=== PATIENT | male | born 1970 | race Caucasian/White ===

== ENCOUNTER 2017-01-08 11:53 | Emergency (ER) | payer MEDICARE, OTHER ==
[2017-01-08] MEDS ORDERED: SODIUM CHLORIDE 0.9% 1,000 ML IV STA (12:30)
[2017-01-08] MEDS ORDERED: cloNIDine HCL 0.2 MG TAB PO STA (12:31)
--- NOTE | 2017-01-08 12:40 | ED ---
Recheck HPI - General Chief Complaint: Recheck/Abnormal Lab/Rx Stated Complaint: HYPERTENSION Time Seen by Provider: 01/08/17 12:09 Source: patient, RN notes reviewed, old records reviewed Mode of arrival: wheelchair Limitations: no limitations - History of Present Illness Initial Comments: 46-year-old male presents emergency Department chief complaint of hypertensive episode today while at his orthopedic doctor's office. Patient reports swelling to his blood pressure was 156/124. Patient reports that he is relatively healthy and never has had a history of high blood pressure. He reports that he was being seen for his left for a follow-up appointment. Patient reports he does have a mild headache. Denies any recent fever or chills. Denies any chest pain or shortness of breath or peripheral paresthesias. He reports that his vision has been normal. Patient denies any recent fever, chills, shortness of breath, chest pain, back pain, abdominal pain , nausea vomiting, numbness or tingling, dysuria or hematuria, constipation or diarrhea, headaches or visual changes, or any other current symptoms - Related Data Home Medications Medication Instructions Recorded Confirmed Omeprazole [PriLOSEC] 40 mg PO AC-BRKFST 11/16/14 01/08/17 Previous Rx's Medication Instructions Recorded amLODIPine [Norvasc] 5 mg PO DAILY #14 tab 01/08/17 Allergies Allergy/AdvReac Type Severity Reaction Status Date / Time ciprofloxacin [From Cipro] Allergy Rash/Hives Verified 01/08/17 12:35 ciprofloxacin HCl Allergy Rash/Hives Verified 01/08/17 12:35 [From Cipro] coconut Allergy Unknown Verified 01/08/17 12:35 ibuprofen [From Motrin] Allergy Itching Verified 01/08/17 12:35 kiwi Allergy Unknown Verified 01/08/17 12:35 Review of Systems ROS Statement: Those systems with pertinent positive or pertinent negative responses have been documented in the HPI. ROS Other: All systems not noted in ROS Statement are negative. Past Medical History Additional Past Medical History / Comment(s): back pain History of Any Multi-Drug Resistant Organisms: None Reported Additional Past Surgical History / Comment(s): back surg, knee surgery Past Psychological History: No Psychological Hx Reported Smoking Status: Former smoker Past Alcohol Use History: Occasional Past Drug Use History: None Reported General Exam - General Exam Comments Initial Comments: 46-year-old male. Patient is pleasant. No acute distress. Limitations: no limitations General appearance: alert, in no apparent distress Head exam: Present: atraumatic, normocephalic, normal inspection Eye exam: Present: normal appearance, PERRL, EOMI. Absent: scleral icterus, conjunctival injection, periorbital swelling ENT exam: Present: normal exam, normal oropharynx, mucous membranes moist Neck exam: Present: normal inspection. Absent: tenderness, meningismus, lymphadenopathy Respiratory exam: Present: normal lung sounds bilaterally. Absent: respiratory distress, wheezes, rales, rhonchi, stridor Cardiovascular Exam: Present: regular rate, normal rhythm, normal heart sounds. Absent: systolic murmur, diastolic murmur, rubs, gallop, clicks GI/Abdominal exam: Present: soft, normal bowel sounds. Absent: distended, tenderness, guarding, rebound, rigid Extremities exam: Present: normal inspection, full ROM, normal capillary refill. Absent: tenderness, pedal edema, joint swelling, calf tenderness Back exam: Present: normal inspection Neurological exam: Present: alert, oriented X3, CN II-XII intact Psychiatric exam: Present: normal affect, normal mood Skin exam: Present: warm, dry, intact, normal color. Absent: rash Course Vital Signs 01/08/17 01/08/17 01/08/17 12:00 13:37 14:31 Temperature 98.6 F Pulse Rate 89 102 H Respiratory 17 20 Rate Blood Pressure 163/110 140/86 131/83 O2 Sat by Pulse 99 99 Oximetry Medical Decision Making - Medical Decision Making 46-year-old male presents emergency Department chief complaint of hypertensive episode today while at his orthopedic doctor's office. Patient reports swelling to his blood pressure was 156/124. Patient reports that he is relatively healthy and never has had a history of high blood pressure. He reports that he was being seen for his left for a follow-up appointment. Patient reports he does have a mild headache. Denies any recent fever or chills. Denies any chest pain or shortness of breath or peripheral paresthesias. No meningismus or neck pain. He reports that his vision has been normal. Patient's lab work was reviewed and negative for any acute process. Chest x-ray shows mild right-sided atelectasis or infiltrate and to correlate clinically. He has no cough or fever. Patient CT brain was also reviewed and negative. Patient does report still mild headache remaining a 5 out of 10. Patient will be given Toradol and Benadryl for the migraine. Patient reports that he has had toradol before and has had no problem with this , including hives. Patient understands treatment plan will comply. Discussed with the patient on low dose of Norvasc for blood pressure and to follow-up with his primary care provider. Patient patient history plan will comply. Return parameters were discussed. - Lab Data Result diagrams: 01/08/17 13:26 01/08/17 13:26 Lab Results 01/08/17 01/08/17 01/08/17 Range/Units 13:26 13:26 13:26 WBC 5.8 (3.8-10.6) k/uL RBC 5.42 (4.30-5.90) m/uL Hgb 17.0 (13.0-17.5) gm/dL Hct 47.9 (39.0-53.0) % MCV 88.4 (80.0-100.0) fL MCH 31.4 (25.0-35.0) pg MCHC 35.5 (31.0-37.0) g/dL RDW 13.3 (11.5-15.5) % Plt Count 148 L (150-450) k/uL Neutrophils % 58 % Lymphocytes % 29 % Monocytes % 8 % Eosinophils % 2 % Basophils % 1 % Neutrophils # 3.4 (1.3-7.7) k/uL Lymphocytes # 1.7 (1.0-4.8) k/uL Monocytes # 0.4 (0-1.0) k/uL Eosinophils # 0.1 (0-0.7) k/uL Basophils # 0.1 (0-0.2) k/uL PT (9.0-12.0) sec INR (<1.1) APTT (22.0-30.0) sec Sodium 140 (137-145) mmol/L Potassium 4.2 (3.5-5.1) mmol/L Chloride 106 (98-107) mmol/L Carbon Dioxide 23 (22-30) mmol/L Anion Gap 11 mmol/L BUN 12 (9-20) mg/dL Creatinine 0.92 (0.66-1.25) mg/dL Est GFR (MDRD) Af Amer >60 (>60 ml/min/1.73 sqM) Est GFR (MDRD) Non-Af >60 (>60 ml/min/1.73 sqM) Glucose 101 H (74-99) mg/dL Calcium 9.8 (8.4-10.2) mg/dL Magnesium 1.6 (1.6-2.3) mg/dL Total Bilirubin 0.9 (0.2-1.3) mg/dL AST 68 H (17-59) U/L ALT 93 H (21-72) U/L Alkaline Phosphatase 74 (38-126) U/L Total Creatine Kinase 106 (55-170) U/L CK-MB (CK-2) 0.9 (0.0-2.4) ng/mL CK-MB (CK-2) Rel Index 0.8 Troponin I <0.012 (0.000-0.034) ng/mL Total Protein 7.3 (6.3-8.2) g/dL Albumin 4.2 (3.5-5.0) g/dL 01/08/17 Range/Units 13:26 WBC (3.8-10.6) k/uL RBC (4.30-5.90) m/uL Hgb (13.0-17.5) gm/dL Hct (39.0-53.0) % MCV (80.0-100.0) fL MCH (25.0-35.0) pg MCHC (31.0-37.0) g/dL RDW (11.5-15.5) % Plt Count (150-450) k/uL Neutrophils % % Lymphocytes % % Monocytes % % Eosinophils % % Basophils % % Neutrophils # (1.3-7.7) k/uL Lymphocytes # (1.0-4.8) k/uL Monocytes # (0-1.0) k/uL Eosinophils # (0-0.7) k/uL Basophils # (0-0.2) k/uL PT 12.1 H (9.0-12.0) sec INR 1.2 (<1.1) APTT 24.1 (22.0-30.0) sec Sodium (137-145) mmol/L Potassium (3.5-5.1) mmol/L Chloride (98-107) mmol/L Carbon Dioxide (22-30) mmol/L Anion Gap mmol/L BUN (9-20) mg/dL Creatinine (0.66-1.25) mg/dL Est GFR (MDRD) Af Amer (>60 ml/min/1.73 sqM) Est GFR (MDRD) Non-Af (>60 ml/min/1.73 sqM) Glucose (74-99) mg/dL Calcium (8.4-10.2) mg/dL Magnesium (1.6-2.3) mg/dL Total Bilirubin (0.2-1.3) mg/dL AST (17-59) U/L ALT (21-72) U/L Alkaline Phosphatase (38-126) U/L Total Creatine Kinase (55-170) U/L CK-MB (CK-2) (0.0-2.4) ng/mL CK-MB (CK-2) Rel Index Troponin I (0.000-0.034) ng/mL Total Protein (6.3-8.2) g/dL Albumin (3.5-5.0) g/dL 01/08/17 12:40 EKG shows normal sinus rhythm. Incomplete right bundle brody block. Injury of 78 bpm. NV interval 134 ms. QRS duration 106 ms. QT QTC 370/4:[address] elevation or T-wave inversion. No evidence of atrial or ventricular arrhythmias. - Radiology Data Radiology results: report reviewed CT brain is negative for any acute process. Chest x-ray was reviewed and shows mild atelectasis. Disposition Clinical Impression: Hypertension, Headache Disposition: HOME SELF-CARE Condition: Good Instructions: Hypertension (ED) Additional Instructions: Patient is to follow-up with primary care provider. Patient can take Tylenol for further headaches. Patient advised to take the hypertensive medication and return to the emergency department if there is any alarming signs or symptoms occur. Prescriptions: amLODIPine [Norvasc] 5 mg PO DAILY #14 tab Referrals: None,Stated [Primary Care Provider] - 1-2 days Mayte John MD [STAFF PHYSICIAN] - 1-2 days Scott Marcial MD [STAFF PHYSICIAN] - 1-2 days Time of Disposition: 14:51
[2017-01-08 13:47] LABS: Basophils # (A) 0.1 k/uL (0-0.2); Basophils % (A) 1 %; CH 31.7; Eosinophils # (A) 0.1 k/uL (0-0.7); Eosinophils % (A) 2 %; HCT 47.9 % (39.0-53.0); HDW 2.66; Luc # (Auto) 0.14; Luc % (Auto) 2; Lymphocytes # (A) 1.7 k/uL (1.0-4.8); Lymphocytes % (A) 29 %; MCH 31.4 pg (25.0-35.0); MCHC 35.5 g/dL (31.0-37.0); MCV 88.4 fL (80.0-100.0); Mean Platelet Volume 7.5; Monocytes # (A) 0.4 k/uL (0-1.0); Monocytes % (A) 8 %; Neutrophils # (A) 3.4 k/uL (1.3-7.7); Neutrophils % (A) 58 %; RBC 5.42 m/uL (4.30-5.90); RDW 13.3 % (11.5-15.5); WBC 5.8 k/uL (3.8-10.6); WBC (Perox) 5.88
[2017-01-08 13:57] LABS: Partial Thromboplastin Time 24.1 sec (22.0-30.0)
[2017-01-08 13:59] LABS: INR 1.2 (<1.1); Prothrombin Time 12.1 sec (9.0-12.0)
--- NOTE | 2017-01-08 14:01 | XR ---
EXAMINATION TYPE: XR chest 2V DATE OF EXAM: 01/08/2017 COMPARISON: 08/24/2009 TECHNIQUE: PA and lateral views submitted. HISTORY: Chest pain FINDINGS: There are subsegmental right perihilar consolidation. No pleural effusion or pneumothorax. Left lung clear. Heart size is normal. IMPRESSION: 1. Right perihilar area of atelectasis or infiltrate correlate clinically.
[2017-01-08 14:07] LABS: ALT 93 U/L (21-72); AST 68 U/L (17-59); Alkaline Phosphatase 74 U/L (38-126); Anion Gap 11 mmol/L; Blood Urea Nitrogen 12 mg/dL (9-20); Calcium 9.8 mg/dL (8.4-10.2); Carbon Dioxide 23 mmol/L (22-30); Chloride 106 mmol/L (98-107); Glucose 101 mg/dL (74-99); Magnesium 1.6 mg/dL (1.6-2.3); Non-African American GFR(MDRD) >60 (>60 ml/min/1.73 sqM); Potassium 4.2 mmol/L (3.5-5.1); Sodium 140 mmol/L (137-145); Total Bilirubin 0.9 mg/dL (0.2-1.3); Total Protein 7.3 g/dL (6.3-8.2)
[2017-01-08 14:24] LABS: Creatine Kinase 106 U/L (55-170)
--- NOTE | 2017-01-08 14:31 | CT ---
EXAMINATION TYPE: CT brain wo con DATE OF EXAM: 01/08/2017 COMPARISON: Prior CT brain 06/15/2012 HISTORY: JIMENEZ and HTN CT DLP: 1017.9 mGycm. Automated Exposure Control for Dose Reduction was Utilized. TECHNIQUE: CT scan of the head is performed without contrast. FINDINGS: There is no acute intracranial hemorrhage, mass effect, or midline shift identified. The ventricles and sulci are within normal limits in size. The globes are intact and the visualized sin uses are clear. IMPRESSION: No acute intracranial hemorrhage, mass effect, or midline shift is seen.
[2017-01-08 14:37] LABS: Creatine Kinase MB 0.9 ng/mL (0.0-2.4); Troponin I <0.012 ng/mL (0.000-0.034)
[2017-01-08] MEDS ORDERED: diphenhydrAMINE 50 MG/ML 1 ML VIAL IVP STA (14:44)
[2017-01-08] MEDS ORDERED: KETOROLAC 30 MG/ML 1 ML VIAL IVP STA (14:44)
[2017-01-08 15:00] VITALS: BP 119/81; PULSE 67; RESP 18; TEMP 97.7
== END 2017-01-08 15:15 | disposition home or self-care (01) ==
LOC: EC 11:53
DX: I10 Essential (primary) hypertension (principal); R51 Headache; I45.10 Unspecified right bundle-branch block; Z87.891 Personal history of nicotine dependence; Z79.899 Other long term (current) drug therapy; Z88.1 Allergy status to other antibiotic agents; Z88.6 Allergy status to analgesic agent; Z91.018 Allergy to other foods
CPT/HCPCS: 36415; 93005; 80053; 82550; 82553; 83735; 84484; 85025; 85610; 85730; 71020; 70450; 99284; 96374; 96375; 96361; J1200; J1885

== ENCOUNTER 2017-01-09 11:07 | Emergency (ER) | payer MEDICARE, OTHER ==
[2017-01-09] MEDS ORDERED: ACETAMINOPHEN TAB 500 MG TAB PO STA (11:42)
[2017-01-09 12:38] VITALS: RESP 18
--- NOTE | 2017-01-09 13:01 | ED ---
General Adult HPI - General Chief complaint: Recheck/Abnormal Lab/Rx Stated complaint: blood pressure-revisit Time Seen by Provider: 01/09/17 11:31 Source: patient, RN notes reviewed, old records reviewed Mode of arrival: wheelchair Limitations: no limitations - History of Present Illness Initial comments: This is a 46 year old male for a revisit for HTN. He reports he took the prescribed norvasc today but noticed that his blood pressure was elevated to 180 /100 when getting up to let the dog out.Patient reports that he took it prior to then and it was normal 120/85. Patient states that when he stood up he got a headache and felt strange and took his blood pressure. Patient denies any other symptoms at this time besides a mild headache, 5/10. Patient received full work up yesterday including CT brain, blood work and EKG which were all negative. - Related Data Home Medications Medication Instructions Recorded Confirmed Omeprazole [PriLOSEC] 40 mg PO AC-BRKFST 11/16/14 01/09/17 Previous Rx's Medication Instructions Recorded amLODIPine [Norvasc] 5 mg PO DAILY #14 tab 01/08/17 Allergies Allergy/AdvReac Type Severity Reaction Status Date / Time ciprofloxacin [From Cipro] Allergy Rash/Hives Verified 01/09/17 11:26 ciprofloxacin HCl Allergy Rash/Hives Verified 01/09/17 11:26 [From Cipro] coconut Allergy Unknown Verified 01/09/17 11:26 ibuprofen [From Motrin] Allergy Itching Verified 01/09/17 11:26 kiwi Allergy Unknown Verified 01/09/17 11:26 Review of Systems ROS Statement: Those systems with pertinent positive or pertinent negative responses have been documented in the HPI. ROS Other: All systems not noted in ROS Statement are negative. Past Medical History Past Medical History: Hypertension Additional Past Medical History / Comment(s): back pain History of Any Multi-Drug Resistant Organisms: None Reported Additional Past Surgical History / Comment(s): back surg, knee surgery Past Psychological History: No Psychological Hx Reported Smoking Status: Former smoker Past Alcohol Use History: Daily Past Drug Use History: None Reported General Exam - General Exam Comments Initial Comments: 46 year old male, no distress. Limitations: no limitations General appearance: alert, in no apparent distress Head exam: Present: atraumatic, normocephalic, normal inspection Eye exam: Present: normal appearance, PERRL, EOMI. Absent: scleral icterus, conjunctival injection, periorbital swelling ENT exam: Present: normal exam, mucous membranes moist Neck exam: Present: normal inspection. Absent: tenderness, meningismus, lymphadenopathy Respiratory exam: Present: normal lung sounds bilaterally. Absent: respiratory distress, wheezes, rales, rhonchi, stridor Cardiovascular Exam: Present: regular rate, normal rhythm, normal heart sounds. Absent: systolic murmur, diastolic murmur, rubs, gallop, clicks GI/Abdominal exam: Present: soft, normal bowel sounds. Absent: distended, tenderness, guarding, rebound, rigid Extremities exam: Present: normal inspection, full ROM, normal capillary refill. Absent: tenderness, pedal edema, joint swelling, calf tenderness Back exam: Present: normal inspection Neurological exam: Present: alert, oriented X3, CN II-XII intact Psychiatric exam: Present: normal affect, normal mood Course Vital Signs 01/09/17 01/09/17 01/09/17 11:09 12:00 12:37 Temperature 98.0 F 98.4 F Pulse Rate 103 H 70 Pulse Rate [ 84 Sitting] Pulse Rate [ 87 Standing] Pulse Rate [ 72 Supine] Respiratory 20 18 Rate Blood Pressure 167/106 133/82 Blood Pressure 143/71 [Sitting] Blood Pressure 150/100 [Standing] Blood Pressure 130/91 [Supine] O2 Sat by Pulse 99 97 Oximetry 01/09/17 15:21 Temperature 98 F Pulse Rate 86 Pulse Rate [ Sitting] Pulse Rate [ Standing] Pulse Rate [ Supine] Respiratory 18 Rate Blood Pressure 143/94 Blood Pressure [Sitting] Blood Pressure [Standing] Blood Pressure [Supine] O2 Sat by Pulse 98 Oximetry Medical Decision Making - Medical Decision Making This is a 46 year old male for a revisit for HTN. He reports he took the prescribed norvasc today but noticed that his blood pressure was elevated to 180 /100 when getting up to let the dog out.Patient reports that he took it prior to then and it was normal 120/85. Patient states that when he stood up he got a headache and felt strange and took his blood pressure. Patient denies any other symptoms at this time besides a mild headache, 5/10. Patient received full work up yesterday including CT brain, blood work and EKG which were all negative. Patient orthostatic pressures were positive and increasing when standing up, whereas usually it would be opposite than usual vagal changes. Patient case discussed with Dr. Hansen, and he dischssed repeating lab work. Patient labs were negative. Discussed with Dr. Marin and he and I educated patient on following up with PCP for regards to BP management and to not stress over one BP measurement. Patient agrees to continue norvac and follow up with PCP. Return parameters discussed. - Lab Data Result diagrams: 01/09/17 13:21 01/09/17 13:21 Lab Results 01/09/17 01/09/17 01/09/17 Range/Units 13:21 13:21 13:21 WBC 7.2 (3.8-10.6) k/uL RBC 5.32 (4.30-5.90) m/uL Hgb 16.7 (13.0-17.5) gm/dL Hct 47.1 (39.0-53.0) % MCV 88.6 (80.0-100.0) fL MCH 31.5 (25.0-35.0) pg MCHC 35.5 (31.0-37.0) g/dL RDW 13.0 (11.5-15.5) % Plt Count 144 L (150-450) k/uL Neutrophils % 63 % Lymphocytes % 27 % Monocytes % 6 % Eosinophils % 2 % Basophils % 1 % Neutrophils # 4.6 (1.3-7.7) k/uL Lymphocytes # 1.9 (1.0-4.8) k/uL Monocytes # 0.4 (0-1.0) k/uL Eosinophils # 0.1 (0-0.7) k/uL Basophils # 0.0 (0-0.2) k/uL PT (9.0-12.0) sec INR (<1.1) APTT (22.0-30.0) sec D-Dimer (<0.60) mg/L FEU Sodium 139 (137-145) mmol/L Potassium 4.3 (3.5-5.1) mmol/L Chloride 105 (98-107) mmol/L Carbon Dioxide 24 (22-30) mmol/L Anion Gap 10 mmol/L BUN 14 (9-20) mg/dL Creatinine 1.00 (0.66-1.25) mg/dL Est GFR (MDRD) Af Amer >60 (>60 ml/min/1.73 sqM) Est GFR (MDRD) Non-Af >60 (>60 ml/min/1.73 sqM) Glucose 103 H (74-99) mg/dL Calcium 9.5 (8.4-10.2) mg/dL Magnesium 1.6 (1.6-2.3) mg/dL Total Bilirubin 0.9 (0.2-1.3) mg/dL AST 77 H (17-59) U/L ALT 100 H (21-72) U/L Alkaline Phosphatase 66 (38-126) U/L Total Creatine Kinase 75 (55-170) U/L CK-MB (CK-2) 0.7 (0.0-2.4) ng/mL CK-MB (CK-2) Rel Index 0.9 Troponin I <0.012 (0.000-0.034) ng/mL Total Protein 6.6 (6.3-8.2) g/dL Albumin 3.9 (3.5-5.0) g/dL 01/09/17 Range/Units 13:21 WBC (3.8-10.6) k/uL RBC (4.30-5.90) m/uL Hgb (13.0-17.5) gm/dL Hct (39.0-53.0) % MCV (80.0-100.0) fL MCH (25.0-35.0) pg MCHC (31.0-37.0) g/dL RDW (11.5-15.5) % Plt Count (150-450) k/uL Neutrophils % % Lymphocytes % % Monocytes % % Eosinophils % % Basophils % % Neutrophils # (1.3-7.7) k/uL Lymphocytes # (1.0-4.8) k/uL Monocytes # (0-1.0) k/uL Eosinophils # (0-0.7) k/uL Basophils # (0-0.2) k/uL PT 11.2 (9.0-12.0) sec INR 1.1 (<1.1) APTT 23.3 (22.0-30.0) sec D-Dimer 0.37 (<0.60) mg/L FEU Sodium (137-145) mmol/L Potassium (3.5-5.1) mmol/L Chloride (98-107) mmol/L Carbon Dioxide (22-30) mmol/L Anion Gap mmol/L BUN (9-20) mg/dL Creatinine (0.66-1.25) mg/dL Est GFR (MDRD) Af Amer (>60 ml/min/1.73 sqM) Est GFR (MDRD) Non-Af (>60 ml/min/1.73 sqM) Glucose (74-99) mg/dL Calcium (8.4-10.2) mg/dL Magnesium (1.6-2.3) mg/dL Total Bilirubin (0.2-1.3) mg/dL AST (17-59) U/L ALT (21-72) U/L Alkaline Phosphatase (38-126) U/L Total Creatine Kinase (55-170) U/L CK-MB (CK-2) (0.0-2.4) ng/mL CK-MB (CK-2) Rel Index Troponin I (0.000-0.034) ng/mL Total Protein (6.3-8.2) g/dL Albumin (3.5-5.0) g/dL 01/09/17 20:33 EKG shows normal sinus rhythm. Possible left atrial enlargement. Injury of 68 beats were minute. [place] interval 134 ms. QRS duration 104 ms. QT QTc is 400/ 425 ms. No evidence of ST elevation or T-wave inversion. No ventricular arrhythmias. Disposition Clinical Impression: Hypertension Disposition: HOME SELF-CARE Condition: Good Instructions: Hypertension (ED) Additional Instructions: Patient advised to take Tylenol and to rest whenever you're having a headache. Denies following up with a primary care provider or phlebotomy technologist if still concern. Continue to taking Norvasc. Return to the emergency department if any alarming signs or symptoms occur. Referrals: Mayte John MD [STAFF PHYSICIAN] - 1-2 days Time of Disposition: 13:00
[2017-01-09] MEDS ORDERED: SODIUM CHLORIDE 0.9% 1,000 ML IV STA (13:03)
[2017-01-09 13:39] LABS: Basophils % (A) 1 %; CH 31.7; CHCM 35.9; Eosinophils # (A) 0.1 k/uL (0-0.7); Eosinophils % (A) 2 %; HCT 47.1 % (39.0-53.0); HDW 2.66; HGB 16.7 gm/dL (13.0-17.5); Luc # (Auto) 0.14; Luc % (Auto) 2; Lymphocytes # (A) 1.9 k/uL (1.0-4.8); Lymphocytes % (A) 27 %; MCH 31.5 pg (25.0-35.0); MCHC 35.5 g/dL (31.0-37.0); MCV 88.6 fL (80.0-100.0); Mean Platelet Volume 7.8; Monocytes # (A) 0.4 k/uL (0-1.0); Monocytes % (A) 6 %; Neutrophils # (A) 4.6 k/uL (1.3-7.7); Neutrophils % (A) 63 %; RBC 5.32 m/uL (4.30-5.90); WBC 7.2 k/uL (3.8-10.6); WBC (Perox) 7.16
[2017-01-09 13:54] LABS: ALT 100 U/L (21-72); AST 77 U/L (17-59); Alkaline Phosphatase 66 U/L (38-126); Anion Gap 10 mmol/L; Blood Urea Nitrogen 14 mg/dL (9-20); Calcium 9.5 mg/dL (8.4-10.2); Carbon Dioxide 24 mmol/L (22-30); Chloride 105 mmol/L (98-107); Glucose 103 mg/dL (74-99); Magnesium 1.6 mg/dL (1.6-2.3); Non-African American GFR(MDRD) >60 (>60 ml/min/1.73 sqM); Potassium 4.3 mmol/L (3.5-5.1); Sodium 139 mmol/L (137-145); Total Bilirubin 0.9 mg/dL (0.2-1.3); Total Protein 6.6 g/dL (6.3-8.2)
[2017-01-09 13:58] LABS: INR 1.1 (<1.1); Partial Thromboplastin Time 23.3 sec (22.0-30.0); Prothrombin Time 11.2 sec (9.0-12.0)
[2017-01-09 14:09] LABS: Creatine Kinase 75 U/L (55-170)
[2017-01-09 14:21] LABS: Creatine Kinase MB 0.7 ng/mL (0.0-2.4); Troponin I <0.012 ng/mL (0.000-0.034)
[2017-01-09 15:22] VITALS: BP 143/94; PULSE 86; TEMP 98
== END 2017-01-09 15:21 | disposition home or self-care (01) ==
LOC: EC 11:07
DX: I10 Essential (primary) hypertension (principal); Z87.891 Personal history of nicotine dependence; Z88.1 Allergy status to other antibiotic agents; Z88.6 Allergy status to analgesic agent; Z91.018 Allergy to other foods; Z79.899 Other long term (current) drug therapy
CPT/HCPCS: 36415; 80053; 82550; 82553; 83735; 84484; 85025; 85379; 85610; 85730; 96360; 99284

== ENCOUNTER 2017-08-24 22:47 | Inpatient (IN) | payer MEDICARE, OTHER ==
[2017-08-24] MEDS ORDERED: ACETAMINOPHEN TAB 500 MG TAB PO STA (23:03)
[2017-08-24] MEDS ORDERED: VANCOMYCIN IV PER PHARMACY 1 EACH MISC MISCELLANE PRN (23:08)
[2017-08-24] MEDS ORDERED: SODIUM CHLORIDE 0.9% 1,000 ML IV STA (23:08)
[2017-08-24] MEDS ORDERED: KETOROLAC 30 MG/ML 1 ML VIAL IVP STA (23:11)
--- NOTE | 2017-08-24 23:14 | ED ---
General Adult HPI <Ar Marin - Last Filed: 08/25/17 01:04> - General Source: patient, RN notes reviewed Mode of arrival: ambulatory Limitations: no limitations <Melissa Johnson - Last Filed: 08/25/17 01:26> - General Chief complaint: Extremity Injury, Upper Stated complaint: Hand Swelling/Pin Time Seen by Provider: 08/24/17 22:54 - History of Present Illness Initial comments: This is a 47-year-old male who presents to the emergency department with chief complaint of left hand swelling and pain. Patient states that he was seen by Dr. Rob Howe on August 08 for a trigger release surgery of his left thumb. Patient states that 3 days later he was still in a lot of pain and he noticed redness of his entire hand. He presented to Dr. Howe's office and was prescribed a Medrol Dosepak and Bactrim. He was also given cortisone injections into the hand. Patient states that he had improvement in his symptoms and that approximately 6 days ago his hand was no longer painful or warm. He states that yesterday he had full function of his left hand. Patient states that he woke up this morning at approximately 5 AM and had excruciating pain in his left hand. He states that he is unable to flex or extend his fingers due to the pain. Patient also reports feeling chills. Denies shortness of breath or chest pain, abdominal pain, nausea or vomiting. (Melissa Johnson) - Related Data Home Medications Medication Instructions Recorded Confirmed Omeprazole [PriLOSEC] 40 mg PO DAILY 11/16/14 08/24/17 Allergies Allergy/AdvReac Type Severity Reaction Status Date / Time ciprofloxacin [From Cipro] Allergy Rash/Hives Verified 08/24/17 23:09 ciprofloxacin HCl Allergy Rash/Hives Verified 08/24/17 23:09 [From Cipro] coconut Allergy Unknown Verified 08/24/17 23:09 ibuprofen [From Motrin] Allergy Itching Verified 08/24/17 23:09 kiwi Allergy Unknown Verified 08/24/17 23:09 Review of Systems ROS Other: All systems not noted in ROS Statement are negative. <Ar Marin - Last Filed: 08/25/17 01:04> ROS Other: All systems not noted in ROS Statement are negative. <Melissa Johnson - Last Filed: 08/25/17 01:26> ROS Statement: Those systems with pertinent positive or pertinent negative responses have been documented in the HPI. Past Medical History Past Medical History: Hypertension Additional Past Medical History / Comment(s): back pain History of Any Multi-Drug Resistant Organisms: None Reported Additional Past Surgical History / Comment(s): back surg, knee surgery,trigger relase surger 08/08/17 Past Psychological History: No Psychological Hx Reported Smoking Status: Former smoker Past Alcohol Use History: Daily Past Drug Use History: None Reported <Melissa Johnson - Last Filed: 08/25/17 01:26> General Exam <Ar Marin - Last Filed: 08/25/17 01:04> Limitations: no limitations <Melissa Johnson - Last Filed: 08/25/17 01:26> - General Exam Comments Initial Comments: General: Awake and alert, well-developed; in no apparent distress. is at bedside. HEENT: Head atraumatic, normocephalic. Pupils are equal, round and reactive to light. Extraocular movements intact. Oropharynx moist without erythema or exudate. Neck: Supple. Normal ROM. Cardiovascular: Regular rate and rhythm. No murmurs, rubs or gallops. Chest symmetrical. Respiratory: Lungs clear to auscultation bilaterally. No wheezes, rales or rhonchi. Normal respiratory effort with no use of accessory muscles. Musculoskeletal: Limited active range of motion of all digits on the left hand due to pain. Digits 1 and 5 are warm, erythematous and swollen. Digits 2-4 are normal in appearance. There is tenderness on palpation of the entire left hand and wrist. Sensation is intact. Radial pulses are 2+ equal and palpable bilaterally. Incision site from previous trigger release surgery at base of left thumb does appear well-healed. Skin: [place], warm and dry. Neurological: Alert and oriented x3. CN II-XII grossly intact. Speech is fluent and answers are appropriate. No focal neuro deficits. Psychiatric: Normal mood and affect. No overt signs of depression or anxiety noted. (Melissa Johnson) Vital Signs 08/24/17 08/24/17 08/25/17 22:49 23:51 01:13 Temperature 100.1 F H 99.9 F H Pulse Rate 99 96 54 L Respiratory 18 18 18 Rate Blood Pressure 145/98 158/94 135/90 O2 Sat by Pulse 100 97 100 Oximetry Medical Decision Making - Lab Data Result diagrams: 08/24/17 23:32 08/24/17 23:32 <TaniaAr Micky - Last Filed: 08/25/17 01:04> - Lab Data Result diagrams: 08/24/17 23:32 08/24/17 23:32 - Radiology Data Radiology results: report reviewed <Melissa Johnson - Last Filed: 08/25/17 01:26> - Medical Decision Making Case discussed with Dr. Marino, patient will be admitted for IV antibiotics and orthopedic evaluation. There is concern for deep space infection in the hand with limited range of motion of all 5 digits, soft tissue swelling, and erythema. Patient does have elevated white blood cell count and elevated CRP. He will be continued on ceftriaxone and vancomycin. Blood cultures are pending. (Ar Marin) This is a 47-year-old male who presents to the emergency department for evaluation of left hand pain and swelling. Patient underwent a trigger release surgery of his left thumb on August 08. Since that time he has been struggling with pain, redness, swelling and decreased range of motion of his left hand. Patient was febrile on presentation to the emergency department. His left hand is markedly swollen, erythematous and tender. Patient is unable to fully extend or flex the digits on his left hand due to the pain. X-ray of the left hand revealed no evidence of gas or other acute abnormalities. Patient does have a white blood cell count of 13.3 with a left shift at 10.0. CRP is 24.1. Patient was started on broad-spectrum antibiotics, Rocephin and vancomycin.patient will be admitted to Dr. Rob Howe with diagnosis of left hand tenosynovitis. Rocephin and vancomycin will be continued. Patient is to apply warm compresses. Findings and plan were discussed with patient. He is in agreement and voices understanding. All questions answered. Blood cultures are pending. (Melissa Johnson) - Lab Data Lab Results 08/24/17 08/24/17 08/24/17 Range/Units 23:32 23:32 23:32 WBC 13.3 H (3.8-10.6) k/uL RBC 5.79 (4.30-5.90) m/uL Hgb 18.4 H (13.0-17.5) gm/dL Hct 53.6 H (39.0-53.0) % MCV 92.7 (80.0-100.0) fL MCH 31.8 (25.0-35.0) pg MCHC 34.3 (31.0-37.0) g/dL RDW 11.8 (11.5-15.5) % Plt Count 196 (150-450) k/uL Neutrophils % 75 % Lymphocytes % 16 % Monocytes % 6 % Eosinophils % 1 % Basophils % 1 % Neutrophils # 10.0 H (1.3-7.7) k/uL Lymphocytes # 2.2 (1.0-4.8) k/uL Monocytes # 0.8 (0-1.0) k/uL Eosinophils # 0.1 (0-0.7) k/uL Basophils # 0.1 (0-0.2) k/uL Sodium 137 (137-145) mmol/L Potassium 4.4 (3.5-5.1) mmol/L Chloride 98 (98-107) mmol/L Carbon Dioxide 24 (22-30) mmol/L Anion Gap 15 mmol/L BUN 15 (9-20) mg/dL Creatinine 1.00 (0.66-1.25) mg/dL Est GFR (MDRD) Af Amer >60 (>60 ml/min/1.73 sqM) Est GFR (MDRD) Non-Af >60 (>60 ml/min/1.73 sqM) Glucose 105 H (74-99) mg/dL Plasma Lactic Acid Rafi 1.9 (0.7-2.0) mmol/L Calcium 10.2 (8.4-10.2) mg/dL Total Bilirubin 0.7 (0.2-1.3) mg/dL AST 46 (17-59) U/L ALT 62 (21-72) U/L Alkaline Phosphatase 81 (38-126) U/L C-Reactive Protein 24.1 H (<10.0) mg/L Total Protein 8.3 H (6.3-8.2) g/dL Albumin 4.6 (3.5-5.0) g/dL - Radiology Data X-ray left hand findings: I see no fracture nor dislocation. Joint spaces are fairly normal. There are no erosions. Impression: Negative left hand exam. ( Melissa Johnson) Disposition <Ar Marin - Last Filed: 08/25/17 01:04> Time of Disposition: 01:26 <Melissa Johnson - Last Filed: 08/25/17 01:26> Clinical Impression: Tenosynovitis of left hand Disposition: ADMITTED IP TO THIS HOSP Condition: Stable Referrals: Gerardo Erwin MD [Primary Care Provider] - 1-2 days
[2017-08-24] MEDS ORDERED: cefTRIAXone IN SWFI 1,000 MG/10 ML SYRINGE IVP ONE (23:15)
[2017-08-24] MEDS ORDERED: VANCOMYCIN 1,500 MG in SODIUM CHLORIDE 0.9% 250 ML IVPB STA (23:26)
[2017-08-24] MEDS ORDERED: MORPHINE SULFATE 4 MG/ML SYRINGE IVP STA (23:41)
[2017-08-24 23:53] LABS: Basophils # (A) 0.1 k/uL (0-0.2); Basophils % (A) 1 %; Eosinophils # (A) 0.1 k/uL (0-0.7); Eosinophils % (A) 1 %; HCT 53.6 % (39.0-53.0); HGB 18.4 gm/dL (13.0-17.5); Lymphocytes # (A) 2.2 k/uL (1.0-4.8); Lymphocytes % (A) 16 %; MCH 31.8 pg (25.0-35.0); MCHC 34.3 g/dL (31.0-37.0); MCV 92.7 fL (80.0-100.0); Mean Platelet Volume 7.2; Monocytes # (A) 0.8 k/uL (0-1.0); Monocytes % (A) 6 %; Neutrophils % (A) 75 %; Platelet Count 196 k/uL (150-450); RBC 5.79 m/uL (4.30-5.90); RDW 11.8 % (11.5-15.5); WBC 13.3 k/uL (3.8-10.6)
[2017-08-25 00:07] LABS: ALT 62 U/L (21-72); AST 46 U/L (17-59); Albumin 4.6 g/dL (3.5-5.0); Alkaline Phosphatase 81 U/L (38-126); Anion Gap 15 mmol/L; Blood Urea Nitrogen 15 mg/dL (9-20); C Reactive Protein 24.1 mg/L (<10.0); Calcium 10.2 mg/dL (8.4-10.2); Carbon Dioxide 24 mmol/L (22-30); Chloride 98 mmol/L (98-107); Glucose 105 mg/dL (74-99); Potassium 4.4 mmol/L (3.5-5.1); Sodium 137 mmol/L (137-145); Total Bilirubin 0.7 mg/dL (0.2-1.3); Total Protein 8.3 g/dL (6.3-8.2)
--- NOTE | 2017-08-25 00:22 | XR ---
EXAMINATION TYPE: XR hand complete LT DATE OF EXAM: 08/24/2017 COMPARISON: NONE HISTORY: Left hand pain TECHNIQUE: 3 views FINDINGS: I see no fracture nor dislocation. Joint spaces are fairly normal. There are no erosions. IMPRESSION: Negative left hand exam.
[2017-08-25] MEDS ORDERED: ONDANSETRON 4 MG/2 ML VIAL IVP PRN (01:19)
[2017-08-25] MEDS ORDERED: ACETAMINOPHEN TAB 325 MG TAB PO PRN (01:19)
[2017-08-25] MEDS ORDERED: NALOXONE 0.4 MG/ML 1 ML VIAL IV PRN (01:19)
[2017-08-25] MEDS ORDERED: KETOROLAC 30 MG/ML 1 ML VIAL IVP PRN (01:19)
[2017-08-25] MEDS: SODIUM CHLORIDE 0.9% 1,000 ML IV SCH ×3 (01:52→21:24)
[2017-08-25] MEDS: MORPHINE SULFATE 4 MG/ML SYRINGE IV PRN ×4 (02:46→21:18)
[2017-08-25] MEDS: VANCOMYCIN 1,500 MG in SODIUM CHLORIDE 0.9% 250 ML IVPB SCH ×2 (08:18→20:41)
[2017-08-25] MEDS ORDERED: HYDROcodone/APAP 7.5-325MG 1 EACH TAB PO PRN (08:55)
--- NOTE | 2017-08-25 09:18 | P.HPOR ---
History of Present Illness H&P Date: 08/25/17 Chief Complaint: Left hand swelling and pain The patient is a 47-year-old male who is well-known to our office. He originally underwent a left trigger thumb release on 08/08/2017. The patient did well after surgery until he was seen on 08/14/2017 for increasing swelling to his left thumb and hand. There was a concern for compartment syndrome and he was sent for an MRA. The MRA was negative for vessel occlusion. He was prescribed Bactrim and Medrol at that time. He was also given a carpal tunnel injection. He was seen the next day on 08/15/2017 and he seemed to be improving at that time. Ar was then seen last week for increased swelling to his left little finger. He was given another cortisone injection. He seemed to be improving again until this past Friday. The patient noticed increased swelling and difficulty moving his fingers. He also had chills at home on Friday. He had to wait till his came home from work and he presented to the emergency department for further evaluation. He was found to have a low-grade fever at that time. He also had elevated white count and CRP. The patient was started on IV antibiotic therapy and admitted for further evaluation by orthopedic hand surgery. This morning, he states his hand has not improved since starting antibiotics. The patient's fingers are now swollen with limited range of motion. He denies fever, chills, rigors, shortness breath, chest pain, and abdominal pain this morning. He states that he is having numbness in the hand especially when he is lying down. Review of Systems Constitutional: Reports chills, Denies fever Cardiovascular: Denies chest pain, Denies shortness of breath Respiratory: Denies cough Gastrointestinal: Denies diarrhea, Denies nausea, Denies vomiting Musculoskeletal: left: hand pain, hand stiffness, hand swelling Past Medical History Past Medical History: Hypertension Additional Past Medical History / Comment(s): back pain History of Any Multi-Drug Resistant Organisms: None Reported Additional Past Surgical History / Comment(s): back surg, knee surgery,trigger relase surger 08/08/17 Past Anesthesia/Blood Transfusion Reactions: No Reported Reaction Past Psychological History: No Psychological Hx Reported Smoking Status: Former smoker Past Alcohol Use History: Daily Past Drug Use History: None Reported Medications and Allergies Home Medications Medication Instructions Recorded Confirmed Type Omeprazole [PriLOSEC] 40 mg PO DAILY 11/16/14 08/24/17 History Allergies Allergy/AdvReac Type Severity Reaction Status Date / Time ciprofloxacin [From Cipro] Allergy Rash/Hives Verified 08/24/17 23:09 ciprofloxacin HCl Allergy Rash/Hives Verified 08/24/17 23:09 [From Cipro] coconut Allergy Unknown Verified 08/24/17 23:09 ibuprofen [From Motrin] Allergy Itching Verified 08/24/17 23:09 kiwi Allergy Unknown Verified 08/24/17 23:09 Physical Examination The patient is a 47-year-old male who is in no acute distress. He is alert and oriented 3. Exam of the left hand reveals swelling and mild erythema to the palmar aspect of the hand. No open wounds are present. He has limited range of motion to all of his fingers and thumb. There is pain to palpation to the thenar muscle compartment and the left little finger. There is swelling to the volar wrist as well. No fluctuance or abscess present. There is no proximal red streaking present. Numbness and tingling is present to all fingers. Circulatory status is intact. Results - Labs Labs: Abnormal Lab Results - Last 24 Hours (Table) 08/24/17 08/24/17 Range/Units 23:32 23:32 WBC 13.3 H (3.8-10.6) k/uL Hgb 18.4 H (13.0-17.5) gm/dL Hct 53.6 H (39.0-53.0) % Neutrophils # 10.0 H (1.3-7.7) k/uL Glucose 105 H (74-99) mg/dL C-Reactive Protein 24.1 H (<10.0) mg/L Total Protein 8.3 H (6.3-8.2) g/dL H & H 08/24/17 Range/Units 23:32 Hgb 18.4 H (13.0-17.5) gm/dL Hct 53.6 H (39.0-53.0) % Result Diagrams: 08/24/17 23:32 08/24/17 23:32 - Diagnostic results Wrist/Hand x-ray: image reviewed (No acute fractures, deformities, or arthritic changes present.) Assessment and Plan (1) Tenosynovitis of left hand Current Visit: Yes Status: Acute Code(s): M65.9 - SYNOVITIS AND TENOSYNOVITIS, UNSPECIFIED SNOMED Code(s): 8131737513034461 (2) Swelling of left hand Current Visit: Yes Status: Acute Code(s): M79.89 - OTHER SPECIFIED SOFT TISSUE DISORDERS SNOMED Code(s): 163686983 Plan: The clinical findings were discussed with the patient. The case was also discussed with Dr. Rob Howe. Continue IV antibiotics. We will add IV Solu-Medrol. Consult infectious disease, Dr. Fontenot for further evaluation. We will obtain a left hand MRI to rule out fluid collection or abscess in the deep compartments of the hand. An I&D may be needed if he does not improve in the next 24 hours and pending MRI results. He may eat today. Continue pain control. Elevate left hand above heart. We will continue to follow patient closely and make further recommendations as needed.
[2017-08-25] MEDS: PANTOPRAZOLE 40 MG TABLET PO SCH (09:40)
[2017-08-25] MEDS: methylPREDNISolone SOD SUCCI 125 MG/2 ML VIAL IV SCH ×3 (09:40→18:24)
[2017-08-25] MEDS: HYDROcodone/APAP 7.5-325MG 1 EACH TAB PO PRN ×2 (14:18→20:00)
--- NOTE | 2017-08-25 18:59 | MR ---
EXAMINATION TYPE: MR hand LT wo/w con DATE OF EXAM: 08/25/2017 COMPARISON: NONE HISTORY: Lt thumb swelling, limited movement, possible infection; S/P surgery for trigger finger 2 we eks ago CONTRAST: Standard multiplanar, multisequence MRI departmental protocol utilizing 10 mL intravenous Gadavist ga dolinium contrast. FINDINGS: There is abnormal fluid surrounding the flexor tendons of the wrist at the level of the dis israel radius and also at the proximal metacarpals. There is some apparent mild enhancement around the f lexor tendon of the thumb. There is also less enhancement around the other flexor tendons of the fing ers. I see no focal bone destruction. There is a mild wrist joint effusion. The carpal bones are inta ct. There is no evidence of a fracture. Intercarpal joint spaces are fairly normal. Metacarpals have normal signal pattern without evidence of edema. The extensor tendons of the wrist appear intact. I d o not see a tendon tear. There is no retraction. IMPRESSION: There is moderate fluid around the flexor tendons of the hand and wrist consistent with significant t enosynovitis. There is also enhancement around the tendons and more around the flexor tendon of the t humb that raises the possibility of infection. No evidence of osteomyelitis. Mild wrist joint effusion with fluid seen around the scaphoid bone. This is consistent with nonspecif ic synovitis.
[2017-08-25] MEDS: cefTRIAXone IN SWFI 1,000 MG/10 ML SYRINGE IVP SCH (23:16)
--- NOTE | 2017-08-26 00:03 | P.CONS ---
History of Present Illness - Reason for Consult Consult date: 08/25/17 - Chief Complaint Pain of left hand - History of Present Illness Very pleasant 47-year-old male presents to Hospital because of increasing pain and swelling and tenderness and decreased use of his left hand. The patient relates that he had developed some significant discomfort in the left hand as well as a trigger finger to his thumb. He underwent injection therapy did not improve. Because "he underwent a surgical repair of the trigger finger. Post operatively he developed some swelling and did receive some local therapy that included some cortisone injections in some oral antibiotic therapy. Despite multiple injections he now presents with significant pain and swelling erythema and disuse of his hand due to the significant pain and swelling. He constantly was admitted and infectious diseases consultation was requested. At the time of call a consult vancomycin therapy was added to his Rocephin given that he had had prior medical intervention. At this time the patient weight is feeling slightly better. He has received an intravenous dose of Solu-Medrol which is allowed some reduction in the amount of discomfort to the hand. Oral pain medication has also been very helpful. He feels like he's had a fever but no earl chills or rigors of occurred. He's never had difficulty like this in the past. He denies any specific trauma before the onset of the trigger finger. 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 Review of Systems HEENT:Denies headache or acute visual change. Denies sinus or mouth discomforts. Denies neck stiffness or pain. Denies significant oral cavity pain. Denies difficulty on swallowing. Lungs: Denies significant shortness of breath, cough, sputum production, or hemoptysis. Cardiovascular: Denies significant shortness of breath, chest pain, chest wall pain, orthopnea, dyspnea on exertion, syncope Gastrointestinal:Denies nausea, vomiting, diarrhea, constipation, hematemesis, melena, hematochezia. No no significant change of bowel habit noticed. Musculoskeletal: As per the HPI Skin: Denies new rash or lesions. No new ulcers or wounds are related.. Neuro: Denies headache or visual change. Denies any new onset weakness or difficulty with ambulation. Denies falls or seizures. Psychiatric:Denies anxiety or depression. Endocrine: Denies significant fatigue, denies significant weight loss or weight gain. Past Medical History Past Medical History: Hypertension Additional Past Medical History / Comment(s): back pain. Patient relates that from his work and his prior sports he has developed significant difficulties with his knees. The left knee required reconstruction type surgeries he did develop a compartment syndrome to the left calf that required incision and drainage. The right knee was injured with a circular saw the required extensive surgical repair years ago. History of Any Multi-Drug Resistant Organisms: None Reported Additional Past Surgical History / Comment(s): back surg, knee surgery,trigger relase surger 08/08/17 Past Anesthesia/Blood Transfusion Reactions: No Reported Reaction Past Psychological History: No Psychological Hx Reported Additional Psychological History / Comment(s): and lives in the family home with his and 2 adult children, 3rd adult child occasionally lives with him still. No animals in the home. 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 No experience. No international travel. No tobacco smoker for more than 10 years. Does do some weight lifting but does not inject testosterone. Smoking Status: Former smoker Past Alcohol Use History: Daily Past Drug Use History: None Reported Medications and Allergies Home Medications and Allergies Comment(s): Current Medications Acetaminophen (Tylenol Tab) 650 mg PO Q6HR PRN PRN Reason: Mild Pain or Fever > 100.5 Hydrocodone Bitart/Acetaminophen ([place] 7.5-325) 1 each PO Q4H PRN PRN Reason: Pain Scale 1 to 5 Hydrocodone Bitart/Acetaminophen ([place] 7.5-325) 2 each PO Q6H PRN PRN Reason: Pain Scale 6 to 10 Last Admin: 08/25/17 20:00 Dose: 2 each Ceftriaxone Sodium (Rocephin) 1,000 mg IVP HS [facility] Last Admin: 08/25/17 23:16 Dose: 1,000 mg Sodium Chloride (Saline 0.9%) 1,000 mls @ 100 mls/hr IV .Q10H [facility] Last Admin: 08/25/17 21:24 Dose: 100 mls/hr Vancomycin HCl 1,500 mg/ (Sodium Chloride) 250 mls @ 125 mls/hr IVPB Q12H [facility] Last Admin: 08/25/17 20:41 Dose: 125 mls/hr Ketorolac Tromethamine (Toradol) 30 mg IVP Q6HR [facility] Stop: 08/29/17 19:38 Methylprednisolone Sodium Succinate (Solu-Medrol) 60 mg IV Q6HR [facility] Last Admin: 08/25/17 18:24 Dose: 60 mg Miscellaneous Information (Vancomycin Trough Due) 0 each MISCELLANE DIRECTED ONE Stop: 08/26/17 07:01 Morphine Sulfate (Morphine Sulfate (Inj)) 4 mg IV Q4HR PRN PRN Reason: Severe Pain Last Admin: 08/25/17 21:18 Dose: 4 mg Naloxone HCl (Narcan) 0.2 mg IV Q2M PRN PRN Reason: Opioid Reversal Ondansetron HCl (Zofran) 4 mg IVP Q8HR PRN PRN Reason: Nausea And Vomiting Pantoprazole Sodium (Protonix) 40 mg PO -BRKFST [facility] Last Admin: 08/25/17 09:40 Dose: 40 mg Home Medications Medication Instructions Recorded Confirmed Type Omeprazole [PriLOSEC] 40 mg PO DAILY 11/16/14 08/24/17 History Allergies Allergy/AdvReac Type Severity Reaction Status Date / Time ciprofloxacin [From Cipro] Allergy Rash/Hives Verified 08/24/17 23:09 ciprofloxacin HCl Allergy Rash/Hives Verified 08/24/17 23:09 [From Cipro] coconut Allergy Unknown Verified 08/24/17 23:09 ibuprofen [From Motrin] Allergy Itching Verified 08/24/17 23:09 kiwi Allergy Unknown Verified 08/24/17 23:09 Physical Exam Vitals: Vital Signs Temp Pulse Pulse Resp BP BP Pulse Ox 08/25/17 19:56 98 F 97 20 124/85 97 08/25/17 14:56 98.4 F 79 16 117/71 96 08/25/17 07:00 97.8 F 87 16 127/79 95 08/25/17 02:10 98.7 F 83 17 132/85 98 08/25/17 01:58 98.9 F 80 18 128/77 100 08/25/17 01:13 99.9 F H 54 L 18 135/90 100 08/24/17 23:51 96 18 158/94 97 Intake and Output 08/25/17 08/25/17 08/26/17 14:59 22:59 06:59 Intake Total 1280 Balance 1280 Intake: Intake, IV Titration 800 Amount Sodium Chloride 0.9% 1, 800 000 ml @ 100 mls/hr IV . Q10H [facility] Rx#:[id number] Oral 480 Other: # Voids 1 3 Pleasant 47-year-old male of a muscular build HEENT: Anicteric conjunctiva are pink and moist nasal mucosa grossly intact without significant lesions, there is no thrush. Neck: The neck is supple without significant lymphadenopathy or thyromegaly. Lungs: Good bilateral air entry without significant crackles or wheezing. There is no significant bronchial sounds. There is no egophony or dullness. Heart: Regular rate and rhythm with an audible S1-S2, no S3 no S4. There is no significant murmur click or rub, PMI was nondisplaced. Abdomen: Positive bowel sounds soft and nontender without palpable masses or organomegaly. There was no guarding or rebound. Extremities: Right upper extremity without abnormalities. Left upper extremities evidence of the significant swelling erythema and tenderness to the left thumb and thenar eminence. There is significant decreased range of motion of the hand and tenderness to the wrist area. There is no significant epitrochlear or axillary lymphadenopathy. No other enlarged lymph nodes are seen. The lower extremities are without significant edema in the prior surgical interventions are well-healed in the bilateral lower extremities. Bilateral lower extremity cellulitis disease bilateral venous stasis ulcerations status post stroke fever leukocytosis history C. diff colitis psoriatic arthritis fracture right tibia pressure ulcers right leg that layer exposed leukocytosis cellulitis right leg Gurdeep synovitis left in cellulitis left hand pain left hand leukocytosis Neuro: Awake alert oriented to person place and time. There are no acute new gross focal sensory motor deficits. Results CBC & Chem 7: 08/24/17 23:32 08/24/17 23:32 Labs: Abnormal Lab Results - Last 24 Hours (Table) 08/24/17 08/24/17 Range/Units 23:32 23:32 WBC 13.3 H (3.8-10.6) k/uL Hgb 18.4 H (13.0-17.5) gm/dL Hct 53.6 H (39.0-53.0) % Neutrophils # 10.0 H (1.3-7.7) k/uL Glucose 105 H (74-99) mg/dL C-Reactive Protein 24.1 H (<10.0) mg/L Total Protein 8.3 H (6.3-8.2) g/dL Laboratory Results WBC 13.3 k/uL (3.8-10.6) H 08/24/17 23: RBC 5.79 m/uL (4.30-5.90) 08/24/17: Hgb 18.4 gm/dL (13.0-17.5) H 08/24/17: Hct 53.6 % (39.0-53.0) H 08/24/17: MCV 92.7 fL (80.0-100.0) 08/24/17: MCH 31.8 pg (25.0-35.0) 08/24/17: MCHC 34.3 g/dL (31.0-37.0) 08/24/17: RDW 11.8 % (11.5-15.5) 08/24/17: Plt Count 196 k/uL (150-450) 08/24/17: Neutrophils % 75 % 08/24/17: Lymphocytes % 16 % 08/24/17 23: Monocytes % 6 % 08/24/17: Eosinophils % 1 % 08/24/17: Basophils % 1 % 08/24/17: Neutrophils # 10.0 k/uL (1.3-7.7) H 08/24/17: Lymphocytes # 2.2 k/uL (1.0-4.8) 08/24/17: Monocytes # 0.8 k/uL (0-1.0) 08/24/17: Eosinophils # 0.1 k/uL (0-0.7) 08/24/17: Basophils # 0.1 k/uL (0-0.2) 08/24/17 23:32 Sodium 137 mmol/L (137-145) 08/24/17 23: Potassium 4.4 mmol/L (3.5-5.1) 08/24/17 23: Chloride 98 mmol/L (98-107) 08/24/17: Carbon Dioxide 24 mmol/L (22-30) 08/24/17: Anion Gap 15 mmol/L 08/24/17 23:32 BUN 15 mg/dL (9-20) 08/24/17 23:32 Creatinine 1.00 mg/dL (0.66-1.25) 08/24/17 23:32 Est GFR (MDRD) Af Amer >60 (>60 ml/min/1.73 sqM) 08/24/17 23:32 Est GFR (MDRD) Non-Af >60 (>60 ml/min/1.73 sqM) 08/24/17 23:32 Glucose 105 mg/dL (74-99) H 08/24/17 23:32 Plasma Lactic Acid Rfai 1.9 mmol/L (0.7-2.0) 08/24/17: Calcium 10.2 mg/dL (8.4-10.2) 08/24/17: Total Bilirubin 0.7 mg/dL (0.2-1.3) 08/24/17 23:32 AST 46 U/L (17-59) 08/24/17: ALT 62 U/L (21-72) 08/24/17: Alkaline Phosphatase 81 U/L (38-126) 08/24/17:32 C-Reactive Protein 24.1 mg/L (<10.0) H 08/24/17: Total Protein 8.3 g/dL (6.3-8.2) H 08/24/17: Albumin 4.6 g/dL (3.5-5.0) 08/24/17 23:32 Assessment and Plan (1) Tenosynovitis of left hand Narrative/Plan: 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 Trigger finger was found and underwent intervention. After surgery he had developed: Erythema and tenderness to the hand. Underwent further intervention and steroid injections. Despite this the hands continue to swell and at the day of admission was having severe discomfort erythema warmth fever and difficulty with closing the hand. Because of these difficulties and was admitted. Infectious disease consultation requested regarding the antibiotic therapy for the significant infection and what appears to be tenosynovitis. MRI is been requested and patient likely will require surgical drainage of the tendon sheath infections. Antibiotic therapy enhance of vancomycin in addition to the Rocephin while cultures are pending. Toradol was added for some further pain control. Elevation and icing may be helpful. Will monitor throughout his stay and helped develop outpatient intravenous antibiotic therapy at his discharge. Current Visit: Yes Status: Acute Code(s): M65.9 - SYNOVITIS AND TENOSYNOVITIS, UNSPECIFIED SNOMED Code(s): 7620421954881341 (2) Swelling of left hand Current Visit: Yes Status: Acute Code(s): M79.89 - OTHER SPECIFIED SOFT TISSUE DISORDERS SNOMED Code(s): 633587252 (3) Cellulitis of left hand Current Visit: Yes Status: Acute Code(s): L03.114 - CELLULITIS OF LEFT UPPER LIMB SNOMED Code(s): 23482676 (4) Leukocytosis Current Visit: Yes Status: Acute Code(s): D72.829 - ELEVATED WHITE BLOOD CELL COUNT, UNSPECIFIED SNOMED Code(s): 509256313
[2017-08-26] MEDS: methylPREDNISolone SOD SUCCI 125 MG/2 ML VIAL IV SCH ×5 (00:22→23:40)
[2017-08-26] MEDS: KETOROLAC 30 MG/ML 1 ML VIAL IVP SCH ×5 (00:22→23:38)
[2017-08-26] MEDS: MORPHINE SULFATE 4 MG/ML SYRINGE IV PRN ×5 (02:12→23:39)
[2017-08-26] MEDS ORDERED: VANCOMYCIN TROUGH DUE 1 EACH MISC MISCELLANE ONE (07:00)
[2017-08-26] MEDS: PANTOPRAZOLE 40 MG TABLET PO SCH ×2 (07:17→10:50)
[2017-08-26 07:29] LABS: Basophils % (A) 0 %; Eosinophils % (A) 0 %; HCT 45.3 % (39.0-53.0); Lymphocytes # (A) 0.7 k/uL (1.0-4.8); Lymphocytes % (A) 4 %; MCH 31.6 pg (25.0-35.0); MCV 92.9 fL (80.0-100.0); Mean Platelet Volume 7.5; Monocytes # (A) 0.3 k/uL (0-1.0); Monocytes % (A) 2 %; Neutrophils % (A) 94 %; Platelet Count 153 k/uL (150-450); RBC 4.88 m/uL (4.30-5.90); RDW 11.8 % (11.5-15.5)
[2017-08-26 07:44] LABS: HGB 15.4 gm/dL (13.0-17.5)
[2017-08-26] MEDS: VANCOMYCIN 1,500 MG in SODIUM CHLORIDE 0.9% 250 ML IVPB SCH (08:40)
[2017-08-26 08:43] LABS: Anion Gap 12 mmol/L; Blood Urea Nitrogen 16 mg/dL (9-20); Calcium 9.1 mg/dL (8.4-10.2); Carbon Dioxide 22 mmol/L (22-30); Chloride 106 mmol/L (98-107); Glucose 148 mg/dL (74-99); Potassium 4.1 mmol/L (3.5-5.1); Sodium 140 mmol/L (137-145)
[2017-08-26 09:01] LABS: C Reactive Protein 148.5 mg/L (<10.0)
[2017-08-26 09:48] LABS: Erythrocyte Sedimentation Rate 18 mm/hr (0-15)
[2017-08-26] MEDS: SODIUM CHLORIDE 0.9% 1,000 ML IV SCH ×2 (12:30→20:13)
[2017-08-26] MEDS ORDERED: IV FLUID CONTINUATION 1,000 ML IV ONE (12:43)
[2017-08-26] MEDS: fentaNYL (PF) 50 MCG/ML 2 ML AMP IVP ONE ×2 (13:05→13:29)
[2017-08-26] MEDS ORDERED: PROPOFOL 10 MG/ML 20 ML VIAL IV ONE (13:40)
[2017-08-26] MEDS ORDERED: fentaNYL (PF) 50 MCG/ML 2 ML AMP ONE (13:40)
[2017-08-26] MEDS ORDERED: MIDAZOLAM 2 MG/2 ML VIAL ONE (13:40)
[2017-08-26] MEDS ORDERED: BUPIVACAINE (PF) 0.5% 30 ML VIAL SQ ONE (13:49)
[2017-08-26] MEDS ORDERED: LIDOCAINE 2% INJ 20 MG/ML SQ ONE (13:49)
[2017-08-26] MEDS ORDERED: LACTATED RINGERS 1,000 ML IV ONE (13:55)
[2017-08-26] MEDS ORDERED: ceFAZolin 1,000 MG in SODIUM CHLORIDE 0.9% 1,000 ML IRRIGATION ONE (14:00)
[2017-08-26] MEDS: VANCOMYCIN 1,750 MG in SODIUM CHLORIDE 0.9% 250 ML IVPB SCH (19:08)
[2017-08-26] MEDS: HYDROcodone/APAP 7.5-325MG 1 EACH TAB PO PRN (19:28)
[2017-08-26] MEDS: cefTRIAXone IN SWFI 1,000 MG/10 ML SYRINGE IVP SCH (20:15)
--- NOTE | 2017-08-26 23:14 | OP ---
OPERATIVE REPORT DATE OF SERVICE: 08/26/2017. PREOPERATIVE DIAGNOSIS: Possible infected left hand. FINAL DIAGNOSES: 1. Flexor tendon sheath infection, left little finger. 2. 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 3. Chronic synovitis with possible infection, distal volar wrist. 4. Status post trigger thumb release, left hand, with possible tendon sheath infection. PROCEDURE: 1. Incision and drainage base of the left little finger with culture, irrigation, and packing. 2. Trigger finger release, left little finger. 3. Mid palm incision and drainage with exploration, irrigation, culture and packing. 4. Incision and drainage of distal volar wrist with exploration, deep culture, pulse lavage and packing. 5. Incision and drainage, exploration, culture, irrigation and packing, base of the left thumb. INDICATIONS: Approximately 3 weeks ago, this 47-year-old man had a routine left trigger thumb release. For 6 days postop, he states he was excellent. He had very little discomfort, full range of motion, no triggering, no symptoms of swelling, pain, or infection. Subsequently, he developed a significant inflammatory response overnight. His examination the following day demonstrated some redness and warmth, but no focal abscess formation and I actually had a concern for compartment syndrome or an acute lack of circulation. An urgent MRA was performed, which demonstrated good circulation to his hand. He was placed on antibiotics and oral steroids and quickly recovered and was nearly asymptomatic. Subsequent to this, he again had a relapse and was admitted yesterday with recurrent pain, swelling, redness and warmth. Examination today demonstrated tenderness in 4 areas of his palm and wrist. The incision site from the trigger thumb was mildly tender with no significant redness or fluctuance. His thumb motion was restricted secondary to discomfort. There were no signs of compartment syndrome here or any place else in his hands. The next area was tenderness in the mid palm. The next area was to the distal volar wrist proximal to the carpal tunnel. Probably the most tender spot today was the base of the little finger. The little finger motion was restricted secondary to pain and guarding. None of these areas had drainage, significant fluctuance, and only mild redness and warmth. However, because of the extent of his problems, I elected to explore all 4 areas. GROSS PATHOLOGY: Intraoperatively there was pus in the flexor tendon sheath at the base of the little finger. It was a [id number] amount. It appeared to wash out cleanly. The tendon was intact. The other 3 wounds demonstrated minimal visible signs of any pus or infection. However, they were all treated as if there were infections. All 4 wounds were cultured separately, thoroughly irrigated, packed and left open. PROCEDURE: This 47-year-old man was taken operative suite given IV sedation. I then anesthetized the line of all 4 incisions with a combination of Xylocaine and Marcaine, both without epinephrine. His hand was then prepped and draped in usual manner. It was elevated, exsanguinated, and cuff was inflated to 250 mmHg. I elected to use a tourniquet because each of these areas had significant nerve and vessel locations and visualization was important to protect these structures. Separate instruments and separate cultures were used for each of the 4 areas, to prevent cross contamination. The first incision was at the base of the little finger. Standard transverse incision was used and, upon entering the flexor tendon sheath, pus was encountered. An A1 jorge l release was performed and the wound was thoroughly irrigated with both a large bulb syringe and a pulse lavage. Culture was taken prior to irrigation. At the completion of the irrigation, it appeared to be clear. The longitudinal incision 3 cm in length was made in the mid palm at the distal aspect of the carpal tunnel. Dissection was taken down adjacent to the branches of the median nerve and the sheath containing the flexor tendons was entered at the distal carpal tunnel area and no significant pus was encountered. However, this was cultured, lavaged and treated the same as the little finger. A longitudinal incision was made in the distal volar wrist, just ulnar to the midline to avoid the median nerve. Dissection was taken through the subcutaneous tissue. Care was taken to gently retract the median nerve out of harm's way. The volar fascia was entered and this area was explored with the above findings. Again an independent culture and irrigation process was undertaken. Finally, the original trigger thumb incision at the base of the thumb was opened and extended proximally to explore the area. No significant pus was encounter. Again culture lavage and packing was performed. At the completion the procedure, the tourniquet was released. Hemostasis was satisfactory. His hand was cleansed. Soft bulky dressing was applied with a soft cast composed of ABD dressings. Patient was then taken to recovery room in satisfactory condition. I contacted Dr. Juancarlos Fontenot, infectious disease specialist, and stated this should essentially be treated as a flexor tendon sheath infection in regard to antibiotics. Further wound care will be given pending development of case. Anticipate dressing change tomorrow with packing removal. MMODL / IJN: [id number] /
--- NOTE | 2017-08-26 23:28 | P.PN ---
Subjective Progress Note Date: 08/26/17 Principal diagnosis: Pain left hand Very pleasant 47-year-old male presents to Hospital because of increasing pain and swelling and tenderness and decreased use of his left hand. The patient relates that he had developed some significant discomfort in the left hand as well as a trigger finger to his thumb. He underwent injection therapy did not improve. Because "he underwent a surgical repair of the trigger finger. Post operatively he developed some swelling and did receive some local therapy that included some cortisone injections in some oral antibiotic therapy. Despite multiple injections he now presents with significant pain and swelling erythema and disuse of his hand due to the significant pain and swelling. He constantly was admitted and infectious diseases consultation was requested. At the time of call a consult vancomycin therapy was added to his Rocephin given that he had had prior medical intervention. At this time the patient weight is feeling slightly better. He has received an intravenous dose of Solu-Medrol which is allowed some reduction in the amount of discomfort to the hand. Oral pain medication has also been very helpful. He feels like he's had a fever but no earl chills or rigors of occurred. He's never had difficulty like this in the past. He denies any specific trauma before the onset of the trigger finger. 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 08/26/2017 reveals this pleasant gentleman has had his surgical incision and drainage of his tenosynovitis of the left hand. He is still having good control of the pain status post surgery for nerve block. He is denying fevers chills or rigors or sweats. He does understand that he has an extensive infection and will require ongoing antibiotic therapy. He is without further fevers or chills. Tolerating diet without difficulties. No diarrhea mild constipation Objective - Vital Signs Vital signs: Vital Signs Temp 98.1 F 08/26/17 19:23 Pulse 78 08/26/17 19:23 Resp 18 08/26/17 19:23 BP 139/75 08/26/17 19:23 Pulse Ox 98 08/26/17 19:23 Intake & Output 08/26/17 08/26/17 08/27/17 06:59 18:59 06:59 Intake Total 2113 551 1480 Output Total 20 Balance 2113 531 1480 Intake: IV 551 600 Invasive Line 2 600 Intake, IV Titration 1633 Amount Sodium Chloride 0.9% 1, 1633 000 ml @ 100 mls/hr IV . Q10H [facility] Rx#:[id number] Oral 480 880 Output: Estimated Blood Loss 20 Other: # Voids 2 3 - Exam Pleasant 47-year-old male of a muscular build HEENT: Anicteric conjunctiva are pink and moist nasal mucosa grossly intact without significant lesions, there is no thrush. Neck: The neck is supple without significant lymphadenopathy or thyromegaly. Lungs: Good bilateral air entry without significant crackles or wheezing. There is no significant bronchial sounds. There is no egophony or dullness. Heart: Regular rate and rhythm with an audible S1-S2, no S3 no S4. There is no significant murmur click or rub, PMI was nondisplaced. Abdomen: Positive bowel sounds soft and nontender without palpable masses or organomegaly. There was no guarding or rebound. Extremities: Right upper extremity without abnormalities. Left upper extremities evidence of the bulky surgical dressing in place from the surgical incision and drainage today. There is no significant epitrochlear or axillary lymphadenopathy. No other enlarged lymph nodes are seen. The lower extremities are without significant edema in the prior surgical interventions are well-healed in the bilateral lower extremities. Neuro: Awake alert oriented to person place and time. There are no acute new gross focal sensory motor deficits. - Labs CBC & Chem 7: 08/26/17 06:30 08/26/17 06:30 Labs: Abnormal Lab Results - Last 24 Hours (Table) 08/26/17 08/26/17 Range/Units 06:30 06:30 WBC 17.0 H (3.8-10.6) k/uL Neutrophils # 16.0 H (1.3-7.7) k/uL Lymphocytes # 0.7 L (1.0-4.8) k/uL ESR 18 H (0-15) mm/hr Glucose 148 H (74-99) mg/dL C-Reactive Protein 148.5 H (<10.0) mg/L Microbiology - Last 24 Hours (Table) 08/26/17 13:05 Anaerobic Culture - Preliminary Hand - Left 08/26/17 13:05 Anaerobic Culture - Preliminary Finger - Left Fifth 08/26/17 13:05 Wound Culture - Preliminary Hand - Left 08/26/17 13:05 Anaerobic Culture - Preliminary Finger - Left First 08/26/17 13:05 Anaerobic Culture - Preliminary Wrist - Left 08/26/17 13:05 Wound Culture - Preliminary Finger - Left First 08/26/17 13:05 Wound Culture - Preliminary Finger - Left Fifth 08/26/17 13:05 Wound Culture - Preliminary Wrist - Left 08/24/17 23:32 Blood Culture - Preliminary Blood No Growth after 24 hours Laboratory Results WBC 17.0 k/uL (3.8-10.6) H 08/26/17 06:30 RBC 4.88 m/uL (4.30-5.90) 08/26/17 06:30 Hgb 15.4 gm/dL (13.0-17.5) D 08/26/17 06:30 Hct 45.3 % (39.0-53.0) 08/26/17 06:30 MCV 92.9 fL (80.0-100.0) 08/26/17 06:30 MCH 31.6 pg (25.0-35.0) 08/26/17 06:30 MCHC 34.0 g/dL (31.0-37.0) 08/26/17 06:30 RDW 11.8 % (11.5-15.5) 08/26/17 06:30 Plt Count 153 k/uL (150-450) 08/26/17 06:30 Neutrophils % 94 % 08/26/17 06:30 Lymphocytes % 4 % 08/26/17 06:30 Monocytes % 2 % 08/26/17 06:30 Eosinophils % 0 % 08/26/17 06:30 Basophils % 0 % 08/26/17 06:30 Neutrophils # 16.0 k/uL (1.3-7.7) H 08/26/17 06:30 Lymphocytes # 0.7 k/uL (1.0-4.8) L 08/26/17 06:30 Monocytes # 0.3 k/uL (0-1.0) 08/26/17 06:30 Eosinophils # 0.0 k/uL (0-0.7) 08/26/17 06:30 Basophils # 0.0 k/uL (0-0.2) 08/26/17 06:30 ESR 18 mm/hr (0-15) H 08/26/17 06:30 Sodium 140 mmol/L (137-145) 08/26/17 06:30 Potassium 4.1 mmol/L (3.5-5.1) 08/26/17 06:30 Chloride 106 mmol/L (98-107) 08/26/17 06:30 Carbon Dioxide 22 mmol/L (22-30) 08/26/17 06:30 Anion Gap 12 mmol/L 08/26/17 06:30 BUN 16 mg/dL (9-20) 08/26/17 06:30 Creatinine 0.80 mg/dL (0.66-1.25) 08/26/17 06:30 Est GFR (MDRD) Af Amer >60 (>60 ml/min/1.73 sqM) 08/26/17 06:30 Est GFR (MDRD) Non-Af >60 (>60 ml/min/1.73 sqM) 08/26/17 06:30 Glucose 148 mg/dL (74-99) H 08/26/17 06:30 Plasma Lactic Acid Rafi 1.9 mmol/L (0.7-2.0) 08/24/17 23:32 Calcium 9.1 mg/dL (8.4-10.2) 08/26/17 06:30 Total Bilirubin 0.7 mg/dL (0.2-1.3) 08/24/17 23:32 AST 46 U/L (17-59) 08/24/17 23:32 ALT 62 U/L (21-72) 08/24/17 23:32 Alkaline Phosphatase 81 U/L (38-126) 08/24/17 23:32 C-Reactive Protein 148.5 mg/L (<10.0) H 08/26/17 06:30 Total Protein 8.3 g/dL (6.3-8.2) H 08/24/17 23:32 Albumin 4.6 g/dL (3.5-5.0) 08/24/17 23:32 Vancomycin Trough 8.0 ug/mL 08/26/17 06:30 Microbiology 08/26/17 13:05 Hand - Left Anaerobic Culture - Preliminary 08/26/17 13:05 Finger - Left Fifth Anaerobic Culture - Preliminary 08/26/17 13:05 Hand - Left Wound Culture - Preliminary 08/26/17 13:05 Finger - Left First Anaerobic Culture - Preliminary 08/26/17 13:05 Wrist - Left Anaerobic Culture - Preliminary 08/26/17 13:05 Finger - Left First Wound Culture - Preliminary 08/26/17 13:05 Finger - Left Fifth Wound Culture - Preliminary 08/26/17 13:05 Wrist - Left Wound Culture - Preliminary 08/24/17 23:32 Blood Blood Culture - Preliminary No Growth after 24 hours Assessment and Plan (1) Tenosynovitis of left hand Narrative/Plan: 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 Trigger finger was found and underwent intervention. After surgery he had developed: Erythema and tenderness to the hand. Underwent further intervention and steroid injections. Despite this the hands continue to swell and at the day of admission was having severe discomfort erythema warmth fever and difficulty with closing the hand. Because of these difficulties and was admitted. Infectious disease consultation requested regarding the antibiotic therapy for the significant infection and what appears to be tenosynovitis. MRI is been requested and patient likely will require surgical drainage of the tendon sheath infections. Antibiotic therapy enhance of vancomycin in addition to the Rocephin while cultures are pending. Toradol was added for some further pain control. Elevation and icing may be helpful. Will monitor throughout his stay and helped develop outpatient intravenous antibiotic therapy at his discharge. 08/26/2017 reveals a patient postoperative from his surgical incision and drainage of the infection to the left hand and wrist area. Pain control is excellent postoperatively likely due to the nerve blocks at surgery. Having no fevers or chills. We discussed the overall course of therapy which will include outpatient intravenous antibiotic therapy. PICC line will be placed. Elevation of the limb will be helpful for the healing process. He does have leukocytosis directly related to his current significant infectious process. Patient lives quite far away and will likely need to do outpatient intravenous have brachytherapy in his home. Current Visit: Yes Status: Acute Code(s): M65.9 - SYNOVITIS AND TENOSYNOVITIS, UNSPECIFIED SNOMED Code(s): 1446874442909194 (2) Swelling of left hand Current Visit: Yes Status: Acute Code(s): M79.89 - OTHER SPECIFIED SOFT TISSUE DISORDERS SNOMED Code(s): 274015347 (3) Cellulitis of left hand Current Visit: Yes Status: Acute Code(s): L03.114 - CELLULITIS OF LEFT UPPER LIMB SNOMED Code(s): 45009235 (4) Leukocytosis Current Visit: Yes Status: Acute Code(s): D72.829 - ELEVATED WHITE BLOOD CELL COUNT, UNSPECIFIED SNOMED Code(s): 403890229
[2017-08-27] MEDS: SODIUM CHLORIDE 0.9% 1,000 ML IV SCH ×3 (02:12→23:40)
[2017-08-27] MEDS: MORPHINE SULFATE 4 MG/ML SYRINGE IV PRN ×4 (03:55→23:34)
[2017-08-27] MEDS: VANCOMYCIN 1,750 MG in SODIUM CHLORIDE 0.9% 250 ML IVPB SCH ×2 (05:45→19:20)
[2017-08-27] MEDS: HYDROcodone/APAP 7.5-325MG 1 EACH TAB PO PRN ×3 (05:45→22:01)
[2017-08-27] MEDS: KETOROLAC 30 MG/ML 1 ML VIAL IVP SCH ×3 (05:45→19:20)
[2017-08-27] MEDS: methylPREDNISolone SOD SUCCI 125 MG/2 ML VIAL IV SCH ×4 (05:46→23:34)
[2017-08-27 07:17] LABS: Anion Gap 10 mmol/L; Blood Urea Nitrogen 18 mg/dL (9-20); Calcium 8.2 mg/dL (8.4-10.2); Carbon Dioxide 19 mmol/L (22-30); Chloride 108 mmol/L (98-107); Glucose 218 mg/dL (74-99); Potassium 4.1 mmol/L (3.5-5.1); Sodium 137 mmol/L (137-145)
[2017-08-27] MEDS: PANTOPRAZOLE 40 MG TABLET PO SCH (08:20)
--- NOTE | 2017-08-27 08:56 | P.PN ---
Subjective Progress Note Date: 08/27/17 Principal diagnosis: Flexor tendon sheath infection left hand This is a 47 year-old male post left hand I&D. This is post-op day 1. The patient was evaluated at the bedside today. The patient denies nausea, vomiting , abdominal pain, shortness of breath, and chest pain this morning. He states his pain is controlled at this time. He is scheduled for a PICC line today. Objective - Vital Signs Vital signs: Vital Signs Temp 97.8 F 08/27/17 00:26 Pulse 66 08/27/17 00:26 Resp 16 08/27/17 00:26 BP 106/64 08/27/17 00:26 Pulse Ox 94 L 08/27/17 00:26 Intake & Output 08/26/17 08/27/17 08/27/17 18:59 06:59 18:59 Intake Total 551 2515 480 Output Total 20 Balance 531 2515 480 Intake: IV 551 600 Invasive Line 2 600 Intake, IV Titration 555 Amount Sodium Chloride 0.9% 1, 555 000 ml @ 100 mls/hr IV . Q10H [facility] Rx#:[id number] Oral 1360 480 Output: Estimated Blood Loss 20 Other: # Voids 2 - Exam The patient does not appear in acute distress. Alert and orientated x3. Dressing is clean dry and intact. Incisions appears fine with no erythema. Packing was removed. Incisions were actively bleeding. No obvious purulent drainage. New dressing applied. Good finger motion without difficulty. Sensation and circulatory status is intact. - Labs CBC & Chem 7: 08/26/17 06:30 08/27/17 06:35 Labs: Abnormal Lab Results - Last 24 Hours (Table) 08/26/17 08/26/17 08/27/17 Range/Units 06:30 06:30 06:35 ESR 18 H (0-15) mm/hr Chloride 108 H (98-107) mmol/L Carbon Dioxide 19 L (22-30) mmol/L Glucose 148 H 218 H (74-99) mg/dL Calcium 8.2 L (8.4-10.2) mg/dL C-Reactive Protein 148.5 H (<10.0) mg/L Microbiology - Last 24 Hours (Table) 08/26/17 13:05 Gram Stain - Preliminary Wrist - Left Wound Culture - Preliminary 08/26/17 13:05 Gram Stain - Preliminary Finger - Left Fifth Wound Culture - Preliminary 08/24/17 23:32 Blood Culture - Preliminary Blood No Growth after 48 hours 08/26/17 13:05 Gram Stain - Preliminary Hand - Left Wound Culture - Preliminary 08/26/17 13:05 Gram Stain - Preliminary Finger - Left First Wound Culture - Preliminary 08/26/17 13:05 Anaerobic Culture - Preliminary Hand - Left 08/26/17 13:05 Anaerobic Culture - Preliminary Finger - Left Fifth 08/26/17 13:05 Anaerobic Culture - Preliminary Finger - Left First 08/26/17 13:05 Anaerobic Culture - Preliminary Wrist - Left Assessment and Plan (1) Swelling of left hand Current Visit: Yes Status: Acute Code(s): M79.89 - OTHER SPECIFIED SOFT TISSUE DISORDERS SNOMED Code(s): 816562161 (2) Infection of flexor tendon sheath Current Visit: Yes Status: Acute Code(s): M65.10 - OTHER INFECTIVE (TENO) SYNOVITIS, UNSPECIFIED SITE SNOMED Code(s): 170233908 Plan: The clinical and operative findings were discussed with the patient. The case was also discussed with Dr. Rob Howe. Continue IV antibiotics and Solu- medrol. We are awaiting final cultures. The patient will get a PICC line today. Case management to arrange IV antibiotic therapy. Daily dressing changes to the left hand. We will continue to follow the patient closely.
[2017-08-27] MEDS ORDERED: ALPRAZolam 0.25 MG TAB PO PRN (12:16)
[2017-08-27] MEDS: MAGNESIUM HYDROXIDE 2,400 MG/10 ML CUP PO PRN (12:21)
[2017-08-27] MEDS: SENNOSIDES-DOCUSATE SODIUM 1 EACH TAB PO SCH (20:03)
[2017-08-27] MEDS: cefTRIAXone IN SWFI 1,000 MG/10 ML SYRINGE IVP SCH (22:01)
[2017-08-28] MEDS: KETOROLAC 30 MG/ML 1 ML VIAL IVP SCH ×5 (00:09→23:38)
[2017-08-28] MEDS ORDERED: VANCOMYCIN TROUGH DUE 1 EACH MISC MISCELLANE ONE (05:00)
[2017-08-28] MEDS: VANCOMYCIN 1,750 MG in SODIUM CHLORIDE 0.9% 250 ML IVPB SCH (05:27)
[2017-08-28] MEDS: methylPREDNISolone SOD SUCCI 125 MG/2 ML VIAL IV SCH ×4 (05:28→23:39)
[2017-08-28] MEDS: MORPHINE SULFATE 4 MG/ML SYRINGE IV PRN ×2 (05:29→10:55)
[2017-08-28 05:32] LABS: Anion Gap 6 mmol/L; Blood Urea Nitrogen 19 mg/dL (9-20); Calcium 8.3 mg/dL (8.4-10.2); Carbon Dioxide 24 mmol/L (22-30); Chloride 107 mmol/L (98-107); Glucose 174 mg/dL (74-99); Potassium 4.3 mmol/L (3.5-5.1); Sodium 137 mmol/L (137-145)
[2017-08-28] MEDS: HYDROcodone/APAP 7.5-325MG 1 EACH TAB PO PRN ×3 (07:15→20:51)
[2017-08-28] MEDS: MAGNESIUM HYDROXIDE 2,400 MG/10 ML CUP PO PRN (07:21)
[2017-08-28] MEDS: PANTOPRAZOLE 40 MG TABLET PO SCH (07:21)
--- NOTE | 2017-08-28 09:04 | P.PN ---
Subjective Progress Note Date: 08/28/17 Principal diagnosis: Flexor tendon sheath infection left hand This is a 47 year-old male post left hand I&D. This is post-op day 2. The patient was evaluated at the bedside today. The patient denies nausea, vomiting , abdominal pain, shortness of breath, and chest pain this morning. He states his pain is controlled at this time. He is scheduled for a PICC line today. Objective - Vital Signs Vital signs: Vital Signs Temp 97.8 F 08/28/17 07:00 Pulse 57 L 08/28/17 07:00 Resp 16 08/28/17 07:00 BP 133/84 08/28/17 07:00 Pulse Ox 95 08/28/17 07:00 Intake & Output 08/27/17 08/28/17 08/28/17 18:59 06:59 18:59 Intake Total 1280 1600 Balance 1280 1600 Intake: Intake, IV Titration 800 1600 Amount Sodium Chloride 0.9% 1, 800 1600 000 ml @ 100 mls/hr IV . Q10H [facility] Rx#:[id number] Oral 480 Other: # Voids 3 - Exam The patient does not appear in acute distress. Alert and orientated x3. Dressing is clean dry and intact. Incisions appears fine with no erythema. Packing was removed. Incisions were actively bleeding. No obvious purulent drainage. New dressing applied. Good finger motion without difficulty. There is numbness to his left ring finger and left thumb, likely due to bruising of the nerve. Otherwise, sensation and circulatory status is intact. - Labs CBC & Chem 7: 08/26/17 06:30 08/28/17 05:11 Labs: Abnormal Lab Results - Last 24 Hours (Table) 08/28/17 Range/Units 05:11 Glucose 174 H (74-99) mg/dL Calcium 8.3 L (8.4-10.2) mg/dL Microbiology - Last 24 Hours (Table) 08/24/17 23:32 Blood Culture - Preliminary Blood No Growth after 72 hours 08/26/17 13:05 Gram Stain - Preliminary Hand - Left Wound Culture - Preliminary 08/26/17 13:05 Gram Stain - Preliminary Wrist - Left Wound Culture - Preliminary Assessment and Plan (1) Swelling of left hand Current Visit: Yes Status: Acute Code(s): M79.89 - OTHER SPECIFIED SOFT TISSUE DISORDERS SNOMED Code(s): 170482077 (2) Infection of flexor tendon sheath Current Visit: Yes Status: Acute Code(s): M65.10 - OTHER INFECTIVE (TENO) SYNOVITIS, UNSPECIFIED SITE SNOMED Code(s): 238374778 Plan: The clinical and operative findings were discussed with the patient. The case was also discussed with Dr. Rob Howe. Continue IV antibiotics and Solu- medrol. We are awaiting final cultures. The patient will get a PICC line today. Case management to arrange IV antibiotic therapy. Daily dressing changes to the left hand. He may shower today. We will continue to follow the patient closely.
[2017-08-28] MEDS: SODIUM CHLORIDE 0.9% 1,000 ML IV SCH ×2 (10:55→20:42)
[2017-08-28] MEDS ORDERED: MORPHINE ORAL SOLN 10 MG/5 ML CUP PO PRN (13:45)
--- NOTE | 2017-08-28 15:25 | IR ---
EXAMINATION TYPE: IR cvc insert >=5 years DATE OF EXAM: 08/28/2017 COMPARISON: NONE CLINICAL HISTORY: Infection Needs long-term intravenous access for antibiotics. PROCEDURE: After informed consent, the skin overlying the left basilic vein was localized with ultrasound and no jose to be compressible and patent. An ultrasound image was obtained and submitted on the patient's c braga. The overlying skin was prepped and draped and Lidocaine was used for local anesthesia. A skin john was made with a scalpel. Access was gained to the vein under ultrasound guidance with a 21 gau ge needle and a 0.018 inch wire was advanced. Access site was dilated with Peel-Away sheath and cath eter tailored to the appropriate length and advanced such that the distal tip is at the cavoatrial ju nction. Spot image was obtained verifying placement. Catheter was fixed to the skin and a sterile d ressing was placed following hemostasis. Catheter was aspirated and flushed with saline. Patient wa s discharged in stable condition without complication.Maximal barrier technique is utilized. Ultraso und image is documented on the chart. Ultrasound used with sterile technique. Fluoro time and fluoroscopic images submitted to document procedure: 88 intraoperative images, 0.3 mi nutes fluoroscopy time IMPRESSION: STATUS POST ULTRASOUND AND FLUOROSCOPIC GUIDED PICC LINE PLACEMENT, READY FOR USE. THIS PROCEDURE WAS PERFORMED BY THE UNDERSIGNED.
[2017-08-28] MEDS: SENNOSIDES-DOCUSATE SODIUM 1 EACH TAB PO SCH (20:50)
[2017-08-28] MEDS ORDERED: cefTRIAXone IN SWFI 2,000 MG/20 ML SYRINGE IVP SCH (21:00)
--- NOTE | 2017-08-29 | P.PN ---
Subjective Progress Note Date: 08/28/17 Principal diagnosis: Pain left hand Very pleasant 47-year-old male presents to Hospital because of increasing pain and swelling and tenderness and decreased use of his left hand. The patient relates that he had developed some significant discomfort in the left hand as well as a trigger finger to his thumb. He underwent injection therapy did not improve. Because "he underwent a surgical repair of the trigger finger. Post operatively he developed some swelling and did receive some local therapy that included some cortisone injections in some oral antibiotic therapy. Despite multiple injections he now presents with significant pain and swelling erythema and disuse of his hand due to the significant pain and swelling. He constantly was admitted and infectious diseases consultation was requested. At the time of call a consult vancomycin therapy was added to his Rocephin given that he had had prior medical intervention. At this time the patient weight is feeling slightly better. He has received an intravenous dose of Solu-Medrol which is allowed some reduction in the amount of discomfort to the hand. Oral pain medication has also been very helpful. He feels like he's had a fever but no earl chills or rigors of occurred. He's never had difficulty like this in the past. He denies any specific trauma before the onset of the trigger finger. 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 08/26/2017 reveals this pleasant gentleman has had his surgical incision and drainage of his tenosynovitis of the left hand. He is still having good control of the pain status post surgery for nerve block. He is denying fevers chills or rigors or sweats. He does understand that he has an extensive infection and will require ongoing antibiotic therapy. He is without further fevers or chills. Tolerating diet without difficulties. No diarrhea mild constipation 08/28/2017 reveals the patient to have further improvement. The access to be placed. Dressing to be removed today for further evaluation. He controls improving. We'll have to work for the outpatient intravenous antibiotic therapy. He prefers to do it at home given his distance from hospital. Objective - Vital Signs Vital signs: Vital Signs Temp 98.2 F 08/28/17 23:00 Pulse 58 L 08/28/17 23:00 Resp 18 08/28/17 23:00 BP 154/89 03/01/18 23:00 Pulse Ox 95 08/28/17 23:00 Intake & Output 08/28/17 08/28/17 08/29/17 06:59 18:59 06:59 Intake Total 1600 240 400 Balance 1600 240 400 Intake: Intake, IV Titration 1600 400 Amount Sodium Chloride 0.9% 1, 1600 400 000 ml @ 100 mls/hr IV . Q10H [facility] Rx#:[id number] Oral 240 Other: Voiding Method Toilet # Voids 3 2 - Exam Pleasant 47-year-old male of a muscular build HEENT: Anicteric conjunctiva are pink and moist nasal mucosa grossly intact without significant lesions, there is no thrush. Neck: The neck is supple without significant lymphadenopathy or thyromegaly. Lungs: Good bilateral air entry without significant crackles or wheezing. There is no significant bronchial sounds. There is no egophony or dullness. Heart: Regular rate and rhythm with an audible S1-S2, no S3 no S4. There is no significant murmur click or rub, PMI was nondisplaced. Abdomen: Positive bowel sounds soft and nontender without palpable masses or organomegaly. There was no guarding or rebound. Extremities: Right upper extremity without abnormalities. Left upper extremities evidence of the bulky surgical dressing in place which is removed. 4 incisions are noted. There is still quite tender. Her some expressible serous material. No earl purulence. Has some increased range of motion but still significant tenderness upon motion of the thumb or fifth finger. The surrounding swelling erythema is improving. There is no significant epitrochlear or axillary lymphadenopathy. No other enlarged lymph nodes are seen. The lower extremities are without significant edema in the prior surgical interventions are well-healed in the bilateral lower extremities. Neuro: Awake alert oriented to person place and time. There are no acute new gross focal sensory motor deficits. - Labs CBC & Chem 7: 08/26/17 06:30 08/28/17 05:11 Labs: Abnormal Lab Results - Last 24 Hours (Table) 08/28/17 Range/Units 05:11 Glucose 174 H (74-99) mg/dL Calcium 8.3 L (8.4-10.2) mg/dL Microbiology - Last 24 Hours (Table) 08/26/17 13:05 Gram Stain - Final Hand - Left Wound Culture - Final 08/26/17 13:05 Gram Stain - Final Wrist - Left Wound Culture - Final 08/24/17 23:32 Blood Culture - Preliminary Blood No Growth after 72 hours Laboratory Results WBC 17.0 k/uL (3.8-10.6) H 08/26/17 06:30 RBC 4.88 m/uL (4.30-5.90) 08/26/17 06:30 Hgb 15.4 gm/dL (13.0-17.5) D 08/26/17 06:30 Hct 45.3 % (39.0-53.0) 08/26/17 06:30 MCV 92.9 fL (80.0-100.0) 08/26/17 06:30 MCH 31.6 pg (25.0-35.0) 08/26/17 06:30 MCHC 34.0 g/dL (31.0-37.0) 08/26/17 06:30 RDW 11.8 % (11.5-15.5) 08/26/17 06:30 Plt Count 153 k/uL (150-450) 08/26/17 06:30 Neutrophils % 94 % 08/26/17 06:30 Lymphocytes % 4 % 08/26/17 06:30 Monocytes % 2 % 08/26/17 06:30 Eosinophils % 0 % 08/26/17 06:30 Basophils % 0 % 08/26/17 06:30 Neutrophils # 16.0 k/uL (1.3-7.7) H 08/26/17 06:30 Lymphocytes # 0.7 k/uL (1.0-4.8) L 08/26/17 06:30 Monocytes # 0.3 k/uL (0-1.0) 08/26/17 06:30 Eosinophils # 0.0 k/uL (0-0.7) 08/26/17 06:30 Basophils # 0.0 k/uL (0-0.2) 08/26/17 06:30 ESR 18 mm/hr (0-15) H 08/26/17 06:30 Sodium 137 mmol/L (137-145) 08/28/17 05:11 Potassium 4.3 mmol/L (3.5-5.1) 08/28/17 05:11 Chloride 107 mmol/L (98-107) 08/28/17 05:11 Carbon Dioxide 24 mmol/L (22-30) 08/28/17 05:11 Anion Gap 6 mmol/L 08/28/17 05:11 BUN 19 mg/dL (9-20) 08/28/17 05:11 Creatinine 0.90 mg/dL (0.66-1.25) 08/28/17 05:11 Est GFR (MDRD) Af Amer >60 (>60 ml/min/1.73 sqM) 08/28/17 05:11 Est GFR (MDRD) Non-Af >60 (>60 ml/min/1.73 sqM) 08/28/17 05:11 Glucose 174 mg/dL (74-99) H 08/28/17 05:11 Plasma Lactic Acid Rafi 1.9 mmol/L (0.7-2.0) 08/24/17 23:32 Calcium 8.3 mg/dL (8.4-10.2) L 08/28/17 05:11 Total Bilirubin 0.7 mg/dL (0.2-1.3) 08/24/17 23:32 AST 46 U/L (17-59) 08/24/17 23:32 ALT 62 U/L (21-72) 08/24/17 23:32 Alkaline Phosphatase 81 U/L (38-126) 08/24/17 23:32 C-Reactive Protein 148.5 mg/L (<10.0) H 08/26/17 06:30 Total Protein 8.3 g/dL (6.3-8.2) H 08/24/17 23:32 Albumin 4.6 g/dL (3.5-5.0) 08/24/17 23:32 Vancomycin Trough 11.6 ug/mL 08/28/17 05:11 Microbiology 08/26/17 13:05 Hand - Left Gram Stain - Final 08/26/17 13:05 Hand - Left Wound Culture - Final 08/26/17 13:05 Wrist - Left Gram Stain - Final 08/26/17 13:05 Wrist - Left Wound Culture - Final 08/24/17 23:32 Blood Blood Culture - Preliminary No Growth after 72 hours 08/26/17 13:05 Finger - Left Fifth Gram Stain - Preliminary 08/26/17 13:05 Finger - Left Fifth Wound Culture - Preliminary 08/26/17 13:05 Finger - Left First Gram Stain - Preliminary 08/26/17 13:05 Finger - Left First Wound Culture - Preliminary 08/26/17 13:05 Hand - Left Anaerobic Culture - Preliminary 08/26/17 13:05 Finger - Left Fifth Anaerobic Culture - Preliminary 08/26/17 13:05 Finger - Left First Anaerobic Culture - Preliminary 08/26/17 13:05 Wrist - Left Anaerobic Culture - Preliminary Assessment and Plan (1) Tenosynovitis of left hand Narrative/Plan: 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 Trigger finger was found and underwent intervention. After surgery he had developed: Erythema and tenderness to the hand. Underwent further intervention and steroid injections. Despite this the hands continue to swell and at the day of admission was having severe discomfort erythema warmth fever and difficulty with closing the hand. Because of these difficulties and was admitted. Infectious disease consultation requested regarding the antibiotic therapy for the significant infection and what appears to be tenosynovitis. MRI is been requested and patient likely will require surgical drainage of the tendon sheath infections. Antibiotic therapy enhance of vancomycin in addition to the Rocephin while cultures are pending. Toradol was added for some further pain control. Elevation and icing may be helpful. Will monitor throughout his stay and helped develop outpatient intravenous antibiotic therapy at his discharge. 08/26/2017 reveals a patient postoperative from his surgical incision and drainage of the infection to the left hand and wrist area. Pain control is excellent postoperatively likely due to the nerve blocks at surgery. Having no fevers or chills. We discussed the overall course of therapy which will include outpatient intravenous antibiotic therapy. PICC line will be placed. Elevation of the limb will be helpful for the healing process. He does have leukocytosis directly related to his current significant infectious process. Patient lives quite far away and will likely need to do outpatient intravenous antibiotic therapy in his home. 08/28/2017 patient is showing further improvement. Pain is improving. Arrangements were made for his outpatient intravenous antibiotic therapy at home. With current cultures would likely utilize Rocephin as sole therapy to complete the next 21 days of therapy. Home care will be helpful for packing of the wounds and his IV therapy at home. Pain control seems to be adequate. Continue to elevate. The following office after discharge. Current Visit: Yes Status: Acute Code(s): M65.9 - SYNOVITIS AND TENOSYNOVITIS, UNSPECIFIED SNOMED Code(s): 3326914461422035 (2) Swelling of left hand Current Visit: Yes Status: Acute Code(s): M79.89 - OTHER SPECIFIED SOFT TISSUE DISORDERS SNOMED Code(s): 413164203 (3) Cellulitis of left hand Current Visit: Yes Status: Acute Code(s): L03.114 - CELLULITIS OF LEFT UPPER LIMB SNOMED Code(s): 19856386 (4) Leukocytosis Current Visit: Yes Status: Acute Code(s): D72.829 - ELEVATED WHITE BLOOD CELL COUNT, UNSPECIFIED SNOMED Code(s): 089047043
[2017-08-29] MEDS: SODIUM CHLORIDE 0.9% 1,000 ML IV SCH (05:20)
[2017-08-29] MEDS: KETOROLAC 30 MG/ML 1 ML VIAL IVP SCH ×3 (05:21→13:34)
[2017-08-29] MEDS: methylPREDNISolone SOD SUCCI 125 MG/2 ML VIAL IV SCH ×2 (05:21→13:35)
[2017-08-29] MEDS: PANTOPRAZOLE 40 MG TABLET PO SCH (07:33)
[2017-08-29 07:35] LABS: Anion Gap 7 mmol/L; Blood Urea Nitrogen 22 mg/dL (9-20); Calcium 7.9 mg/dL (8.4-10.2); Carbon Dioxide 26 mmol/L (22-30); Chloride 107 mmol/L (98-107); Glucose 116 mg/dL (74-99); Potassium 4.2 mmol/L (3.5-5.1); Sodium 140 mmol/L (137-145)
[2017-08-29 07:36] VITALS: BP 158/90; PULSE 54; RESP 16; TEMP 99
--- NOTE | 2017-08-29 09:01 | P.DS ---
Providers Date of admission: 08/25/17 01:06 Expected date of discharge: 08/29/17 Attending physician: Herman Howe Consults: 08/25/17 08:49 Consult Physician Routine Consulting Provider: Juancarlos Fontenot Consult Reason/Comments: possible infected flexor tenosynovitis Do you want consulting provider notified?: Yes Primary care physician: Gerardo Erwin - Discharge Diagnosis(es) (1) Swelling of left hand Current Visit: Yes Status: Acute (2) Infection of flexor tendon sheath Current Visit: Yes Status: Acute Hospital Course: The patient is a 47 year-old male who underwent a left trigger thumb release on 08/08/[address] Herman Howe. He did well after surgery until 08/14/2017 and he was seen in our office for increased swelling to his left thumb and hand. He was started on Bactrim and a Medrol Dosepak. He improved for a few days and then presented back to the office for increased hand swelling. He was given a cortisone injection at that time. He seemed to be improving again until this past Friday when he noticed increased swelling and difficulty moving his fingers. He also had a low-grade fever and chills at home. He presented to the emergency department for further evaluation. His admitted for IV antibiotics and further evaluation by orthopedic hand surgery. An MRI of the left hand revealed fluid collection around the flexor tendons of the left thumb and little finger. It was decided at that time that he would undergo a incision and drainage of his left hand which occurred on 08/26/2017. He has been seen by Dr. Fontenot for IV antibiotic therapy. A PICC line placed yesterday. He'll be discharged home today on IV Rocephin and daily dressing changes. Today, the patient is alert and oriented 3. He is in no acute distress. Vital signs are stable upon discharge. Exam of the left hand reveals 4 incisions that are healing. No erythema is present. Minimal swelling. No obvious purulent drainage present. New dressing applied. He has good finger motion without much difficulty. There is numbness to his left ring finger and left thumb, likely due to bruising of the nerve. Otherwise sensation and circulatory status is intact. Patient is orthopedically discharged home today. Pertinent Studies: Laboratory Tests 08/26/17 08/26/17 08/29/17 06:30 06:30 06:29 WBC 17.0 H RBC 4.88 Hgb 15.4 D BUN 22 H Glucose 116 H C-Reactive Protein 148.5 H Patient Condition at Discharge: Stable Plan - Discharge Summary Discharge Rx Participant: Yes New Discharge Prescriptions: New cefTRIAXone [Rocephin] 2,000 mg IVPB DAILY #30 vial HYDROcodone/APAP 7.5-325MG [[place] 7.5-325] 1 - 2 tab PO Q4-6H PRN #60 tab PRN Reason: Pain No Action Omeprazole [PriLOSEC] 40 mg PO DAILY Discharge Medication List Omeprazole [PriLOSEC] 40 mg PO DAILY 11/16/14 [History] cefTRIAXone [Rocephin] 2,000 mg IVPB DAILY #30 vial 08/28/17 [Rx] HYDROcodone/APAP 7.5-325MG [[place] 7.5-325] 1 - 2 tab PO Q4-6H PRN #60 tab [Rx] Follow up Appointment(s)/Referral(s): [facility], [NON-STAFF] - Gerardo Erwin MD [Primary Care Provider] - 1-2 days [facility], [REFERRING] - Herman Howe DO [Doctor of Osteopathic Medicine] - 1 Week Ambulatory/Diagnostic Orders: Basic Metabolic Panel [LAB.AMB] Location: Determined By Patient Complete Blood Count w/diff [LAB.AMB] Location: Determined By Patient Miscellaneous Lab Order [LAB.AMB] Location: Determined By Patient Activity/Diet/Wound Care/Special Instructions: Daily dressing changes with Adaptic/or other non-stick, 4x4s, Kerlix, and joselito wrap. Cleanse wounds daily. May shower over wounds when able to tolerate Encourage finger motion May take over the counter medications for constipation (Colace, Milk of Magnesia , or Miralax) Follow up with Dr. Rob Howe in 1 week Call [facility] with any questions or concerns, .
[2017-08-29] MEDS ORDERED: cefTRIAXone IN SWFI 2,000 MG/20 ML SYRINGE IVP SCH (14:00)
== END 2017-08-29 15:00 | disposition home health service (06) | DRG 501 ==
LOC: EC 22:47 → 3SUR 08-25 01:06
PROVIDERS: ADMIT Orthopaedic Surgery Hand Surgery; ATTEND Orthopaedic Surgery Hand Surgery
PROC: 0J9K0ZZ Drainage of Left Hand Subcutaneous Tissue and Fascia, Open Approach (ICD-10-PCS; 2017-08-26)
PROC: 0LN80ZZ Release Left Hand Tendon, Open Approach (ICD-10-PCS; 2017-08-26)
PROC: 0J9H0ZZ Drainage of Left Lower Arm Subcutaneous Tissue and Fascia, Open Approach (ICD-10-PCS; principal; 2017-08-26 13:30)
PROC: 02HV33Z Insertion of Infusion Device into Superior Vena Cava, Percutaneous Approach (ICD-10-PCS; 2017-08-28)
DX: M65.9 Synovitis and tenosynovitis, unspecified (principal); L03.114 Cellulitis of left upper limb; D72.829 Elevated white blood cell count, unspecified; M65.352 Trigger finger, left little finger; I10 Essential (primary) hypertension; R79.82 Elevated C-reactive protein (CRP); K21.9 Gastro-esophageal reflux disease without esophagitis; Z87.891 Personal history of nicotine dependence; Z79.899 Other long term (current) drug therapy; Z88.6 Allergy status to analgesic agent; Z88.1 Allergy status to other antibiotic agents; Z91.018 Allergy to other foods
CPT/HCPCS: 36415; 36569; 76937; 77001; 80048; 80053; 80202; 83605; 85025; 85652; 86140; 87040; 87070; 87075; 87077; 87186; 87205; 96365; 96366; 96375; 99284

== ENCOUNTER 2017-08-31 10:27 | Inpatient (IN) | payer MEDICARE, OTHER ==
[2017-08-31] MEDS ORDERED: RX INFO: IV CONTRAST WAS GIVEN 1 EACH MISC MISCELLANE PRN (10:53)
[2017-08-31] MEDS ORDERED: MORPHINE SULFATE 4 MG/ML SYRINGE IV STA (10:53)
[2017-08-31] MEDS ORDERED: ONDANSETRON 4 MG/2 ML VIAL IVP STA (10:53)
[2017-08-31] MEDS ORDERED: SODIUM CHLORIDE 0.9% 1,000 ML IV STA (10:53)
--- NOTE | 2017-08-31 11:00 | ED ---
General Adult HPI - General Chief complaint: Abdominal Pain Stated complaint: POST OP PAIN, SWEATING, FREQUENT URINATION Time Seen by Provider: 08/31/17 10:47 Source: patient, RN notes reviewed, old records reviewed Mode of arrival: ambulatory Limitations: no limitations - History of Present Illness Initial comments: 47 -year-old male presenting with bilateral lower abdominal pain. Patient had recent hospital admission for infected left hand. He is currently on IV antibiotics through a left upper extremity PICC. He is on Rocephin according to the patient. He has had subjective fever and chills over the past 2 days. He's had a significant amount of loose stools. No vomiting, he has had nausea throughout the last 2 days. Patient denies any chest pain shortness of breath. Denies cough. Denies sore throat or URI symptoms. Patient's left hand is improving. No worsening pain. - Related Data Home Medications Medication Instructions Recorded Confirmed Omeprazole [PriLOSEC] 40 mg PO DAILY 11/16/14 08/31/17 Previous Rx's Medication Instructions Recorded cefTRIAXone [Rocephin] 2,000 mg IVPB DAILY #30 vial 08/28/17 Allergies Allergy/AdvReac Type Severity Reaction Status Date / Time ciprofloxacin [From Cipro] Allergy Rash/Hives Verified 08/31/17 11:19 ciprofloxacin HCl Allergy Rash/Hives Verified 08/31/17 11:19 [From Cipro] coconut Allergy Unknown Verified 08/31/17 11:19 ibuprofen [From Motrin] Allergy Itching Verified 08/31/17 11:19 kiwi Allergy Unknown Verified 08/31/17 11:19 Review of Systems ROS Statement: Those systems with pertinent positive or pertinent negative responses have been documented in the HPI. ROS Other: All systems not noted in ROS Statement are negative. Past Medical History Past Medical History: Hypertension Additional Past Medical History / Comment(s): back pain. Patient relates that from his work and his prior sports he has developed significant difficulties with his knees. The left knee required reconstruction type surgeries he did develop a compartment syndrome to the left calf that required incision and drainage. The right knee was injured with a circular saw the required extensive surgical repair years ago. History of Any Multi-Drug Resistant Organisms: MRSA Date of last positivie culture/infection: 08/26/17 MDRO Source:: FINGER Additional Past Surgical History / Comment(s): back surg, knee surgery Past Anesthesia/Blood Transfusion Reactions: No Reported Reaction Past Psychological History: No Psychological Hx Reported Smoking Status: Former smoker Past Alcohol Use History: Daily Past Drug Use History: None Reported General Exam Limitations: no limitations General appearance: alert, in no apparent distress Head exam: Present: atraumatic, normocephalic Eye exam: Present: normal appearance, PERRL, EOMI ENT exam: Present: mucous membranes dry Neck exam: Present: normal inspection. Absent: tenderness, meningismus Respiratory exam: Present: normal lung sounds bilaterally. Absent: respiratory distress, wheezes Cardiovascular Exam: Present: normal rhythm, tachycardia GI/Abdominal exam: Present: soft, tenderness (Bilateral lower abdominal tenderness). Absent: distended Extremities exam: Present: normal inspection, normal capillary refill. Absent: pedal edema Back exam: Absent: CVA tenderness (R), CVA tenderness (L) Neurological exam: Present: alert, oriented X3, CN II-XII intact. Absent: motor sensory deficit Psychiatric exam: Present: normal affect, normal mood Skin exam: Present: warm, dry, intact. Absent: cyanosis, diaphoretic Course Vital Signs 08/31/17 10:42 Temperature 97.8 F Pulse Rate 107 H Respiratory 18 Rate Blood Pressure 135/90 O2 Sat by Pulse 97 Oximetry Medical Decision Making - Medical Decision Making 47 yo male presenting with diarrhea, and abdominal pain. Patient is currently on IV antibiotics for infected left hand. Patient does have significant lower abdominal tenderness to palpation on examination. He is tachycardic with stable blood pressure on initial evaluation. Does appear dehydrated. Laboratory studies are obtained, white blood cell count 10.8, hemoglobin stable 16.5. Creatinine elevated at 1.39 consistent with dehydration. Patient receives IV hydration emergency department. On reevaluation he has persistent abdominal pain. CT is obtained negative for any acute intra-abdominal process. Patient's wound cultures were reviewed, he was positive for methicillin- resistant staph aureus. He will be started on vancomycin, infectious disease will be placed on consult. C. difficile toxin pending - Lab Data Result diagrams: 08/31/17 11:05 08/31/17 11:05 Lab Results 08/31/17 08/31/17 08/31/17 Range/Units 11:05 11:05 11:05 WBC 10.8 H (3.8-10.6) k/uL RBC 5.29 (4.30-5.90) m/uL Hgb 16.5 (13.0-17.5) gm/dL Hct 47.8 (39.0-53.0) % MCV 90.4 (80.0-100.0) fL MCH 31.2 (25.0-35.0) pg MCHC 34.5 (31.0-37.0) g/dL RDW 12.1 (11.5-15.5) % Plt Count 131 L (150-450) k/uL Neutrophils % 72 % Lymphocytes % 18 % Monocytes % 7 % Eosinophils % 2 % Basophils % 0 % Neutrophils # 7.8 H (1.3-7.7) k/uL Lymphocytes # 1.9 (1.0-4.8) k/uL Monocytes # 0.7 (0-1.0) k/uL Eosinophils # 0.2 (0-0.7) k/uL Basophils # 0.0 (0-0.2) k/uL Sodium 142 (137-145) mmol/L Potassium 3.6 (3.5-5.1) mmol/L Chloride 100 (98-107) mmol/L Carbon Dioxide 32 H (22-30) mmol/L Anion Gap 10 mmol/L BUN 22 H (9-20) mg/dL Creatinine 1.39 H (0.66-1.25) mg/dL Est GFR (MDRD) Af Amer >60 (>60 ml/min/1.73 sqM) Est GFR (MDRD) Non-Af 55 (>60 ml/min/1.73 sqM) Glucose 100 H (74-99) mg/dL Plasma Lactic Acid Rafi 1.3 (0.7-2.0) mmol/L Calcium 8.8 (8.4-10.2) mg/dL Total Bilirubin 1.1 (0.2-1.3) mg/dL AST 37 (17-59) U/L ALT 100 H (21-72) U/L Alkaline Phosphatase 59 (38-126) U/L Total Protein 5.8 L (6.3-8.2) g/dL Albumin 3.2 L (3.5-5.0) g/dL Amylase 34 (30-110) U/L Lipase 212 (23-300) U/L Urine Color Urine Appearance (Clear) Urine pH (5.0-8.0) Ur Specific [place] (1.001-1.035) Urine Protein (Negative) Urine Glucose (UA) (Negative) Urine Ketones (Negative) Urine Blood (Negative) Urine Nitrite (Negative) Urine Bilirubin (Negative) Urine Urobilinogen (<2.0) mg/dL Ur Leukocyte Esterase (Negative) Urine RBC (0-5) /hpf Urine WBC (0-5) /hpf Urine Mucus (None) /hpf 08/31/17 Range/Units 11:10 WBC (3.8-10.6) k/uL RBC (4.30-5.90) m/uL Hgb (13.0-17.5) gm/dL Hct (39.0-53.0) % MCV (80.0-100.0) fL MCH (25.0-35.0) pg MCHC (31.0-37.0) g/dL RDW (11.5-15.5) % Plt Count (150-450) k/uL Neutrophils % % Lymphocytes % % Monocytes % % Eosinophils % % Basophils % % Neutrophils # (1.3-7.7) k/uL Lymphocytes # (1.0-4.8) k/uL Monocytes # (0-1.0) k/uL Eosinophils # (0-0.7) k/uL Basophils # (0-0.2) k/uL Sodium (137-145) mmol/L Potassium (3.5-5.1) mmol/L Chloride (98-107) mmol/L Carbon Dioxide (22-30) mmol/L Anion Gap mmol/L BUN (9-20) mg/dL Creatinine (0.66-1.25) mg/dL Est GFR (MDRD) Af Amer (>60 ml/min/1.73 sqM) Est GFR (MDRD) Non-Af (>60 ml/min/1.73 sqM) Glucose (74-99) mg/dL Plasma Lactic Acid Rafi (0.7-2.0) mmol/L Calcium (8.4-10.2) mg/dL Total Bilirubin (0.2-1.3) mg/dL AST (17-59) U/L ALT (21-72) U/L Alkaline Phosphatase (38-126) U/L Total Protein (6.3-8.2) g/dL Albumin (3.5-5.0) g/dL Amylase (30-110) U/L Lipase (23-300) U/L Urine Color Light Yellow Urine Appearance Clear (Clear) Urine pH 6.5 (5.0-8.0) Ur Specific [place] 1.005 (1.001-1.035) Urine Protein Trace H (Negative) Urine Glucose (UA) Negative (Negative) Urine Ketones Negative (Negative) Urine Blood Trace H (Negative) Urine Nitrite Negative (Negative) Urine Bilirubin Negative (Negative) Urine Urobilinogen <2.0 (<2.0) mg/dL Ur Leukocyte Esterase Negative (Negative) Urine RBC 1 (0-5) /hpf Urine WBC 1 (0-5) /hpf Urine Mucus Rare H (None) /hpf Disposition Clinical Impression: Dehydration, Diarrhea Disposition: ADMITTED IP TO THIS [facility] Condition: Stable Referrals: Gerardo Erwin MD [Primary Care Provider] - 1-2 days Decision to Admit Reason: Admit from EC Decision Date: 08/31/17 Decision Time: 12:54
[2017-08-31 11:20] LABS: Basophils % (A) 0 %; Eosinophils # (A) 0.2 k/uL (0-0.7); Eosinophils % (A) 2 %; HCT 47.8 % (39.0-53.0); HGB 16.5 gm/dL (13.0-17.5); Lymphocytes # (A) 1.9 k/uL (1.0-4.8); Lymphocytes % (A) 18 %; MCH 31.2 pg (25.0-35.0); MCHC 34.5 g/dL (31.0-37.0); MCV 90.4 fL (80.0-100.0); Mean Platelet Volume 7.4; Monocytes # (A) 0.7 k/uL (0-1.0); Monocytes % (A) 7 %; Neutrophils # (A) 7.8 k/uL (1.3-7.7); Neutrophils % (A) 72 %; Platelet Count 131 k/uL (150-450); RBC 5.29 m/uL (4.30-5.90); RDW 12.1 % (11.5-15.5); WBC 10.8 k/uL (3.8-10.6)
[2017-08-31 11:30] LABS: ALT 100 U/L (21-72); AST 37 U/L (17-59); Albumin 3.2 g/dL (3.5-5.0); Alkaline Phosphatase 59 U/L (38-126); Amylase 34 U/L (30-110); Anion Gap 10 mmol/L; Blood Urea Nitrogen 22 mg/dL (9-20); Calcium 8.8 mg/dL (8.4-10.2); Carbon Dioxide 32 mmol/L (22-30); Chloride 100 mmol/L (98-107); Glucose 100 mg/dL (74-99); Lipase 212 U/L (23-300); Potassium 3.6 mmol/L (3.5-5.1); Sodium 142 mmol/L (137-145); Total Bilirubin 1.1 mg/dL (0.2-1.3); Total Protein 5.8 g/dL (6.3-8.2)
[2017-08-31 11:31] LABS: Appearance,Urine Clear (Clear); Bilirubin,Urine Negative (Negative); Blood,Urine Trace (Negative); Color,Urine Light Yellow; Glucose,Urine (UA) Negative (Negative); Ketones,Urine Negative (Negative); Leukocyte Esterase,Urine Negative (Negative); Mucus,Urine Rare /hpf; PH, Urine 6.5 (5.0-8.0); Protein,Urine Trace (Negative); RBC,Urine 1 /hpf (0-5); Specific Gravity,Urine 1.005 (1.001-1.035); Urobilinogen,Urine <2.0 mg/dL (<2.0); WBC,Urine 1 /hpf (0-5)
[2017-08-31] MEDS ORDERED: SODIUM CHLORIDE 0.9% 500 ML IV ONE (11:41)
[2017-08-31] MEDS: SODIUM CHLORIDE 0.9% 1,000 ML IV SCH (11:57)
--- NOTE | 2017-08-31 12:10 | CT ---
EXAMINATION TYPE: CT abdomen pelvis wo con DATE OF EXAM: 08/31/2017 COMPARISON: NONE INDICATION: Pain lower abdomen DLP: 673.6 mGycm, Automated exposure control for dose reduction was used. CONTRAST: 0 mL of Omnipaque 350. Study performed without Oral Contrast TECHNIQUE: Axial images were obtained from above the diaphragm to the pubic rami in the axial plane a t 5 mm thick sections. Reconstructed images are reviewed on the computer in the coronal plane. FINDINGS: Limited CT sections are obtained the lung bases. The lung bases are clear. CT ABDOMEN: Liver: Normal Spleen: Normal Pancreas: Normal Adrenal glands: The adrenal glands are normal. Gallbladder: Normal Kidneys: No masses are evident. No hydronephrosis is present. No cysts are present. No renal stone s are identified. Aorta: Normal Inferior vena cava: Normal. CT PELVIS: Loops of bowel within the abdomen and pelvis are normal. Studies without oral contrast limiting b owel evaluation. Appendix: Normal as visualized. Hyperdensity is within the sacrum adjacent to the appendix orifice. Urinary bladder: Normal. Genitourinary structures: Prostate contains calcification. Osseous structures: No suspicious lytic or sclerotic lesions. Postsurgical changes are within the lum bar spine. IMPRESSIONS: 1. No suspicious acute changes.
[2017-08-31] MEDS ORDERED: MORPHINE SULFATE 4 MG/ML SYRINGE IVP STA (12:36)
[2017-08-31] MEDS ORDERED: ONDANSETRON 4 MG/2 ML VIAL IVP PRN (12:47)
[2017-08-31] MEDS ORDERED: NALOXONE 0.4 MG/ML 1 ML VIAL IV PRN (12:47)
[2017-08-31] MEDS ORDERED: VANCOMYCIN IV PER PHARMACY 1 EACH MISC MISCELLANE PRN (12:52)
[2017-08-31] MEDS ORDERED: VANCOMYCIN 1,500 MG in SODIUM CHLORIDE 0.9% 250 ML IVPB STA (12:59)
[2017-08-31] MEDS: MORPHINE SULFATE 4 MG/ML SYRINGE IV PRN ×3 (13:49→22:14)
[2017-08-31 15:14] VITALS: BMI 29.4
[2017-08-31] MEDS: metroNIDAZOLE-NS PMX 500 MG in SALINE 1 100ML.BAG IVPB SCH ×2 (16:08→23:47)
[2017-08-31] MEDS: CHOLESTYRAMINE (WITH SUGAR) 4 GM PACKET PO SCH (16:13)
[2017-08-31] MEDS: DICYCLOMINE 10 MG CAP PO PRN (16:15)
[2017-08-31] MEDS ORDERED: cefTRIAXone IN SWFI 2,000 MG/20 ML SYRINGE IVP SCH (18:00)
[2017-08-31] MEDS: VANCOMYCIN 1,500 MG in SODIUM CHLORIDE 0.9% 250 ML IVPB SCH (20:01)
--- NOTE | 2017-08-31 22:49 | P.HPIM ---
History of Present Illness H&P Date: 08/31/17 Chief Complaint: Abdominal pain Patient is a 47-year-old male with a known history of hypertension and recent left hand trigger finger surgery followed by cellulitis/abscess of the hand and was sent on IV antibiotics in the form of Rocephin came to ER with complaints of lower abdominal pain. Patient is on IV antibiotics for the past 1 week. Patient has been having cramping lower abdominal pain along with subjective fever and chills for the past 2 days. Patient also been having diarrhea with foul smelling. Patient does have nausea and some vomiting. Otherwise denied any chest pain or shortness of breath. Denied any recent illnesses or sick contacts at home. Otherwise CT abdomen showed no acute process. C. diff toxin was ordered. Patient does have history of MRSA No leukocytosis Review of Systems Constitutional: Patient denies any fever or chills . No generalized weakness or weight loss. Abdomen: Patient does have lower abdominal pain along with nausea. No vomiting and patient does have diarrhea Cardiovascular: Patient denies any chest pain or short of breath no palpitations. Respiratory: patient denied any cough is from production. No shortness of breath Neurologic: Patient denied any numbness or tingling headache. Musculoskeletal: Patient denies any complaints of joint swelling or deformity. Skin: Negative Psychiatric: Negative Endocrine: No heat or cold intolerance. No recent weight gain. Genitourinary: No dysuria or hematuria. All other 14 point ROS negative except the above Past Medical History Past Medical History: Hypertension Additional Past Medical History / Comment(s): back pain. Patient relates that from his work and his prior sports he has developed significant difficulties with his knees. The left knee required reconstruction type surgeries he did develop a compartment syndrome to the left calf that required incision and drainage. The right knee was injured with a circular saw the required extensive surgical repair years ago. History of Any Multi-Drug Resistant Organisms: MRSA Date of last positivie culture/infection: 08/26/17 MDRO Source:: FINGER Additional Past Surgical History / Comment(s): back surg, knee surgery Past Anesthesia/Blood Transfusion Reactions: No Reported Reaction Past Psychological History: No Psychological Hx Reported Additional Psychological History / Comment(s): and lives in the family home with his and 2 adult children, 3rd adult child occasionally lives with him still. No animals in the home. 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 No experience. No international travel. No tobacco smoker for more than 10 years. Does do some weight lifting but does not inject testosterone. Smoking Status: Former smoker Past Alcohol Use History: Daily Past Drug Use History: None Reported - Past Family History Father Family Medical History: No Reported History Mother Family Medical History: No Reported History Medications and Allergies Home Medications Medication Instructions Recorded Confirmed Type Omeprazole [PriLOSEC] 40 mg PO DAILY 11/16/14 08/31/17 History cefTRIAXone [Rocephin] 2,000 mg IVPB DAILY #30 vial 08/28/17 08/31/17 Rx Allergies Allergy/AdvReac Type Severity Reaction Status Date / Time ciprofloxacin [From Cipro] Allergy Rash/Hives Verified 08/31/17 11:19 ciprofloxacin HCl Allergy Rash/Hives Verified 08/31/17 11:19 [From Cipro] coconut Allergy Unknown Verified 08/31/17 11:19 ibuprofen [From Motrin] Allergy Itching Verified 08/31/17 11:19 kiwi Allergy Unknown Verified 08/31/17 11:19 Physical Exam Vitals: Vital Signs Temp Pulse Pulse Resp BP BP Pulse Ox 08/31/17 16:00 79 18 08/31/17 15:00 98.1 F 79 18 142/75 95 08/31/17 14:30 98 F 84 20 136/78 98 08/31/17 13:56 97.4 F L 79 18 133/75 96 08/31/17 10:42 97.8 F 107 H 18 135/90 97 Intake and Output 08/31/17 08/31/17 08/31/17 06:59 14:59 22:59 Other: Weight 92.986 kg Patient Weight 09/01/17 06:59 Weight 92.986 kg PHYSICAL EXAMINATION: Patient is lying in the bed comfortably, mild distress due to pain, awake alert and oriented.. HEENT: Normocephalic. Neck is supple. Pupils reactive. Nostrils clear. Oral cavity is moist. Ears reveal no drainage. Neck reveals no JVD, carotid bruits, or thyromegaly. CHEST EXAMINATION: Trachea is central. Symmetrical expansion. Lung fowler clear to auscultation and percussion. CARDIAC: Normal S1, S2 with no gallops. No murmurs ABDOMEN: Soft. Bowel sounds normal. Lower abdominal tenderness. No guarding no rigidity .No organomegaly. No abdominal bruits. Extremities: reveal no edema. No clubbing or cyanosis Neurologically awake, alert, oriented x3 with well-coordinated movements. No focal deficits noted Skin: No rash or skin lesions. Psychiatric: Ta1atixoxdh. Nonsuicidal Musculoskeletal: No joint swelling or deformity. Normal range of motion. Results CBC & Chem 7: 08/31/17 11:05 08/31/17 11:05 Labs: Abnormal Lab Results - Last 24 Hours (Table) 08/31/17 08/31/17 08/31/17 Range/Units 11:05 11:05 11:10 WBC 10.8 H (3.8-10.6) k/uL Plt Count 131 L (150-450) k/uL Neutrophils # 7.8 H (1.3-7.7) k/uL Carbon Dioxide 32 H (22-30) mmol/L BUN 22 H (9-20) mg/dL Creatinine 1.39 H (0.66-1.25) mg/dL Glucose 100 H (74-99) mg/dL ALT 100 H (21-72) U/L Total Protein 5.8 L (6.3-8.2) g/dL Albumin 3.2 L (3.5-5.0) g/dL Urine Protein Trace H (Negative) Urine Blood Trace H (Negative) Urine Mucus Rare H (None) /hpf Microbiology - Last 24 Hours (Table) 08/31/17 11:10 Urine Culture - Preliminary Urine,Voided Thrombosis Risk Factor Assmnt - DVT/VTE Prophylaxis DVT/VTE Prophylaxis: Pharmacologic Prophylaxis ordered - Choose All That Apply Each Factor Represents 1 point: Age 41-60 years Thrombosis Risk Factor Assessment Total Risk Factor Score: 1 Thrombosis Risk Factor Assessment Level: Low Risk Assessment and Plan Assessment: Acute lower abdominal pain along with diarrhea. Strongly suspected C. diff infection. Currently on IV antibiotics at home.. Recent left hand trigger finger surgery and infection. Currently on IV antibiotics at home by a PICC line. Wound culture showed MRSA Acute kidney injury most likely prerenal Hypertension DVT prophylaxis Plan: Patient be continued on IV vancomycin and was started on metronidazole 500 mg 3 times a day for possible C. diff infection. Continue with IV hydration. We'll follow up C. diff toxin report. Pain management with morphine and bentyl. Continue the current management and further recommendations based on the clinical course. ID was consulted. Time with Patient: Greater than 30
--- NOTE | 2017-08-31 23:25 | CONS ---
CONSULTATION DATE OF SERVICE: 08/31/2017. REASON FOR CONSULTATION: 1. Abdominal pain and diarrhea. 2. Left hand infection. HISTORY OF PRESENT ILLNESS: The patient is a 47-year-old male who recently did have a left trigger thumb release done on 08/08/2017. Post surgery, the patient is still having some swelling and redness of the left hand area for which the patient has been treated with antibiotics and steroids, did have initial improvement but did have significant recurrence subsequently for which the patient did have an MRI that was suggestive of tenosynovitis, but no osteomyelitis. The patient subsequently was admitted to the hospital and was taken to the OR on the where the patient did have an incision and drainage of the base of the left little finger with culture irrigation, mid palm incision, drainage of the pulse, incision and drainage of distal wall with aspiration and deep cultures. Those cultures were done on to and the patient was treated with IV Rocephin and vancomycin and subsequently discharged home on the August with Rocephin 2 g daily to treat for his infection. The patient is now coming back to the ER at [facility] this morning with chief complaints of significant crampy abdominal pain that started last night. Prior to that he did have episodes of diarrhea with no bloody mucus and he has felt nauseated but no vomiting. However, subsequently did have significant pain. Pain described to be colicky, that comes and goes and also almost 7 to 8 out of 10, and no radiation has associated nausea with diarrhea as mention above, with about 4 episodes of loose stools last night with no blood or mucus in it. With worsening symptoms, he did come into the ER at [facility]. The patient did have a CT abdomen and pelvis that was done without contrast which was reported to be negative. The patient was admitted to the hospital and was continued on the Rocephin and vancomycin. Infectious Disease was consulted for further recommendations regarding his left hand tenosynovitis as well as acute diarrhea and abdominal pain. REVIEW OF SYSTEMS: Constitutional: Positive for weakness and chills. Eyes: No complaint. ENT no complaint. Respiratory: No complaint. Cardiovascular no complaint. Genitourinary no complaint. GASTROINTESTINAL: As per HPI. MUSCULOSKELETAL: As per HPI. Integumentary as per HPI. PSYCHOLOGICAL: No complaint. Endocrine no complaint. Neurologic no complaint. PAST MEDICAL HISTORY: Hypertension, chronic back pain, and recent admission to the hospital with left hand trigger finger release, tenosynovitis with MRSA. PAST SURGICAL HISTORY: Back surgery. He did have a knee surgery and finger release left hand and subsequent I and D of the abscess. SOCIAL HISTORY: Remote history of smoking, socially drinks. No drug use. FAMILY HISTORY: No pertinent findings noticed. ALLERGIES: CIPROFLOXACIN AND IBUPROFEN. MEDICATIONS: The patient is currently on 1 morphine sulfate, Narcan, Zofran and Rocephin. EXAMINATION: Blood pressure is 142/75 with a pulse of 79, temperature 98.1. He is 95% on room air. General description is a middle-aged male lying in bed in no distress. No tachypnea or accessory muscles of respiration use. HEENT: Shows no pallor or scleral icterus. Oral mucosa membranes are dry. No significant erythremia or thrush. Neck trachea central. No thyromegaly. Lungs unlabored breathing. Clear to auscultation anteriorly. No wheeze or crackles. Heart S1, S2. Regular rate and rhythm. ABDOMEN: Soft. Mild tenderness in the lower quadrant area. No guarding or rigidity. No organomegaly. Extremities: No edema of feet. Examination of the left hand: The wounds looks clean with no purulence. No surrounding redness or any foul smelling drainage. Neurological: Patient is awake, alert, oriented x3. Mood and affect normal. LABS: Hemoglobin 16.5, white count 10.8. BUN of 22, creatinine 1.39. Electrolytes have been normal. Urine is negative. CT abdominal pelvis done without oral contrast. No acute findings. DIAGNOSTIC IMPRESSION AND PLAN: 1. Patient with left hand tenosynovitis, status post trigger finger release. Culture showing Methicillin-resistant Staphylococcus aureus likely pathogen. The patient has been on outpatient IV Rocephin. Currently the wound looks clean with no definite cellulitis or any purulent drainage. 2. Patient admitted to the hospital with significant abdominal pain and diarrhea in a patient who has been exposed to the hospital and antibiotics with concern likely for a C difficile colitis to be on top of the list. PLAN: 1. We will check a stool for C diff. 2. Empirically add Bentyl for symptomatic colicky abdominal pain, Questran for symptomatic relief for diarrhea and Flagyl while waiting for the cultures to finalize. 3. Vancomycin pharmacy to dose target of 15 to cover for the left hand tenosynovitis. 4. Aggressive IV fluid. 5. We will need to watch his kidney function closely while the patient is on vancomycin. 6. As the patient is known to Dr. Fontenot, he will be signed out to him tomorrow. 7. Will continue to follow up. He did have multiple questions regarding his infection, those were answered. MMARAMISL / KORYN: [id number] /
[2017-09-01] MEDS: DICYCLOMINE 10 MG CAP PO PRN ×3 (02:31→15:41)
[2017-09-01] MEDS: MORPHINE SULFATE 4 MG/ML SYRINGE IV PRN ×5 (03:28→21:40)
[2017-09-01] MEDS: SODIUM CHLORIDE 0.9% 1,000 ML IV SCH ×3 (03:31→17:57)
[2017-09-01] MEDS: metroNIDAZOLE-NS PMX 500 MG in SALINE 1 100ML.BAG IVPB SCH ×3 (07:26→23:52)
[2017-09-01] MEDS: HEPARIN SODIUM,PORCINE 5,000 UNIT/ML 1 ML VIAL SQ SCH ×2 (07:26→20:31)
[2017-09-01 07:38] LABS: Basophils % (A) 0 %; Eosinophils # (A) 0.3 k/uL (0-0.7); Eosinophils % (A) 4 %; HGB 14.7 gm/dL (13.0-17.5); Lymphocytes # (A) 1.9 k/uL (1.0-4.8); Lymphocytes % (A) 22 %; MCH 31.1 pg (25.0-35.0); MCHC 32.7 g/dL (31.0-37.0); Monocytes # (A) 0.7 k/uL (0-1.0); Monocytes % (A) 8 %; Neutrophils # (A) 5.6 k/uL (1.3-7.7); Neutrophils % (A) 64 %; Platelet Count 109 k/uL (150-450); RBC 4.73 m/uL (4.30-5.90); RDW 11.9 % (11.5-15.5); WBC 8.7 k/uL (3.8-10.6)
[2017-09-01 07:55] LABS: Albumin 2.6 g/dL (3.5-5.0); Calcium 7.9 mg/dL (8.4-10.2); Potassium 3.5 mmol/L (3.5-5.1); Total Bilirubin 0.7 mg/dL (0.2-1.3)
[2017-09-01] MEDS: VANCOMYCIN 1,500 MG in SODIUM CHLORIDE 0.9% 250 ML IVPB SCH (08:43)
[2017-09-01] MEDS ORDERED: NON-FORMULARY DRUG (Ceftriaxone 2,000 MG) IVPB SCH (09:00)
[2017-09-01] MEDS: CHOLESTYRAMINE (WITH SUGAR) 4 GM PACKET PO SCH ×2 (10:53→17:59)
[2017-09-01] MEDS ORDERED: MORPHINE ORAL SOLN 10 MG/5 ML CUP PO PRN (14:23)
--- NOTE | 2017-09-01 16:51 | XR ---
Abdomen HISTORY: Abdomen pain Frontal view of the abdomen submitted on [address] abdomen pelvis dated 08/31/2017. Lung bases are clear. There is no evident bowel obstruction or pneumoperitoneum. Vascular calcificati ons are noted within the pelvis. Postop change noted at the lumbosacral junction. Oval density in the right lower quadrant may reflect medication. IMPRESSION: Nonobstructive bowel gas pattern. Additional findings above, medication thought to persis t in the right lower quadrant.
[2017-09-01] MEDS ORDERED: LORazepam 2 MG/ML INJ IV PRN (17:19)
[2017-09-01] MEDS: DAPTOmycin 500 MG in SODIUM CHLORIDE 0.9% 50 ML IV SCH (20:31)
--- NOTE | 2017-09-01 20:41 | P.PN ---
Subjective Progress Note Date: 09/01/17 Principal diagnosis: Abdominal pain Very pleasant 47-year-old male presents to Hospital because of increasing pain and swelling and tenderness and decreased use of his left hand. The patient relates that he had developed some significant discomfort in the left hand as well as a trigger finger to his thumb. He underwent injection therapy did not improve. Because "he underwent a surgical repair of the trigger finger. Post operatively he developed some swelling and did receive some local therapy that included some cortisone injections in some oral antibiotic therapy. Despite multiple injections he now presents with significant pain and swelling erythema and disuse of his hand due to the significant pain and swelling. He constantly was admitted and infectious diseases consultation was requested. The patient was found evidence of infection to the hand and he was taken to the operating room and incision and drainage of the tenosynovitis occurred. At the time of discharge patient was showing marked improvement. Laboratory related to staphylococcal infection and was discharged on ceftriaxone. The patient however developed significant abdominal pain severe enough that he presented to the emergency center. Upon arrival there was evidence of his significant distress and he was admitted for further evaluation of his severe abdominal pain. He was having significant amount of diarrhea at home that actually resolved upon the time of his presentation to the hospital. He'll continue to have severe abdominal pain that is being relieved with intravenous morphine only at this time. He also had a fever at home that has improved also. Before she relates that his hand is feeling somewhat better. His diarrhea was loose and nonbloody, he continues to have tenesmus and urinary urgency at this time. Objective - Vital Signs Vital signs: Vital Signs Temp 98.0 F 09/01/17 15:00 Pulse 71 09/01/17 15:00 Resp 16 09/01/17 15:00 BP 126/80 09/01/17 15:00 Pulse Ox 95 09/01/17 15:00 Intake & Output 09/01/17 09/01/17 09/02/17 06:59 18:59 06:59 Intake Total 1430 Balance 1430 Weight 92.986 kg Intake: Intake, IV Titration 950 Amount Sodium Chloride 0.9% 1, 600 000 ml @ 100 mls/hr IV . Q10H TRISTON Rx#:[id number] Vancomycin 1,500 mg In 250 Sodium Chloride 0.9% 250 ml @ 125 mls/hr IVPB ONCE STA Rx#:[id number] metroNIDAZOLE-NS PMX 500 100 mg In Saline 1 100ml.bag @ 100 mls/hr IVPB Q8HR TRISTON Rx#:[id number] Oral 480 Other: Voiding Method Toilet # Voids 1 4 # Bowel Movements 0 - Exam Pleasant 47-year-old male of a muscular build who is in obvious discomfort complaining of his abdominal pain. HEENT: Anicteric conjunctiva are pink and moist nasal mucosa grossly intact without significant lesions, there is no thrush. Neck: The neck is supple without significant lymphadenopathy or thyromegaly. Lungs: Good bilateral air entry without significant crackles or wheezing. There is no significant bronchial sounds. There is no egophony or dullness. Heart: Regular rate and rhythm with an audible S1-S2, no S3 no S4. There is no significant murmur click or rub, PMI was nondisplaced. Abdomen: Positive bowel sounds soft but distended but not severely so., His distinct tenderness especially in the left lower quadrant less so on the right lower quadrant, no flank tenderness. No organomegaly. No guarding or rebound. Extremities: Right upper extremity without abnormalities. Left upper extremity reveals the recent surgical intervention with some improvement to the surgical incisions and that there is some granulation and very little drainage at this time. Surrounding erythema is improved. Range of motion of the hand is improved. Greatest area of tenderness is still at the wrist and on the thenar eminence. Please see the nursing photography for the measurements in locations There is no significant epitrochlear or axillary lymphadenopathy. No other enlarged lymph nodes are seen. The lower extremities are without significant edema in the prior surgical interventions are well-healed in the bilateral lower extremities. Neuro: Awake alert oriented to person place and time. There are no acute new gross focal sensory motor deficits. - Labs CBC & Chem 7: 09/01/17 07:05 09/01/17 07:05 Labs: Abnormal Lab Results - Last 24 Hours (Table) 09/01/17 09/01/17 Range/Units 07:05 07:05 Plt Count 109 L (150-450) k/uL BUN 22 H (9-20) mg/dL Creatinine 1.61 H (0.66-1.25) mg/dL Glucose 125 H (74-99) mg/dL Calcium 7.9 L (8.4-10.2) mg/dL ALT 73 H (21-72) U/L Total Protein 5.0 L (6.3-8.2) g/dL Albumin 2.6 L (3.5-5.0) g/dL Microbiology - Last 24 Hours (Table) 08/31/17 11:05 Blood Culture - Preliminary Blood No Growth after 24 hours 08/31/17 11:10 Urine Culture - Final Urine,Voided Laboratory Results WBC 8.7 k/uL (3.8-10.6) 09/01/17 07:05 RBC 4.73 m/uL (4.30-5.90) 09/01/17 07:05 Hgb 14.7 gm/dL (13.0-17.5) 09/01/17 07:05 Hct 45.0 % (39.0-53.0) 09/01/17 07:05 MCV 95.0 fL (80.0-100.0) 09/01/17 07:05 MCH 31.1 pg (25.0-35.0) 09/01/17 07:05 MCHC 32.7 g/dL (31.0-37.0) 09/01/17 07:05 RDW 11.9 % (11.5-15.5) 09/01/17 07:05 Plt Count 109 k/uL (150-450) L 09/01/17 07:05 Neutrophils % 64 % 09/01/17 07:05 Lymphocytes % 22 % 09/01/17 07:05 Monocytes % 8 % 09/01/17 07:05 Eosinophils % 4 % 09/01/17 07:05 Basophils % 0 % 09/01/17 07:05 Neutrophils # 5.6 k/uL (1.3-7.7) 09/01/17 07:05 Lymphocytes # 1.9 k/uL (1.0-4.8) 09/01/17 07:05 Monocytes # 0.7 k/uL (0-1.0) 09/01/17 07:05 Eosinophils # 0.3 k/uL (0-0.7) 09/01/17 07:05 Basophils # 0.0 k/uL (0-0.2) 09/01/17 07:05 Sodium 141 mmol/L (137-145) 09/01/17 07:05 Potassium 3.5 mmol/L (3.5-5.1) 09/01/17 07:05 Chloride 102 mmol/L (98-107) 09/01/17 07:05 Carbon Dioxide 30 mmol/L (22-30) 09/01/17 07:05 Anion Gap 9 mmol/L 09/01/17 07:05 BUN 22 mg/dL (9-20) H 09/01/17 07:05 Creatinine 1.61 mg/dL (0.66-1.25) H 09/01/17 07:05 Est GFR (MDRD) Af Amer 56 (>60 ml/min/1.73 sqM) 09/01/17 07:05 Est GFR (MDRD) Non-Af 46 (>60 ml/min/1.73 sqM) 09/01/17 07:05 Glucose 125 mg/dL (74-99) H 09/01/17 07:05 Plasma Lactic Acid Rafi 1.3 mmol/L (0.7-2.0) 08/31/17 11:05 Calcium 7.9 mg/dL (8.4-10.2) L 09/01/17 07:05 Total Bilirubin 0.7 mg/dL (0.2-1.3) 09/01/17 07:05 AST 26 U/L (17-59) 09/01/17 07:05 ALT 73 U/L (21-72) H 09/01/17 07:05 Alkaline Phosphatase 46 U/L (38-126) 09/01/17 07:05 Total Protein 5.0 g/dL (6.3-8.2) L 09/01/17 07:05 Albumin 2.6 g/dL (3.5-5.0) L 09/01/17 07:05 Amylase 34 U/L (30-110) 08/31/17 11:05 Lipase 212 U/L (23-300) 08/31/17 11:05 Urine Color Light Yellow 08/31/17 11:10 Urine Appearance Clear (Clear) 08/31/17 11:10 Urine pH 6.5 (5.0-8.0) 08/31/17 11:10 Ur Specific [place] 1.005 (1.001-1.035) 08/31/17 11:10 Urine Protein Trace (Negative) H 08/31/17 11:10 Urine Glucose (UA) Negative (Negative) 08/31/17 11:10 Urine Ketones Negative (Negative) 08/31/17 11:10 Urine Blood Trace (Negative) H 08/31/17 11:10 Urine Nitrite Negative (Negative) 08/31/17 11:10 Urine Bilirubin Negative (Negative) 08/31/17 11:10 Urine Urobilinogen <2.0 mg/dL (<2.0) 08/31/17 11:10 Ur Leukocyte Esterase Negative (Negative) 08/31/17 11:10 Urine RBC 1 /hpf (0-5) 08/31/17 11:10 Urine WBC 1 /hpf (0-5) 08/31/17 11:10 Urine Mucus Rare /hpf (None) H 08/31/17 11:10 Microbiology 08/31/17 11:05 Blood Blood Culture - Preliminary No Growth after 24 hours 08/31/17 11:10 Urine,Voided Urine Culture - Final Assessment and Plan (1) Abdominal pain in male Narrative/Plan: Pleasant 47-year-old male presents to the emergency center onset of severe abdominal pain. Is noted been recently hospitalized briefly at the significant infection to his left hand and required a surgical incision and drainage of the tenosynovitis. He was responding well to therapeutic intervention until the onset of the severe abdominal pain. He was having severe bouts of diarrhea but not a lot of nausea or emesis. At presentation his diarrhea has stopped but his abdominal pain continues. Computed tomography scan was performed without evidence of acute obstruction, or free air or hydronephrosis. No oral contrast was performed. The patient this time is still quite miserable and have requested intravenous morphine for his pain control. This partially does allow him to have some relief. Some anxiolytic will also be given. Surgical consult is in process. Repeat abdominal x-ray without evidence of free air. Concern this point in time would be to a colitis from his antibiotic therapy for the treatment of a significant hand infection. Antibiotic has been adjusted to daptomycin given the culture with MRSA with a vancomycin KRISTINA of 2. Patient was also placed on intravenous metronidazole with concerns to a colitis. We do await stool evaluation to determine the possibility of C. diff colitis. Computed tomography scan did not reveal evidence of thickened bowel loops. We will monitor his course and at the time of discharge will be on different outpatient intravenous antibiotic therapy given the cultures that were finalized after his discharge. As noted laboratory was relating to staph aureus as a presumptive diagnosis but not of MRSA, which was an finalized 5 days into the culture. Current Visit: Yes Status: Acute Code(s): R10.9 - UNSPECIFIED ABDOMINAL PAIN SNOMED Code(s): 15364118 (2) Infection of flexor tendon sheath Current Visit: No Status: Acute Code(s): M65.10 - OTHER INFECTIVE (TENO) SYNOVITIS, UNSPECIFIED SITE SNOMED Code(s): 075796683 (3) MRSA (methicillin resistant Staphylococcus aureus) infection Current Visit: Yes Status: Acute Code(s): A49.02 - METHICILLIN RESIS STAPH INFECTION, UNSP SITE SNOMED Code(s): 442198110
[2017-09-02] MEDS: LORazepam 1 MG TAB PO PRN ×2 (00:21→21:59)
[2017-09-02] MEDS: MORPHINE SULFATE 4 MG/ML SYRINGE IV PRN (06:48)
[2017-09-02] MEDS: SODIUM CHLORIDE 0.9% 1,000 ML IV SCH ×3 (06:50→23:43)
[2017-09-02] MEDS ORDERED: VANCOMYCIN TROUGH DUE 1 EACH MISC MISCELLANE ONE (08:00)
[2017-09-02] MEDS: metroNIDAZOLE-NS PMX 500 MG in SALINE 1 100ML.BAG IVPB SCH ×2 (09:01→16:29)
[2017-09-02] MEDS: CHOLESTYRAMINE (WITH SUGAR) 4 GM PACKET PO SCH ×2 (09:01→16:29)
[2017-09-02] MEDS: HEPARIN SODIUM,PORCINE 5,000 UNIT/ML 1 ML VIAL SQ SCH ×2 (09:01→20:21)
--- NOTE | 2017-09-02 12:44 | P.GSCN ---
History of Present Illness Consult date: 09/02/17 Reason for Consult: Abdominal pain History of present illness: 47-year-old male who underwent left hand surgery on 08/08. Unfortunately developed a postoperative infection requiring reoperation with incision and drainage on 08/19. He was discharged later last week on home IV antibiotics with a PICC line. Starting on Friday the patient began experiencing mid abdominal burning/cramping pain. This was associated with loose stools as well. Decreased appetite. Some nausea but no vomiting. No fevers. Came to the ER on Friday morning because of the ongoing and persistent pain. CAT scan abdomen and pelvis appears normal. Once he was started on morphine his diarrhea resolved however the pain was persisting yesterday. Pain today is absent. Stool is not been obtained for culture or C. diff. After switching his antibiotics the patient believes he feels better. Appetite seems to be improving today. Review of Systems The patient denies any acute changes in vision or hearing, no dysphagia or odynophagia, no chest pain or shortness of breath, no dysuria or hematuria, no headache, no runny nose, no rectal bleeding or melena, no unexplained weight loss Past Medical History Past Medical History: Hypertension Additional Past Medical History / Comment(s): back pain. Patient relates that from his work and his prior sports he has developed significant difficulties with his knees. The left knee required reconstruction type surgeries he did develop a compartment syndrome to the left calf that required incision and drainage. The right knee was injured with a circular saw the required extensive surgical repair years ago. History of Any Multi-Drug Resistant Organisms: MRSA Year Discovered:: 08/26/17 MDRO Source:: FINGER Additional Past Surgical History / Comment(s): back surg, knee surgery Past Anesthesia/Blood Transfusion Reactions: No Reported Reaction Past Psychological History: No Psychological Hx Reported Additional Psychological History / Comment(s): and lives in the family home with his and 2 adult children, 3rd adult child occasionally lives with him still. No animals in the home. 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 No experience. No international travel. No tobacco smoker for more than 10 years. Does do some weight lifting but does not inject testosterone. Smoking Status: Former smoker Past Alcohol Use History: Daily Past Drug Use History: None Reported - Past Family History Father Family Medical History: No Reported History Mother Family Medical History: No Reported History Medications and Allergies Home Medications Medication Instructions Recorded Confirmed Type Omeprazole [PriLOSEC] 40 mg PO DAILY 11/16/14 08/31/17 History cefTRIAXone [Rocephin] 2,000 mg IVPB DAILY #30 vial 08/28/17 08/31/17 Rx Allergies Allergy/AdvReac Type Severity Reaction Status Date / Time ciprofloxacin [From Cipro] Allergy Rash/Hives Verified 08/31/17 11:19 ciprofloxacin HCl Allergy Rash/Hives Verified 08/31/17 11:19 [From Cipro] coconut Allergy Unknown Verified 08/31/17 11:19 ibuprofen [From Motrin] Allergy Itching Verified 08/31/17 11:19 kiwi Allergy Unknown Verified 08/31/17 11:19 Surgical - Exam Vital Signs Temp Pulse Resp BP Pulse Ox 97.8 F 107 H 18 135/90 97 08/31/17 10:42 08/31/17 10:42 08/31/17 10:42 08/31/17 10:42 08/31/17 10:42 Physical exam: General: Well-developed, well-nourished HEENT: Normocephalic, sclerae nonicteric Abdomen: Nontender, nondistended Extremities: No edema Neuro: Alert and oriented Results - Labs 09/01/17 07:05 09/01/17 07:05 Microbiology - Last 24 Hours (Table) 08/31/17 11:05 Blood Culture - Preliminary Blood No Growth after 24 hours 08/31/17 11:10 Urine Culture - Final Urine,Voided Assessment and Plan (1) Abdominal pain in male Narrative/Plan: Patient doing better at this time. Abdominal pain likely secondary to recent antibiotic use and possible antibiotic induced colitis. Continue regular diet for now. We'll follow with you. Current Visit: Yes Status: Acute Code(s): R10.9 - UNSPECIFIED ABDOMINAL PAIN SNOMED Code(s): 35011393
[2017-09-02] MEDS: DAPTOmycin 500 MG in SODIUM CHLORIDE 0.9% 50 ML IV SCH (20:20)
[2017-09-02] MEDS: LACTATED RINGERS 500 ML IV SCH ×2 (21:50→23:31)
[2017-09-02] MEDS: metroNIDAZOLE 500 MG TAB PO SCH (21:50)
--- NOTE | 2017-09-02 23:16 | P.PN ---
Subjective Progress Note Date: 09/01/17 Principal diagnosis: Abdominal pain Patient is a 47-year-old male with a known history of hypertension and recent left hand trigger finger surgery followed by cellulitis/abscess of the hand and was sent on IV antibiotics in the form of Rocephin came to ER with complaints of lower abdominal pain. Patient is on IV antibiotics for the past 1 week. Patient has been having cramping lower abdominal pain along with subjective fever and chills for the past 2 days. Patient also been having diarrhea with foul smelling. Patient does have nausea and some vomiting. Otherwise denied any chest pain or shortness of breath. Denied any recent illnesses or sick contacts at home. Otherwise CT abdomen showed no acute process. C. diff toxin was ordered. Patient does have history of MRSA No leukocytosis 09/01/2017 Patient is still having lower abdominal pain crampy in nature. Patient did not have any bowel movement after hospital admission. Abdominal x-ray showed normal bowel gas pattern. No obstruction noted. Otherwise patient is being continued on vancomycin for left hand tenosynovitis. ID is following. No chest pain no shortness of breath no fever no chills. Patient does have nausea and some vomiting. All other review of systems negative except the above Current medications reviewed Objective - Vital Signs Vital signs: Vital Signs Temp 98.3 F 09/01/17 20:52 Pulse 87 09/01/17 20:52 Resp 16 09/01/17 20:52 BP 126/75 09/01/17 20:52 Pulse Ox 96 09/01/17 20:52 Intake & Output 09/01/17 09/01/17 09/02/17 06:59 18:59 06:59 Intake Total 1430 Balance 1430 Weight 92.986 kg Intake: Intake, IV Titration 950 Amount Sodium Chloride 0.9% 1, 600 000 ml @ 100 mls/hr IV . Q10H [facility] Rx#:[id number] Vancomycin 1,500 mg In 250 Sodium Chloride 0.9% 250 ml @ 125 mls/hr IVPB ONCE STA Rx#:[id number] metroNIDAZOLE-NS PMX 500 100 mg In Saline 1 100ml.bag @ 100 mls/hr IVPB Q8HR [facility] Rx#:[id number] Oral 480 Other: Voiding Method Toilet # Voids 1 4 1 # Bowel Movements 0 - Exam PHYSICAL EXAMINATION: Patient is lying in the bed comfortably, mild distress, awake alert and oriented.. HEENT: Normocephalic. Neck is supple. Pupils reactive. Nostrils clear. Oral cavity is moist. Ears reveal no drainage. Neck reveals no JVD, carotid bruits, or thyromegaly. CHEST EXAMINATION: Trachea is central. Symmetrical expansion. Lung fowler clear to auscultation and percussion. CARDIAC: Normal S1, S2 with no gallops. No murmurs ABDOMEN: Soft. Lower abdominal tenderness mild to moderate. Bowel sounds normal. No organomegaly. No abdominal bruits. Extremities: reveal no edema. No clubbing or cyanosis Neurologically awake, alert, oriented x3 with well-coordinated movements. No focal deficits noted Skin: No rash or skin lesions. Psychiatric: Coperative. Nonsuicidal Musculoskeletal: No joint swelling or deformity. Normal range of motion. - Labs CBC & Chem 7: 09/01/17 07:05 09/01/17 07:05 Labs: Abnormal Lab Results - Last 24 Hours (Table) 09/01/17 09/01/17 Range/Units 07:05 07:05 Plt Count 109 L (150-450) k/uL BUN 22 H (9-20) mg/dL Creatinine 1.61 H (0.66-1.25) mg/dL Glucose 125 H (74-99) mg/dL Calcium 7.9 L (8.4-10.2) mg/dL ALT 73 H (21-72) U/L Total Protein 5.0 L (6.3-8.2) g/dL Albumin 2.6 L (3.5-5.0) g/dL Microbiology - Last 24 Hours (Table) 08/31/17 11:05 Blood Culture - Preliminary Blood No Growth after 24 hours 08/31/17 11:10 Urine Culture - Final Urine,Voided Assessment and Plan Assessment: Acute lower abdominal pain along with diarrhea. Strongly suspected C. diff infection. Could be associated with antibiotics use. Currently on IV antibiotics at home.. Recent left hand trigger finger surgery and tenosynovitis. Currently on IV antibiotics at home by a PICC line. Wound culture showed MRSA Acute kidney injury most likely prerenal Hypertension DVT prophylaxis Plan: Patient be continued on IV vancomycin and was started on metronidazole 500 mg 3 times a day for possible C. diff infection. Continue with IV hydration. We'll follow up C. diff toxin report. Pain management with morphine and bentyl. Continue the current management and further recommendations based on the clinical course. ID is following..
--- NOTE | 2017-09-02 23:19 | P.PN ---
Subjective Progress Note Date: 09/02/17 Principal diagnosis: Abdominal pain Patient is a 47-year-old male with a known history of hypertension and recent left hand trigger finger surgery followed by cellulitis/abscess of the hand and was sent on IV antibiotics in the form of Rocephin came to ER with complaints of lower abdominal pain. Patient is on IV antibiotics for the past 1 week. Patient has been having cramping lower abdominal pain along with subjective fever and chills for the past 2 days. Patient also been having diarrhea with foul smelling. Patient does have nausea and some vomiting. Otherwise denied any chest pain or shortness of breath. Denied any recent illnesses or sick contacts at home. Otherwise CT abdomen showed no acute process. C. diff toxin was ordered. Patient does have history of MRSA No leukocytosis 09/01/2017 Patient is still having lower abdominal pain crampy in nature. Patient did not have any bowel movement after hospital admission. Abdominal x-ray showed normal bowel gas pattern. No obstruction noted. Otherwise patient is being continued on vancomycin for left hand tenosynovitis. ID is following. 09/02/2017 Patient did have improved pain today. Antibiotics have been changed to daptomycin from vancomycin IV. Patient is being continued on metronidazole. This did not have any bowel movement yet. Otherwise patient denied any acute overnight issues. Final antibody recommendations to cover MRSA as per ID recommendations. General surgery has seen the patient. No chest pain no shortness of breath no fever no chills. Patient does have nausea and some vomiting. All other review of systems negative except the above Current medications reviewed Objective - Vital Signs Vital signs: Vital Signs Temp 97.9 F 09/02/17 22:18 Pulse 65 09/02/17 22:18 Resp 16 09/02/17 22:18 BP 128/84 09/02/17 22:18 Pulse Ox 96 09/02/17 22:18 Intake & Output 09/02/17 09/02/17 09/03/17 06:59 18:59 06:59 Intake Total 1000 Balance 1000 Intake: Intake, IV Titration 1000 Amount Sodium Chloride 0.9% 1, 900 000 ml @ 100 mls/hr IV . Q10H [facility] Rx#:[id number] metroNIDAZOLE-NS PMX 500 100 mg In Saline 1 100ml.bag @ 100 mls/hr IVPB Q8HR [facility] Rx#:[id number] Other: Voiding Method Toilet Toilet # Voids 2 2 - Exam PHYSICAL EXAMINATION: Patient is lying in the bed comfortably, mild distress, awake alert and oriented.. HEENT: Normocephalic. Neck is supple. Pupils reactive. Nostrils clear. Oral cavity is moist. Ears reveal no drainage. Neck reveals no JVD, carotid bruits, or thyromegaly. CHEST EXAMINATION: Trachea is central. Symmetrical expansion. Lung fowler clear to auscultation and percussion. CARDIAC: Normal S1, S2 with no gallops. No murmurs ABDOMEN: Soft. Nontender. Bowel sounds normal. No organomegaly. No abdominal bruits. Extremities: reveal no edema. No clubbing or cyanosis Neurologically awake, alert, oriented x3 with well-coordinated movements. No focal deficits noted Skin: No rash or skin lesions. Psychiatric: Coperative. Nonsuicidal Musculoskeletal: No joint swelling or deformity. Normal range of motion. - Labs CBC & Chem 7: 09/01/17 07:05 09/01/17 07:05 Labs: Microbiology - Last 24 Hours (Table) 08/31/17 11:05 Blood Culture - Preliminary Blood No Growth after 48 hours Assessment and Plan Assessment: Acute lower abdominal pain along with diarrhea. Strongly suspected C. diff infection. But stool sample could not be obtained. Diarrhea resolved. Could be associated with antibiotics use. Currently on IV antibiotics at home in the form of Rocephin.. Recent left hand trigger finger surgery and tenosynovitis. Currently on IV antibiotics at home by a PICC line. Wound culture showed MRSA Acute kidney injury most likely prerenal Hypertension DVT prophylaxis Plan: Patient be continued on IV vancomycin , changed to daptomycin and was started on metronidazole 500 mg 3 times a day for possible C. diff infection. Continue with IV hydration. Pain management with morphine and bentyl. Continue the current management and further recommendations based on the clinical course. Patient was seen by ID and general surgery.
--- NOTE | 2017-09-02 23:22 | P.PN ---
Subjective Progress Note Date: 09/02/17 Principal diagnosis: Abdominal pain Very pleasant 47-year-old male presents to Hospital because of increasing pain and swelling and tenderness and decreased use of his left hand. The patient relates that he had developed some significant discomfort in the left hand as well as a trigger finger to his thumb. He underwent injection therapy did not improve. Because "he underwent a surgical repair of the trigger finger. Post operatively he developed some swelling and did receive some local therapy that included some cortisone injections in some oral antibiotic therapy. Despite multiple injections he now presents with significant pain and swelling erythema and disuse of his hand due to the significant pain and swelling. He constantly was admitted and infectious diseases consultation was requested. The patient was found evidence of infection to the hand and he was taken to the operating room and incision and drainage of the tenosynovitis occurred. At the time of discharge patient was showing marked improvement. Laboratory related to staphylococcal infection and was discharged on ceftriaxone. The patient however developed significant abdominal pain severe enough that he presented to the emergency center. Upon arrival there was evidence of his significant distress and he was admitted for further evaluation of his severe abdominal pain. He was having significant amount of diarrhea at home that actually resolved upon the time of his presentation to the hospital. He'll continue to have severe abdominal pain that is being relieved with intravenous morphine only at this time. He also had a fever at home that has improved also. Before he relates that his hand is feeling somewhat better. His diarrhea was loose and nonbloody, he continues to have tenesmus and urinary urgency at this time. 09/02/2017 reveals the patient is considerably improved. He has not had pain medication throughout the entire day. He has only brief bouts of abdominal cramp, very short-lived and not requiring any specific interventions. He is not having any diarrhea. He's had no nausea or emesis. He is able to eat some nutrition today but has a poor appetite. Other than feeling a bit worn out from feeling so poorly yesterday he is improved. With that his hand is further improved. He is having improved range of motion is still some minimal numbness of the fingers from the surgery. He is denying other interim troubles today. He is pleased with his improvement. Objective - Vital Signs Vital signs: Vital Signs Temp 97.9 F 09/02/17 22:18 Pulse 65 09/02/17 22:18 Resp 16 09/02/17 22:18 BP 128/84 09/02/17 22:18 Pulse Ox 96 09/02/17 22:18 Intake & Output 09/02/17 09/02/17 09/03/17 06:59 18:59 06:59 Intake Total 1000 Balance 1000 Intake: Intake, IV Titration 1000 Amount Sodium Chloride 0.9% 1, 900 000 ml @ 100 mls/hr IV . Q10H [facility] Rx#:[id number] metroNIDAZOLE-NS PMX 500 100 mg In Saline 1 100ml.bag @ 100 mls/hr IVPB Q8HR [facility] Rx#:[id number] Other: Voiding Method Toilet Toilet # Voids 2 2 - Exam Pleasant 47-year-old male of a muscular build who is in obvious discomfort complaining of his abdominal pain. HEENT: Anicteric conjunctiva are pink and moist nasal mucosa grossly intact without significant lesions, there is no thrush. Neck: The neck is supple without significant lymphadenopathy or thyromegaly. Lungs: Good bilateral air entry without significant crackles or wheezing. There is no significant bronchial sounds. There is no egophony or dullness. Heart: Regular rate and rhythm with an audible S1-S2, no S3 no S4. There is no significant murmur click or rub, PMI was nondisplaced. Abdomen: Positive bowel sounds soft and nondistended today, still has some minimal tenderness deep to the left and right pelvis, no flank tenderness. No organomegaly. No guarding or rebound. Extremities: Right upper extremity without abnormalities. Left upper extremity reveals the recent surgical intervention with some improvement to the surgical incisions and that there is some granulation and very little drainage at this time. Surrounding erythema is improved. Range of motion of the hand is improved. Greatest area of tenderness is still at the wrist and on the thenar eminence. Please see the nursing photography for the measurements in locations There is no significant epitrochlear or axillary lymphadenopathy. No other enlarged lymph nodes are seen. The lower extremities are without significant edema in the prior surgical interventions are well-healed in the bilateral lower extremities. Neuro: Awake alert oriented to person place and time. There are no acute new gross focal sensory motor deficits. Does have complaints of some minimal numbness left hand and the fingers from the surgical intervention - Labs CBC & Chem 7: 09/01/17 07:05 09/01/17 07:05 Labs: Microbiology - Last 24 Hours (Table) 08/31/17 11:05 Blood Culture - Preliminary Blood No Growth after 48 hours Laboratory Results WBC 8.7 k/uL (3.8-10.6) 09/01/17 07:05 RBC 4.73 m/uL (4.30-5.90) 09/01/17 07:05 Hgb 14.7 gm/dL (13.0-17.5) 09/01/17 07:05 Hct 45.0 % (39.0-53.0) 09/01/17 07:05 MCV 95.0 fL (80.0-100.0) 09/01/17 07:05 MCH 31.1 pg (25.0-35.0) 09/01/17 07:05 MCHC 32.7 g/dL (31.0-37.0) 09/01/17 07:05 RDW 11.9 % (11.5-15.5) 09/01/17 07:05 Plt Count 109 k/uL (150-450) L 09/01/17 07:05 Neutrophils % 64 % 09/01/17 07:05 Lymphocytes % 22 % 09/01/17 07:05 Monocytes % 8 % 09/01/17 07:05 Eosinophils % 4 % 09/01/17 07:05 Basophils % 0 % 09/01/17 07:05 Neutrophils # 5.6 k/uL (1.3-7.7) 09/01/17 07:05 Lymphocytes # 1.9 k/uL (1.0-4.8) 09/01/17 07:05 Monocytes # 0.7 k/uL (0-1.0) 09/01/17 07:05 Eosinophils # 0.3 k/uL (0-0.7) 09/01/17 07:05 Basophils # 0.0 k/uL (0-0.2) 09/01/17 07:05 Sodium 141 mmol/L (137-145) 09/01/17 07:05 Potassium 3.5 mmol/L (3.5-5.1) 09/01/17 07:05 Chloride 102 mmol/L (98-107) 09/01/17 07:05 Carbon Dioxide 30 mmol/L (22-30) 09/01/17 07:05 Anion Gap 9 mmol/L 09/01/17 07:05 BUN 22 mg/dL (9-20) H 09/01/17 07:05 Creatinine 1.61 mg/dL (0.66-1.25) H 09/01/17 07:05 Est GFR (MDRD) Af Amer 56 (>60 ml/min/1.73 sqM) 09/01/17 07:05 Est GFR (MDRD) Non-Af 46 (>60 ml/min/1.73 sqM) 09/01/17 07:05 Glucose 125 mg/dL (74-99) H 09/01/17 07:05 Plasma Lactic Acid Rafi 1.3 mmol/L (0.7-2.0) 08/31/17 11:05 Calcium 7.9 mg/dL (8.4-10.2) L 09/01/17 07:05 Total Bilirubin 0.7 mg/dL (0.2-1.3) 09/01/17 07:05 AST 26 U/L (17-59) 09/01/17 07:05 ALT 73 U/L (21-72) H 09/01/17 07:05 Alkaline Phosphatase 46 U/L (38-126) 09/01/17 07:05 Total Protein 5.0 g/dL (6.3-8.2) L 09/01/17 07:05 Albumin 2.6 g/dL (3.5-5.0) L 09/01/17 07:05 Amylase 34 U/L (30-110) 08/31/17 11:05 Lipase 212 U/L (23-300) 08/31/17 11:05 Urine Color Light Yellow 08/31/17 11:10 Urine Appearance Clear (Clear) 08/31/17 11:10 Urine pH 6.5 (5.0-8.0) 08/31/17 11:10 Ur Specific [place] 1.005 (1.001-1.035) 08/31/17 11:10 Urine Protein Trace (Negative) H 08/31/17 11:10 Urine Glucose (UA) Negative (Negative) 08/31/17 11:10 Urine Ketones Negative (Negative) 08/31/17 11:10 Urine Blood Trace (Negative) H 08/31/17 11:10 Urine Nitrite Negative (Negative) 08/31/17 11:10 Urine Bilirubin Negative (Negative) 08/31/17 11:10 Urine Urobilinogen <2.0 mg/dL (<2.0) 08/31/17 11:10 Ur Leukocyte Esterase Negative (Negative) 08/31/17 11:10 Urine RBC 1 /hpf (0-5) 08/31/17 11:10 Urine WBC 1 /hpf (0-5) 08/31/17 11:10 Urine Mucus Rare /hpf (None) H 08/31/17 11:10 Assessment and Plan (1) Abdominal pain in male Narrative/Plan: Pleasant 47-year-old male presents to the emergency center onset of severe abdominal pain. Is noted been recently hospitalized briefly at the significant infection to his left hand and required a surgical incision and drainage of the tenosynovitis. He was responding well to therapeutic intervention until the onset of the severe abdominal pain. He was having severe bouts of diarrhea but not a lot of nausea or emesis. At presentation his diarrhea has stopped but his abdominal pain continues. Computed tomography scan was performed without evidence of acute obstruction, or free air or hydronephrosis. No oral contrast was performed. The patient this time is still quite miserable and have requested intravenous morphine for his pain control. This partially does allow him to have some relief. Some anxiolytic will also be given. Surgical consult is in process. Repeat abdominal x-ray without evidence of free air. Concern this point in time would be to a colitis from his antibiotic therapy for the treatment of a significant hand infection. Antibiotic has been adjusted to daptomycin given the culture with MRSA with a vancomycin KRISTINA of 2. Patient was also placed on intravenous metronidazole with concerns to a colitis. We do await stool evaluation to determine the possibility of C. diff colitis. Computed tomography scan did not reveal evidence of thickened bowel loops. We will monitor his course and at the time of discharge will be on different outpatient intravenous antibiotic therapy given the cultures that were finalized after his discharge. As noted laboratory was relating to staph aureus as a presumptive diagnosis but not of MRSA, which was an finalized 5 days into the culture. 09/02/2017 patient now has marked improvement. His abdominal pain is almost completely resolved except for occasional short-lived abdominal cramp. He's having no diarrhea. Appetite is improving. No nausea or emesis today. Appetite was poor. No fevers or chills. No other new acute symptoms today. Fortunately he has markedly improved. He well on the current antibiotic therapy of daptomycin and metronidazole. Plan will be for him to complete his course of daptomycin at home. We will transition metronidazole to oral when he is ready for discharge to home. He has had an elevated creatinine we'll give him a fluid bolus tonight. Recheck the creatinine the morning, appears would be from dehydration. Protein supplements requested. Current Visit: Yes Status: Acute Code(s): R10.9 - UNSPECIFIED ABDOMINAL PAIN SNOMED Code(s): 99184309 (2) Infection of flexor tendon sheath Current Visit: No Status: Acute Code(s): M65.10 - OTHER INFECTIVE ([place]) SYNOVITIS, UNSPECIFIED SITE SNOMED Code(s): 355744616 (3) MRSA (methicillin resistant Staphylococcus aureus) infection Current Visit: Yes Status: Acute Code(s): A49.02 - METHICILLIN RESIS STAPH INFECTION, UNSP SITE SNOMED Code(s): 832975881
[2017-09-03] MEDS: SODIUM CHLORIDE 0.9% 1,000 ML IV SCH ×2 (08:52→22:02)
[2017-09-03] MEDS: metroNIDAZOLE 500 MG TAB PO SCH ×3 (09:11→21:56)
[2017-09-03] MEDS: HEPARIN SODIUM,PORCINE 5,000 UNIT/ML 1 ML VIAL SQ SCH ×2 (09:11→21:57)
[2017-09-03] MEDS: CHOLESTYRAMINE (WITH SUGAR) 4 GM PACKET PO SCH ×2 (09:11→18:39)
[2017-09-03] MEDS: PANTOPRAZOLE 40 MG TABLET PO SCH (09:18)
[2017-09-03 09:23] LABS: Calcium 8.4 mg/dL (8.4-10.2); Potassium 3.7 mmol/L (3.5-5.1)
--- NOTE | 2017-09-03 12:07 | P.PN ---
Subjective Progress Note Date: 09/03/17 Principal diagnosis: abdominal pain patient doing well today. Denies pain. Tolerated diet for breakfast. No nausea or vomiting. No further diarrhea. Objective - Vital Signs Vital signs: Vital Signs Temp 97.0 F L 09/03/17 07:00 Pulse 67 09/03/17 07:00 Resp 16 09/03/17 07:00 BP 150/102 09/03/17 07:00 Pulse Ox 97 09/03/17 07:00 Intake & Output 09/02/17 09/03/17 09/03/17 18:59 06:59 18:59 Intake Total 1000 Balance 1000 Intake: Intake, IV Titration 1000 Amount Sodium Chloride 0.9% 1, 900 000 ml @ 100 mls/hr IV . Q10H [facility] Rx#:[id number] metroNIDAZOLE-NS PMX 500 100 mg In Saline 1 100ml.bag @ 100 mls/hr IVPB Q8HR [facility] Rx#:[id number] Other: Voiding Method Toilet Toilet # Voids 1 - Exam Abdomen: Soft, nontender, nondistended - Labs CBC & Chem 7: 09/01/17 07:05 09/03/17 08:36 Labs: Abnormal Lab Results - Last 24 Hours (Table) 09/03/17 Range/Units 08:36 BUN 21 H (9-20) mg/dL Creatinine 1.86 H (0.66-1.25) mg/dL Glucose 178 H (74-99) mg/dL Microbiology - Last 24 Hours (Table) 08/31/17 11:05 Blood Culture - Preliminary Blood No Growth after 48 hours Assessment and Plan (1) Abdominal pain in male Narrative/Plan: continue regular diet. Antibiotics for left hand infection. We'll sign off. Please call if needed. Current Visit: Yes Status: Acute Code(s): R10.9 - UNSPECIFIED ABDOMINAL PAIN SNOMED Code(s): 86854171
[2017-09-03] MEDS ORDERED: POLYETHYLENE GLYCOL 3350 17 GM POWD.PACK PO STA (12:37)
[2017-09-03] MEDS: DAPTOmycin 500 MG in SODIUM CHLORIDE 0.9% 50 ML IV SCH (21:57)
[2017-09-03] MEDS: LORazepam 1 MG TAB PO PRN (21:57)
[2017-09-03 22:13] VITALS: RESP 18
--- NOTE | 2017-09-03 23:34 | P.PN ---
Subjective Progress Note Date: 09/03/17 Principal diagnosis: Abdominal pain Very pleasant 47-year-old male presents to Hospital because of increasing pain and swelling and tenderness and decreased use of his left hand. The patient relates that he had developed some significant discomfort in the left hand as well as a trigger finger to his thumb. He underwent injection therapy did not improve. Because "he underwent a surgical repair of the trigger finger. Post operatively he developed some swelling and did receive some local therapy that included some cortisone injections in some oral antibiotic therapy. Despite multiple injections he now presents with significant pain and swelling erythema and disuse of his hand due to the significant pain and swelling. He constantly was admitted and infectious diseases consultation was requested. The patient was found evidence of infection to the hand and he was taken to the operating room and incision and drainage of the tenosynovitis occurred. At the time of discharge patient was showing marked improvement. Laboratory related to staphylococcal infection and was discharged on ceftriaxone. The patient however developed significant abdominal pain severe enough that he presented to the emergency center. Upon arrival there was evidence of his significant distress and he was admitted for further evaluation of his severe abdominal pain. He was having significant amount of diarrhea at home that actually resolved upon the time of his presentation to the hospital. He'll continue to have severe abdominal pain that is being relieved with intravenous morphine only at this time. He also had a fever at home that has improved also. Before he relates that his hand is feeling somewhat better. His diarrhea was loose and nonbloody, he continues to have tenesmus and urinary urgency at this time. 09/02/2017 reveals the patient is considerably improved. He has not had pain medication throughout the entire day. He has only brief bouts of abdominal cramp, very short-lived and not requiring any specific interventions. He is not having any diarrhea. He's had no nausea or emesis. He is able to eat some nutrition today but has a poor appetite. Other than feeling a bit worn out from feeling so poorly yesterday he is improved. With that his hand is further improved. He is having improved range of motion is still some minimal numbness of the fingers from the surgery. He is denying other interim troubles today. He is pleased with his improvement. 09/03/2017 the patient is now even further improved. His been able to eat solids throughout the day. He is only having rare bouts of brief abdominal discomforts. He has had a bowel movement of the solid stool this evening. No more diarrhea has occurred. In general he is feeling considerably better. He is able to eat and drink without any difficulties. He's having no fevers or chills. The pain to the left hand is much improved is having good range of motion at this time. Objective - Vital Signs Vital signs: Vital Signs Temp 98.3 F 09/03/17 22:12 Pulse 65 09/03/17 22:12 Resp 18 09/03/17 22:12 BP 142/87 09/03/17 22:12 Pulse Ox 97 09/03/17 22:12 Intake & Output 09/03/17 09/03/17 09/04/17 06:59 18:59 06:59 Intake Total 1200 Balance 1200 Weight 92.986 kg Intake: Oral 1200 Other: Voiding Method Toilet # Voids 1 3 - Exam Pleasant 47-year-old male of a muscular build who is in obvious discomfort complaining of his abdominal pain. HEENT: Anicteric conjunctiva are pink and moist nasal mucosa grossly intact without significant lesions, there is no thrush. Neck: The neck is supple without significant lymphadenopathy or thyromegaly. Lungs: Good bilateral air entry without significant crackles or wheezing. There is no significant bronchial sounds. There is no egophony or dullness. Heart: Regular rate and rhythm with an audible S1-S2, no S3 no S4. There is no significant murmur click or rub, PMI was nondisplaced. Abdomen: Positive bowel sounds soft and nondistended today, still has some minimal tenderness deep to the left and right pelvis, no flank tenderness. No organomegaly. No guarding or rebound. Extremities: Right upper extremity without abnormalities. Left upper extremity reveals the recent surgical intervention with some improvement to the surgical incisions and that there is some granulation and very little drainage at this time. Surrounding erythema is improved. Range of motion of the hand is improved. Greatest area of tenderness is still at the wrist and on the thenar eminence. Please see the nursing photography for the measurements in locations There is no significant epitrochlear or axillary lymphadenopathy. No other enlarged lymph nodes are seen. The lower extremities are without significant edema in the prior surgical interventions are well-healed in the bilateral lower extremities. Neuro: Awake alert oriented to person place and time. There are no acute new gross focal sensory motor deficits. Does have complaints of some minimal numbness left hand and the fingers from the surgical intervention - Labs CBC & Chem 7: 09/01/17 07:05 09/03/17 08:36 Labs: Abnormal Lab Results - Last 24 Hours (Table) 09/03/17 Range/Units 08:36 BUN 21 H (9-20) mg/dL Creatinine 1.86 H (0.66-1.25) mg/dL Glucose 178 H (74-99) mg/dL Microbiology - Last 24 Hours (Table) 08/31/17 11:05 Blood Culture - Preliminary Blood No Growth after 72 hours Laboratory Results WBC 8.7 k/uL (3.8-10.6) 09/01/17 07:05 RBC 4.73 m/uL (4.30-5.90) 09/01/17 07:05 Hgb 14.7 gm/dL (13.0-17.5) 09/01/17 07:05 Hct 45.0 % (39.0-53.0) 09/01/17 07:05 MCV 95.0 fL (80.0-100.0) 09/01/17 07:05 MCH 31.1 pg (25.0-35.0) 09/01/17 07:05 MCHC 32.7 g/dL (31.0-37.0) 09/01/17 07:05 RDW 11.9 % (11.5-15.5) 09/01/17 07:05 Plt Count 109 k/uL (150-450) L 09/01/17 07:05 Neutrophils % 64 % 09/01/17 07:05 Lymphocytes % 22 % 09/01/17 07:05 Monocytes % 8 % 09/01/17 07:05 Eosinophils % 4 % 09/01/17 07:05 Basophils % 0 % 09/01/17 07:05 Neutrophils # 5.6 k/uL (1.3-7.7) 09/01/17 07:05 Lymphocytes # 1.9 k/uL (1.0-4.8) 09/01/17 07:05 Monocytes # 0.7 k/uL (0-1.0) 09/01/17 07:05 Eosinophils # 0.3 k/uL (0-0.7) 03/05/18 07:05 Basophils # 0.0 k/uL (0-0.2) 09/01/17 07:05 Sodium 141 mmol/L (137-145) 09/03/17 08:36 Potassium 3.7 mmol/L (3.5-5.1) 09/03/17 08:36 Chloride 104 mmol/L (98-107) 09/03/17 08:36 Carbon Dioxide 27 mmol/L (22-30) 09/03/17 08:36 Anion Gap 10 mmol/L 09/03/17 08:36 BUN 21 mg/dL (9-20) H 09/03/17 08:36 Creatinine 1.86 mg/dL (0.66-1.25) H 09/03/17 08:36 Est GFR (MDRD) Af Amer 56 (>60 ml/min/1.73 sqM) 09/01/17 07:05 Est GFR (MDRD) Non-Af 46 (>60 ml/min/1.73 sqM) 09/01/17 07:05 Est GFR (CKD-EPI)AfAm 49 (>60 ml/min/1.73 sqM) 09/03/17 08:36 Est GFR (CKD-EPI)NonAf 43 (>60 ml/min/1.73 sqM) 09/03/17 08:36 Glucose 178 mg/dL (74-99) H 09/03/17 08:36 Plasma Lactic Acid Rafi 1.3 mmol/L (0.7-2.0) 08/31/17 11:05 Calcium 8.4 mg/dL (8.4-10.2) 09/03/17 08:36 Total Bilirubin 0.7 mg/dL (0.2-1.3) 09/01/17 07:05 AST 26 U/L (17-59) 09/01/17 07:05 ALT 73 U/L (21-72) H 09/01/17 07:05 Alkaline Phosphatase 46 U/L (38-126) 09/01/17 07:05 Total Protein 5.0 g/dL (6.3-8.2) L 09/01/17 07:05 Albumin 2.6 g/dL (3.5-5.0) L 09/01/17 07:05 Amylase 34 U/L (30-110) 08/31/17 11:05 Lipase 212 U/L (23-300) 08/31/17 11:05 Urine Color Light Yellow 08/31/17 11:10 Urine Appearance Clear (Clear) 08/31/17 11:10 Urine pH 6.5 (5.0-8.0) 08/31/17 11:10 Ur Specific Ewing 1.005 (1.001-1.035) 08/31/17 11:10 Urine Protein Trace (Negative) H 08/31/17 11:10 Urine Glucose (UA) Negative (Negative) 08/31/17 11:10 Urine Ketones Negative (Negative) 08/31/17 11:10 Urine Blood Trace (Negative) H 08/31/17 11:10 Urine Nitrite Negative (Negative) 08/31/17 11:10 Urine Bilirubin Negative (Negative) 08/31/17 11:10 Urine Urobilinogen <2.0 mg/dL (<2.0) 08/31/17 11:10 Ur Leukocyte Esterase Negative (Negative) 08/31/17 11:10 Urine RBC 1 /hpf (0-5) 08/31/17 11:10 Urine WBC 1 /hpf (0-5) 08/31/17 11:10 Urine Mucus Rare /hpf (None) H 08/31/17 11:10 Microbiology 08/31/17 11:05 Blood Blood Culture - Preliminary No Growth after 72 hours 08/31/17 11:10 Urine,Voided Urine Culture - Final Assessment and Plan (1) Abdominal pain in male Narrative/Plan: Pleasant 47-year-old male presents to the emergency center onset of severe abdominal pain. Is noted been recently hospitalized briefly at the significant infection to his left hand and required a surgical incision and drainage of the tenosynovitis. He was responding well to therapeutic intervention until the onset of the severe abdominal pain. He was having severe bouts of diarrhea but not a lot of nausea or emesis. At presentation his diarrhea has stopped but his abdominal pain continues. Computed tomography scan was performed without evidence of acute obstruction, or free air or hydronephrosis. No oral contrast was performed. The patient this time is still quite miserable and have requested intravenous morphine for his pain control. This partially does allow him to have some relief. Some anxiolytic will also be given. Surgical consult is in process. Repeat abdominal x-ray without evidence of free air. Concern this point in time would be to a colitis from his antibiotic therapy for the treatment of a significant hand infection. Antibiotic has been adjusted to daptomycin given the culture with MRSA with a vancomycin KRISTINA of 2. Patient was also placed on intravenous metronidazole with concerns to a colitis. We do await stool evaluation to determine the possibility of C. diff colitis. Computed tomography scan did not reveal evidence of thickened bowel loops. We will monitor his course and at the time of discharge will be on different outpatient intravenous antibiotic therapy given the cultures that were finalized after his discharge. As noted laboratory was relating to staph aureus as a presumptive diagnosis but not of MRSA, which was an finalized 5 days into the culture. 09/02/2017 patient now has marked improvement. His abdominal pain is almost completely resolved except for occasional short-lived abdominal cramp. He's having no diarrhea. Appetite is improving. No nausea or emesis today. Appetite was poor. No fevers or chills. No other new acute symptoms today. Fortunately he has markedly improved. He well on the current antibiotic therapy of daptomycin and metronidazole. Plan will be for him to complete his course of daptomycin at home. We will transition metronidazole to oral when he is ready for discharge to home. He has had an elevated creatinine we'll give him a fluid bolus tonight. Recheck the creatinine the morning, appears would be from dehydration. Protein supplements requested. 09/03/2017 patient now has further improvement. His abdominal pain is generally resolved. His appetite returned. And he has had a solid bowel movement without diarrhea or crampy abdominal pain. No evidence of any melena or hematochezia either. Patient's colitis is improving and appears to have been directly related to the antibiotic therapy without evidence of true C. diff colitis. The patient's hand is improving. MRSA was isolated and he is having treated with daptomycin and will have approximately 2 weeks of antibiotic therapy at the time of his discharge for the completion of the treatment of the MRSA tenosynovitis. The patient did develop evidence of an acute renal failure and his creatinine didn't decrease. He was given fluid bolus overnight he has evidence of excellent urine output. We'll expect his creatinine to be improved in the morning now that his dehydration is resolved, he is no longer on vancomycin therapy only received 1 dose. Insurance company has been contacted and his daptomycin has been approved and will be continued in the outpatient setting. Current Visit: Yes Status: Acute Code(s): R10.9 - UNSPECIFIED ABDOMINAL PAIN SNOMED Code(s): 99910214 (2) Infection of flexor tendon sheath Current Visit: No Status: Acute Code(s): M65.10 - OTHER INFECTIVE (TENO) SYNOVITIS, UNSPECIFIED SITE SNOMED Code(s): 836280171 (3) MRSA (methicillin resistant Staphylococcus aureus) infection Current Visit: Yes Status: Acute Code(s): A49.02 - METHICILLIN RESIS STAPH INFECTION, UNSP SITE SNOMED Code(s): 425001027
[2017-09-04 08:12] LABS: Basophils % (A) 0 %; Eosinophils # (A) 0.3 k/uL (0-0.7); Eosinophils % (A) 3 %; HCT 42.8 % (39.0-53.0); HGB 14.3 gm/dL (13.0-17.5); Lymphocytes # (A) 2.2 k/uL (1.0-4.8); Lymphocytes % (A) 25 %; MCH 30.5 pg (25.0-35.0); MCHC 33.4 g/dL (31.0-37.0); MCV 91.4 fL (80.0-100.0); Mean Platelet Volume 7.7; Monocytes # (A) 0.5 k/uL (0-1.0); Monocytes % (A) 6 %; Neutrophils # (A) 5.5 k/uL (1.3-7.7); Neutrophils % (A) 64 %; Platelet Count 120 k/uL (150-450); RBC 4.68 m/uL (4.30-5.90); RDW 12.1 % (11.5-15.5); WBC 8.7 k/uL (3.8-10.6)
[2017-09-04 08:23] LABS: Calcium 8.5 mg/dL (8.4-10.2); Potassium 3.7 mmol/L (3.5-5.1)
[2017-09-04] MEDS: PANTOPRAZOLE 40 MG TABLET PO SCH (09:04)
[2017-09-04] MEDS: HEPARIN SODIUM,PORCINE 5,000 UNIT/ML 1 ML VIAL SQ SCH (09:04)
[2017-09-04] MEDS: CHOLESTYRAMINE (WITH SUGAR) 4 GM PACKET PO SCH (09:04)
[2017-09-04] MEDS: metroNIDAZOLE 500 MG TAB PO SCH ×2 (09:45→15:17)
[2017-09-04 14:53] VITALS: BP 129/78; PULSE 68; TEMP 97.3
[2017-09-04] MEDS: DAPTOmycin 500 MG in SODIUM CHLORIDE 0.9% 50 ML IV SCH (15:17)
== END 2017-09-04 16:05 | disposition home health service (06) | DRG 372 ==
LOC: EC 10:27 → 5MS5E 12:49 → OBSVTOIN 09-02 10:39
PROVIDERS: ADMIT Hospitalist; ATTEND Hospitalist
DX: A04.72 Enterocolitis due to Clostridium difficile, not specified as recurrent (principal); N17.9 Acute kidney failure, unspecified; E86.0 Dehydration; I10 Essential (primary) hypertension; G89.29 Other chronic pain; M54.9 Dorsalgia, unspecified; R39.15 Urgency of urination; Z87.891 Personal history of nicotine dependence; Z86.14 Personal history of Methicillin resistant Staphylococcus aureus infection; Z79.899 Other long term (current) drug therapy; Z88.6 Allergy status to analgesic agent; Z88.1 Allergy status to other antibiotic agents; Z91.018 Allergy to other foods
CPT/HCPCS: 36415; 74019; 74176; 80048; 80053; 81001; 82150; 83605; 83690; 85025; 87040; 87086; 96361; 96365; 96375; 96376; 99285

== ENCOUNTER 2017-09-05 11:13 | Inpatient (IN) | payer MEDICARE, OTHER ==
[2017-09-05] MEDS ORDERED: SODIUM CHLORIDE 0.9% 2,000 ML IV ONE (13:03)
[2017-09-05] MEDS ORDERED: ONDANSETRON 4 MG/2 ML VIAL IVP STA (13:27)
[2017-09-05 13:52] LABS: Basophils % (A) 0 %; Eosinophils # (A) 0.2 k/uL (0-0.7); Eosinophils % (A) 1 %; HCT 49.4 % (39.0-53.0); HGB 16.9 gm/dL (13.0-17.5); Lymphocytes # (A) 0.5 k/uL (1.0-4.8); Lymphocytes % (A) 4 %; MCHC 34.1 g/dL (31.0-37.0); MCV 90.9 fL (80.0-100.0); Mean Platelet Volume 7.6; Monocytes # (A) 0.6 k/uL (0-1.0); Monocytes % (A) 4 %; Neutrophils # (A) 11.4 k/uL (1.3-7.7); Neutrophils % (A) 90 %; Platelet Count 115 k/uL (150-450); RBC 5.44 m/uL (4.30-5.90); RDW 12.2 % (11.5-15.5); WBC 12.7 k/uL (3.8-10.6)
[2017-09-05 14:03] LABS: C Reactive Protein 26.2 mg/L (<10.0); Calcium 9.4 mg/dL (8.4-10.2); Potassium 3.9 mmol/L (3.5-5.1); Total Bilirubin 0.7 mg/dL (0.2-1.3); Total Protein 7.1 g/dL (6.3-8.2)
--- NOTE | 2017-09-05 14:35 | XR ---
Left hand HISTORY: Pain, infection 3 views of the left and correlated to prior exam 08/24/2017 There is improvement in the swelling. No periostitis to suggest osteomyelitis. Bone mineralization, j oint spaces and alignment are stable. IMPRESSION: Interval improvement in soft tissue swelling.
[2017-09-05] MEDS ORDERED: SODIUM CHLORIDE 0.9% 1,000 ML IV ONE (16:50)
[2017-09-05] MEDS ORDERED: METOCLOPRAMIDE 5 MG/ML 2 ML VIAL IVP STA (16:59)
[2017-09-05] MEDS ORDERED: DEXAMETHASONE SOD PHOSPHATE 10 MG/ML 1 ML VIAL IV STA (16:59)
[2017-09-05] MEDS ORDERED: diphenhydrAMINE 50 MG/ML 1 ML VIAL IVP STA (16:59)
[2017-09-05] MEDS ORDERED: KETOROLAC 30 MG/ML 1 ML VIAL IVP STA (16:59)
[2017-09-05] MEDS ORDERED: NALOXONE 0.4 MG/ML 1 ML VIAL IV PRN ×2 (17:00→18:54)
[2017-09-05] MEDS ORDERED: ONDANSETRON 4 MG/2 ML VIAL IVP PRN (17:00)
[2017-09-05] MEDS ORDERED: MORPHINE SULFATE 4 MG/ML SYRINGE IV PRN (17:00)
--- NOTE | 2017-09-05 17:08 | ED ---
General Adult HPI - General Chief complaint: Nausea/Vomiting/Diarrhea Stated complaint: Mrsa hand infection Time Seen by Provider: 09/05/17 12:28 Source: patient Mode of arrival: ambulatory Limitations: no limitations - History of Present Illness Initial comments: Patient is a 47-year-old male with a history of ulcer myelitis of the hand, currently being treated with daptomycin via PICC line who presents with a chief complaint of nausea and vomiting and diarrhea. The patient states is going on for about a week. Patient states that he cannot identify any inciting incidences, he denies any sick contacts. There are no aggravating or alleviating factors. The patient states that for the last week intrauterine living he has either diarrhea or vomits. Patient was seen by Dr. Fontenot, infectious disease, last time he was admitted to the hospital. - Related Data Home Medications Medication Instructions Recorded Confirmed Omeprazole [PriLOSEC] 40 mg PO DAILY 11/16/14 09/05/17 Previous Rx's Medication Instructions Recorded DAPTOmycin [Cubicin] 500 mg IVPB DAILY #14 vial 09/04/17 Allergies Allergy/AdvReac Type Severity Reaction Status Date / Time ciprofloxacin [From Cipro] Allergy Rash/Hives Verified 09/05/17 14:05 ciprofloxacin HCl Allergy Rash/Hives Verified 09/05/17 14:05 [From Cipro] coconut Allergy Unknown Verified 09/05/17 14:05 ibuprofen [From Motrin] Allergy Itching Verified 09/05/17 14:05 kiwi Allergy Unknown Verified 09/05/17 14:05 Review of Systems ROS Statement: Those systems with pertinent positive or pertinent negative responses have been documented in the HPI. ROS Other: All systems not noted in ROS Statement are negative. Constitutional: Reports: chills. Denies: fever Gastrointestinal: Reports: nausea, vomiting, diarrhea Past Medical History Past Medical History: Hypertension Additional Past Medical History / Comment(s): back pain. Patient relates that from his work and his prior sports he has developed significant difficulties with his knees. The left knee required reconstruction type surgeries he did develop a compartment syndrome to the left calf that required incision and drainage. The right knee was injured with a circular saw the required extensive surgical repair years ago. History of Any Multi-Drug Resistant Organisms: MRSA Date of last positivie culture/infection: 08/26/17 MDRO Source:: FINGER Additional Past Surgical History / Comment(s): back surg, knee surgery Past Anesthesia/Blood Transfusion Reactions: No Reported Reaction Past Psychological History: No Psychological Hx Reported Smoking Status: Former smoker Past Alcohol Use History: Daily Past Drug Use History: None Reported - Past Family History Father Family Medical History: No Reported History Mother Family Medical History: No Reported History General Exam Limitations: no limitations General appearance: alert, in no apparent distress Head exam: Present: atraumatic, normocephalic Eye exam: Present: normal appearance ENT exam: Present: normal exam Neck exam: Present: normal inspection Respiratory exam: Present: normal lung sounds bilaterally. Absent: respiratory distress, wheezes Cardiovascular Exam: Present: normal rhythm, tachycardia GI/Abdominal exam: Present: soft, tenderness. Absent: distended Rectal exam: Present: deferred Neurological exam: Present: alert, oriented X3 Psychiatric exam: Present: normal affect, normal mood Skin exam: Present: warm, dry, intact Course Vital Signs 09/05/17 11:44 Temperature 97.8 F Pulse Rate 120 H Respiratory 20 Rate Blood Pressure 141/83 O2 Sat by Pulse 99 Oximetry Medical Decision Making - Medical Decision Making Patient presents with a chief complaint of nausea, vomiting, diarrhea. On initial evaluation, patient is tachycardic, otherwise vital signs are stable. Patient is in no acute distress however he appears uncomfortable. He'll be evaluated with basic abdominal labs, stool C. diff toxin was sent. Patient was given 2 L of fluid initially along with Zofran. Final 5 PM Lab evaluation of this patient shows evidence of dehydration. Creatinine today is 1.5, which is improved from previous value. Patient states that he felt better initially after his dose of Zofran. Vital signs are improved with 2 L of fluid. I discussed this case with Dr. Fontenot who was concerned that the patient has some kind of colitis. Dr. Fontenot would like to have the patient evaluated by Dr. Rutherford again. On reevaluation, the patient states his nausea is returned. At this time, he also complains of a headache. Patient will be given a headache cocktail which will allow for some dramatic treatment of nausea and headache. I discussed admission for observation and hydration with the patient, he is agreeable. This case was discussed with Dr. Donovan who works as admission with consult to Dr. Rutherford. - Lab Data Result diagrams: 09/05/17 13:35 09/05/17 13:35 Lab Results 09/05/17 09/05/17 09/05/17 Range/Units 13:35 13:35 13:35 WBC 12.7 H (3.8-10.6) k/uL RBC 5.44 (4.30-5.90) m/uL Hgb 16.9 (13.0-17.5) gm/dL Hct 49.4 (39.0-53.0) % MCV 90.9 (80.0-100.0) fL MCH 31.0 (25.0-35.0) pg MCHC 34.1 (31.0-37.0) g/dL RDW 12.2 (11.5-15.5) % Plt Count 115 L (150-450) k/uL Neutrophils % 90 % Lymphocytes % 4 % Monocytes % 4 % Eosinophils % 1 % Basophils % 0 % Neutrophils # 11.4 H (1.3-7.7) k/uL Lymphocytes # 0.5 L (1.0-4.8) k/uL Monocytes # 0.6 (0-1.0) k/uL Eosinophils # 0.2 (0-0.7) k/uL Basophils # 0.0 (0-0.2) k/uL Sodium 142 (137-145) mmol/L Potassium 3.9 (3.5-5.1) mmol/L Chloride 109 H (98-107) mmol/L Carbon Dioxide 19 L (22-30) mmol/L Anion Gap 14 mmol/L BUN 24 H (9-20) mg/dL Creatinine 1.50 H (0.66-1.25) mg/dL Est GFR (CKD-EPI)AfAm 64 (>60 ml/min/1.73 sqM) Est GFR (CKD-EPI)NonAf 55 (>60 ml/min/1.73 sqM) Glucose 144 H (74-99) mg/dL Plasma Lactic Acid Rafi 1.9 (0.7-2.0) mmol/L Calcium 9.4 (8.4-10.2) mg/dL Total Bilirubin 0.7 (0.2-1.3) mg/dL AST 53 (17-59) U/L ALT 75 H (21-72) U/L Alkaline Phosphatase 67 (38-126) U/L C-Reactive Protein 26.2 H (<10.0) mg/L Total Protein 7.1 (6.3-8.2) g/dL Albumin 4.0 (3.5-5.0) g/dL C. difficile (EIA) Intrp (Negative) 09/05/17 Range/Units 13:50 WBC (3.8-10.6) k/uL RBC (4.30-5.90) m/uL Hgb (13.0-17.5) gm/dL Hct (39.0-53.0) % MCV (80.0-100.0) fL MCH (25.0-35.0) pg MCHC (31.0-37.0) g/dL RDW (11.5-15.5) % Plt Count (150-450) k/uL Neutrophils % % Lymphocytes % % Monocytes % % Eosinophils % % Basophils % % Neutrophils # (1.3-7.7) k/uL Lymphocytes # (1.0-4.8) k/uL Monocytes # (0-1.0) k/uL Eosinophils # (0-0.7) k/uL Basophils # (0-0.2) k/uL Sodium (137-145) mmol/L Potassium (3.5-5.1) mmol/L Chloride (98-107) mmol/L Carbon Dioxide (22-30) mmol/L Anion Gap mmol/L BUN (9-20) mg/dL Creatinine (0.66-1.25) mg/dL Est GFR (CKD-EPI)AfAm (>60 ml/min/1.73 sqM) Est GFR (CKD-EPI)NonAf (>60 ml/min/1.73 sqM) Glucose (74-99) mg/dL Plasma Lactic Acid Rafi (0.7-2.0) mmol/L Calcium (8.4-10.2) mg/dL Total Bilirubin (0.2-1.3) mg/dL AST (17-59) U/L ALT (21-72) U/L Alkaline Phosphatase (38-126) U/L C-Reactive Protein (<10.0) mg/L Total Protein (6.3-8.2) g/dL Albumin (3.5-5.0) g/dL C. difficile (EIA) Intrp Negative (Negative) Disposition Clinical Impression: Nausea and vomiting, Diarrhea, Dehydration, Food poisoning Disposition: ADMITTED IP TO THIS [facility] Condition: Fair Referrals: Gerardo Erwin MD [Primary Care Provider] - 1-2 days Decision to Admit Reason: Admit from [facility] - Out of Hospital Transfer - Req. Specs Out of Hospital Transfer - Requested Specifics: Other Non-Acute
[2017-09-05] MEDS ORDERED: CALCIUM CARBONATE 500 MG CHEWABLE PO PRN (18:54)
[2017-09-05] MEDS ORDERED: MELATONIN 3 MG TABLET PO PRN (18:54)
[2017-09-05] MEDS ORDERED: LACTULOSE 20 GM/30 ML CUP PO PRN (18:54)
[2017-09-05] MEDS ORDERED: MAGNESIUM HYDROXIDE 2,400 MG/10 ML CUP PO PRN (18:54)
[2017-09-05] MEDS ORDERED: Acetaminophen-Codeine 300-30mg TAB PO PRN (18:54)
[2017-09-05] MEDS ORDERED: ACETAMINOPHEN TAB 325 MG TAB PO PRN (18:54)
[2017-09-05 19:30] VITALS: BMI 29.4
[2017-09-05 23:10] LABS: Appearance,Urine Clear (Clear); Bilirubin,Urine Negative (Negative); Blood,Urine Small (Negative); Color,Urine Yellow; Glucose,Urine (UA) Negative (Negative); Hyaline Casts,Urine 3 /lpf (0-2); Ketones,Urine Negative (Negative); Leukocyte Esterase,Urine Negative (Negative); Mucus,Urine Rare /hpf; Nitrite,Urine Negative (Negative); Protein,Urine Negative (Negative); RBC,Urine 1 /hpf (0-5); Specific Gravity,Urine 1.011 (1.001-1.035); Squamous Epithelial Cell,Urine <1 /hpf (0-4); Urobilinogen,Urine <2.0 mg/dL (<2.0); WBC,Urine 2 /hpf (0-5)
--- NOTE | 2017-09-05 23:33 | HP ---
HISTORY AND PHYSICAL DATE OF ADMISSION: 09/05/2017 PRESENTING COMPLAINT: Nausea, vomiting, diarrhea. HISTORY OF PRESENTING COMPLAINT: This is a very pleasant 47-year-old patient who follows with Dr. Erwin, did have a trigger finger repair that subsequently became abscessed and did have an and I&D following that. This was back on August 26. Subsequently patient has been on IV daptomycin and patient went home. Late in the evening, patient started having nausea followed by then vomiting and diarrhea, multiple stools. There was no blood. Some abdominal cramping was present. No fever. Unable to keep anything down; hence, he is readmitted to the ER. The patient is still getting his daptomycin. Nobody else in the family is sick otherwise. REVIEW OF SYSTEMS: CONSTITUTIONAL: Weak and tired. HEENT: None. RESPIRATORY: None. CARDIOVASCULAR: None. GASTROINTESTINAL: As above. GENITOURINARY: None. MUSCULOSKELETAL: Left hand finger in a dressing. PSYCHIATRY: None. NEUROLOGICAL: None. PAST MEDICAL HISTORY: Recent colitis, left hand trigger finger followed by surgical repair and infection of the same, chronic back pain. He has had surgery on the left knee and also compartment syndrome to the left calf. Right knee injured with a circular saw with surgical repair. Additional surgical history is back surgery and knee surgery. SOCIAL HISTORY: , children at home. 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 No smoking for over 10 years. The patient drinks about 2 shots of bourbon a night. FAMILY HISTORY: Reviewed, noncontributory to presentation. HOME MEDICATIONS: 1. Prilosec 40 mg a day. 2. Cubicin 5 mg IV piggyback daily. ALLERGY: To CIPRO, COCONUT, IBUPROFEN, KIWI. EXAMINATION: Temperature 97.8, pulse 120, respirations 20, blood pressure 140/83, pulse ox 99% on room air. GENERAL APPEARANCE: Lying in bed, tired-appearing. EYES: Pupils equal. Conjunctivae normal. HEENT: External nose and ears normal. Oral cavity: Dry mucous membranes. NECK: JVD not raised. Mass not palpable. RESPIRATORY: Effort normal. LUNGS: Fair air entry. CARDIOVASCULAR: First and second sounds normal. No edema. ABDOMEN: Soft, nontender. Liver, spleen not palpable. LYMPHATIC: No lymph node palpable in neck or axillae. PSYCHIATRY: Alert and oriented x3. Mood and affect normal. NEUROLOGICAL: Pupils equal. Cranial nerves grossly intact. Power and sensation grossly intact. ASSESSMENT: 1. Acute severe antibiotic-associated with diarrhea. The patient's Clostridium difficile has come back negative and the patient recently had colitis. 2. Left hand trigger finger surgical repair followed by infection for which patient is on IV daptomycin. 3. Acute renal failure, probably prerenal, could be a component from recent infection. The patient's creatinine is normal at on August 29,being 0.96. Now it is up to 1.5. 4. Metabolic acidosis. PLAN: Patient will be aggressively hydrated. Keep a close eye on patient's electrolytes. Will also add some sodium bicarb, as patient has metabolic acidosis. Patient's IV antibiotics will be continued. Also send a stool for ova and parasites. Care was discussed with the patient. MIKE / JACK: [id number] /
[2017-09-06] MEDS: LACTATED RINGERS 1,000 ML IV SCH ×4 (00:53→17:27)
[2017-09-06] MEDS: DAPTOmycin 500 MG in SODIUM CHLORIDE 0.9% 50 ML IVPB SCH (07:50)
[2017-09-06] MEDS: ENOXAPARIN 40 MG/0.4 ML SYRINGE SQ SCH (07:50)
[2017-09-06] MEDS: PANTOPRAZOLE 40 MG TABLET PO SCH (07:50)
[2017-09-06 07:51] LABS: Calcium 8.1 mg/dL (8.4-10.2)
[2017-09-06 07:59] LABS: Basophils % (A) 0 %; Eosinophils % (A) 0 %; HCT 44.9 % (39.0-53.0); HGB 15.7 gm/dL (13.0-17.5); Lymphocytes # (A) 0.8 k/uL (1.0-4.8); Lymphocytes % (A) 9 %; MCH 31.6 pg (25.0-35.0); MCHC 34.8 g/dL (31.0-37.0); MCV 90.7 fL (80.0-100.0); Mean Platelet Volume 7.7; Monocytes # (A) 0.3 k/uL (0-1.0); Monocytes % (A) 3 %; Neutrophils # (A) 7.5 k/uL (1.3-7.7); Neutrophils % (A) 86 %; Platelet Count 129 k/uL (150-450); RBC 4.95 m/uL (4.30-5.90); RDW 11.8 % (11.5-15.5); WBC 8.7 k/uL (3.8-10.6)
[2017-09-06] MEDS ORDERED: DAPTOmycin 500 MG VIAL IVPB SCH (09:00)
--- NOTE | 2017-09-06 12:02 | P.GSCN ---
History of Present Illness Consult date: 09/06/17 Reason for Consult: An abdominal pain/diarrhea/nausea vomiting History of present illness: Patient is a 47-year-old white male who was admitted through the emergency room with a history of diarrhea, nausea and vomiting. The patient's history is significant for the fact that in August 18 underwent surgery for a trigger finger on his left thumb. Postprocedure he developed swelling of his hand was subsequently admitted to the hospital for I&D of the hand was performed. At that time he was treated with antibiotics was noted to be MRSA positive. He subsequently was discharged home developed diarrhea and return to the hospital for approximately a week's stay for treatment of the diarrhea. He was subsequently discharged home again and was readmitted on September 04 again with a complaint of diarrhea, vomiting and abdominal pain. The patient states today that his crampy abdominal discomfort has improved and he is tolerating clear liquids. The patient was diagnosed with colitis and has been followed by Dr. Fontenot. He is presently on daptomycin. Past surgical history: 1. Surgery for trigger finger 2. Knee surgery 3. Lumbar surgery Past medical history: 1. Reflux Review of systems: HEENT: Wears glasses to read Lungs: Negative Heart: History of hypertension GI: As noted : Negative Social history: Smoking negative Alcohol 2 liquors every other day Marijuana negative Review of Systems - Constitutional Reports as per HPI - Cardiovascular Reports as per HPI, Reports high blood pressure - Respiratory Reports as per HPI - Gastrointestinal Reports as per HPI - Genitourinary Reports as per HPI - Musculoskeletal Reports as per HPI - Integumentary Integumentary Comment(s): No prior history of MRSA - Psychiatric Psychiatric Comment(s): No history of anxiety or depression - Endocrine Endocrine Comment(s): No history of diabetes or thyroid disease Past Medical History Past Medical History: Hypertension Additional Past Medical History / Comment(s): back pain. Patient relates that from his work and his prior sports he has developed significant difficulties with his knees. The left knee required reconstruction type surgeries he did develop a compartment syndrome to the left calf that required incision and drainage. The right knee was injured with a circular saw the required extensive surgical repair years ago. History of Any Multi-Drug Resistant Organisms: MRSA Year Discovered:: 08/26/17 MDRO Source:: FINGER Additional Past Surgical History / Comment(s): back surg, knee surgery Past Anesthesia/Blood Transfusion Reactions: No Reported Reaction Past Psychological History: No Psychological Hx Reported Additional Psychological History / Comment(s): and lives in the family home with his and 2 adult children, 3rd adult child occasionally lives with him still. No animals in the home. 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 No experience. No international travel. No tobacco smoker for more than 10 years. Does do some weight lifting but does not inject testosterone. Smoking Status: Former smoker Past Alcohol Use History: Daily Past Drug Use History: None Reported - Past Family History Father Family Medical History: No Reported History Mother Family Medical History: No Reported History Medications and Allergies Home Medications Medication Instructions Recorded Confirmed Type Omeprazole [PriLOSEC] 40 mg PO DAILY 11/16/14 09/05/17 History DAPTOmycin [Cubicin] 500 mg IVPB DAILY #14 vial 09/04/17 09/05/17 Rx Allergies Allergy/AdvReac Type Severity Reaction Status Date / Time ciprofloxacin [From Cipro] Allergy Rash/Hives Verified 09/05/17 14:05 ciprofloxacin HCl Allergy Rash/Hives Verified 09/05/17 14:05 [From Cipro] coconut Allergy Unknown Verified 09/05/17 14:05 ibuprofen [From Motrin] Allergy Itching Verified 09/05/17 14:05 kiwi Allergy Unknown Verified 09/05/17 14:05 Surgical - Exam Patient is not tachycardic at this time his last reported heart rate is 69. Vital Signs Temp Pulse Resp BP Pulse Ox 97.8 F 120 H 20 141/83 99 09/05/17 11:44 09/05/17 11:44 09/05/17 11:44 09/05/17 11:44 09/05/17 11:44 - Eyes normal ocular movement - ENT normal pinna, normal nares, no hearing loss - Neck no masses, trachea midline, no lymphadectomy, no venous distension - Respiratory normal expansion, normal respiratory effort, clear to auscultation - Cardiovascular Rhythm: regular Heart Sounds: normal: S1, S2 - Abdomen Minimal tenderness mid suprapubic area Abdomen: soft, bowel sounds - Neurologic normal coordination - Psychiatric oriented to time, oriented to person, oriented to place, speech is normal, memory intact Results - Labs 09/06/17 07:04 09/06/17 07:04 Abnormal Lab Results - Last 24 Hours (Table) 09/05/17 09/05/17 09/05/17 Range/Units 13:35 13:35 22:09 WBC 12.7 H (3.8-10.6) k/uL Plt Count 115 L (150-450) k/uL Neutrophils # 11.4 H (1.3-7.7) k/uL Lymphocytes # 0.5 L (1.0-4.8) k/uL Chloride 109 H (98-107) mmol/L Carbon Dioxide 19 L (22-30) mmol/L BUN 24 H (9-20) mg/dL Creatinine 1.50 H (0.66-1.25) mg/dL Glucose 144 H (74-99) mg/dL Calcium (8.4-10.2) mg/dL ALT 75 H (21-72) U/L C-Reactive Protein 26.2 H (<10.0) mg/L Urine Blood Small H (Negative) Hyaline Casts 3 H (0-2) /lpf Urine Mucus Rare H (None) /hpf 09/06/17 09/06/17 Range/Units 07:04 07:04 WBC (3.8-10.6) k/uL Plt Count 129 L (150-450) k/uL Neutrophils # (1.3-7.7) k/uL Lymphocytes # 0.8 L (1.0-4.8) k/uL Chloride 110 H (98-107) mmol/L Carbon Dioxide 21 L (22-30) mmol/L BUN 24 H (9-20) mg/dL Creatinine 1.37 H (0.66-1.25) mg/dL Glucose 124 H (74-99) mg/dL Calcium 8.1 L (8.4-10.2) mg/dL ALT (21-72) U/L C-Reactive Protein (<10.0) mg/L Urine Blood (Negative) Hyaline Casts (0-2) /lpf Urine Mucus (None) /hpf Microbiology - Last 24 Hours (Table) 09/05/17 13:50 Stool Culture - Preliminary Stool Diabetes panel 09/05/17 09/06/17 Range/Units 13:35 07:04 Sodium 142 143 (137-145) mmol/L Potassium 3.9 4.0 (3.5-5.1) mmol/L Chloride 109 H 110 H (98-107) mmol/L Carbon Dioxide 19 L 21 L (22-30) mmol/L BUN 24 H 24 H (9-20) mg/dL Creatinine 1.50 H 1.37 H (0.66-1.25) mg/dL Glucose 144 H 124 H (74-99) mg/dL Calcium 9.4 8.1 L (8.4-10.2) mg/dL AST 53 (17-59) U/L ALT 75 H (21-72) U/L Alkaline Phosphatase 67 (38-126) U/L Total Protein 7.1 (6.3-8.2) g/dL Albumin 4.0 (3.5-5.0) g/dL Calcium panel 09/05/17 09/06/17 Range/Units 13:35 07:04 Calcium 9.4 8.1 L (8.4-10.2) mg/dL Albumin 4.0 (3.5-5.0) g/dL Pituitary panel 09/05/17 09/06/17 Range/Units 13:35 07:04 Sodium 142 143 (137-145) mmol/L Potassium 3.9 4.0 (3.5-5.1) mmol/L Chloride 109 H 110 H (98-107) mmol/L Carbon Dioxide 19 L 21 L (22-30) mmol/L BUN 24 H 24 H (9-20) mg/dL Creatinine 1.50 H 1.37 H (0.66-1.25) mg/dL Glucose 144 H 124 H (74-99) mg/dL Calcium 9.4 8.1 L (8.4-10.2) mg/dL Adrenal panel 09/05/17 09/06/17 Range/Units 13:35 07:04 Sodium 142 143 (137-145) mmol/L Potassium 3.9 4.0 (3.5-5.1) mmol/L Chloride 109 H 110 H (98-107) mmol/L Carbon Dioxide 19 L 21 L (22-30) mmol/L BUN 24 H 24 H (9-20) mg/dL Creatinine 1.50 H 1.37 H (0.66-1.25) mg/dL Glucose 144 H 124 H (74-99) mg/dL Calcium 9.4 8.1 L (8.4-10.2) mg/dL Total Bilirubin 0.7 (0.2-1.3) mg/dL AST 53 (17-59) U/L ALT 75 H (21-72) U/L Alkaline Phosphatase 67 (38-126) U/L Total Protein 7.1 (6.3-8.2) g/dL Albumin 4.0 (3.5-5.0) g/dL Assessment and Plan Assessment: Impression/plan: 1. 47-year-old white male status post trigger finger repair after which he developed an infection in an antibiotic associated colitis 2. Admission with abdominal pain and diarrhea vomiting 3. Dehydration Plan: 1. At this time patient does not have an acute surgical abdomen 2. Antibiotics as per infectious disease 3. Conservative management of nausea and vomiting with rehydration
[2017-09-06] MEDS: DIPHENOX-ATROP 2.5-0.025 MG 1 EACH TAB PO SCH ×2 (15:42→22:47)
--- NOTE | 2017-09-06 15:49 | PN ---
PROGRESS NOTE DATE OF SERVICE: 09/06/2017 PRESENTING COMPLAINT: Nausea, vomiting, diarrhea. INTERVAL HISTORY: This patient who is on antibiotics for hand infection, cellulitis, abscess presented with acute severe nausea, vomiting, diarrhea. C difficile was negative. Still having quite a bit of diarrhea, some abdominal discomfort; weak and tired. REVIEW OF SYSTEMS: Done for constitutional, cardiovascular, GI, pulmonary; relevant findings as above. CURRENT MEDICATIONS: Reviewed. They include IV daptomycin. PHYSICAL EXAMINATION: Temperature 97, pulse 69, respiration 18, blood pressure 127/77, pulse ox 98% on room air. GENERAL APPEARANCE: Lying in bed, tired-appearing. EYES: Pupils equal. Conjunctivae normal. HEENT: External appearance of nose and ears normal. Oral cavity normal. NECK: JVD not raised. Mass not palpable. RESPIRATORY: Effort normal. Lungs are clear. CARDIOVASCULAR: First and second sounds normal. No edema. ABDOMEN: Soft, nontender. Liver and spleen not palpable. PSYCHIATRY: Alert and oriented x3. Mood and affect normal. EXTREMITIES: Left hand in a dressing. INVESTIGATIONS: White count 8.7, BUN 24, creatinine 1.37. ASSESSMENT: 1. Acute severe antibiotic-associated diarrhea. C difficile remains negative. Patient is slow to respond; still having significant amount of diarrhea. 2. Left hand trigger finger surgical repair followed by infection, for which patient is on IV daptomycin. 3. Acute renal failure, likely prerenal. Baseline creatinine was 0.96. 4. Metabolic acidosis. PLAN: Continue with the current dose of IV fluids, antibiotics. Care was discussed with the patient. Lomotil is being added. Will follow. MMODL / IJN: [id number] /
[2017-09-06] MEDS: SODIUM BICARBONATE TAB 650 MG TAB PO SCH ×2 (17:25→22:47)
[2017-09-06] MEDS: LORazepam 0.5 MG TAB PO PRN (22:47)
--- NOTE | 2017-09-06 23:40 | P.CONS ---
History of Present Illness - Reason for Consult Consult date: 09/06/17 - Chief Complaint Nausea and emesis - History of Present Illness Very pleasant 47-year-old male presents to Hospital with significant onset of nausea and emesis and some diarrhea. The patient has a very extensive recent past medical history he otherwise has been a very healthy man. He had increasing pain to his left hand and was found evidence of a trigger finger. He underwent intervention eventually some surgical intervention. However then developed a MRSA infection to his hand and required surgical incision and drainage of the tenosynovitis. He was discharged home on antibiotic therapy with ceftriaxone however was then found evidence of MRSA in his antibiotic therapy was transitioned to vancomycin for a dose. It was during this hospital stay that he had become extremely ill with colitis. He had severe diarrhea and some nausea. Geraldo bike therapy was altered from vancomycin to daptomycin because of an increased creatinine. After a few days he again had a major improvement of his status his nausea and emesis resolved. No further diarrhea and his acute renal failure was improving and was discharged home. Roughly within a short period of time he had recurrence of nausea and emesis and severe amounts of diarrhea center back to the emergency center. Now with some hydration his creatinine is improving and he is noticing that his severe nausea and emesis it improved his diarrhea is improved. Stool samples have been tested and are now negative for C. diff. This afternoon the patient is starting to feel better after taking excessive amount of hydration but still is leery of food intake. Review of Systems HEENT:Denies headache or acute visual change. Denies sinus or mouth discomforts. Denies neck stiffness or pain. Denies significant oral cavity pain. Denies difficulty on swallowing. Lungs: Denies significant shortness of breath, cough, sputum production, or hemoptysis. Cardiovascular: Denies significant shortness of breath, chest pain, chest wall pain, orthopnea, dyspnea on exertion, syncope Gastrointestinal: As per the HPI Musculoskeletal: As per the HPI Skin: Denies new rash or lesions. No new ulcers or wounds are related.. Neuro: Denies headache or visual change. Denies any new onset weakness or difficulty with ambulation. Denies falls or seizures. Psychiatric:Denies anxiety or depression. Endocrine: Denies significant fatigue, relates since he has been ill he has lost weight has not been able to work out and is losing some of his muscle mass. Past Medical History Past Medical History: Hypertension Additional Past Medical History / Comment(s): back pain. Patient relates that from his work and his prior sports he has developed significant difficulties with his knees. The left knee required reconstruction type surgeries he did develop a compartment syndrome to the left calf that required incision and drainage. The right knee was injured with a circular saw the required extensive surgical repair years ago. History of Any Multi-Drug Resistant Organisms: MRSA Year Discovered:: 08/26/17 MDRO Source:: FINGER Additional Past Surgical History / Comment(s): back surg, knee surgery Past Anesthesia/Blood Transfusion Reactions: No Reported Reaction Past Psychological History: No Psychological Hx Reported Additional Psychological History / Comment(s): and lives in the family home with his and 2 adult children, 3rd adult child occasionally lives with him still. No animals in the home. 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 No experience. No international travel. No tobacco smoker for more than 10 years. Does do some weight lifting but does not inject testosterone. Smoking Status: Former smoker Past Alcohol Use History: Daily Past Drug Use History: None Reported - Past Family History Father Family Medical History: No Reported History Mother Family Medical History: No Reported History Medications and Allergies Home Medications and Allergies Comment(s): Current Medications Acetaminophen (Tylenol Tab) 650 mg PO Q6HR PRN PRN Reason: Mild Pain or Fever > 100.5 Acetaminophen/Codeine Phosphate (Tylenol #3) 1 each PO Q4HR PRN PRN Reason: Moderate Pain Calcium Carbonate/Glycine (Tums) 1,000 mg PO Q4HR PRN PRN Reason: Dyspepsia Diphenoxylate HCl/Atropine (Lomotil) 1 each PO TID [facility] Last Admin: 09/06/17 22:47 Dose: 1 each Enoxaparin Sodium (Lovenox) 40 mg SQ DAILY [facility] Last Admin: 09/06/17 07:50 Dose: 40 mg Lactated Ringer's (Lactated Ringers) 1,000 mls @ 150 mls/hr IV .Q6H40M [facility] Last Admin: 09/06/17 17:27 Dose: 150 mls/hr Daptomycin 500 mg/ Sodium (Chloride) 50 mls @ 100 mls/hr IVPB DAILY [facility] Last Admin: 09/06/17 07:50 Dose: 100 mls/hr Lactulose (Cephulac) 20 gm PO DAILY PRN PRN Reason: Constipation Lorazepam (Ativan) 0.5 mg PO Q6HR PRN PRN Reason: Anxiety Last Admin: 09/06/17 22:47 Dose: 0.5 mg Magnesium Hydroxide (Milk Of Magnesia) 2,400 mg PO DAILY PRN PRN Reason: Constipation Melatonin (Melatonin) 3 mg PO HS PRN PRN Reason: Insomnia Morphine Sulfate (Morphine Sulfate (Inj)) 4 mg IV Q4HR PRN PRN Reason: Severe Pain Naloxone HCl (Narcan) 0.2 mg IV Q2M PRN PRN Reason: Opioid Reversal Ondansetron HCl (Zofran) 4 mg IVP Q8HR PRN PRN Reason: Nausea And Vomiting Pantoprazole Sodium (Protonix) 40 mg PO AC-BRKFST [facility] Last Admin: 09/06/17 07:50 Dose: 40 mg Sodium Bicarbonate (Sodium Bicarbonate Tab) 650 mg PO BID [facility] Last Admin: 09/06/17 22:47 Dose: 650 mg Home Medications Medication Instructions Recorded Confirmed Type Omeprazole [PriLOSEC] 40 mg PO DAILY 11/16/14 09/05/17 History DAPTOmycin [Cubicin] 500 mg IVPB DAILY #14 vial 09/04/17 09/05/17 Rx Allergies Allergy/AdvReac Type Severity Reaction Status Date / Time ciprofloxacin [From Cipro] Allergy Rash/Hives Verified 09/05/17 14:05 ciprofloxacin HCl Allergy Rash/Hives Verified 09/05/17 14:05 [From Cipro] coconut Allergy Unknown Verified 09/05/17 14:05 ibuprofen [From Motrin] Allergy Itching Verified 09/05/17 14:05 kiwi Allergy Unknown Verified 09/05/17 14:05 Physical Exam Vitals: Vital Signs Temp Pulse Resp BP Pulse Ox 09/06/17 15:00 97.0 F L 69 18 127/77 98 09/06/17 07:00 96.8 F L 69 16 124/79 94 L Intake and Output 09/06/17 09/06/17 09/07/17 14:59 22:59 07:59 Intake Total 1850 Output Total 300 Balance 1850 -300 Intake: IV 1200 Lactated Ringers 1,000 ml 1200 @ 150 mls/hr IV .Q6H40M [facility] Rx#:[id number] Intake, IV Titration 50 Amount DAPTOmycin 500 mg In 50 Sodium Chloride 0.9% 50 ml @ 100 mls/hr IVPB DAILY [facility] Rx#:[id number] Oral 600 Output: Urine 300 Other: # Voids 2 1 # Bowel Movements 3 Pleasant 47-year-old male of a muscular build who relates feeling better than earlier, his severe nausea and emesis and diarrhea have improved and his abdominal pain is also improved HEENT: Anicteric conjunctiva are pink and moist nasal mucosa grossly intact without significant lesions, there is no thrush. Neck: The neck is supple without significant lymphadenopathy or thyromegaly. Lungs: Good bilateral air entry without significant crackles or wheezing. There is no significant bronchial sounds. There is no egophony or dullness. Heart: Regular rate and rhythm with an audible S1-S2, no S3 no S4. There is no significant murmur click or rub, PMI was nondisplaced. Abdomen: Positive bowel sounds soft but distended but not severely so., His distinct tenderness especially in the left lower quadrant less so on the right lower quadrant, no flank tenderness. No organomegaly. No guarding or rebound. Extremities: Right upper extremity without abnormalities. Left upper extremity reveals the recent surgical intervention now with evidence of further healing of the surgical incisions no drainage is being seen, no significant redness range of motion is now considerably improved for the measurements in locations There is no significant epitrochlear or axillary lymphadenopathy. No other enlarged lymph nodes are seen. The lower extremities are without significant edema in the prior surgical interventions are well-healed in the bilateral lower extremities. Neuro: Awake alert oriented to person place and time. There are no acute new gross focal sensory motor deficits. Results CBC & Chem 7: 09/06/17 07:04 09/06/17 07:04 Labs: Abnormal Lab Results - Last 24 Hours (Table) 09/06/17 09/06/17 Range/Units 07:04 07:04 Plt Count 129 L (150-450) k/uL Lymphocytes # 0.8 L (1.0-4.8) k/uL Chloride 110 H (98-107) mmol/L Carbon Dioxide 21 L (22-30) mmol/L BUN 24 H (9-20) mg/dL Creatinine 1.37 H (0.66-1.25) mg/dL Glucose 124 H (74-99) mg/dL Calcium 8.1 L (8.4-10.2) mg/dL Microbiology - Last 24 Hours (Table) 09/05/17 13:35 Blood Culture - Preliminary Blood No Growth after 24 hours 09/05/17 13:50 Stool Culture - Preliminary Stool Laboratory Results WBC 8.7 k/uL (3.8-10.6) 09/06/17 07:04 RBC 4.95 m/uL (4.30-5.90) 09/06/17 07:04 Hgb 15.7 gm/dL (13.0-17.5) 09/06/17 07:04 Hct 44.9 % (39.0-53.0) 09/06/17 07:04 MCV 90.7 fL (80.0-100.0) 09/06/17 07:04 MCH 31.6 pg (25.0-35.0) 09/06/17 07:04 MCHC 34.8 g/dL (31.0-37.0) 09/06/17 07:04 RDW 11.8 % (11.5-15.5) 09/06/17 07:04 Plt Count 129 k/uL (150-450) L 09/06/17 07:04 Neutrophils % 86 % 09/06/17 07:04 Lymphocytes % 9 % 09/06/17 07:04 Monocytes % 3 % 09/06/17 07:04 Eosinophils % 0 % 09/06/17 07:04 Basophils % 0 % 09/06/17 07:04 Neutrophils # 7.5 k/uL (1.3-7.7) 09/06/17 07:04 Lymphocytes # 0.8 k/uL (1.0-4.8) L 09/06/17 07:04 Monocytes # 0.3 k/uL (0-1.0) 09/06/17 07:04 Eosinophils # 0.0 k/uL (0-0.7) 09/06/17 07:04 Basophils # 0.0 k/uL (0-0.2) 09/06/17 07:04 Sodium 143 mmol/L (137-145) 09/06/17 07:04 Potassium 4.0 mmol/L (3.5-5.1) 09/06/17 07:04 Chloride 110 mmol/L (98-107) H 09/06/17 07:04 Carbon Dioxide 21 mmol/L (22-30) L 09/06/17 07:04 Anion Gap 12 mmol/L 09/06/17 07:04 BUN 24 mg/dL (9-20) H 09/06/17 07:04 Creatinine 1.37 mg/dL (0.66-1.25) H 09/06/17 07:04 Est GFR (CKD-EPI)AfAm 71 (>60 ml/min/1.73 sqM) 09/06/17 07:04 Est GFR (CKD-EPI)NonAf 62 (>60 ml/min/1.73 sqM) 09/06/17 07:04 Glucose 124 mg/dL (74-99) H 09/06/17 07:04 Plasma Lactic Acid Rafi 1.9 mmol/L (0.7-2.0) 09/05/17 13:35 Calcium 8.1 mg/dL (8.4-10.2) L 09/06/17 07:04 Total Bilirubin 0.7 mg/dL (0.2-1.3) 09/05/17 13:35 AST 53 U/L (17-59) 09/05/17 13:35 ALT 75 U/L (21-72) H 09/05/17 13:35 Alkaline Phosphatase 67 U/L (38-126) 09/05/17 13:35 C-Reactive Protein 26.2 mg/L (<10.0) H 09/05/17 13:35 Total Protein 7.1 g/dL (6.3-8.2) 09/05/17 13:35 Albumin 4.0 g/dL (3.5-5.0) 09/05/17 13:35 Urine Color Yellow 09/05/17 22:09 Urine Appearance Clear (Clear) 09/05/17 22:09 Urine pH 5.0 (5.0-8.0) 09/05/17 22:09 Ur Specific Farrell 1.011 (1.001-1.035) 09/05/17 22:09 Urine Protein Negative (Negative) 09/05/17 22:09 Urine Glucose (UA) Negative (Negative) 09/05/17 22:09 Urine Ketones Negative (Negative) 09/05/17 22:09 Urine Blood Small (Negative) H 09/05/17 22:09 Urine Nitrite Negative (Negative) 09/05/17 22:09 Urine Bilirubin Negative (Negative) 09/05/17 22:09 Urine Urobilinogen <2.0 mg/dL (<2.0) 09/05/17 22:09 Ur Leukocyte Esterase Negative (Negative) 09/05/17 22:09 Urine RBC 1 /hpf (0-5) 09/05/17 22:09 Urine WBC 2 /hpf (0-5) 09/05/17 22:09 Ur Squamous Epith Cells <1 /hpf (0-4) 09/05/17 22:09 Hyaline Casts 3 /lpf (0-2) H 09/05/17 22:09 Urine Mucus Rare /hpf (None) H 09/05/17 22:09 C. difficile (EIA) Intrp Negative (Negative) 09/05/17 13:50 Microbiology 09/05/17 13:35 Blood Blood Culture - Preliminary No Growth after 24 hours 09/05/17 13:50 Stool Stool Culture - Preliminary Assessment and Plan (1) Infection of flexor tendon sheath Current Visit: No Status: Acute Code(s): M65.10 - OTHER INFECTIVE (TENO) SYNOVITIS, UNSPECIFIED SITE SNOMED Code(s): 179626313 (2) Nausea and vomiting Narrative/Plan: Pleasant 47-year-old male presents to hospital with a sudden onset of severe nausea emesis and recurrence of diarrhea. Only low-grade temperature occurred. However felt very poorly and felt hot and sweaty. Because of his continuous nausea and emesis he was directed to hospital for admission and rehydration. Fortunately his C. diff is negative. He is feeling slightly better today. His acute renal failure is improving and his creatinine is down to 1.37 with hydration. His abdominal pain is improving. Still has some waves of nausea and is only taking clear liquids and at this time. Has been seen by surgery with no plans for surgical intervention. It appears that his significant colitis that he suffered from the antibiotic therapy is starting to improve. And hopefully as his hydration status continues to improve he will be able to be discharged home to complete his course of antibiotic therapy of daptomycin for the tenosynovitis of his left hand. We'll limit the antibiotic therapy is much as possible given his significant difficulties with antibiotic therapy. Fortunately he does not have C. diff colitis. In no other secondary infections are being noted at this point in time. At this presentation he did have some leukocytosis which is improving. It is noted he is considerably more comfortable. Current Visit: Yes Status: Acute Code(s): R11.2 - NAUSEA WITH VOMITING, UNSPECIFIED SNOMED Code(s): 41605437 (3) Abdominal pain in male Current Visit: No Status: Acute Code(s): R10.9 - UNSPECIFIED ABDOMINAL PAIN SNOMED Code(s): 26493159 (4) Diarrhea Current Visit: Yes Status: Acute Code(s): R19.7 - DIARRHEA, UNSPECIFIED SNOMED Code(s): 79077852
[2017-09-07] MEDS: LACTATED RINGERS 1,000 ML IV SCH ×4 (07:34→23:40)
[2017-09-07] MEDS: PANTOPRAZOLE 40 MG TABLET PO SCH (07:36)
[2017-09-07] MEDS: ENOXAPARIN 40 MG/0.4 ML SYRINGE SQ SCH (07:37)
[2017-09-07] MEDS: DAPTOmycin 500 MG in SODIUM CHLORIDE 0.9% 50 ML IVPB SCH (07:37)
[2017-09-07] MEDS: SODIUM BICARBONATE TAB 650 MG TAB PO SCH ×2 (07:37→20:12)
[2017-09-07] MEDS: DIPHENOX-ATROP 2.5-0.025 MG 1 EACH TAB PO SCH ×2 (07:38→15:08)
[2017-09-07 08:45] LABS: Calcium 8.3 mg/dL (8.4-10.2); Potassium 3.8 mmol/L (3.5-5.1)
--- NOTE | 2017-09-07 12:06 | P.PN ---
Subjective Progress Note Date: 09/07/17 Patient is a 47-year-old gentleman who was admitted through the emergency room with history of diarrhea and nausea and vomiting. His history is significant for the fact that he had subsequently undergone surgery for trigger finger on his left thumb, postprocedure he developed swelling and was subsequently admitted with a diagnosis of an infection for which she underwent debridement and was noted to be MRSA positive. He has been treated with antibiotics and developed an antibiotic induced colitis. The patient today is feeling better he has no nausea and has not vomited further. His diarrhea has decreased. On initial admission his BUN was 24 and creatinine 1.5 and with rehydration's BUN is now 17 and creatinine 1.31. Objective - Vital Signs Vital signs: Vital Signs Temp 97.3 F L 09/07/17 07:00 Pulse 59 L 09/07/17 07:00 Resp 16 09/07/17 07:00 BP 121/84 09/07/17 07:00 Pulse Ox 98 09/07/17 07:00 Intake & Output 09/06/17 09/07/17 09/07/17 17:59 06:59 18:59 Intake Total Output Total Balance Weight Intake: IV Lactated Ringers 1,000 ml @ 150 mls/hr IV .Q6H40M [facility] Rx#:[id number] Intake, IV Titration Amount DAPTOmycin 500 mg In Sodium Chloride 0.9% 50 ml @ 100 mls/hr IVPB DAILY [facility] Rx#:[id number] Oral Output: Urine Other: Voiding Method Toilet # Voids # Bowel Movements - Constitutional General appearance: Present: average body habitus - Respiratory Respiratory: bilateral: CTA - Cardiovascular Rhythm: regular Heart sounds: normal: S1, S2 - Gastrointestinal General gastrointestinal: Present: normal bowel sounds, soft - Psychiatric Psychiatric: Present: A&O x's 3, appropriate affect, intact judgment & insight - Labs CBC & Chem 7: 09/06/17 07:04 09/07/17 08:10 Labs: Abnormal Lab Results - Last 24 Hours (Table) 09/07/17 Range/Units 08:10 Chloride 110 H (98-107) mmol/L Creatinine 1.31 H (0.66-1.25) mg/dL Glucose 105 H (74-99) mg/dL Calcium 8.3 L (8.4-10.2) mg/dL Microbiology - Last 24 Hours (Table) 09/05/17 13:35 Blood Culture - Preliminary Blood No Growth after 24 hours Assessment and Plan Assessment: Impression/plan: 1. 47-year-old white male status post trigger finger repair after which he developed an infection and an antibiotic associated colitis 2. Admission with abdominal pain and diarrhea vomiting, which has largely resolved 3. Dehydration Plan: 1. At this time patient does not have an acute surgical abdomen 2. Antibiotics as per infectious disease 3. Conservative management of nausea and vomiting with rehydration 4. Advance diet as tolerated
--- NOTE | 2017-09-07 13:52 | P.PN ---
Subjective Progress Note Date: 09/07/17 Principal diagnosis: abdominal pain N/V Very pleasant 47-year-old male presents to Hospital with significant onset of nausea and emesis and some diarrhea. The patient has a very extensive recent past medical history he otherwise has been a very healthy man. He had increasing pain to his left hand and was found evidence of a trigger finger. He underwent intervention eventually some surgical intervention. However then developed a MRSA infection to his hand and required surgical incision and drainage of the tenosynovitis. He was discharged home on antibiotic therapy with ceftriaxone however was then found evidence of MRSA in his antibiotic therapy was transitioned to vancomycin for a dose. It was during this hospital stay that he had become extremely ill with colitis. He had severe diarrhea and some nausea. Geraldo bike therapy was altered from vancomycin to daptomycin because of an increased creatinine. After a few days he again had a major improvement of his status his nausea and emesis resolved. No further diarrhea and his acute renal failure was improving and was discharged home. Roughly within a short period of time he had recurrence of nausea and emesis and severe amounts of diarrhea center back to the emergency center. Now with some hydration his creatinine is improving and he is noticing that his severe nausea and emesis it improved his diarrhea is improved. Stool samples have been tested and are now negative for C. diff. This afternoon the patient is starting to feel better after taking excessive amount of hydration but still is leery of food intake. On 09/07/2017 the patient is considerably improved. He is looking forward to having some solid food this afternoon. He is otherwise feeling quite weak but the numbness is showing improvement. His appetite is improving. This is nauseous improved. He's had some loose stools. He is denying difficulties with further fever or chill. AND his hand shows ongoing improvement. Objective - Vital Signs Vital signs: Vital Signs Temp 97.3 F L 09/07/17 07:00 Pulse 59 L 09/07/17 07:00 Resp 16 09/07/17 07:00 BP 121/84 09/07/17 07:00 Pulse Ox 98 09/07/17 07:00 Intake & Output 09/06/17 09/07/17 09/07/17 17:59 06:59 18:59 Intake Total Output Total Balance Weight Intake: IV Lactated Ringers 1,000 ml @ 150 mls/hr IV .Q6H40M [facility] Rx#:[id number] Intake, IV Titration Amount DAPTOmycin 500 mg In Sodium Chloride 0.9% 50 ml @ 100 mls/hr IVPB DAILY [facility] Rx#:[id number] Oral Output: Urine Other: Voiding Method Toilet # Voids # Bowel Movements - Exam Pleasant 47-year-old male of a muscular build who relates feeling better than earlier, his severe nausea and emesis and diarrhea have improved and his abdominal pain is also improved HEENT: Anicteric conjunctiva are pink and moist nasal mucosa grossly intact without significant lesions, there is no thrush. Neck: The neck is supple without significant lymphadenopathy or thyromegaly. Lungs: Good bilateral air entry without significant crackles or wheezing. There is no significant bronchial sounds. There is no egophony or dullness. Heart: Regular rate and rhythm with an audible S1-S2, no S3 no S4. There is no significant murmur click or rub, PMI was nondisplaced. Abdomen: Positive bowel sounds soft but distended but not severely so., His distinct tenderness especially in the left lower quadrant less so on the right lower quadrant, no flank tenderness. No organomegaly. No guarding or rebound. Extremities: Right upper extremity without abnormalities. Left upper extremity reveals the recent surgical intervention now with evidence of further healing of the surgical incisions no drainage is being seen, no significant redness range of motion is now considerably improved for the measurements in locations There is no significant epitrochlear or axillary lymphadenopathy. No other enlarged lymph nodes are seen. The lower extremities are without significant edema in the prior surgical interventions are well-healed in the bilateral lower extremities. Neuro: Awake alert oriented to person place and time. There are no acute new gross focal sensory motor deficits. - Labs CBC & Chem 7: 09/06/17 07:04 09/07/17 08:10 Labs: Abnormal Lab Results - Last 24 Hours (Table) 09/07/17 Range/Units 08:10 Chloride 110 H (98-107) mmol/L Creatinine 1.31 H (0.66-1.25) mg/dL Glucose 105 H (74-99) mg/dL Calcium 8.3 L (8.4-10.2) mg/dL Microbiology - Last 24 Hours (Table) 09/05/17 13:35 Blood Culture - Preliminary Blood No Growth after 24 hours Laboratory Results WBC 8.7 k/uL (3.8-10.6) 09/06/17 07:04 RBC 4.95 m/uL (4.30-5.90) 09/06/17 07:04 Hgb 15.7 gm/dL (13.0-17.5) 09/06/17 07:04 Hct 44.9 % (39.0-53.0) 09/06/17 07:04 MCV 90.7 fL (80.0-100.0) 09/06/17 07:04 MCH 31.6 pg (25.0-35.0) 09/06/17 07:04 MCHC 34.8 g/dL (31.0-37.0) 09/06/17 07:04 RDW 11.8 % (11.5-15.5) 09/06/17 07:04 Plt Count 129 k/uL (150-450) L 09/06/17 07:04 Neutrophils % 86 % 09/06/17 07:04 Lymphocytes % 9 % 09/06/17 07:04 Monocytes % 3 % 09/06/17 07:04 Eosinophils % 0 % 09/06/17 07:04 Basophils % 0 % 09/06/17 07:04 Neutrophils # 7.5 k/uL (1.3-7.7) 09/06/17 07:04 Lymphocytes # 0.8 k/uL (1.0-4.8) L 09/06/17 07:04 Monocytes # 0.3 k/uL (0-1.0) 09/06/17 07:04 Eosinophils # 0.0 k/uL (0-0.7) 09/06/17 07:04 Basophils # 0.0 k/uL (0-0.2) 09/06/17 07:04 Sodium 144 mmol/L (137-145) 09/07/17 08:10 Potassium 3.8 mmol/L (3.5-5.1) 09/07/17 08:10 Chloride 110 mmol/L (98-107) H 09/07/17 08:10 Carbon Dioxide 23 mmol/L (22-30) 09/07/17 08:10 Anion Gap 11 mmol/L 09/07/17 08:10 BUN 17 mg/dL (9-20) 09/07/17 08:10 Creatinine 1.31 mg/dL (0.66-1.25) H 09/07/17 08:10 Est GFR (CKD-EPI)AfAm 75 (>60 ml/min/1.73 sqM) 09/07/17 08:10 Est GFR (CKD-EPI)NonAf 65 (>60 ml/min/1.73 sqM) 09/07/17 08:10 Glucose 105 mg/dL (74-99) H 09/07/17 08:10 Plasma Lactic Acid Rafi 1.9 mmol/L (0.7-2.0) 09/05/17 13:35 Calcium 8.3 mg/dL (8.4-10.2) L 09/07/17 08:10 Total Bilirubin 0.7 mg/dL (0.2-1.3) 09/05/17 13:35 AST 53 U/L (17-59) 09/05/17 13:35 ALT 75 U/L (21-72) H 09/05/17 13:35 Alkaline Phosphatase 67 U/L (38-126) 09/05/17 13:35 C-Reactive Protein 26.2 mg/L (<10.0) H 09/05/17 13:35 Total Protein 7.1 g/dL (6.3-8.2) 09/05/17 13:35 Albumin 4.0 g/dL (3.5-5.0) 09/05/17 13:35 Urine Color Yellow 09/05/17 22:09 Urine Appearance Clear (Clear) 09/05/17 22:09 Urine pH 5.0 (5.0-8.0) 09/05/17 22:09 Ur Specific [facility] 1.011 (1.001-1.035) 09/05/17 22:09 Urine Protein Negative (Negative) 09/05/17 22:09 Urine Glucose (UA) Negative (Negative) 09/05/17 22:09 Urine Ketones Negative (Negative) 09/05/17 22:09 Urine Blood Small (Negative) H 09/05/17 22:09 Urine Nitrite Negative (Negative) 09/05/17 22:09 Urine Bilirubin Negative (Negative) 09/05/17 22:09 Urine Urobilinogen <2.0 mg/dL (<2.0) 09/05/17 22:09 Ur Leukocyte Esterase Negative (Negative) 09/05/17 22:09 Urine RBC 1 /hpf (0-5) 09/05/17 22:09 Urine WBC 2 /hpf (0-5) 09/05/17 22:09 Ur Squamous Epith Cells <1 /hpf (0-4) 09/05/17 22:09 Hyaline Casts 3 /lpf (0-2) H 09/05/17 22:09 Urine Mucus Rare /hpf (None) H 09/05/17 22:09 C. difficile (EIA) Intrp Negative (Negative) 09/05/17 13:50 Microbiology 09/05/17 13:35 Blood Blood Culture - Preliminary No Growth after 24 hours 09/05/17 13:50 Stool Stool Culture - Preliminary Assessment and Plan (1) Infection of flexor tendon sheath Current Visit: No Status: Acute Code(s): M65.10 - OTHER INFECTIVE (TENO) SYNOVITIS, UNSPECIFIED SITE SNOMED Code(s): 074634589 (2) Nausea and vomiting Narrative/Plan: Pleasant 47-year-old male presents to hospital with a sudden onset of severe nausea emesis and recurrence of diarrhea. Only low-grade temperature occurred. However felt very poorly and felt hot and sweaty. Because of his continuous nausea and emesis he was directed to hospital for admission and rehydration. Fortunately his C. diff is negative. He is feeling slightly better today. His acute renal failure is improving and his creatinine is down to 1.37 with hydration. His abdominal pain is improving. Still has some waves of nausea and is only taking clear liquids and at this time. Has been seen by surgery with no plans for surgical intervention. It appears that his significant colitis that he suffered from the antibiotic therapy is starting to improve. And hopefully as his hydration status continues to improve he will be able to be discharged home to complete his course of antibiotic therapy of daptomycin for the tenosynovitis of his left hand. We'll limit the antibiotic therapy is much as possible given his significant difficulties with antibiotic therapy. Fortunately he does not have C. diff colitis. In no other secondary infections are being noted at this point in time. At this presentation he did have some leukocytosis which is improving. It is noted he is considerably more comfortable. 09/07/2017 reveals the patient to be considerably improved. Nausea and emesis have resolved. Has had the stool yesterday but no significant loose stool today and hasn't improvement to the significant discomfort to his left lower quadrant. He is having no further fever or chills. As noted his creatinine is down to 1.31. He looks for to eating. Hopefully over the next day will have further improvement soon be discharged home to complete his course of antibiotic therapy. If this time with his marked improvement in many difficulties will be limiting the total course of antibiotics for his hand to 14 days given his marked clinical improvement. Current Visit: Yes Status: Acute Code(s): R11.2 - NAUSEA WITH VOMITING, UNSPECIFIED SNOMED Code(s): 53137713 (3) Abdominal pain in male Current Visit: No Status: Acute Code(s): R10.9 - UNSPECIFIED ABDOMINAL PAIN SNOMED Code(s): 33699404 (4) Diarrhea Current Visit: Yes Status: Acute Code(s): R19.7 - DIARRHEA, UNSPECIFIED SNOMED Code(s): 75391922
[2017-09-07] MEDS ORDERED: DIPHENOX-ATROP 2.5-0.025 MG 1 EACH TAB PO PRN (17:42)
--- NOTE | 2017-09-07 18:50 | PN ---
PROGRESS NOTE DATE OF SERVICE: 09/07/2017. PRESENT COMPLAINT: Diarrhea. INTERVAL HISTORY: Patient presented with antibiotic-associated diarrhea, now improved with Lomotil. The patient did take Lomotil this morning. The patient also getting daptomycin for trigger finger infection. The patient did tolerate a little bit of diet this morning when I saw the patient. REVIEW OF SYSTEMS: Done for constitutional, cardiovascular, GI, pulmonary; relevant findings as above. CURRENT MEDICATIONS: Include IV daptomycin. PHYSICAL EXAMINATION: Afebrile, pulse 59, respiration 16, blood pressure 120/84, pulse ox 98% on room air. GENERAL APPEARANCE: Comfortable. EYES: Pupil equal. Conjunctivae normal. HEENT: External appearance of nose and ears normal. Oral cavity normal. NECK: JVD not raised. Mass not palpable. Respiratory effort. LUNGS: Clear. CARDIOVASCULAR: 1st and 2nd heart sounds normal. No edema. ABDOMEN: Soft. Liver and spleen not palpable. The left hand in a dressing. INVESTIGATIONS: Potassium 3.8, BUN 17, creatinine 1.31. ASSESSMENT: 1. Acute severe antibiotic-associated diarrhea, C-diff negative, with clinical improvement. 2. Acute renal failure, likely prerenal, improving slowly. 3. Left hand trigger finger with flexor tendon abscess from MRSA, currently on IV daptomycin. 4. Metabolic acidosis, improving. PLAN: Will change patient's Lomotil to p.r.n. Will keep the patient on IV fluids, try to normalize his renal function. Care was discussed with the patient. MMODL / IJN: [id number] /
[2017-09-07] MEDS: LORazepam 0.5 MG TAB PO PRN (23:25)
[2017-09-08] MEDS: LACTATED RINGERS 1,000 ML IV SCH (05:43)
[2017-09-08 08:27] VITALS: RESP 18; TEMP 98.1
[2017-09-08 08:51] LABS: Calcium 8.2 mg/dL (8.4-10.2); Potassium 3.3 mmol/L (3.5-5.1)
[2017-09-08] MEDS: DAPTOmycin 500 MG in SODIUM CHLORIDE 0.9% 50 ML IVPB SCH (09:13)
[2017-09-08] MEDS: PANTOPRAZOLE 40 MG TABLET PO SCH (09:15)
[2017-09-08] MEDS: ENOXAPARIN 40 MG/0.4 ML SYRINGE SQ SCH (09:19)
[2017-09-08] MEDS: SODIUM BICARBONATE TAB 650 MG TAB PO SCH (09:19)
[2017-09-08] MEDS ORDERED: ALTEPLASE 2 MG VIAL (CATHFLO) IV STA (14:04)
[2017-09-08 16:13] VITALS: BP 132/86; PULSE 69
--- NOTE | 2017-09-08 23:38 | P.PN ---
Subjective Progress Note Date: 09/08/17 Principal diagnosis: abdominal pain N/V Very pleasant 47-year-old male presents to Hospital with significant onset of nausea and emesis and some diarrhea. The patient has a very extensive recent past medical history he otherwise has been a very healthy man. He had increasing pain to his left hand and was found evidence of a trigger finger. He underwent intervention eventually some surgical intervention. However then developed a MRSA infection to his hand and required surgical incision and drainage of the tenosynovitis. He was discharged home on antibiotic therapy with ceftriaxone however was then found evidence of MRSA in his antibiotic therapy was transitioned to vancomycin for a dose. It was during this hospital stay that he had become extremely ill with colitis. He had severe diarrhea and some nausea. Geraldo bike therapy was altered from vancomycin to daptomycin because of an increased creatinine. After a few days he again had a major improvement of his status his nausea and emesis resolved. No further diarrhea and his acute renal failure was improving and was discharged home. Roughly within a short period of time he had recurrence of nausea and emesis and severe amounts of diarrhea center back to the emergency center. Now with some hydration his creatinine is improving and he is noticing that his severe nausea and emesis it improved his diarrhea is improved. Stool samples have been tested and are now negative for C. diff. This afternoon the patient is starting to feel better after taking excessive amount of hydration but still is leery of food intake. On 09/07/2017 the patient is considerably improved. He is looking forward to having some solid food this afternoon. He is otherwise feeling quite weak but the numbness is showing improvement. His appetite is improving. This is nauseous improved. He's had some loose stools. He is denying difficulties with further fever or chill. AND his hand shows ongoing improvement. 09/08/2017 the patient is improved. Tolerating solid foods. One loose stool only with much improved abdominal pain no nausea or emesis. No fevers or chills Objective - Vital Signs Vital signs: Vital Signs Temp 98.1 F 09/08/17 16:13 Pulse 69 09/08/17 16:13 Resp 18 09/08/17 16:13 BP 132/86 09/08/17 16:13 Pulse Ox 98 09/08/17 16:13 Intake & Output 09/08/17 09/08/17 09/09/17 06:59 18:59 06:59 Intake Total 2400 1100 Balance 2400 1100 Intake: IV 1200 Lactated Ringers 1,000 ml 1200 @ 150 mls/hr IV .Q6H40M [facility] Rx#:[id number] Intake, IV Titration 1100 Amount DAPTOmycin 500 mg In 50 Sodium Chloride 0.9% 50 ml @ 100 mls/hr IVPB DAILY [facility] Rx#:[id number] Lactated Ringers 1,000 ml 1050 @ 150 mls/hr IV .Q6H40M [facility] Rx#:[id number] Oral 1200 Other: Voiding Method Toilet Toilet # Voids 3 - Exam Pleasant 47-year-old male of a muscular build who relates feeling better than earlier, his severe nausea and emesis and diarrhea have improved and his abdominal pain is also improved HEENT: Anicteric conjunctiva are pink and moist nasal mucosa grossly intact without significant lesions, there is no thrush. Neck: The neck is supple without significant lymphadenopathy or thyromegaly. Lungs: Good bilateral air entry without significant crackles or wheezing. There is no significant bronchial sounds. There is no egophony or dullness. Heart: Regular rate and rhythm with an audible S1-S2, no S3 no S4. There is no significant murmur click or rub, PMI was nondisplaced. Abdomen: Positive bowel sounds soft but distended but not severely so., His distinct tenderness especially in the left lower quadrant less so on the right lower quadrant, no flank tenderness. No organomegaly. No guarding or rebound. Extremities: Right upper extremity without abnormalities. Left upper extremity reveals the recent surgical intervention now with evidence of further healing of the surgical incisions no drainage is being seen, no significant redness range of motion is now considerably improved for the measurements in locations There is no significant epitrochlear or axillary lymphadenopathy. No other enlarged lymph nodes are seen. The lower extremities are without significant edema in the prior surgical interventions are well-healed in the bilateral lower extremities. Neuro: Awake alert oriented to person place and time. There are no acute new gross focal sensory motor deficits. - Labs CBC & Chem 7: 09/06/17 07:04 09/08/17 07:53 Labs: Abnormal Lab Results - Last 24 Hours (Table) 09/08/17 Range/Units 07:53 Potassium 3.3 L (3.5-5.1) mmol/L Calcium 8.2 L (8.4-10.2) mg/dL Microbiology - Last 24 Hours (Table) 09/05/17 13:50 Stool Culture - Final Stool 09/05/17 13:35 Blood Culture - Preliminary Blood No Growth after 72 hours Laboratory Results WBC 8.7 k/uL (3.8-10.6) 09/06/17 07:04 RBC 4.95 m/uL (4.30-5.90) 09/06/17 07:04 Hgb 15.7 gm/dL (13.0-17.5) 09/06/17 07:04 Hct 44.9 % (39.0-53.0) 09/06/17 07:04 MCV 90.7 fL (80.0-100.0) 09/06/17 07:04 MCH 31.6 pg (25.0-35.0) 09/06/17 07:04 MCHC 34.8 g/dL (31.0-37.0) 09/06/17 07:04 RDW 11.8 % (11.5-15.5) 09/06/17 07:04 Plt Count 129 k/uL (150-450) L 09/06/17 07:04 Neutrophils % 86 % 09/06/17 07:04 Lymphocytes % 9 % 09/06/17 07:04 Monocytes % 3 % 09/06/17 07:04 Eosinophils % 0 % 09/06/17 07:04 Basophils % 0 % 09/06/17 07:04 Neutrophils # 7.5 k/uL (1.3-7.7) 09/06/17 07:04 Lymphocytes # 0.8 k/uL (1.0-4.8) L 09/06/17 07:04 Monocytes # 0.3 k/uL (0-1.0) 09/06/17 07:04 Eosinophils # 0.0 k/uL (0-0.7) 09/06/17 07:04 Basophils # 0.0 k/uL (0-0.2) 09/06/17 07:04 Sodium 143 mmol/L (137-145) 09/08/17 07:53 Potassium 3.3 mmol/L (3.5-5.1) L 09/08/17 07:53 Chloride 107 mmol/L (98-107) 09/08/17 07:53 Carbon Dioxide 25 mmol/L (22-30) 09/08/17 07:53 Anion Gap 11 mmol/L 09/08/17 07:53 BUN 15 mg/dL (9-20) 09/08/17 07:53 Creatinine 1.23 mg/dL (0.66-1.25) 09/08/17 07:53 Est GFR (CKD-EPI)AfAm 81 (>60 ml/min/1.73 sqM) 09/08/17 07:53 Est GFR (CKD-EPI)NonAf 70 (>60 ml/min/1.73 sqM) 09/08/17 07:53 Glucose 82 mg/dL (74-99) 09/08/17 07:53 Plasma Lactic Acid Rafi 1.9 mmol/L (0.7-2.0) 09/05/17 13:35 Calcium 8.2 mg/dL (8.4-10.2) L 09/08/17 07:53 Total Bilirubin 0.7 mg/dL (0.2-1.3) 09/05/17 13:35 AST 53 U/L (17-59) 09/05/17 13:35 ALT 75 U/L (21-72) H 09/05/17 13:35 Alkaline Phosphatase 67 U/L (38-126) 09/05/17 13:35 C-Reactive Protein 26.2 mg/L (<10.0) H 09/05/17 13:35 Total Protein 7.1 g/dL (6.3-8.2) 09/05/17 13:35 Albumin 4.0 g/dL (3.5-5.0) 09/05/17 13:35 Urine Color Yellow 09/05/17 22:09 Urine Appearance Clear (Clear) 09/05/17 22:09 Urine pH 5.0 (5.0-8.0) 09/05/17 22:09 Ur Specific [place] 1.011 (1.001-1.035) 09/05/17 22:09 Urine Protein Negative (Negative) 09/05/17 22:09 Urine Glucose (UA) Negative (Negative) 09/05/17 22:09 Urine Ketones Negative (Negative) 09/05/17 22:09 Urine Blood Small (Negative) H 09/05/17 22:09 Urine Nitrite Negative (Negative) 09/05/17 22:09 Urine Bilirubin Negative (Negative) 09/05/17 22:09 Urine Urobilinogen <2.0 mg/dL (<2.0) 09/05/17 22:09 Ur Leukocyte Esterase Negative (Negative) 09/05/17 22:09 Urine RBC 1 /hpf (0-5) 09/05/17 22:09 Urine WBC 2 /hpf (0-5) 09/05/17 22:09 Ur Squamous Epith Cells <1 /hpf (0-4) 09/05/17 22:09 Hyaline Casts 3 /lpf (0-2) H 09/05/17 22:09 Urine Mucus Rare /hpf (None) H 09/05/17 22:09 C. difficile (EIA) Intrp Negative (Negative) 09/05/17 13:50 Microbiology 09/05/17 13:50 Stool Stool Culture - Final 09/05/17 13:35 Blood Blood Culture - Preliminary No Growth after 72 hours Assessment and Plan (1) Infection of flexor tendon sheath Status: Acute Code(s): M65.10 - OTHER INFECTIVE (TENO)SYNOVITIS, UNSPECIFIED SITE SNOMED Code(s): 409077846 (2) Nausea and vomiting Narrative/Plan: Pleasant 47-year-old male presents to hospital with a sudden onset of severe nausea emesis and recurrence of diarrhea. Only low-grade temperature occurred. However felt very poorly and felt hot and sweaty. Because of his continuous nausea and emesis he was directed to hospital for admission and rehydration. Fortunately his C. diff is negative. He is feeling slightly better today. His acute renal failure is improving and his creatinine is down to 1.37 with hydration. His abdominal pain is improving. Still has some waves of nausea and is only taking clear liquids and at this time. Has been seen by surgery with no plans for surgical intervention. It appears that his significant colitis that he suffered from the antibiotic therapy is starting to improve. And hopefully as his hydration status continues to improve he will be able to be discharged home to complete his course of antibiotic therapy of daptomycin for the tenosynovitis of his left hand. We'll limit the antibiotic therapy is much as possible given his significant difficulties with antibiotic therapy. Fortunately he does not have C. diff colitis. In no other secondary infections are being noted at this point in time. At this presentation he did have some leukocytosis which is improving. It is noted he is considerably more comfortable. 09/07/2017 reveals the patient to be considerably improved. Nausea and emesis have resolved. Has had the stool yesterday but no significant loose stool today and hasn't improvement to the significant discomfort to his left lower quadrant. He is having no further fever or chills. As noted his creatinine is down to 1.31. He looks for to eating. Hopefully over the next day will have further improvement soon be discharged home to complete his course of antibiotic therapy. If this time with his marked improvement in many difficulties will be limiting the total course of antibiotics for his hand to 14 days given his marked clinical improvement. 09/08/2017 patient is no further improved. He is eating and drinking well. Only one loose stools occurred. Creatinine is normalized. He is ready for discharge to home. He will only have a total of 14 days of antibiotic therapy which I believe will complete in 3 days. Home today in follow-up in the office. Status: Acute Code(s): R11.2 - NAUSEA WITH VOMITING, UNSPECIFIED SNOMED Code (s): 37619532 (3) Abdominal pain in male Status: Acute Code(s): R10.9 - UNSPECIFIED ABDOMINAL PAIN SNOMED Code(s): 28583453 (4) Diarrhea Status: Acute Code(s): R19.7 - DIARRHEA, UNSPECIFIED SNOMED Code(s): 73268720
--- NOTE | 2017-09-09 01:00 | DS ---
DISCHARGE SUMMARY FINAL DIAGNOSES: 1. Acute severe antibiotic-associated diarrhea. Clostridium difficile was ruled out. 2. Acute renal failure, likely prerenal, present on admission. 3. Left hand trigger finger with flexor tendon sheath abscess from MRSA, status post incision and drainage on previous admission, on a course of IV daptomycin. 4. Metabolic acidosis. HOSPITAL COURSE: This is a patient, very pleasant, had a trigger finger surgery done that became infected and an I and D had to be carried out. Has been on IV daptomycin. Presented with nausea, vomiting, multiple stools, slight abdominal cramping. C. diff came back negative. The patient responded well to Lomotil. Doing much better by the time of discharge. The patient also had acute renal failure. Creatinine started to come down nicely. down from 1.5 down to 1.2. The patient was further hydrated today. Symptoms are doing much better. On exam, abdomen soft, nontender. CONSULTATION: Dr. María Elena Liu from General Surgery, Dr. Fontenot from Infectious Disease. DISCHARGE MEDICATIONS: 1. Prilosec 40 mg p.o. daily. 2. Daptomycin 5 mg IV piggyback to complete course as per Dr. Fontenot. 3. Lomotil 1 tab q.6h p.r.n. for diarrhea. 4. Compazine 5 mg q.8h p.r.n. for nausea. Diet soft, bland. BMP and CBC in 3 days. Follow up with Dr. Fontenot in [address] Erwin in 3 days. plan on home infusion. MMODL / IJN: [id number] /
== END 2017-09-08 17:15 | disposition home or self-care (01) | DRG 394 ==
LOC: EC 11:13 → 5MS5E 17:58 → OBSVTOIN 09-06 12:29
PROVIDERS: ADMIT Hospitalist; ATTEND Hospitalist
DX: K52.1 Toxic gastroenteritis and colitis (principal); E87.2 Acidosis; N17.9 Acute kidney failure, unspecified; E86.0 Dehydration; T36.8X5A Adverse effect of other systemic antibiotics, initial encounter; M65.142 Other infective (teno)synovitis, left hand; B95.62 Methicillin resistant Staphylococcus aureus infection as the cause of diseases classified elsewhere; K21.9 Gastro-esophageal reflux disease without esophagitis; G89.29 Other chronic pain; M54.9 Dorsalgia, unspecified; I10 Essential (primary) hypertension; Z79.2 Long term (current) use of antibiotics; Z79.899 Other long term (current) drug therapy; Z87.891 Personal history of nicotine dependence; Z88.1 Allergy status to other antibiotic agents; Z88.8 Allergy status to other drugs, medicaments and biological substances; Z91.018 Allergy to other foods; Y92.002 Bathroom of unspecified non-institutional (private) residence as the place of occurrence of the external cause
CPT/HCPCS: 36415; 80048; 80053; 81001; 83605; 85025; 86140; 87040; 87045; 87046; 87177; 87207; 87209; 87324; 96361; 96374; 96375; 99285

== ENCOUNTER 2017-10-06 19:48 | Inpatient (IN) | payer MEDICARE, OTHER ==
[2017-10-06] MEDS ORDERED: LORazepam 2 MG/ML INJ IV STA (20:54)
--- NOTE | 2017-10-06 20:59 | ED ---
General Adult HPI - General Chief complaint: Recheck/Abnormal Lab/Rx Stated complaint: hyptertension Time Seen by Provider: 10/06/17 20:46 Source: patient Mode of arrival: ambulatory Limitations: no limitations - History of Present Illness Initial comments: This 47-year-old white male presents with a complaint of some tingling in his hands, arms, and face. He states that the symptoms started over the past several hours. He states that his blood pressure also was elevated at 200/100. He felt very lightheaded and presyncopal at times. He denies any chest pain or shortness of breath. He does have a history of anxiety with anxiety reactions but states that this feels somewhat different. He denies any leg pain or swelling. He denies any previous cardiac history. He has never had a stress test or heart catheterization in the past. - Related Data Home Medications Medication Instructions Recorded Confirmed Omeprazole [PriLOSEC] 40 mg PO DAILY 11/16/14 10/06/17 Multivitamins, Thera [Multivitamin 1 tab PO DAILY 10/06/17 10/06/17 (formulary)] Allergies Allergy/AdvReac Type Severity Reaction Status Date / Time ciprofloxacin [From Cipro] Allergy Rash/Hives Verified 10/06/17 20:02 ciprofloxacin HCl Allergy Rash/Hives Verified 10/06/17 20:02 [From Cipro] coconut Allergy Unknown Verified 10/06/17 20:02 ibuprofen [From Motrin] Allergy Itching Verified 10/06/17 20:02 kiwi Allergy Unknown Verified 10/06/17 20:02 Review of Systems ROS Statement: Those systems with pertinent positive or pertinent negative responses have been documented in the HPI. ROS Other: All systems not noted in ROS Statement are negative. Past Medical History Past Medical History: Hypertension Additional Past Medical History / Comment(s): back pain. Patient relates that from his work and his prior sports he has developed significant difficulties with his knees. The left knee required reconstruction type surgeries he did develop a compartment syndrome to the left calf that required incision and drainage. The right knee was injured with a circular saw the required extensive surgical repair years ago. History of Any Multi-Drug Resistant Organisms: MRSA Date of last positivie culture/infection: 08/26/17 MDRO Source:: FINGER Additional Past Surgical History / Comment(s): back surg, knee surgery Past Anesthesia/Blood Transfusion Reactions: No Reported Reaction Past Psychological History: No Psychological Hx Reported Smoking Status: Former smoker Past Alcohol Use History: Daily Past Drug Use History: None Reported - Past Family History Father Family Medical History: No Reported History Mother Family Medical History: No Reported History General Exam - General Exam Comments Initial Comments: GENERAL: The patient is well nourished and well hydrated. VITAL SIGNS: Heart rate, blood pressure, respiratory rate reviewed as recorded in nurse's notes. EYES: Pupils are round and reactive. Extraocular movements are intact. No conjunctival / lid redness or swelling. ENT: No external evidence of injury, swelling, or ecchymosis. Airway is patent. Throat is clear. NECK: Nontender. No swelling or evidence of injury. No subcutaneous emphysema. Trachea is midline. No thyroid mass. HEART: Regular rate and rhythm. Good peripheral pulses. LUNGS/CHEST: Breath sounds clear and equal bilaterally. No rales, rhonchi, or wheezes. No ecchymosis, subcutaneous emphysema, or tenderness. ABDOMEN: Abdomen soft without tenderness. No palpable masses or organomegaly. No peritoneal signs. No abdominal wall swelling or ecchymosis. EXTREMITIES: No extremity tenderness. Normal muscle tone and function. No thoracolumbar tenderness. NEUROLOGIC: Sensation is grossly intact. Cranial nerve exam reveals face is symmetrical, tongue is midline, speech is clear. SKIN: No abrasions or ecchymosis is noted. No induration or masses noted. PSYCHIATRIC: Alert and oriented. Appropriate behavior and judgment. Limitations: no limitations Course Vital Signs 10/06/17 10/06/17 10/06/17 19:52 20:27 21:28 Pulse Rate 77 80 64 Respiratory 20 16 16 Rate Blood Pressure 156/96 138/94 138/91 O2 Sat by Pulse 97 97 Oximetry 10/06/17 10/06/17 10/07/17 22:13 23:26 00:06 Pulse Rate 65 75 70 Respiratory 16 18 16 Rate Blood Pressure 155/100 145/92 131/84 O2 Sat by Pulse 97 97 Oximetry Medical Decision Making - Medical Decision Making The patient was seen and examined. All diagnostics were reviewed. The EKG shows a normal sinus rhythm at a rate of 73. There is no acute ST-T wave changes identified. The MA interval is 120, QRS duration is 104, and the QTc interval is 456. There is no ST elevation identified. The patient complains of a headache and receives some Ofirmev. He also receives some Ativan for possible anxiety reaction. His laboratory came back showing a significant hypomagnesemia. He also has a slight hypokalemia. The magnesium and potassium are replaced. He had a chest x-ray which did not show any acute processes. His cardiac enzymes were normal. He is feeling minimally improved on recheck but is still having some facial numbness symptoms. He does state that he will sometimes have pain that goes across his upper back. Overall, the possibility of this being related to acute coronary syndrome or unstable angina certainly is possible. He is offered admission to the hospital and is agreeable. Case will be discussed with internal medicine shortly. - Lab Data Result diagrams: 10/06/17 20:10 10/06/17 20:10 Lab Results 10/06/17 10/06/17 10/06/17 Range/Units 20:10 20:10 20:10 WBC 7.6 (3.8-10.6) k/uL RBC 4.40 (4.30-5.90) m/uL Hgb 13.5 (13.0-17.5) gm/dL Hct 37.5 L (39.0-53.0) % MCV 85.2 D (80.0-100.0) fL MCH 30.7 (25.0-35.0) pg MCHC 36.1 (31.0-37.0) g/dL RDW 12.9 (11.5-15.5) % Plt Count 142 L (150-450) k/uL Neutrophils % 56 % Lymphocytes % 33 % Monocytes % 7 % Eosinophils % 2 % Basophils % 0 % Neutrophils # 4.3 (1.3-7.7) k/uL Lymphocytes # 2.5 (1.0-4.8) k/uL Monocytes # 0.5 (0-1.0) k/uL Eosinophils # 0.1 (0-0.7) k/uL Basophils # 0.0 (0-0.2) k/uL Sodium 142 (137-145) mmol/L Potassium 3.0 L* (3.5-5.1) mmol/L Chloride 106 (98-107) mmol/L Carbon Dioxide 23 (22-30) mmol/L Anion Gap 13 mmol/L BUN 13 (9-20) mg/dL Creatinine 0.90 (0.66-1.25) mg/dL Est GFR (CKD-EPI)AfAm >90 (>60 ml/min/1.73 sqM) Est GFR (CKD-EPI)NonAf >90 (>60 ml/min/1.73 sqM) Glucose 109 H (74-99) mg/dL Calcium 7.6 L (8.4-10.2) mg/dL Magnesium 0.7 L* (1.6-2.3) mg/dL Total Bilirubin 0.5 (0.2-1.3) mg/dL AST 32 (17-59) U/L ALT 42 (21-72) U/L Alkaline Phosphatase 48 (38-126) U/L Total Creatine Kinase 121 (55-170) U/L CK-MB (CK-2) 0.6 (0.0-2.4) ng/mL CK-MB (CK-2) Rel Index 0.5 Troponin I <0.012 (0.000-0.034) ng/mL Total Protein 5.8 L (6.3-8.2) g/dL Albumin 3.4 L (3.5-5.0) g/dL Urine Color Urine Appearance (Clear) Urine pH (5.0-8.0) Ur Specific [place] (1.001-1.035) Urine Protein (Negative) Urine Glucose (UA) (Negative) Urine Ketones (Negative) Urine Blood (Negative) Urine Nitrite (Negative) Urine Bilirubin (Negative) Urine Urobilinogen (<2.0) mg/dL Ur Leukocyte Esterase (Negative) 10/06/17 Range/Units 22:44 WBC (3.8-10.6) k/uL RBC (4.30-5.90) m/uL Hgb (13.0-17.5) gm/dL Hct (39.0-53.0) % MCV (80.0-100.0) fL MCH (25.0-35.0) pg MCHC (31.0-37.0) g/dL RDW (11.5-15.5) % Plt Count (150-450) k/uL Neutrophils % % Lymphocytes % % Monocytes % % Eosinophils % % Basophils % % Neutrophils # (1.3-7.7) k/uL Lymphocytes # (1.0-4.8) k/uL Monocytes # (0-1.0) k/uL Eosinophils # (0-0.7) k/uL Basophils # (0-0.2) k/uL Sodium (137-145) mmol/L Potassium (3.5-5.1) mmol/L Chloride (98-107) mmol/L Carbon Dioxide (22-30) mmol/L Anion Gap mmol/L BUN (9-20) mg/dL Creatinine (0.66-1.25) mg/dL Est GFR (CKD-EPI)AfAm (>60 ml/min/1.73 sqM) Est GFR (CKD-EPI)NonAf (>60 ml/min/1.73 sqM) Glucose (74-99) mg/dL Calcium (8.4-10.2) mg/dL Magnesium (1.6-2.3) mg/dL Total Bilirubin (0.2-1.3) mg/dL AST (17-59) U/L ALT (21-72) U/L Alkaline Phosphatase (38-126) U/L Total Creatine Kinase (55-170) U/L CK-MB (CK-2) (0.0-2.4) ng/mL CK-MB (CK-2) Rel Index Troponin I (0.000-0.034) ng/mL Total Protein (6.3-8.2) g/dL Albumin (3.5-5.0) g/dL Urine Color Light Yellow Urine Appearance Clear (Clear) Urine pH 6.0 (5.0-8.0) Ur Specific [place] 1.010 (1.001-1.035) Urine Protein Negative (Negative) Urine Glucose (UA) Negative (Negative) Urine Ketones Negative (Negative) Urine Blood Negative (Negative) Urine Nitrite Negative (Negative) Urine Bilirubin Negative (Negative) Urine Urobilinogen <2.0 (<2.0) mg/dL Ur Leukocyte Esterase Negative (Negative) Disposition Clinical Impression: Paresthesia, History of hypertension, Cephalgia, Lightheadedness, Unstable angina, Hypomagnesemia, Hypokalemia Disposition: ADMITTED IP TO THIS [facility] Condition: Good Time of Disposition: 00:32 Decision Date: 10/07/17 Decision Time: 00:33
[2017-10-06] MEDS ORDERED: ACETAMINOPHEN IV (For NPO) 1,000 MG in EMPTY BAG 1 BAG IVPB ONE (21:00)
[2017-10-06 21:06] LABS: Creatine Kinase 121 U/L (55-170)
[2017-10-06 21:09] LABS: ALT 42 U/L (21-72); AST 32 U/L (17-59); Albumin 3.4 g/dL (3.5-5.0); Alkaline Phosphatase 48 U/L (38-126); Anion Gap 13 mmol/L; Blood Urea Nitrogen 13 mg/dL (9-20); Calcium 7.6 mg/dL (8.4-10.2); Carbon Dioxide 23 mmol/L (22-30); Chloride 106 mmol/L (98-107); Glucose 109 mg/dL (74-99); Sodium 142 mmol/L (137-145); Total Bilirubin 0.5 mg/dL (0.2-1.3); Total Protein 5.8 g/dL (6.3-8.2)
[2017-10-06 21:11] LABS: Basophils % (A) 0 %; Eosinophils # (A) 0.1 k/uL (0-0.7); Eosinophils % (A) 2 %; HCT 37.5 % (39.0-53.0); HGB 13.5 gm/dL (13.0-17.5); Lymphocytes # (A) 2.5 k/uL (1.0-4.8); Lymphocytes % (A) 33 %; MCH 30.7 pg (25.0-35.0); MCHC 36.1 g/dL (31.0-37.0); MCV 85.2 fL (80.0-100.0); Mean Platelet Volume 8.3; Monocytes # (A) 0.5 k/uL (0-1.0); Monocytes % (A) 7 %; Neutrophils # (A) 4.3 k/uL (1.3-7.7); Neutrophils % (A) 56 %; Platelet Count 142 k/uL (150-450); RDW 12.9 % (11.5-15.5); WBC 7.6 k/uL (3.8-10.6)
[2017-10-06 21:12] LABS: Magnesium 0.7 mg/dL (1.6-2.3)
[2017-10-06] MEDS ORDERED: POTASSIUM CHLORIDE ER 20 MEQ TAB.ER PO STA (21:13)
[2017-10-06 21:19] LABS: Creatine Kinase MB 0.6 ng/mL (0.0-2.4); Troponin I <0.012 ng/mL (0.000-0.034)
--- NOTE | 2017-10-06 21:28 | XR ---
EXAMINATION TYPE: XR chest 2V DATE OF EXAM: 10/06/2017 COMPARISON: 08/24/2009 HISTORY: Chest pain TECHNIQUE: Frontal and lateral views of the chest are obtained. FINDINGS: Heart and mediastinum are normal. Lungs are clear. Diaphragm is normal. Bony thorax is int act. There are chest leads. IMPRESSION: Normal chest. No change.
[2017-10-06] MEDS: MAGNESIUM SULFATE-D5W PMX 1 GM in DEXTROSE/WATER 1 100ML.BAG IVPB SCH ×2 (22:13→23:31)
[2017-10-06 23:18] LABS: Appearance,Urine Clear (Clear); Bilirubin,Urine Negative (Negative); Blood,Urine Negative (Negative); Color,Urine Light Yellow; Glucose,Urine (UA) Negative (Negative); Ketones,Urine Negative (Negative); Leukocyte Esterase,Urine Negative (Negative); Nitrite,Urine Negative (Negative); Protein,Urine Negative (Negative); Urobilinogen,Urine <2.0 mg/dL (<2.0)
[2017-10-07] MEDS ORDERED: NITROGLYCERIN SL TABS 0.4 MG TAB SUBLINGUAL PRN (00:33)
[2017-10-07] MEDS ORDERED: MORPHINE SULFATE 4MG/4ML SYRG IV STA (00:44)
[2017-10-07 01:45] VITALS: BMI 31.6
[2017-10-07 02:27] LABS: Basophils # (A) 0.1 k/uL (0-0.2); Basophils % (A) 1 %; Eosinophils # (A) 0.2 k/uL (0-0.7); Eosinophils % (A) 3 %; HCT 37.1 % (39.0-53.0); HGB 13.1 gm/dL (13.0-17.5); Lymphocytes # (A) 3.1 k/uL (1.0-4.8); Lymphocytes % (A) 39 %; MCH 30.5 pg (25.0-35.0); MCHC 35.4 g/dL (31.0-37.0); MCV 86.3 fL (80.0-100.0); Mean Platelet Volume 8.2; Monocytes # (A) 0.6 k/uL (0-1.0); Monocytes % (A) 7 %; Neutrophils # (A) 3.8 k/uL (1.3-7.7); Neutrophils % (A) 49 %; Platelet Count 132 k/uL (150-450); RDW 13.1 % (11.5-15.5); WBC 7.8 k/uL (3.8-10.6)
[2017-10-07 02:40] LABS: Anion Gap 12 mmol/L; Blood Urea Nitrogen 11 mg/dL (9-20); Calcium 7.6 mg/dL (8.4-10.2); Carbon Dioxide 23 mmol/L (22-30); Chloride 106 mmol/L (98-107); Glucose 127 mg/dL (74-99); Magnesium 1.3 mg/dL (1.6-2.3); Potassium 3.1 mmol/L (3.5-5.1); Sodium 141 mmol/L (137-145)
[2017-10-07 02:50] LABS: Creatine Kinase 112 U/L (55-170)
[2017-10-07] MEDS ORDERED: Potassium Replacement Protocol 1 EACH MISC MISCELLANE PRN (02:57)
[2017-10-07] MEDS: POTASSIUM CHLORIDE ER 20 MEQ TAB.ER PO SCH ×4 (03:00→12:08)
[2017-10-07 03:04] LABS: Creatine Kinase MB 0.7 ng/mL (0.0-2.4); Troponin I <0.012 ng/mL (0.000-0.034)
[2017-10-07 07:07] LABS: Anion Gap 11 mmol/L; Blood Urea Nitrogen 11 mg/dL (9-20); Calcium 7.6 mg/dL (8.4-10.2); Carbon Dioxide 25 mmol/L (22-30); Chloride 107 mmol/L (98-107); Glucose 93 mg/dL (74-99); Magnesium 1.3 mg/dL (1.6-2.3); Potassium 3.3 mmol/L (3.5-5.1); Sodium 143 mmol/L (137-145)
[2017-10-07] MEDS: PANTOPRAZOLE 40 MG TABLET PO SCH (09:18)
[2017-10-07] MEDS: ENOXAPARIN 40 MG/0.4 ML SYRINGE SQ SCH ×2 (09:18→09:27)
[2017-10-07] MEDS: METOPROLOL TARTRATE 25 MG TAB PO SCH ×2 (09:18→21:23)
--- NOTE | 2017-10-07 10:07 | P.CRDCN ---
History of Present Illness Consult date: 10/07/17 Chief complaint: Tingling in the arms and the legs History of present illness: This is a pleasant 47-year-old gentleman with no significant past medical history who presented to the hospital with uncontrolled hypertension. The patient was experiencing symptoms of tingling in both arms. He checked his blood pressure at home and that was about 200 mmHg. He decided to come to the hospital. He did not have any symptoms of chest pain or discomfort or shortness of breath or dizziness or lightheadedness or syncope. No history of high blood pressure in the past. Also no history of coronary artery disease or diabetes or dyslipidemia. In the emergency room a blood work was performed and that revealed very low magnesium and potassium and both were replaced. The patient stated that he was receiving antibiotics through a PICC line for staph infection in the left hand after recent hand surgery. The troponin came in to be within normal limits. The CBC also came in to be within normal limits. He underwent an echocardiogram and we don't have the results at this point. He was started on metoprolol 25 mg by mouth twice a day and the blood pressure seems to be well-controlled. Past Medical History Past Medical History: GERD/Reflux, Hypertension Additional Past Medical History / Comment(s): back pain. Patient relates that from his work and his prior sports he has developed significant difficulties with his knees. The left knee required reconstruction type surgeries he did develop a compartment syndrome to the left calf that required incision and drainage. The right knee was injured with a circular saw the required extensive surgical repair years ago. History of Any Multi-Drug Resistant Organisms: MRSA Date of last positivie culture/infection: 08/26/17 MDRO Source:: FINGER Additional Past Surgical History / Comment(s): back surg lumbar fusion, knee surgery left Past Anesthesia/Blood Transfusion Reactions: No Reported Reaction Past Psychological History: No Psychological Hx Reported Additional Psychological History / Comment(s): and lives in the family home with his and 2 adult children, 3rd adult child occasionally lives with him still. No animals in the home. 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 No experience. No international travel. No tobacco smoker for more than 10 years. Does do some weight lifting but does not inject testosterone. Smoking Status: Former smoker Past Alcohol Use History: Daily Past Drug Use History: None Reported - Past Family History Father Family Medical History: No Reported History Mother Family Medical History: No Reported History Medications and Allergies Home Medications Medication Instructions Recorded Confirmed Type Omeprazole [PriLOSEC] 40 mg PO DAILY 11/16/14 10/06/17 History Multivitamins, Thera [Multivitamin 1 tab PO DAILY 10/06/17 10/06/17 History (formulary)] Allergies Allergy/AdvReac Type Severity Reaction Status Date / Time ciprofloxacin [From Cipro] Allergy Rash/Hives Verified 10/06/17 20:02 ciprofloxacin HCl Allergy Rash/Hives Verified 10/06/17 20:02 [From Cipro] coconut Allergy Unknown Verified 10/06/17 20:02 ibuprofen [From Motrin] Allergy Itching Verified 10/06/17 20:02 kiwi Allergy Unknown Verified 10/06/17 20:02 Physical Exam Vitals: Vital Signs Temp Pulse Pulse Resp BP BP Pulse Ox 10/07/17 09:00 97.8 F 74 13 133/86 98 10/07/17 08:00 97.8 F 70 68 13 133/86 139/90 98 10/07/17 07:00 83 16 133/85 95 10/07/17 06:00 64 22 133/85 10/07/17 05:00 69 18 123/69 10/07/17 04:00 97.7 F 82 19 123/69 95 10/07/17 03:00 63 18 133/89 97 10/07/17 02:10 62 18 10/07/17 02:00 64 18 133/89 10/07/17 01:50 59 L 10/07/17 01:40 98.6 F 66 18 140/95 96 10/07/17 01:30 61 10/07/17 01:28 66 10/07/17 01:15 67 16 141/90 98 10/07/17 00:58 98.6 F 16 140/95 96 10/07/17 00:06 70 16 131/84 97 10/06/17 23:26 75 18 145/92 97 10/06/17 22:13 65 16 155/100 10/06/17 21:28 64 16 138/91 10/06/17 20:27 80 16 138/94 97 10/06/17 19:52 77 20 156/96 97 Intake and Output 10/06/17 10/07/17 10/07/17 22:59 06:59 14:59 Other: Voiding Method Toilet Toilet # Voids 0 Weight 92.986 kg 100 kg 100 kg - Constitutional General appearance: no acute distress - Respiratory Respiratory: bilateral: CTA - Cardiovascular Rhythm: regular Heart sounds: normal: S1, S2 Results 10/07/17 02:14 10/07/17 05:26 Cardiac Enzymes 10/06/17 10/06/17 10/07/17 Range/Units 20:10 20:10 02:02 AST 32 (17-59) U/L CK-MB (CK-2) 0.6 0.7 (0.0-2.4) ng/mL Troponin I <0.012 <0.012 (0.000-0.034) ng/mL CBC 10/06/17 10/07/17 Range/Units 20:10 02:14 WBC 7.6 7.8 (3.8-10.6) k/uL RBC 4.40 4.30 (4.30-5.90) m/uL Hgb 13.5 13.1 (13.0-17.5) gm/dL Hct 37.5 L 37.1 L (39.0-53.0) % Plt Count 142 L 132 L (150-450) k/uL Comprehensive Metabolic Panel 10/06/17 10/07/17 10/07/17 Range/Units 20:10 02:14 05:26 Sodium 142 141 143 (137-145) mmol/L Potassium 3.0 L* 3.1 L 3.3 L (3.5-5.1) mmol/L Chloride 106 106 107 (98-107) mmol/L Carbon Dioxide 23 23 25 (22-30) mmol/L BUN 13 11 11 (9-20) mg/dL Creatinine 0.90 0.80 0.85 (0.66-1.25) mg/dL Glucose 109 H 127 H 93 (74-99) mg/dL Calcium 7.6 L 7.6 L 7.6 L (8.4-10.2) mg/dL AST 32 (17-59) U/L ALT 42 (21-72) U/L Alkaline Phosphatase 48 (38-126) U/L Total Protein 5.8 L (6.3-8.2) g/dL Albumin 3.4 L (3.5-5.0) g/dL Current Medications Generic Name Dose Route Start Last Admin Trade Name Freq PRN Reason Stop Dose Admin Acetaminophen 650 mg 10/07/17 09:50 Tylenol Tab PO Q6HR PRN Fever and/ or Mild Pain Aspirin 325 mg 10/08/17 09:00 Aspirin PO DAILY [facility] Enoxaparin Sodium 40 mg 10/07/17 09:00 10/07/17 09:27 Lovenox SQ Not Given DAILY [facility] Magnesium Sulfate/Dextrose 1 100 mls @ 100 mls/hr 10/07/17 10:00 gm/ IV Solution IVPB 10/07/17 12:59 Q1H [facility] Metoprolol Tartrate 25 mg 10/07/17 09:00 10/07/17 09:18 Lopressor PO 25 mg BID [facility] Administration Miscellaneous Information 1 each 10/07/17 02:57 Potassium Per Protocol MISCELLANE DAILY PRN Per Protocol Protocol Multivitamins 1 each 10/07/17 12:00 Theragran PO DAILY@1200 [facility] Nitroglycerin 0.4 mg 10/07/17 00:33 Nitrostat SUBLINGUAL Q5M PRN Chest Pain Pantoprazole Sodium 40 mg 10/07/17 07:30 10/07/17 09:18 Protonix PO 40 mg [id number] [facility] Administration Potassium Chloride 20 meq 10/07/17 10:00 K-Dur 20 PO 10/07/17 11:01 Q1HR [facility] Intake and Output 10/06/17 10/07/17 10/07/17 22:59 06:59 14:59 Other: Voiding Method Toilet Toilet # Voids 0 Weight 92.986 kg 100 kg 100 kg Patient Weight 10/08/17 06:59 Weight 100 kg 10/07/17 02:14 10/07/17 05:26 Assessment and Plan Assessment: Assessment #1 hypertension emergency #2 electrolytes imbalance Plan #1 continue the current dose of metoprolol #2 follow-up in the echocardiogram #3 the patient possibly can be discharged home later on today. Thank you for allowing us participate in his care
[2017-10-07 10:08] LABS: Creatine Kinase 106 U/L (55-170)
[2017-10-07] MEDS: ACETAMINOPHEN TAB 325 MG TAB PO PRN (10:13)
[2017-10-07 10:21] LABS: Creatine Kinase MB 0.6 ng/mL (0.0-2.4); Troponin I <0.012 ng/mL (0.000-0.034)
[2017-10-07] MEDS: MAGNESIUM SULFATE-D5W PMX 1 GM in DEXTROSE/WATER 1 100ML.BAG IVPB SCH ×3 (10:24→13:05)
[2017-10-07] MEDS: MULTIVITAMINS, THERA 1 EACH TAB PO SCH (12:08)
[2017-10-07 16:27] LABS: Magnesium 2.1 mg/dL (1.6-2.3); Potassium 3.7 mmol/L (3.5-5.1)
[2017-10-07] MEDS ORDERED: POTASSIUM CHLORIDE ER 20 MEQ TAB.ER PO SCH (17:00)
--- NOTE | 2017-10-07 17:50 | ECHOF ---
Referral Reason:unstable angina MEASUREMENTS -------- HEIGHT: 180.3 cm WEIGHT: 99.8 kg BP: 133/86 IVSd: 1.3 cm (0.6 - 1.1) LVIDd: 4.5 cm (3.9 - 5.3) LVPWd: 1.4 cm (0.6 - 1.1) IVSs: 1.5 cm LVIDs: 3.6 cm LVPWs: 1.7 cm Ao Diam: 3.4 cm (2.0 - 3.7) LA Diam: 3.7 cm (2.7 - 3.8) AV Cusp: 2.2 cm (1.5 - 2.6) EPSS: 0.8 cm MV E John: 1.02 m/s MV DecT: 179 ms MV A John: 0.73 m/s MV E/A Ratio: 1.40 RAP: 5.00 mmHg RVSP: 18.68 mmHg MV EF SLOPE: 121.52 mm/s (70 - 150) MV EXCURSION: 21.17 mm (> 18.000) FINDINGS -------- Sinus rhythm. This was a technically good study. The left ventricular size is normal. Left ventricular wall thickness is normal. Overall left vent ricular systolic function is normal with, an EF between 55 - 60 %. The right ventricle is normal in size. The left atrium is normal in size. The right atrium is normal in size. The aortic valve is trileaflet, and appears structurally normal. No aortic stenosis or regurgitation. The mitral valve leaflets are mildly thickened. There is trace mitral regurgitation. Trace tricuspid regurgitation present. The right ventricular systolic pressure, as measured by Dopp ler, is 18.68mmHg. Pulmonic valve appears structurally normal. The aortic root size is normal. The inferior vena cava is mildly dilated. The pericardium is normal. CONCLUSIONS -------- 1. Sinus rhythm. 2. This was a technically good study. 3. The left ventricular size is normal. 4. Left ventricular wall thickness is normal. 5. Overall left ventricular systolic function is normal with, an EF between 55 - 60 %. 6. The right ventricle is normal in size. 7. The left atrium is normal in size. 8. The right atrium is normal in size. 9. The aortic valve is trileaflet, and appears structurally normal. No aortic stenosis or regurgitati on. 10. The mitral valve leaflets are mildly thickened. 11. There is trace mitral regurgitation. 12. Trace tricuspid regurgitation present. 13. The right ventricular systolic pressure, as measured by Doppler, is 18.68mmHg. 14. Pulmonic valve appears structurally normal. 15. The aortic root size is normal. 16. The inferior vena cava is mildly dilated. 17. The pericardium is normal. LENS GRINDER: Ashlyn Lyons RDCS
--- NOTE | 2017-10-07 17:54 | P.HPIM ---
History of Present Illness H&P Date: 10/07/17 Chief Complaint: Dizziness and near syncope Patient is a 47-year-old male with a known history of hypertension and GERD came to ER with complaints of dizziness his arms and face and hands. Patient says that his blood pressure was 200/100 when he checked at home. Patient felt very lightheaded and about to pass out. Otherwise denied any chest pain or shortness of breath. Patient says that he also have a history of anxiety. Currently not on medication. Patient is not taking medication for blood pressure which is controlled during recent admissions. Otherwise denied any headache. No orthopnea no PND. Patient was found have hyperkalemia with potassium level III.0 and also hypomagnesemia 0.7 on admission which has been replaced at this time Cardiology has seen the patient. patient was started on metoprolol while in the ER. Blood pressure seems to be controlled now. 2-D echo cardiac exam was done. No history of coronary artery disease in the past. EKG normal sinus rhythm Chest x-ray no acute cardio pulmonary process UA negative Review of Systems Constitutional: Patient denies any fever or chills . No generalized weakness or weight loss. Abdomen: Patient denied nausea vomiting and diarrhea and abdominal pain. Cardiovascular: Patient denies any chest pain or short of breath no palpitations. Respiratory: patient denied any cough is from production. No shortness of breath Neurologic: Patient denied any numbness or tingling headache. Musculoskeletal: Patient denies any complaints of joint swelling or deformity. Skin: Negative Psychiatric: Negative Endocrine: No heat or cold intolerance. No recent weight gain. Genitourinary: No dysuria or hematuria. All other 14 point ROS negative except the above Past Medical History Past Medical History: GERD/Reflux, Hypertension Additional Past Medical History / Comment(s): back pain. Patient relates that from his work and his prior sports he has developed significant difficulties with his knees. The left knee required reconstruction type surgeries he did develop a compartment syndrome to the left calf that required incision and drainage. The right knee was injured with a circular saw the required extensive surgical repair years ago. History of Any Multi-Drug Resistant Organisms: MRSA Date of last positivie culture/infection: 08/26/17 MDRO Source:: FINGER Additional Past Surgical History / Comment(s): back surg lumbar fusion, knee surgery left Past Anesthesia/Blood Transfusion Reactions: No Reported Reaction Past Psychological History: No Psychological Hx Reported Additional Psychological History / Comment(s): and lives in the family home with his and 2 adult children, 3rd adult child occasionally lives with him still. No animals in the home. 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 No experience. No international travel. No tobacco smoker for more than 10 years. Does do some weight lifting but does not inject testosterone. Smoking Status: Former smoker Past Alcohol Use History: Daily Past Drug Use History: None Reported - Past Family History Father Family Medical History: No Reported History Mother Family Medical History: No Reported History Medications and Allergies Home Medications Medication Instructions Recorded Confirmed Type Omeprazole [PriLOSEC] 40 mg PO DAILY 11/16/14 10/06/17 History Multivitamins, Thera [Multivitamin 1 tab PO DAILY 10/06/17 10/06/17 History (formulary)] Allergies Allergy/AdvReac Type Severity Reaction Status Date / Time ciprofloxacin [From Cipro] Allergy Rash/Hives Verified 10/06/17 20:02 ciprofloxacin HCl Allergy Rash/Hives Verified 10/06/17 20:02 [From Cipro] coconut Allergy Unknown Verified 10/06/17 20:02 ibuprofen [From Motrin] Allergy Itching Verified 10/06/17 20:02 kiwi Allergy Unknown Verified 10/06/17 20:02 Physical Exam Vitals: Vital Signs Temp Pulse Pulse Resp BP BP Pulse Ox 10/07/17 12:00 97.7 F 64 18 136/81 97 10/07/17 11:00 78 22 139/90 10/07/17 10:00 75 21 139/90 10/07/17 09:00 97.8 F 74 13 133/86 98 10/07/17 08:00 97.8 F 70 68 13 133/86 139/90 98 10/07/17 07:00 83 16 133/85 95 10/07/17 06:00 64 22 133/85 10/07/17 05:00 69 18 123/69 10/07/17 04:00 97.7 F 82 19 123/69 95 10/07/17 03:00 63 18 133/89 97 10/07/17 02:10 62 18 10/07/17 02:00 64 18 133/89 10/07/17 01:50 59 L 10/07/17 01:40 98.6 F 66 18 140/95 96 10/07/17 01:30 61 10/07/17 01:28 66 10/07/17 01:15 67 16 141/90 98 10/07/17 00:58 98.6 F 16 140/95 96 10/07/17 00:06 70 16 131/84 97 10/06/17 23:26 75 18 145/92 97 10/06/17 22:13 65 16 155/100 10/06/17 21:28 64 16 138/91 10/06/17 20:27 80 16 138/94 97 10/06/17 19:52 77 20 156/96 97 Intake and Output 10/06/17 10/07/17 10/07/17 22:59 06:59 14:59 Intake Total 200 Balance 200 Intake: Intake, IV Titration 200 Amount Magnesium Sulfate-D5w Pmx 100 1 gm In Dextrose/Water 1 100ml.bag @ 100 mls/hr IVPB Q1H [facility] Rx#: [id number] Magnesium Sulfate-D5w Pmx 100 1 gm In Dextrose/Water 1 100ml.bag @ 100 mls/hr IVPB Q1H [facility] Rx#: [id number] Other: Voiding Method Toilet Toilet # Voids 0 1 Weight 92.986 kg 100 kg 100 kg PHYSICAL EXAMINATION: Patient is lying in the bed comfortably, no acute distress, awake alert and oriented.. HEENT: Normocephalic. Neck is supple. Pupils reactive. Nostrils clear. Oral cavity is moist. Ears reveal no drainage. Neck reveals no JVD, carotid bruits, or thyromegaly. CHEST EXAMINATION: Trachea is central. Symmetrical expansion. Lung fowler clear to auscultation and percussion. CARDIAC: Normal S1, S2 with no gallops. No murmurs ABDOMEN: Soft. Bowel sounds normal. No organomegaly. No abdominal bruits. Extremities: reveal no edema. No clubbing or cyanosis Neurologically awake, alert, oriented x3 with well-coordinated movements. No focal deficits noted Skin: No rash or skin lesions. Psychiatric: Coperative. Nonsuicidal Musculoskeletal: No joint swelling or deformity. Normal range of motion. Results CBC & Chem 7: 10/07/17 02:14 10/07/17 15:45 Labs: Abnormal Lab Results - Last 24 Hours (Table) 10/06/17 10/06/17 10/07/17 Range/Units 20:10 20:10 02:14 Hct 37.5 L 37.1 L (39.0-53.0) % Plt Count 142 L 132 L (150-450) k/uL Potassium 3.0 L* (3.5-5.1) mmol/L Glucose 109 H (74-99) mg/dL Calcium 7.6 L (8.4-10.2) mg/dL Magnesium 0.7 L* (1.6-2.3) mg/dL Total Protein 5.8 L (6.3-8.2) g/dL Albumin 3.4 L (3.5-5.0) g/dL 10/07/17 10/07/17 Range/Units 02:14 05:26 Hct (39.0-53.0) % Plt Count (150-450) k/uL Potassium 3.1 L 3.3 L (3.5-5.1) mmol/L Glucose 127 H (74-99) mg/dL Calcium 7.6 L 7.6 L (8.4-10.2) mg/dL Magnesium 1.3 L 1.3 L (1.6-2.3) mg/dL Total Protein (6.3-8.2) g/dL Albumin (3.5-5.0) g/dL Thrombosis Risk Factor Assmnt - DVT/VTE Prophylaxis DVT/VTE Prophylaxis: Pharmacologic Prophylaxis ordered Assessment and Plan Assessment: Hypertensive urgency on admission Dizziness and near syncope Severe hypomagnesemia and hypokalemia Recent antibiotic course of daptomycin for right and tenosynovitis completed about 2 weeks ago DVT prophylaxis Plan: Patient will be continued on telemetry monitoring. Follow-up 2-D echocardiogram report. Started on metoprolol. Blood pressures to be controlled at this time. Cardiology has seen the patient and further recommendations based on the clinical course. Time with Patient: Greater than 30
[2017-10-07] MEDS ORDERED: TEMAZEPAM 15 MG CAP PO PRN (21:11)
[2017-10-08 06:13] LABS: Basophils # (A) 0.1 k/uL (0-0.2); Basophils % (A) 1 %; Eosinophils # (A) 0.2 k/uL (0-0.7); Eosinophils % (A) 4 %; HGB 14.7 gm/dL (13.0-17.5); Lymphocytes % (A) 30 %; MCH 31.6 pg (25.0-35.0); MCHC 36.8 g/dL (31.0-37.0); Mean Platelet Volume 7.9; Monocytes # (A) 0.4 k/uL (0-1.0); Monocytes % (A) 6 %; Neutrophils # (A) 3.9 k/uL (1.3-7.7); Neutrophils % (A) 57 %; Platelet Count 149 k/uL (150-450); RBC 4.65 m/uL (4.30-5.90); RDW 13.1 % (11.5-15.5); WBC 6.8 k/uL (3.8-10.6)
[2017-10-08 06:23] LABS: Anion Gap 10 mmol/L; Blood Urea Nitrogen 11 mg/dL (9-20); Calcium 8.2 mg/dL (8.4-10.2); Carbon Dioxide 26 mmol/L (22-30); Chloride 107 mmol/L (98-107); Cholesterol 191 mg/dL (<200); Glucose 117 mg/dL (74-99); HDL Cholesterol 35 mg/dL (40-60); Potassium 3.9 mmol/L (3.5-5.1); Sodium 143 mmol/L (137-145); Triglycerides 485 mg/dL (<150)
[2017-10-08] MEDS: PANTOPRAZOLE 40 MG TABLET PO SCH (06:47)
[2017-10-08] MEDS: ACETAMINOPHEN TAB 325 MG TAB PO PRN (06:50)
[2017-10-08] MEDS: METOPROLOL TARTRATE 25 MG TAB PO SCH (07:46)
[2017-10-08] MEDS: MULTIVITAMINS, THERA 1 EACH TAB PO SCH (07:46)
[2017-10-08] MEDS: ENOXAPARIN 40 MG/0.4 ML SYRINGE SQ SCH (07:46)
[2017-10-08] MEDS ORDERED: ASPIRIN 325 MG TAB PO SCH (09:00)
--- NOTE | 2017-10-08 09:12 | P.PN ---
Subjective Progress Note Date: 10/08/17 Principal diagnosis: Hypertension This is a pleasant 47-year-old gentleman with no significant past medical history who presented to the hospital with uncontrolled hypertension. The patient was experiencing symptoms of tingling in both arms. He checked his blood pressure at home and that was about 200 mmHg. He decided to come to the hospital. He did not have any symptoms of chest pain or discomfort or shortness of breath or dizziness or lightheadedness or syncope. No history of high blood pressure in the past. Also no history of coronary artery disease or diabetes or dyslipidemia. In the emergency room a blood work was performed and that revealed very low magnesium and potassium and both were replaced. The patient stated that he was receiving antibiotics through a PICC line for staph infection in the left hand after recent hand surgery. The troponin came in to be within normal limits. The CBC also came in to be within normal limits. The patient was started on metoprolol yesterday and the blood pressure today is better controlled but not well-controlled. I am going to add Norvasc at 2.5 mg by mouth daily to the current medical regimen. The echocardiogram revealed normal LV function. Objective - Vital Signs Vital signs: Vital Signs Temp 97.1 F L 10/08/17 06:55 Pulse 82 10/08/17 06:55 Resp 15 10/08/17 06:55 BP 135/92 10/08/17 06:55 Pulse Ox 98 10/08/17 06:55 Intake & Output 10/07/17 10/08/17 10/08/17 18:59 06:59 18:59 Intake Total 440 2019 118 Balance 440 2019 118 Weight 100 kg 96.5 kg Intake: Intake, IV Titration 200 100 Amount Magnesium Sulfate-D5w Pmx 100 1 gm In Dextrose/Water 1 100ml.bag @ 100 mls/hr IVPB Q1H [facility] Rx#: [id number] Magnesium Sulfate-D5w Pmx 100 100 1 gm In Dextrose/Water 1 100ml.bag @ 100 mls/hr IVPB Q1H [facility] Rx#: [id number] Oral 240 1920 118 Other: Voiding Method Toilet Toilet # Voids 1 3 - Constitutional General appearance: Present: no acute distress - Labs CBC & Chem 7: 10/08/17 05:22 10/08/17 05:22 Labs: Abnormal Lab Results - Last 24 Hours (Table) 10/08/17 10/08/17 Range/Units 05:22 05:22 Plt Count 149 L (150-450) k/uL Glucose 117 H (74-99) mg/dL Calcium 8.2 L (8.4-10.2) mg/dL Triglycerides 485 H (<150) mg/dL HDL Cholesterol 35 L (40-60) mg/dL Assessment and Plan Assessment: Assessment #1 hypertension emergency #2 electrolytes imbalance Plan #1 continue the current dose of metoprolol #2 add Norvasc to the current medical treatment #3 the echocardiogram was reviewed and revealed normal LV function. Thank you for allowing us participate in his care
[2017-10-08] MEDS ORDERED: amLODIPine 2.5 MG TAB PO SCH (11:12)
[2017-10-08 11:15] VITALS: BP 140/91; PULSE 75; RESP 18; TEMP 97.7
--- NOTE | 2017-10-08 17:33 | P.DS ---
Providers Date of admission: 10/07/17 00:36 Expected date of discharge: 10/08/17 Attending physician: Elsa Gutierrez Consults: 10/07/17 00:33 Consult Physician Urgent Consulting Provider: Lillian Plascencia Consult Reason/Comments: ua Do you want consulting provider notified?: Yes Primary care physician: [facility] Course: Discharge diagnosis Hypertensive urgency on admission Dizziness and near syncope. Secondary to above Anxiety probably contributing to elevated blood pressure Severe hypomagnesemia and hypokalemia Recent antibiotic course of daptomycin for right and tenosynovitis completed about 2 weeks ago DVT prophylaxis Hospital course Patient is a 47-year-old male with a known history of hypertension and GERD came to ER with complaints of dizziness his arms and face and hands. Patient says that his blood pressure was 200/100 when he checked at home. Patient felt very lightheaded and about to pass out. Otherwise denied any chest pain or shortness of breath. Patient says that he also have a history of anxiety. Currently not on medication. Patient is not taking medication for blood pressure which is controlled during recent admissions. Otherwise denied any headache. No orthopnea no PND. Patient was found have hyperkalemia with potassium level III.0 and also hypomagnesemia 0.7 on admission which has been replaced at this time Cardiology has seen the patient. patient was started on metoprolol while in the ER. Blood pressure seems to be controlled now. 2-D echo cardiac exam was done. No history of coronary artery disease in the past. EKG normal sinus rhythm Chest x-ray no acute cardio pulmonary process UA negative 10/08/2017 Blood pressure is fairly controlled today. 2-D echo showed normal ejection fraction. Patient is being continued on metoprolol and Norvasc at 2.5 mg was added Patient also restarted on Xanax 0.25 mg daily at bedtime for 5 days. Patient was recommended to check his blood pressure at home and follow up with driver trainee in 3 days. Patient was encouraged to retake Toshia vegetables and fresh fruits and nuts to Replenish potassium and magnesium. Otherwise patient is stable to be discharged home.. PHYSICAL EXAMINATION: Patient is lying in the bed comfortably, no acute distress, awake alert and oriented.. HEENT: Normocephalic. Neck is supple. Pupils reactive. Nostrils clear. Oral cavity is moist. Ears reveal no drainage. Neck reveals no JVD, carotid bruits, or thyromegaly. CHEST EXAMINATION: Trachea is central. Symmetrical expansion. Lung fowler clear to auscultation and percussion. CARDIAC: Normal S1, S2 with no gallops. No murmurs ABDOMEN: Soft. Bowel sounds normal. No organomegaly. No abdominal bruits. Extremities: reveal no edema. No clubbing or cyanosis Neurologically awake, alert, oriented x3 with well-coordinated movements. No focal deficits noted Skin: No rash or skin lesions. Psychiatric: Coperative. Nonsuicidal Musculoskeletal: No joint swelling or deformity. Normal range of motion. Vital Signs - 24 hr 10/07/17 10/08/17 10/08/17 20:00 00:00 04:00 Temperature 97.1 F L Pulse Rate [ Bilateral Posterior Tibial] Pulse Rate [ 69 86 69 Bilateral Radial] Pulse Rate [ 82 86 Telegraphic Typewriter Repairer ] Respiratory 17 16 15 Rate Blood Pressure [Left Arm] Blood Pressure 134/90 137/92 147/100 [Right Arm] O2 Sat by Pulse 98 92 L 96 Oximetry 10/08/17 10/08/17 06:55 11:14 Temperature 97.1 F L 97.7 F Pulse Rate [ 82 Bilateral Posterior Tibial] Pulse Rate [ Bilateral Radial] Pulse Rate [ 75 Telegraphic Typewriter Repairer ] Respiratory 15 18 Rate Blood Pressure 135/92 140/91 [Left Arm] Blood Pressure [Right Arm] O2 Sat by Pulse 98 98 Oximetry Total time taken greater than 35 minutes including 18 minutes for counseling and coordination of care. Patient Condition at Discharge: Good Plan - Discharge Summary Discharge Rx Participant: Yes New Discharge Prescriptions: New ALPRAZolam [Xanax] 0.25 mg PO HS PRN #7 tab PRN Reason: Anxiety amLODIPine [Norvasc] 2.5 mg PO DAILY #30 tab Metoprolol Tartrate [Lopressor] 25 mg PO BID #60 tab Continue Omeprazole [PriLOSEC] 40 mg PO DAILY Multivitamins, Thera [Multivitamin (formulary)] 1 tab PO DAILY Discharge Medication List Omeprazole [PriLOSEC] 40 mg PO DAILY 11/16/14 [History] Multivitamins, Thera [Multivitamin (formulary)] 1 tab PO DAILY 10/06/17 [History ] ALPRAZolam [Xanax] 0.25 mg PO HS PRN #7 tab 10/08/17 [Rx] Metoprolol Tartrate [Lopressor] 25 mg PO BID #60 tab 10/08/17 [Rx] amLODIPine [Norvasc] 2.5 mg PO DAILY #30 tab 10/08/17 [Rx] Follow up Appointment(s)/Referral(s): Lopez Lee MD [STAFF PHYSICIAN] - 10/20/17 4:30 pm Gerardo Erwin MD [Primary Care Provider] - 11/17/17 10:30 am (Considered new patient appointment, not seen since 2013.) Patient Instructions/Handouts: Hypokalemia (DC), Hypertension (DC), Hypomagnesemia (DC) Discharge Disposition: HOME SELF-CARE
[2017-10-09] MEDS ORDERED: amLODIPine 2.5 MG TAB PO SCH (09:00)
== END 2017-10-08 14:45 | disposition home or self-care (01) | DRG 305 ==
LOC: EC 19:48 → 6ICU 10-07 00:36 → 6SEL 10-07 13:34
PROVIDERS: ADMIT Hospitalist; ATTEND Hospitalist
DX: I16.0 Hypertensive urgency (principal); E83.42 Hypomagnesemia; F41.9 Anxiety disorder, unspecified; I10 Essential (primary) hypertension; E87.6 Hypokalemia; M54.9 Dorsalgia, unspecified; K21.9 Gastro-esophageal reflux disease without esophagitis; Z79.899 Other long term (current) drug therapy; Z87.891 Personal history of nicotine dependence; Z88.1 Allergy status to other antibiotic agents; Z88.8 Allergy status to other drugs, medicaments and biological substances; Z91.018 Allergy to other foods; Z86.14 Personal history of Methicillin resistant Staphylococcus aureus infection
CPT/HCPCS: 36415; 71046; 80048; 80053; 80061; 81003; 82550; 82553; 83735; 84132; 84484; 85025; 93005; 93306; 96365; 96366; 96375; 99284

== ENCOUNTER 2018-05-25 15:49 | Inpatient (IN) | payer MEDICARE, OTHER ==
[2018-05-25] MEDS ORDERED: SODIUM CHLORIDE 0.9% 1,000 ML IV STA (16:01)
[2018-05-25] MEDS ORDERED: ONDANSETRON 4 MG/2 ML VIAL IVP STA (16:01)
--- NOTE | 2018-05-25 16:03 | ED ---
Chest Pain HPI - General Chief Complaint: Chest Pain Stated Complaint: Lt arm pain/chest tightness Time Seen by Provider: 05/25/18 16:01 Source: patient, RN notes reviewed, old records reviewed Mode of arrival: ambulatory Limitations: no limitations - History of Present Illness Initial Comments: This is a 48-year-old male to the ER for evaluation. Presents today for evaluation chest pain. Left-sided chest pain. Episodic high blood pressure. Patient's blood pressure does appear to fluctuate. Significant we will home. Patient states pain is is just starting yesterday and into today was very bad on the way here in his car. Patient does have increasing fatigue which is daily. No exertional shortness of breath. No cough or congestion. Patient does have history of high cholesterol, history of high blood pressure MD Complaint: chest pain -: hour(s) Onset: during rest Pain Location: left chest Pain Radiation: LUE Severity: moderate Severity scale (1-10): 3 Quality: tightness, heaviness Consistency: constant Improves With: nothing Worsens With: nothing Anginal Symptoms: dyspnea Other Symptoms: palpitations Treatments Prior to Arrival: none - Related Data Home Medications Medication Instructions Recorded Confirmed B Complex-Vit C-Vit E-Zinc [Z-Bec] 1 tab PO DAILY 05/25/18 05/25/18 Fenofibrate [Lofibra] 54 mg PO DAILY 05/25/18 05/25/18 Magnesium Gluconate [Magonate] 500 mg PO DAILY 05/25/18 05/25/18 Potassium 99 mg PO DAILY 05/25/18 05/25/18 Previous Rx's Medication Instructions Recorded Metoprolol Tartrate [Lopressor] 25 mg PO BID #60 tab 10/08/17 Allergies Allergy/AdvReac Type Severity Reaction Status Date / Time ciprofloxacin [From Cipro] Allergy Rash/Hives Verified 05/25/18 16:28 ciprofloxacin HCl Allergy Rash/Hives Verified 05/25/18 16:28 [From Cipro] coconut Allergy Unknown Verified 05/25/18 16:28 ibuprofen [From Motrin] Allergy Itching Verified 05/25/18 16:28 kiwi Allergy Unknown Verified 05/25/18 16:28 Review of Systems ROS Statement: Those systems with pertinent positive or pertinent negative responses have been documented in the HPI. ROS Other: All systems not noted in ROS Statement are negative. EKG Findings - EKG Comments: EKG Findings:: EKG shows sinus rhythm rate of 81, ME 126, QRS 02, QTc 441 Past Medical History Past Medical History: GERD/Reflux, Hypertension Additional Past Medical History / Comment(s): back pain. Patient relates that from his work and his prior sports he has developed significant difficulties with his knees. The left knee required reconstruction type surgeries he did develop a compartment syndrome to the left calf that required incision and drainage. The right knee was injured with a circular saw the required extensive surgical repair years ago. History of Any Multi-Drug Resistant Organisms: MRSA Date of last positivie culture/infection: 08/26/17 MDRO Source:: FINGER Additional Past Surgical History / Comment(s): back surg lumbar fusion, knee surgery left Past Anesthesia/Blood Transfusion Reactions: No Reported Reaction Past Psychological History: No Psychological Hx Reported Smoking Status: Former smoker Past Alcohol Use History: Daily, Heavy Past Drug Use History: None Reported - Past Family History Father Family Medical History: No Reported History Mother Family Medical History: No Reported History General Exam Limitations: no limitations General appearance: alert, in no apparent distress Head exam: Present: atraumatic, normocephalic, normal inspection Eye exam: Present: normal appearance, PERRL, EOMI. Absent: scleral icterus, conjunctival injection, periorbital swelling ENT exam: Present: normal exam, mucous membranes moist Neck exam: Present: normal inspection. Absent: tenderness, meningismus, lymphadenopathy Respiratory exam: Present: normal lung sounds bilaterally. Absent: respiratory distress, wheezes, rales, rhonchi, stridor Cardiovascular Exam: Present: regular rate, normal rhythm, normal heart sounds. Absent: systolic murmur, diastolic murmur, rubs, gallop, clicks GI/Abdominal exam: Present: soft, normal bowel sounds. Absent: distended, tenderness, guarding, rebound, rigid Extremities exam: Present: normal inspection, full ROM, normal capillary refill. Absent: tenderness, pedal edema, joint swelling, calf tenderness Back exam: Present: normal inspection Neurological exam: Present: alert, oriented X3, CN II-XII intact Psychiatric exam: Present: normal affect, normal mood Skin exam: Present: warm, dry, intact, normal color. Absent: rash Course Vital Signs 05/25/18 05/25/18 05/25/18 15:53 16:50 17:10 Temperature 98.2 F Pulse Rate 103 H Respiratory 20 17 Rate Blood Pressure 160/121 129/89 122/85 O2 Sat by Pulse 97 95 Oximetry 05/25/18 18:35 Temperature 98.4 F Pulse Rate 73 Respiratory 16 Rate Blood Pressure 128/93 O2 Sat by Pulse 97 Oximetry - Reevaluation(s) Reevaluation #1: 05/25/18 20:11 Medical record is reviewed Reevaluation #2: 05/25/18 20:11 Patient is continued to have chest pain Chest Pain MDM - MDM 48 male the ER with significant cardiac risk factors coming of chest pain. Will admit for cardiac observation and treatment Critical Care Time Critical Care Time: Yes Total Critical Care Time: 31 Disposition Clinical Impression: Chest pain Disposition: ADMITTED IP TO THIS HOSP Condition: Fair Instructions: Chest Pain (ED) Is patient prescribed a controlled substance at d/c from ED?: No Referrals: Gerardo Erwin MD [Primary Care Provider] - 1-2 days
--- NOTE | 2018-05-25 16:38 | XR ---
EXAMINATION TYPE: XR chest 2V DATE OF EXAM: 05/25/2018 COMPARISON: 10/06/2017 HISTORY: Left arm pain TECHNIQUE: Frontal and lateral views of the chest are obtained. FINDINGS: Heart and mediastinum are normal. Lungs are clear. Diaphragm is normal. Bony thorax appear s normal. Pulmonary vascularity is normal. IMPRESSION: Normal chest. No change.
[2018-05-25 16:39] LABS: Basophils # (A) 0.1 k/uL (0-0.2); Basophils % (A) 1 %; Eosinophils # (A) 0.2 k/uL (0-0.7); Eosinophils % (A) 3 %; HCT 54.1 % (39.0-53.0); HGB 18.2 gm/dL (13.0-17.5); Lymphocytes # (A) 2.2 k/uL (1.0-4.8); Lymphocytes % (A) 31 %; MCH 31.9 pg (25.0-35.0); MCHC 33.6 g/dL (31.0-37.0); MCV 95.1 fL (80.0-100.0); Monocytes # (A) 0.6 k/uL (0-1.0); Monocytes % (A) 8 %; Neutrophils # (A) 3.9 k/uL (1.3-7.7); Neutrophils % (A) 54 %; Platelet Count 173 k/uL (150-450); RBC 5.69 m/uL (4.30-5.90); RDW 12.6 % (11.5-15.5); WBC 7.2 k/uL (3.8-10.6)
[2018-05-25 16:47] LABS: Albumin 4.4 g/dL (3.5-5.0); Calcium 10.3 mg/dL (8.4-10.2); Magnesium 1.8 mg/dL (1.6-2.3); Potassium 4.2 mmol/L (3.5-5.1); Total Bilirubin 0.8 mg/dL (0.2-1.3); Total Protein 7.6 g/dL (6.3-8.2)
[2018-05-25 16:53] LABS: D-Dimer 0.23 mg/L FEU (<0.60); INR 1.1 (<1.2); Partial Thromboplastin Time 22.6 sec (22.0-30.0); Prothrombin Time 10.6 sec (9.0-12.0)
[2018-05-25 17:09] LABS: Creatine Kinase MB 1.9 ng/mL (0.0-2.4); Troponin I 0.017 ng/mL (0.000-0.034)
[2018-05-25] MEDS ORDERED: HEPARIN SODIUM,PORCINE 5,000 UNIT/ML 1 ML VIAL IV PRN (20:09)
[2018-05-25] MEDS ORDERED: HEPARIN SODIUM,PORCINE 5,000 UNIT/ML 1 ML VIAL IV ONE (20:09)
[2018-05-25] MEDS ORDERED: ASPIRIN 81 MG PO STA (20:09)
[2018-05-25] MEDS ORDERED: NITROGLYCERIN SL TABS 0.4 MG TAB SUBLINGUAL PRN (20:09)
--- NOTE | 2018-05-25 20:16 | CT ---
EXAMINATION TYPE: CT angio chest DATE OF EXAM: 05/25/2018 8:02 PM COMPARISON: None HISTORY: Left arm and chest pain with hypertension. CT DLP: 438.2 mGycm Automated exposure control for dose reduction was used. CONTRAST: CTA scan of the thorax is performed with IV Contrast, patient injected with 62 mL of Isovue 370, pulm onary embolism protocol. There are 3-D post processed images.. FINDINGS: The lungs appear clear of infiltrate. There is no evidence of a pelvic mass. There is no pleural effu roni. There is fatty infiltration of the liver. There is no pericardial effusion. Heart size is annabelle l. There are no hilar masses. There is no mediastinal adenopathy. Thoracic aorta appears intact witho ut evidence of aneurysm or dissection. There is normal contrast opacification of the pulmonary arteries. I see no filling defect. The bony t horax is intact. IMPRESSION: NORMAL CT ANGIOGRAM OF THE CHEST. NO EVIDENCE OF PULMONARY EMBOLISM.
[2018-05-25] MEDS: SODIUM CHLORIDE 0.9% 1,000 ML IV SCH (20:31)
[2018-05-25] MEDS: HEPARIN SOD,PORK IN 0.45% NACL 25,000 UNIT in 0.45% NACL 1 500ML.BAG IV SCH (20:31)
[2018-05-25] MEDS: METOPROLOL TARTRATE 25 MG TAB PO SCH (22:05)
[2018-05-25] MEDS ORDERED: LORazepam 2 MG/ML INJ IV PRN ×3 (22:21)
[2018-05-25] MEDS: MELATONIN 3 MG TABLET PO SCH (22:53)
[2018-05-25 23:12] LABS: Creatine Kinase MB 1.6 ng/mL (0.0-2.4)
[2018-05-25 23:21] LABS: Troponin I 0.04 ng/mL (0.000-0.034)
[2018-05-26] MEDS ORDERED: ACETAMINOPHEN TAB 325 MG TAB PO PRN (00:04)
[2018-05-26 02:59] LABS: Basophils # (A) 0.1 k/uL (0-0.2); Basophils % (A) 1 %; Eosinophils # (A) 0.4 k/uL (0-0.7); Eosinophils % (A) 4 %; HCT 45.4 % (39.0-53.0); HGB 16.2 gm/dL (13.0-17.5); Lymphocytes # (A) 3.4 k/uL (1.0-4.8); Lymphocytes % (A) 40 %; MCH 33.2 pg (25.0-35.0); MCHC 35.7 g/dL (31.0-37.0); MCV 92.8 fL (80.0-100.0); Mean Platelet Volume 7.5; Monocytes # (A) 0.5 k/uL (0-1.0); Monocytes % (A) 6 %; Neutrophils # (A) 3.9 k/uL (1.3-7.7); Neutrophils % (A) 46 %; Platelet Count 149 k/uL (150-450); RDW 12.3 % (11.5-15.5); WBC 8.5 k/uL (3.8-10.6)
[2018-05-26 03:17] LABS: Anion Gap 9 mmol/L; Blood Urea Nitrogen 17 mg/dL (9-20); Calcium 9.5 mg/dL (8.4-10.2); Carbon Dioxide 24 mmol/L (22-30); Chloride 105 mmol/L (98-107); Cholesterol 194 mg/dL (<200); Glucose 153 mg/dL (74-99); HDL Cholesterol 42 mg/dL (40-60); Potassium 3.7 mmol/L (3.5-5.1); Sodium 138 mmol/L (137-145)
[2018-05-26 03:28] LABS: Triglycerides 692 mg/dL (<150)
[2018-05-26 03:33] LABS: Creatine Kinase MB 1.2 ng/mL (0.0-2.4)
[2018-05-26 03:39] LABS: Troponin I 0.036 ng/mL (0.000-0.034)
[2018-05-26] MEDS: SODIUM CHLORIDE 0.9% 1,000 ML IV SCH ×2 (07:24→19:10)
--- NOTE | 2018-05-26 08:22 | P.CRDCN ---
History of Present Illness Consult date: 05/26/18 Requesting physician: Aurelio Donovan Consult reason: chest pain Chief complaint: Chest pain History of present illness: This is a pleasant 48-year-old gentleman with known history of hypertension, high triglycerides, GERD, he is not a diabetic, nonsmoker, he does state that he drinks a significant amount of alcohol on a daily basis. He is unsure of his family history. He presents to the hospital on this occasion with symptoms of chest tightness and pain down his left arm. He states that the symptoms started yesterday morning and were off and on throughout the day, at times he did become diaphoretic, breathing remained stable. His EKG on arrival here showed a normal sinus rhythm with left axis deviation and ST-T wave changes noted in the inferior leads. Chest x-ray was normal. CTA of the chest no evidence of pulmonary embolism. Blood pressure on arrival here 160/120 , heart rate 103, 97% on room air. Blood pressure this morning 115/70 with a heart rate in the 60s, 94% on room air. White blood cell count is normal, hemoglobin 16.2, platelet count 149. Sodium 138, potassium 3.7, BUN 17 and creatinine 1.1. Troponins 0.017, 0.030, 0.040, 0.036. Triglycerides 692, cholesterol 194, LDL not calculated, HDL 42. The time of my examination this morning he is currently chest pain-free. Past Medical History Past Medical History: GERD/Reflux, Hypertension Additional Past Medical History / Comment(s): back pain. Patient relates that from his work and his prior sports he has developed significant difficulties with his knees. The left knee required reconstruction type surgeries he did develop a compartment syndrome to the left calf that required incision and drainage. The right leg below knee was injured with a circular saw the required extensive surgical repair years ago. History of Any Multi-Drug Resistant Organisms: MRSA Date of last positivie culture/infection: 08/26/17 MDRO Source:: lt hand 1st and 5th finger Additional Past Surgical History / Comment(s): back surg lumbar fusion, muliple lt knee surgeries(torn meniscus, torn mcl, ended up with compartmental syndrome need i&d lt calf , lateral release knee cap, lt hand-trigger finger sx(ended up 2nd sx r/t mrsa ) Past Anesthesia/Blood Transfusion Reactions: No Reported Reaction Smoking Status: Former smoker - Past Family History Father Family Medical History: No Reported History Mother Family Medical History: No Reported History Additional Family Medical History / Comment(s): pt was adopted- no hx known Medications and Allergies Home Medications Medication Instructions Recorded Confirmed Type Metoprolol Tartrate [Lopressor] 25 mg PO BID #60 tab 10/08/17 05/25/18 Rx B Complex-Vit C-Vit E-Zinc [Z-Bec] 1 tab PO DAILY 05/25/18 05/25/18 History Fenofibrate [Lofibra] 54 mg PO DAILY 05/25/18 05/25/18 History Magnesium Gluconate [Magonate] 500 mg PO DAILY 05/25/18 05/25/18 History Omeprazole [PriLOSEC] 40 mg PO DAILY 05/25/18 05/25/18 History Potassium 99 mg PO DAILY 05/25/18 05/25/18 History Allergies Allergy/AdvReac Type Severity Reaction Status Date / Time ciprofloxacin [From Cipro] Allergy Rash/Hives Verified 05/25/18 16:28 ciprofloxacin HCl Allergy Rash/Hives Verified 05/25/18 16:28 [From Cipro] coconut Allergy Unknown Verified 05/25/18 16:28 ibuprofen [From Motrin] Allergy Itching Verified 05/25/18 16:28 kiwi Allergy Unknown Verified 05/25/18 16:28 metoclopramide [From Reglan] AdvReac Nausea & Verified 05/25/18 21:46 Vomiting Physical Exam Vitals: Vital Signs Temp Pulse Pulse Resp BP BP Pulse Ox 05/26/18 07:35 98.0 F 64 16 115/73 94 L 05/26/18 04:00 75 18 125/76 95 05/26/18 00:00 98.2 F 70 17 150/90 96 05/25/18 22:12 18 05/25/18 21:31 97.9 F 71 18 142/94 96 05/25/18 20:34 98.3 F 71 18 130/88 96 05/25/18 18:35 98.4 F 73 16 128/93 97 05/25/18 17:10 122/85 05/25/18 16:50 17 129/89 95 05/25/18 15:53 98.2 F 103 H 20 160/121 97 Intake and Output 05/25/18 05/26/18 05/26/18 22:59 06:59 14:59 Intake Total 135.333 600 Balance 135.333 600 Intake: Intake, IV Titration 135.333 600 Amount Heparin Sod,Pork in 0.45% 135.333 NaCl 25,000 unit In 0.45 % NaCl 1 500ml.bag @ 10.5 UNITS/KG/HR 20 mls/hr IV .Q24H [facility] Rx#:[id number] Sodium Chloride 0.9% 1, 600 000 ml @ 100 mls/hr IV . Q10H [facility] Rx#:[id number] Other: Voiding Method Toilet # Voids 1 Weight 104.9 kg 102.5 kg PHYSICAL EXAMINATION: GENERAL: 48-year-old gentleman in no acute distress at the time of my examination HEENT: Head is atraumatic, normocephalic. Pupils equal, round. Sclera anicteric. Conjunctiva are clear. Mucous membranes of the mouth are moist. Neck is supple. There is no elevated jugular venous pressure. No carotid bruit is heard. HEART EXAMINATION: Heart S1, S2 normal. No murmur or gallop heard. CHEST EXAMINATION: Lungs are clear to auscultation and precussion. No chest wall tenderness is noted on palpation or with deep breathing. ABDOMEN: Soft, nontender. Bowel sounds are heard. No organomegaly noted. EXTREMITIES: 2+ peripheral pulses with no evidence of peripheral edema and no calf tenderness noted. NEUROLOGIC patient is awake, alert and oriented 3 . . Results 05/26/18 02:37 05/26/18 02:37 Cardiac Enzymes 05/25/18 05/25/18 05/25/18 Range/Units 16:13 16:13 20:30 AST 105 H (17-59) U/L CK-MB (CK-2) 1.9 (0.0-2.4) ng/mL Troponin I 0.017 0.030 (0.000-0.034) ng/mL 05/25/18 05/26/18 Range/Units 22:05 02:37 AST (17-59) U/L CK-MB (CK-2) 1.6 1.2 (0.0-2.4) ng/mL Troponin I 0.040 H* 0.036 H* (0.000-0.034) ng/mL Coagulation 05/25/18 05/25/18 05/26/18 Range/Units 16:13 22:05 02:37 PT 10.6 (9.0-12.0) sec APTT 22.6 42.8 H 29.0 (22.0-30.0) sec Lipids 05/26/18 Range/Units 02:37 Triglycerides 692 H (<150) mg/dL Cholesterol 194 (<200) mg/dL HDL Cholesterol 42 (40-60) mg/dL CBC 05/25/18 05/26/18 Range/Units 16:13 02:37 WBC 7.2 8.5 (3.8-10.6) k/uL RBC 5.69 4.90 (4.30-5.90) m/uL Hgb 18.2 H 16.2 (13.0-17.5) gm/dL Hct 54.1 H 45.4 (39.0-53.0) % Plt Count 173 149 L (150-450) k/uL Comprehensive Metabolic Panel 05/25/18 05/26/18 Range/Units 16:13 02:37 Sodium 138 138 (137-145) mmol/L Potassium 4.2 3.7 (3.5-5.1) mmol/L Chloride 103 105 (98-107) mmol/L Carbon Dioxide 27 24 (22-30) mmol/L BUN 16 17 (9-20) mg/dL Creatinine 1.26 H 1.11 (0.66-1.25) mg/dL Glucose 98 153 H (74-99) mg/dL Calcium 10.3 H 9.5 (8.4-10.2) mg/dL AST 105 H (17-59) U/L ALT 125 H (21-72) U/L Alkaline Phosphatase 80 (38-126) U/L Total Protein 7.6 (6.3-8.2) g/dL Albumin 4.4 (3.5-5.0) g/dL Current Medications Generic Name Dose Route Start Last Admin Trade Name Freq PRN Reason Stop Dose Admin Acetaminophen 650 mg 05/26/18 00:04 Tylenol Tab PO Q6HR PRN Fever and/ or Pain Aspirin 325 mg 05/26/18 09:00 Aspirin PO DAILY [facility] Atorvastatin Calcium 80 mg 05/26/18 09:00 Lipitor PO DAILY [facility] Heparin Sodium (Porcine) 0 unit 05/25/18 20:09 05/26/18 03:16 Heparin IV 4,000 unit Q6HR PRN Administration Low PTT Protocol Heparin Sodium/Sodium Chloride 500 mls @ 20 mls/hr 05/25/18 20:15 05/26/18 03 :17 25,000 unit/ Sodium Chloride IV 13.5 units/kg/hr .Q24H [facility] 25.71 mls/hr Titration Protocol 10.5 UNITS/KG/HR Sodium Chloride 1,000 mls @ 100 mls/hr 05/25/18 20:15 05/26/18 07:24 Saline 0.9% IV 100 mls/hr .Q10H [facility] Administration Lorazepam 1 mg 05/25/18 22:21 Ativan IV Q2HR PRN CIWA 8 or 9 Lorazepam 1 mg 05/25/18 22:21 Ativan IV Q1HR PRN CIWA 10 to 15 Lorazepam 2 mg 05/25/18 22:21 05/25/18 23:32 Ativan IV 05/27/18 22:22 2 mg Q10M PRN Administration CIWA 16 or higher Melatonin 3 mg 05/25/18 22:30 05/25/18 22:53 Melatonin PO 3 mg HS [facility] Administration Metoprolol Tartrate 25 mg 05/25/18 21:00 05/25/18 22:05 Lopressor PO 25 mg BID [facility] Administration Nitroglycerin 0.4 mg 05/25/18 20:09 Nitrostat SUBLINGUAL Q5M PRN Chest Pain Intake and Output 05/25/18 05/26/18 05/26/18 22:59 06:59 14:59 Intake Total 135.333 600 Balance 135.333 600 Intake: Intake, IV Titration 135.333 600 Amount Heparin Sod,Pork in 0.45% 135.333 NaCl 25,000 unit In 0.45 % NaCl 1 500ml.bag @ 10.5 UNITS/KG/HR 20 mls/hr IV .Q24H [facility] Rx#:[id number] Sodium Chloride 0.9% 1, 600 000 ml @ 100 mls/hr IV . Q10H [facility] Rx#:[id number] Other: Voiding Method Toilet # Voids 1 Weight 104.9 kg 102.5 kg 05/26/18 02:37 05/26/18 02:37 EKG Interpretations (text) EKG shows a normal sinus rhythm with ST-T wave changes noted in the inferior leads. Assessment and Plan Plan: Assessment and plan #1 symptoms of chest tightness with associated left arm discomfort and diaphoresis, suggestive of possible acute coronary syndrome. Troponins 0.017, 0.030, 0.040, 0.036. #2 accelerated hypertension #3 hypertriglyceridemia #4 EtOH abuse Plan Will obtain an echocardiogram with Doppler study. Continue IV heparin. Patient has been advised that he will need to undergo cardiac catheterization for more definitive diagnosis. The benefits were explained to the patient in detail and he is willing to proceed. Further recommendations will be based on those findings and patient's clinical course. DNP note has been reviewed, I agree with a documented findings and plan of care. Patient was seen and examined.
[2018-05-26] MEDS: METOPROLOL TARTRATE 25 MG TAB PO SCH ×2 (08:37→19:55)
[2018-05-26] MEDS: ASPIRIN 325 MG TAB PO SCH (08:37)
[2018-05-26] MEDS: ATORVASTATIN 80 MG TAB PO SCH (08:37)
[2018-05-26] MEDS ORDERED: ATORVASTATIN 80 MG TAB PO STA (09:54)
[2018-05-26] MEDS ORDERED: SODIUM CHLORIDE 0.9% 1,000 ML in EMPTY BAG 1 BAG IV ONE (09:54)
[2018-05-26] MEDS ORDERED: NITROGLYCERIN SL TABS 0.4 MG TAB SUBLINGUAL PRN (09:54)
[2018-05-26] MEDS ORDERED: ALPRAZolam 0.25 MG TAB PO PRN (09:54)
[2018-05-26] MEDS ORDERED: ASPIRIN 325 MG TAB PO STA (09:54)
--- NOTE | 2018-05-26 13:31 | ECHOF ---
Referral Reason:assess lvf MEASUREMENTS -------- HEIGHT: 182.9 cm WEIGHT: 102.1 kg BP: 115/73 RVIDd: 2.6 cm (< 3.3) IVSd: 1.3 cm (0.6 - 1.1) LVIDd: 4.4 cm (3.9 - 5.3) LVPWd: 1.2 cm (0.6 - 1.1) IVSs: 1.5 cm LVIDs: 3.0 cm LVPWs: 1.5 cm Ao Diam: 2.9 cm (2.0 - 3.7) AV Cusp: 2.2 cm (1.5 - 2.6) LA Diam: 3.9 cm (2.7 - 3.8) MV EXCURSION: 13.536 mm (> 18.000) MV EF SLOPE: 88 mm/s (70 - 150) EPSS: 0.9 cm MV E John: 0.97 m/s MV DecT: 201 ms MV A John: 0.67 m/s MV E/A Ratio: 1.44 RAP: 5.00 mmHg RVSP: 14.21 mmHg FINDINGS -------- Sinus rhythm. This was a technically adequate study. The left ventricular size is normal. There is mild concentric left ventricular hypertrophy. Overa ll left ventricular systolic function is normal with, an EF between 55 - 60 %. The right ventricle is normal in size and function. The left atrial size is normal. The right atrium is normal in size. The aortic valve is trileaflet and appears structurally normal. The mitral valve is normal. Mild mitral regurgitation is present. Mild tricuspid regurgitation present. There is no evidence of pulmonary hypertension. The right v entricular systolic pressure, as measured by Doppler, is 14.21mmHg. Trace/mild (physiologic) pulmonic regurgitation. The aortic root size is normal. Normal inferior vena cava with normal inspiratory collapse consistent with estimated right atrial pre ssure of 5 mmHg. There is no pericardial effusion. CONCLUSIONS -------- 1. Sinus rhythm. 2. This was a technically adequate study. 3. The left ventricular size is normal. 4. There is mild concentric left ventricular hypertrophy. 5. Overall left ventricular systolic function is normal with, an EF between 55 - 60 %. 6. The left atrial size is normal. 7. The aortic valve is trileaflet and appears structurally normal. 8. Mild mitral regurgitation is present. 9. Mild tricuspid regurgitation present. 10. There is no evidence of pulmonary hypertension. 11. Trace/mild (physiologic) pulmonic regurgitation. 12. The aortic root size is normal. 13. Normal inferior vena cava with normal inspiratory collapse consistent with estimated right atrial pressure of 5 mmHg. 14. There is no pericardial effusion. [employer] VENDOR: Ashlyn Lyons RDCS
[2018-05-26] MEDS: HEPARIN SOD,PORK IN 0.45% NACL 25,000 UNIT in 0.45% NACL 1 500ML.BAG IV SCH (19:09)
[2018-05-26] MEDS: DIAZEPAM 5 MG TAB PO SCH (19:55)
--- NOTE | 2018-05-26 20:20 | HP ---
HISTORY AND PHYSICAL DATE OF ADMISSION: 05/25/2018 DATE OF SERVICE: 05/26/2018 PRESENTING COMPLAINT: Chest pain, shoulder pain. HISTORY OF PRESENTING COMPLAINT: This is a pleasant 48-year-old patient of Dr. Erwin. Patient's chronic stable medical conditions include GERD, hypertension. Patient presented when he was sitting yesterday and developed an achiness in the left arm and in the shoulder area. There was some discomfort in the shoulder and the neck. Patient was very slightly dizzy. No shortness of breath. No perspiration. There was slight clamminess in his hands; also some nausea; and therefore he decided to present to the ER. Patient's troponin was 0.03, 0.04, 0.036. EKG had some flipped T-waves in the inferior leads. Patient was started on IV heparin and Cardiology was consulted. I saw the patient earlier today, and Cardiology is planning to take the patient down for cardiac catheterization. REVIEW OF SYSTEMS: CONSTITUTIONAL: None. HEENT: None. RESPIRATORY: None. CARDIOVASCULAR: As above. GASTROINTESTINAL: None. GENITOURINARY: None. MUSCULOSKELETAL: Some pain in the joints, including the knees. HEMATOLOGICAL: None. LYMPHATICS: None. PSYCHIATRY: A bit anxious. NEUROLOGICAL: None. PAST MEDICAL HISTORY: 1. GERD. 2. Hypertension. 3. Back pain. PAST SURGICAL HISTORY: 1. Back surgery. 2. Lumbar fusion. 3. Multiple left knee surgeries, including torn meniscus, torn MCL; also had compartment syndrome, lateral release of the kneecap. 4. Left hand trigger finger. SOCIAL HISTORY: Patient is . Currently on disability. 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 Patient is in the process of going through a divorce and has been drinking about half to a fifth of alcohol a day. Patient smoked from the age of 13 for about 20 years, stopped in 2004; smoked about 2-1/2 packs a day. FAMILY HISTORY: Patient is adopted. HOME MEDICATIONS: 1. Potassium 99 mg p.o. daily. 2. Prilosec 40 mg p.o. daily. 3. Lopressor 25 p.o. b.i.d. 4. Magnesium gluconate 500 mg p.o. daily. 5. Lofibra 54 mg p.o. daily. 6. Z-Bec 1 tablet p.o. daily. ALLERGIES: 1. CIPRO. 2. COCONUT. 3. IBUPROFEN. 4. KIWI. 5. REGLAN. PHYSICAL EXAMINATION: VITAL SIGNS ON PRESENTATION: Temperature 98.2, pulse 73, respiration 20, blood pressure 160/121. Repeat blood pressure 129/89. Pulse ox 97% on room air. GENERAL APPEARANCE: Well built; BMI 31.5. Somewhat flushed. Lying in bed, comfortable. EYES: Pupils equal. Conjunctivae normal. HEENT: External appearance of nose and ears normal. Oral cavity normal. NECK: JVD not raised. Mass not palpable. RESPIRATORY: Effort normal. LUNGS: Fair air entry. CARDIOVASCULAR: First and second sounds normal. No edema. ABDOMEN: Soft, non-tender. Liver and spleen not palpable. LYMPHATIC: No lymph node palpable in neck or axillae. PSYCHIATRY: Alert and oriented x3. Mood and affect slightly anxious-appearing. NEUROLOGICAL: Pupils equal. Cranial nerves grossly intact. Power and sensation grossly intact. INVESTIGATIONS: White count 7.2. Hemoglobin 18.2; repeat 16.2. Platelets 173, potassium 4.2. Creatinine 1.26; repeat 1.11. Troponin 0.017, 0.03, 0.04. Triglycerides 692. Two-D echocardiogram shows EF of 55% to 60%. No wall motion abnormality. EKG shows flipped T-waves in lead III and aVF, personally reviewed by me. Chest x-ray film, personally reviewed by me, shows borderline cardiomegaly, no obvious infiltrate. Chest x-ray reported as normal. Chest CTA negative for PE. ASSESSMENT: 1. Possible acute non-Q-wave myocardial infarction of the inferior wall with a cardiac- sounding presentation and some EKG changes. 2. Essential hypertension. 3. Hyper emia. 4. Alcoholic hepatitis. 5. Chronic alcoholism. PLAN: The patient is on aspirin, Lipitor, IV heparin, beta niko. Cardiology was consulted. Patient is pending cardiac catheterization. Will start patient on Valium 5 mg 3 times a day for DT prophylaxis. Will also do a CIWA scale. Care was discussed with the patient. Questions were answered. MMODL / IJN: [id number] /
[2018-05-26] MEDS: MELATONIN 3 MG TABLET PO SCH (21:05)
[2018-05-27] MEDS: ALPRAZolam 0.5 MG TAB PO PRN ×2 (00:12→11:21)
[2018-05-27] MEDS: SODIUM CHLORIDE 0.9% 1,000 ML IV SCH ×3 (06:03→06:55)
[2018-05-27 06:25] LABS: Glucose,Whole Blood 125 mg/dL (75-99)
[2018-05-27 06:43] LABS: Basophils # (A) 0.1 k/uL (0-0.2); Basophils % (A) 1 %; Eosinophils # (A) 0.3 k/uL (0-0.7); Eosinophils % (A) 5 %; HCT 45.6 % (39.0-53.0); HGB 15.9 gm/dL (13.0-17.5); Lymphocytes # (A) 2.6 k/uL (1.0-4.8); Lymphocytes % (A) 39 %; MCH 32.7 pg (25.0-35.0); MCV 93.5 fL (80.0-100.0); Mean Platelet Volume 7.4; Monocytes # (A) 0.4 k/uL (0-1.0); Monocytes % (A) 7 %; Neutrophils # (A) 3.2 k/uL (1.3-7.7); Neutrophils % (A) 46 %; Platelet Count 142 k/uL (150-450); RBC 4.87 m/uL (4.30-5.90); RDW 12.2 % (11.5-15.5); WBC 6.8 k/uL (3.8-10.6)
[2018-05-27] MEDS: HEPARIN SOD,PORK IN 0.45% NACL 25,000 UNIT in 0.45% NACL 1 500ML.BAG IV SCH (06:55)
[2018-05-27 07:04] LABS: Anion Gap 9 mmol/L; Blood Urea Nitrogen 15 mg/dL (9-20); Carbon Dioxide 22 mmol/L (22-30); Chloride 108 mmol/L (98-107); Glucose 117 mg/dL (74-99); Potassium 4.1 mmol/L (3.5-5.1); Sodium 139 mmol/L (137-145)
[2018-05-27] MEDS: ASPIRIN 325 MG TAB PO SCH (07:44)
[2018-05-27] MEDS: METOPROLOL TARTRATE 25 MG TAB PO SCH ×2 (07:44→20:38)
[2018-05-27] MEDS: ATORVASTATIN 80 MG TAB PO SCH (07:44)
[2018-05-27] MEDS: DIAZEPAM 5 MG TAB PO SCH ×3 (09:33→22:30)
[2018-05-27] MEDS ORDERED: VERAPAMIL 2.5 MG/ML 2 ML AMP ONE (11:33)
[2018-05-27] MEDS ORDERED: LIDOCAINE 1% INJ 10MG/ML (20 ML MDV) ONE (11:34)
[2018-05-27] MEDS ORDERED: IV FLUID CONTINUATION 1,000 ML IV ONE (11:38)
[2018-05-27] MEDS ORDERED: MIDAZOLAM 2 MG/2 ML VIAL ONE ×2 (11:39→12:11)
[2018-05-27] MEDS ORDERED: HEPARIN SODIUM 1,000 UN/ML (10ML VL) ONE (11:39)
[2018-05-27] MEDS ORDERED: LIDOCAINE 1% (PF) 10MG/ML VIAL SQ ONE (11:58)
[2018-05-27] MEDS ORDERED: fentaNYL (PF) 50 MCG/ML 2 ML AMP IVP ONE (11:59)
[2018-05-27] MEDS ORDERED: MIDAZOLAM 2 MG/2 ML VIAL IVP ONE ×2 (11:59→12:13)
[2018-05-27] MEDS ORDERED: VERAPAMIL SYRINGE (5 MG/10 ML) INTRAARTER ONE (12:00)
[2018-05-27] MEDS ORDERED: fentaNYL (PF) 50 MCG/ML 2 ML AMP ONE (12:01)
[2018-05-27] MEDS ORDERED: PRASUGREL 10 MG TAB ONE (12:11)
[2018-05-27] MEDS ORDERED: BIVALIRUDIN BOLUS 250 MG/50 ML IV ONE (12:12)
[2018-05-27] MEDS ORDERED: BIVALIRUDIN 250 MG in SODIUM CHLORIDE 0.9% 50 ML IV ONE (12:13)
[2018-05-27] MEDS ORDERED: PRASUGREL 10 MG TAB PO ONE (12:14)
[2018-05-27] MEDS ORDERED: NITROGLYCERIN 1000MCG/10ML SYRINGE INTRACORON ONE (12:51)
[2018-05-27] MEDS ORDERED: IOPAMIDOL-370 50ML BTL INJ ONE (12:52)
[2018-05-27] MEDS ORDERED: IOPAMIDOL-370 125ML BTL INJ ONE (12:52)
[2018-05-27] MEDS ORDERED: ATROPINE SULFATE 0.1 MG/ML 10ML SYRINGE IV PRN (12:58)
[2018-05-27] MEDS ORDERED: NITROGLYCERIN SL TABS 0.4 MG TAB SUBLINGUAL PRN (12:58)
[2018-05-27] MEDS ORDERED: ZOLPIDEM 5 MG TAB PO PRN (12:58)
[2018-05-27] MEDS ORDERED: RX INFO: IV CONTRAST WAS GIVEN 1 EACH MISC MISCELLANE PRN (12:58)
[2018-05-27] MEDS ORDERED: MAG HYDROX/AL HYDROX/SIMETH 30 ML CUP PO PRN (12:58)
[2018-05-27] MEDS ORDERED: SODIUM CHLORIDE 0.9% 1,000 ML IV SCH (13:00)
--- NOTE | 2018-05-27 13:21 | LTR ---
May 27, 2018 Re: Ar Neri Dear Dr. Erwin: MrMatthew Neri presented to [facility] with chest discomfort and ruled in for acute nja-MI-daonnydxe myocardial infarction. I did perform a heart catheterization and that revealed severe disease involving the mid right coronary artery which was opened and stented with good angiographic results. Thank you for allowing us to participate in his care and please do not hesitate to call if you have any question or concern. Sincerely, MD MIKE Raymond / KORYN: [id number] /
--- NOTE | 2018-05-27 13:36 | CC ---
CARDIAC CATHETERIZATION REPORT DATE OF SERVICE: May 27, 2018 PERFORMING PHYSICIAN: Lopez Lee MD, [employer] lead generation. PROCEDURE PERFORMED: 1. Selective right and left coronary angiogram. 2. Left heart catheterization. 3. Successful stenting of the mid right coronary artery using 3.5 x 38 and 3.5 x 12 mm Xience drug-eluting stent with good angiographic results and reduction of stenosis from 80% to 0%. INDICATION: This is a very pleasant 48-year-old gentleman with a past medical history significant for hypertension and dyslipidemia who presented to the hospital with chest discomfort and was diagnosed with acute [id number]-[id number] myocardial infarction. Because of that, heart catheterization was advised. APPROACH: Right radial artery. COMPLICATION: None. LEVEL OF SEDATION: Moderate with sedation length of 56 minutes. PROCEDURE DESCRIPTION: After obtaining an informed consent, the patient was brought to cardiac labor standards director. The right radial artery was cannulated using micropuncture technique and a micropuncture wire passed easily then I placed a 6-Cambodian sheath in the right radial artery. After that I gave the patient 2 mg of verapamil IA. Selective right and left coronary angiogram performed using JR4 and JL3.5 catheters. Left heart catheterization was performed using the JR4 catheter which flipped into the LV then I did pullback across the aortic valve. At that point, I decided to intervene on the RCA, please see a separate paragraph for that. SELECTIVE CORONARY ANGIOGRAM: 1. The right coronary artery is a large caliber vessel. It is a dominant vessel. The proximal RCA has mild disease only. The mid RCA has a long tubular lesion appeared to be in the range of 70% to 80%. The RCA distally is normal and bifurcates into PDA and PLV branches both are angiographically normal. 2. The left main is angiographically normal. It bifurcates into left circumflex and left anterior descending artery. 3. The left circumflex is a large caliber vessel. It is a nondominant vessel. The proximal circumflex is angiographically normal and gives rise into a large OM branch which appeared to be angiographically normal. The left circumflex continues after that as a small to medium caliber vessel in the AV groove. 4. The LAD: The proximal LAD appeared to have mild disease only. The mid LAD appeared to be angiographically normal and gives rise into a large diagonal branch, which appeared to be angiographically normal. The LAD distally seems to be angiographically normal. HEMODYNAMICS: The left ventricular end-diastolic pressure was 8 mmHg and no gradient was identified across the aortic valve. PCI OF THE RCA: Anticoagulation was initiated using Angiomax. We subsequently took JR4 guide and the RCA was engaged. The run-through wire was used to wire the right coronary artery. I did PTCA ballooning initially using 2.5 x 12 mm balloon and after that I tried to advance 3.5 x 38 mm Xience drug-eluting stent but the stent will not cross the lesion. Because of that, I did double wire the RCA using a whisper wire in addition to run- through wire. Then I ballooned using 3.5 mm balloon. After that I was able to advance a 3.5 x 38 mm Xience drug-eluting stent where the stent was positioned under fluoroscopy guidance and deployed under 12 atmospheres for 20 seconds. I did also deploy another stent proximal to the previous stent, which was another 3 5 x 12 mm with about 2 mm overlap between the 2 stents. The second stent was deployed under 12 atmospheres for 20 seconds. After that I post dilated the two stents using 3.75 NC balloon. The final angiogram showed excellent angiographic results and the procedure was completed without any complication. CONCLUSION: 1. Acute [id number]-XA-[id number] myocardial infarction in this 48-year-old gentleman with hypertension and dyslipidemia. 2. Severe single-vessel coronary artery disease involving the mid right coronary artery. 3. Successful stenting of the mid right coronary artery using 3.5 x 38 and 3.5 x 12 mm Xience drug-eluting stent with excellent angiographic results and reduction of stenosis from 80% to 0%. POSTPROCEDURE MANAGEMENT: 1. Dual antiplatelet therapy. 2. Risk factors modifications. 3. Follow up with the patient. MMODL / IJN: [id number] /
[2018-05-27] MEDS: MELATONIN 3 MG TABLET PO SCH (20:46)
[2018-05-27 23:30] VITALS: RESP 16
--- NOTE | 2018-05-28 06:03 | PN ---
PROGRESS NOTE DATE OF SERVICE: 05/27/2018 PRESENTING COMPLAINT: Chest pain. INTERVAL HISTORY: This patient was seen by me yesterday on 05/27/2018. Admitted with acute PR. Did undergo a cardiac catheterization with stent to the RCA. No chest pain or short of breath. Lying in bed. REVIEW OF SYSTEMS: Done for constitutional, cardiovascular, GI, pulmonary; relevant findings as above. CURRENT MEDICATIONS: Current medications are reviewed that include aspirin, Lipitor, Lopressor and Effient. PHYSICAL EXAMINATION: On examination, temperature 97.3, pulse 72, respirations 17, blood pressure 119/78, pulse ox 96% on room air. GENERAL APPEARANCE: Lying in bed, comfortable. EYES: Pupils equal. Conjunctivae normal. NECK: JVD not raised. Mass not palpable. RESPIRATORY: Effort normal. LUNGS: Fair entry. CARDIOVASCULAR: First and second sounds normal. No edema. ABDOMEN: Soft, nontender. Liver and spleen not palpable. PSYCHIATRY: Alert and oriented x3. Mood and affect normal. INVESTIGATIONS: White count 6.8, hemoglobin 15.9, potassium 4.1. ASSESSMENT: 1. Acute non-Q-wave myocardial infarction of the inferior wall. 2. Cardiac catheterization with stent and angioplasty to the right coronary artery. 3. Essential hypertension. 4. Hyperlipidemia. 5. Alcoholic hepatitis. 6. Chronic alcoholism. PLAN: Care was discussed with the patient. Questions were answered. I will decrease the dose of Valium tomorrow. Continue the medication and treatment plan. MMODL / IJN: [id number] /
[2018-05-28 07:01] LABS: Mean Platelet Volume 7.5; Platelet Count 143 k/uL (150-450)
[2018-05-28] MEDS ORDERED: PRASUGREL 10 MG TAB PO SCH (09:00)
[2018-05-28 10:03] VITALS: BMI 31.4
[2018-05-28] MEDS: SODIUM CHLORIDE 0.9% 1,000 ML IV SCH (10:37)
[2018-05-28] MEDS: ATORVASTATIN 80 MG TAB PO SCH (10:43)
[2018-05-28] MEDS: ASPIRIN 325 MG TAB PO SCH (10:43)
[2018-05-28] MEDS: METOPROLOL TARTRATE 25 MG TAB PO SCH (10:44)
[2018-05-28] MEDS: DIAZEPAM 2 MG TAB PO SCH ×2 (10:45→16:51)
[2018-05-28 11:27] VITALS: TEMP 98.9
[2018-05-28] MEDS ORDERED: ASPIRIN 81 MG PO SCH (11:45)
--- NOTE | 2018-05-28 11:45 | P.PN ---
Subjective Progress Note Date: 05/28/18 This is a pleasant 48-year-old gentleman with known history of hypertension, high triglycerides, GERD, he is not a diabetic, nonsmoker, he does state that he drinks a significant amount of alcohol on a daily basis. He is unsure of his family history. He presents to the hospital on this occasion with symptoms of chest tightness and pain down his left arm. He states that the symptoms started yesterday morning and were off and on throughout the day, at times he did become diaphoretic, breathing remained stable. His EKG on arrival here showed a normal sinus rhythm with left axis deviation and ST-T wave changes noted in the inferior leads. Chest x-ray was normal. CTA of the chest no evidence of pulmonary embolism. Blood pressure on arrival here 160/120 , heart rate 103, 97% on room air. Blood pressure this morning 115/70 with a heart rate in the 60s, 94% on room air. White blood cell count is normal, hemoglobin 16.2, platelet count 149. Sodium 138, potassium 3.7, BUN 17 and creatinine 1.1. Troponins 0.017, 0.030, 0.040, 0.036. Triglycerides 692, cholesterol 194, LDL not calculated, HDL 42. The time of my examination this morning he is currently chest pain-free. 05/28/2018 Patient was taken to the cardiac catheterization lab yesterday where he underwent angioplasty and stent placement of the right coronary artery. EKG shows normal sinus rhythm this morning with no acute changes from post-PCI. Blood pressure 128/80 with a heart rate in the 70s. Platelet count 143, BUN 1.08. Objective - Vital Signs Vital signs: Vital Signs Temp 98.9 F 05/28/18 08:00 Pulse 76 05/28/18 08:00 Resp 16 05/28/18 08:00 BP 129/86 05/28/18 08:00 Pulse Ox 96 05/28/18 08:00 Intake & Output 05/27/18 05/28/18 05/28/18 18:59 06:59 18:59 Intake Total 625.892 410 10 Output Total 500 Balance 125.892 410 10 Weight 102.1 kg 102.1 kg Intake: IV 100 410 10 0.9 10 Bivalirudin 250 mg In 400 Sodium Chloride 0.9% 50 ml @ 0 mls/hr IV .[facility] Rx#:[id number] Invasive Line 1 10 Intake, IV Titration 165.892 Amount Heparin Sod,Pork in 0.45% 165.892 NaCl 25,000 unit In 0.45 % NaCl 1 500ml.bag @ 10.5 UNITS/KG/HR 20 mls/hr IV .Q24H [facility] Rx#:[id number] Oral 360 Output: Urine 500 Other: Voiding Method Toilet # Voids 1 - Exam PHYSICAL EXAMINATION: GENERAL: 48-year-old gentleman in no acute distress at the time of my examination HEENT: Head is atraumatic, normocephalic. Pupils equal, round. Sclera anicteric. Conjunctiva are clear. Mucous membranes of the mouth are moist. Neck is supple. There is no elevated jugular venous pressure. No carotid bruit is heard. HEART EXAMINATION: Heart S1, S2 normal. No murmur or gallop heard. CHEST EXAMINATION: Lungs are clear to auscultation and precussion. No chest wall tenderness is noted on palpation or with deep breathing. ABDOMEN: Soft, nontender. Bowel sounds are heard. No organomegaly noted. EXTREMITIES: 2+ peripheral pulses with no evidence of peripheral edema and no calf tenderness noted. Right wrist clean and dry, good distal pulse. NEUROLOGIC patient is awake, alert and oriented 3 . - Labs CBC & Chem 7: 05/28/18 06:12 05/28/18 06:12 Labs: Abnormal Lab Results - Last 24 Hours (Table) 05/28/18 Range/Units 06:12 Plt Count 143 L (150-450) k/uL Assessment and Plan Plan: Assessment and plan #1 symptoms of chest tightness with associated left arm discomfort and diaphoresis, suggestive of possible acute coronary syndrome. Troponins 0.017, 0.030, 0.040, 0.036. #2 accelerated hypertension #3 hypertriglyceridemia #4 EtOH abuse Plan Echocardiogram with Doppler study was performed which revealed a normal left ventricular systolic function, patient underwent angioplasty and stenting of the RCA. From cardiology's perspective, patient may be able to be discharged home today. We will make him a follow-up appointment to see Dr. Schwarz in the office in one week. Patient will be discharged home on aspirin 81 mg daily, Lipitor 80 mg daily, metoprolol 25 mg one tablet by mouth twice a day, Effient 10 mg daily, sublingual nitroglycerin as needed for chest pain. DNP note has been reviewed, I agree with a documented findings and plan of care. Patient was seen and examined.
[2018-05-28 15:45] VITALS: BP 120/70; PULSE 70
--- NOTE | 2018-05-29 08:44 | DS ---
DISCHARGE SUMMARY DATE OF ADMISSION: 05/25/2018 DATE OF DISCHARGE: 05/28/2018 FINAL DIAGNOSES: 1. Acute non-Q-wave myocardial infarction in the inferior wall. 2. Essential hypertension. 3. Hyperlipidemia. 4. Alcoholic hepatitis. 5. Chronic alcoholism. PROCEDURE: Cardiac catheterization with stent and angioplasty to the RCA. HOSPITAL COURSE: This patient presented with acute NH, had a stent to the RCA as above. A 2D echocardiogram with an EF of 55%-60%. Patient is going through a divorce and has been drinking quite a bit of alcohol. AST is 105, ALT is 125. Patient is counseled against the same. Patient's triglycerides came back at 692. PHYSICAL EXAMINATION: Temperature 98.9, pulse 90, respiration 16, blood pressure 120/70, pulse ox 98% on room air. LABS: Hemoglobin 16.2, BUN 17, creatinine 1.11. Patient is symptomatic at the time of discharge, ambulatory. DISCHARGE MEDICATIONS: 1. Lopressor 25 mg b.i.d. 2. Z-Ethan 1 tablet p.o. daily. 3. Low-fibra 54 mg p.o. daily. 4. Magnesium 500 mg p.o. daily. 5. Prilosec 40 mg p.o. daily. 6. Potassium 99 mEq p.o. daily. 7. Lipitor 80 mg p.o. daily. 8. Nitrostat 0.4 sublingual q.5 p.r.n. 9. Effient 10 mg p.o. daily. FOLLOWUP: Follow up with Dr. Lee on 06/09/2018. Follow up with Dr. Erwin in 1 week. MMARAMISL / IJN: [id number] /
== END 2018-05-28 17:30 | disposition home or self-care (01) | DRG 247 ==
LOC: EC 15:49 → 1SOBS 20:12 → 3SCARD 05-26 00:09 → OBSVTOIN 05-27 13:54
PROVIDERS: ADMIT Hospitalist; ATTEND Hospitalist
PROC: B2111ZZ Fluoroscopy of Multiple Coronary Arteries using Low Osmolar Contrast (ICD-10-PCS; 2018-05-27)
PROC: 027035Z Dilation of Coronary Artery, One Artery with Two Drug-eluting Intraluminal Devices, Percutaneous Approach (ICD-10-PCS; principal; 2018-05-27 11:32)
PROC: 4A023N7 Measurement of Cardiac Sampling and Pressure, Left Heart, Percutaneous Approach (ICD-10-PCS; 2018-05-27 11:32)
DX: I21.4 Non-ST elevation (NSTEMI) myocardial infarction (principal); K70.10 Alcoholic hepatitis without ascites; E78.00 Pure hypercholesterolemia, unspecified; E78.1 Pure hyperglyceridemia; E78.5 Hyperlipidemia, unspecified; F10.20 Alcohol dependence, uncomplicated; I10 Essential (primary) hypertension; I25.10 Atherosclerotic heart disease of native coronary artery without angina pectoris; K21.9 Gastro-esophageal reflux disease without esophagitis; Z79.899 Other long term (current) drug therapy; Z87.891 Personal history of nicotine dependence; Z88.6 Allergy status to analgesic agent; Z88.1 Allergy status to other antibiotic agents; Z91.018 Allergy to other foods; Z86.14 Personal history of Methicillin resistant Staphylococcus aureus infection; Z98.1 Arthrodesis status
CPT/HCPCS: 36415; 71046; 71275; 80048; 80053; 80061; 82550; 82553; 82565; 83690; 83735; 84484; 85025; 85049; 85379; 85610; 85730; 93005; 93306; 93458; 96361; 96365; 96375; 96376; 99291; C1874

== ENCOUNTER → 2018-06-09 | Outpatient (CLI) | payer MEDICARE, OTHER ==
[2018-06-09 19:36] LABS: Calcium 9.7 mg/dL (8.7-10.3); Potassium 4.1 mmol/L (3.5-5.5)
== END | disposition home or self-care (01) ==
LOC: LABWHC1 12:23
PROVIDERS: ATTEND Nurse Practitioner Adult Health
DX: E78.5 Hyperlipidemia, unspecified (principal); I10 Essential (primary) hypertension
CPT/HCPCS: 36415; 80048; 80061

== ENCOUNTER 2018-08-26 16:13 | Emergency (ER) | payer MEDICARE, OTHER ==
[2018-08-26] MEDS ORDERED: SODIUM CHLORIDE 0.9% 1,000 ML IV STA (16:41)
[2018-08-26] MEDS ORDERED: LORazepam 2 MG/ML INJ IV STA (16:42)
--- NOTE | 2018-08-26 16:51 | ED ---
General Adult HPI - General Chief complaint: Neuro Symptoms/Deficit Stated complaint: Tingling on face, hands Time Seen by Provider: 08/26/18 16:38 Source: patient, RN notes reviewed Mode of arrival: ambulatory Limitations: no limitations - History of Present Illness Initial comments: Patient is a pleasant 48-year-old male presenting to the emergency department with concern for paresthesias. Onset of symptoms was today. Symptoms have been mostly persistent. Patient complains of tingling in both sides of his face and hands and arms. Patient states this is not really affect his legs. Patient states he feels somewhat weak in general, no isolated area of weakness. No visual change. No confusion. No history of similar symptoms previously. No speech problems. - Related Data Home Medications Medication Instructions Recorded Confirmed Fenofibrate [Lofibra] 54 mg PO DAILY 05/25/18 08/26/18 Magnesium Gluconate [Magonate] 500 mg PO DAILY 05/25/18 08/26/18 Omeprazole [PriLOSEC] 40 mg PO DAILY 05/25/18 08/26/18 Potassium 99 mg PO DAILY 05/25/18 08/26/18 Previous Rx's Medication Instructions Recorded Metoprolol Tartrate [Lopressor] 25 mg PO BID #60 tab 10/08/17 Atorvastatin [Lipitor] 80 mg PO DAILY #30 tab 05/28/18 Nitroglycerin Sl Tabs [Nitrostat] 0.4 mg SUBLINGUAL Q5M PRN #25 tab 05/28/18 Prasugrel [Effient] 10 mg PO DAILY #30 tab 05/28/18 Allergies Allergy/AdvReac Type Severity Reaction Status Date / Time ciprofloxacin [From Cipro] Allergy Rash/Hives Verified 08/26/18 16:38 ciprofloxacin HCl Allergy Rash/Hives Verified 08/26/18 16:38 [From Cipro] coconut Allergy Unknown Verified 08/26/18 16:38 ibuprofen [From Motrin] Allergy Itching Verified 08/26/18 16:38 kiwi Allergy Unknown Verified 08/26/18 16:38 metoclopramide [From Reglan] AdvReac Nausea & Verified 08/26/18 16:38 Vomiting Review of Systems ROS Statement: Those systems with pertinent positive or pertinent negative responses have been documented in the HPI. ROS Other: All systems not noted in ROS Statement are negative. Constitutional: Denies: fever Eyes: Denies: eye pain ENT: Denies: ear pain Respiratory: Denies: cough Cardiovascular: Denies: chest pain Endocrine: Denies: fatigue Gastrointestinal: Denies: abdominal pain Genitourinary: Denies: dysuria Musculoskeletal: Denies: back pain Skin: Denies: rash Neurological: Reports: paresthesias. Denies: headache, confusion Past Medical History Past Medical History: Coronary Artery Disease (CAD), GERD/Reflux, Hypertension Additional Past Medical History / Comment(s): back pain. Patient relates that from his work and his prior sports he has developed significant difficulties with his knees. The left knee required reconstruction type surgeries he did develop a compartment syndrome to the left calf that required incision and drainage. The right leg below knee was injured with a circular saw the required extensive surgical repair years ago. History of Any Multi-Drug Resistant Organisms: MRSA Date of last positivie culture/infection: 08/26/17 MDRO Source:: lt hand 1st and 5th finger Past Surgical History: Heart Catheterization With Stent Additional Past Surgical History / Comment(s): back surg lumbar fusion, muliple lt knee surgeries(torn meniscus, torn mcl, ended up with compartmental syndrome need i&d lt calf , lateral release knee cap, lt hand-trigger finger sx(ended up 2nd sx r/t mrsa ) Past Anesthesia/Blood Transfusion Reactions: No Reported Reaction Past Psychological History: No Psychological Hx Reported Smoking Status: Former smoker Past Alcohol Use History: Daily Past Drug Use History: None Reported - Past Family History Father Family Medical History: No Reported History Mother Family Medical History: No Reported History Additional Family Medical History / Comment(s): pt was adopted- no hx known General Exam Limitations: no limitations General appearance: alert, in no apparent distress Head exam: Present: atraumatic Eye exam: Present: normal appearance, PERRL, EOMI. Absent: nystagmus ENT exam: Present: normal oropharynx Neck exam: Present: normal inspection Respiratory exam: Present: normal lung sounds bilaterally Cardiovascular Exam: Present: regular rate, normal rhythm GI/Abdominal exam: Present: soft. Absent: tenderness Extremities exam: Present: normal inspection. Absent: pedal edema, calf tenderness Neurological exam: Present: alert, oriented X3, CN II-XII intact. Absent: motor sensory deficit Expanded Neurological exam: Present: protecting the airway Patient oriented to: Present: person, place, time Speech: Present: fluid speech Cranial nerves: EOM's Intact: Normal, Facial Sensation: Normal Cerebellar function: Finger to Nose: Normal Sensory exam: Upper Extremity Light Touch: Normal, Lower Extremity Light Touch: Normal Motor strength exam: RUE: 5, LUE: 5, RLE: 5, LLE: 5 Eye Response: (4) open spontaneously Motor Response: (6) obeys commands Verbal Response: (5) oriented Psychiatric exam: Present: normal affect, normal mood Skin exam: Present: normal color Course Vital Signs 08/26/18 08/26/18 08/26/18 16:16 17:02 18:00 Temperature 98.2 F Pulse Rate 84 75 75 Respiratory 18 16 18 Rate Blood Pressure 176/97 116/88 132/86 O2 Sat by Pulse 99 97 97 Oximetry 08/26/18 21:46 Temperature Pulse Rate 88 Respiratory 18 Rate Blood Pressure 111/74 O2 Sat by Pulse 98 Oximetry EKG Findings - EKG Comments: EKG Findings:: Normal sinus rhythm at 80. ID 128. QRS 104. QT 402. QTC 463. Right axis. Incomplete right bundle-branch block. Septal Q waves. No acute ST change. Medical Decision Making - Medical Decision Making Patient reevaluated and updated. Magnesium level rechecked and improved. Patient does admit to drinking alcohol. Patient states she does normally take magnesium once a day and is advised to take it twice a day for the next 5 days. - Lab Data Result diagrams: 08/26/18 16:48 08/26/18 16:48 Lab Results 08/26/18 08/26/18 08/26/18 Range/Units 16:48 16:48 16:48 WBC 9.0 (3.8-10.6) k/uL RBC 5.16 (4.30-5.90) m/uL Hgb 16.2 (13.0-17.5) gm/dL Hct 45.4 (39.0-53.0) % MCV 87.9 (80.0-100.0) fL MCH 31.4 (25.0-35.0) pg MCHC 35.7 (31.0-37.0) g/dL RDW 13.0 (11.5-15.5) % Plt Count 156 (150-450) k/uL Neutrophils % 56 % Lymphocytes % 33 % Monocytes % 6 % Eosinophils % 2 % Basophils % 1 % Neutrophils # 5.1 (1.3-7.7) k/uL Lymphocytes # 3.0 (1.0-4.8) k/uL Monocytes # 0.6 (0-1.0) k/uL Eosinophils # 0.2 (0-0.7) k/uL Basophils # 0.1 (0-0.2) k/uL Sodium 139 (137-145) mmol/L Potassium 3.8 (3.5-5.1) mmol/L Chloride 102 (98-107) mmol/L Carbon Dioxide 27 (22-30) mmol/L Anion Gap 10 mmol/L BUN 17 (9-20) mg/dL Creatinine 0.98 (0.66-1.25) mg/dL Est GFR (CKD-EPI)AfAm >90 (>60 ml/min/1.73 sqM) Est GFR (CKD-EPI)NonAf >90 (>60 ml/min/1.73 sqM) Glucose 119 H (74-99) mg/dL Calcium 8.9 (8.4-10.2) mg/dL Magnesium 0.9 L* (1.6-2.3) mg/dL Total Bilirubin 0.7 (0.2-1.3) mg/dL AST 30 (17-59) U/L ALT 43 (21-72) U/L Alkaline Phosphatase 68 (38-126) U/L Total Protein 6.5 (6.3-8.2) g/dL Albumin 3.8 (3.5-5.0) g/dL Urine Color Yellow Urine Appearance Clear (Clear) Urine pH 5.5 (5.0-8.0) Ur Specific [place] 1.014 (1.001-1.035) Urine Protein Negative (Negative) Urine Glucose (UA) Negative (Negative) Urine Ketones Negative (Negative) Urine Blood Negative (Negative) Urine Nitrite Negative (Negative) Urine Bilirubin Negative (Negative) Urine Urobilinogen <2.0 (<2.0) mg/dL Ur Leukocyte Esterase Negative (Negative) Urine Opiates Screen Not Detected (NotDetected) Ur Oxycodone Screen Not Detected (NotDetected) Urine Methadone Screen Not Detected (NotDetected) Ur Propoxyphene Screen Not Detected (NotDetected) Ur Barbiturates Screen Not Detected (NotDetected) U Tricyclic Antidepress Not Detected (NotDetected) Ur Phencyclidine Scrn Not Detected (NotDetected) Ur Amphetamines Screen Not Detected (NotDetected) U Methamphetamines Scrn Not Detected (NotDetected) U Benzodiazepines Scrn Not Detected (NotDetected) Urine Cocaine Screen Not Detected (NotDetected) U Marijuana (THC) Screen Not Detected (NotDetected) 08/26/18 Range/Units 22:05 WBC (3.8-10.6) k/uL RBC (4.30-5.90) m/uL Hgb (13.0-17.5) gm/dL Hct (39.0-53.0) % MCV (80.0-100.0) fL MCH (25.0-35.0) pg MCHC (31.0-37.0) g/dL RDW (11.5-15.5) % Plt Count (150-450) k/uL Neutrophils % % Lymphocytes % % Monocytes % % Eosinophils % % Basophils % % Neutrophils # (1.3-7.7) k/uL Lymphocytes # (1.0-4.8) k/uL Monocytes # (0-1.0) k/uL Eosinophils # (0-0.7) k/uL Basophils # (0-0.2) k/uL Sodium (137-145) mmol/L Potassium (3.5-5.1) mmol/L Chloride (98-107) mmol/L Carbon Dioxide (22-30) mmol/L Anion Gap mmol/L BUN (9-20) mg/dL Creatinine (0.66-1.25) mg/dL Est GFR (CKD-EPI)AfAm (>60 ml/min/1.73 sqM) Est GFR (CKD-EPI)NonAf (>60 ml/min/1.73 sqM) Glucose (74-99) mg/dL Calcium (8.4-10.2) mg/dL Magnesium 1.7 (1.6-2.3) mg/dL Total Bilirubin (0.2-1.3) mg/dL AST (17-59) U/L ALT (21-72) U/L Alkaline Phosphatase (38-126) U/L Total Protein (6.3-8.2) g/dL Albumin (3.5-5.0) g/dL Urine Color Urine Appearance (Clear) Urine pH (5.0-8.0) Ur Specific [place] (1.001-1.035) Urine Protein (Negative) Urine Glucose (UA) (Negative) Urine Ketones (Negative) Urine Blood (Negative) Urine Nitrite (Negative) Urine Bilirubin (Negative) Urine Urobilinogen (<2.0) mg/dL Ur Leukocyte Esterase (Negative) Urine Opiates Screen (NotDetected) Ur Oxycodone Screen (NotDetected) Urine Methadone Screen (NotDetected) Ur Propoxyphene Screen (NotDetected) Ur Barbiturates Screen (NotDetected) U Tricyclic Antidepress (NotDetected) Ur Phencyclidine Scrn (NotDetected) Ur Amphetamines Screen (NotDetected) U Methamphetamines Scrn (NotDetected) U Benzodiazepines Scrn (NotDetected) Urine Cocaine Screen (NotDetected) U Marijuana (THC) Screen (NotDetected) Disposition Clinical Impression: Hypomagnesemia, Paresthesia Disposition: HOME SELF-CARE Condition: Stable Instructions (If sedation given, give patient instructions): Hypomagnesemia (ED ), Paresthesia (ED) Additional Instructions: Please take your magnesium twice daily for the next 5 days. Patient have your magnesium level be drawn within the next week by her primary care physician. Return for weakness, increased tingling, abnormal muscle movements, heart rhythm changes, worsening symptoms or other concerns. Is patient prescribed a controlled substance at d/c from ED?: No Referrals: Fahad Serrano MD [STAFF PHYSICIAN] - 1-2 days Izzy Barron DO [REFERRING] - 1-2 days Time of Disposition: 23:22
[2018-08-26 17:43] LABS: Basophils # (A) 0.1 k/uL (0-0.2); Basophils % (A) 1 %; Eosinophils # (A) 0.2 k/uL (0-0.7); Eosinophils % (A) 2 %; HCT 45.4 % (39.0-53.0); HGB 16.2 gm/dL (13.0-17.5); Lymphocytes % (A) 33 %; MCH 31.4 pg (25.0-35.0); MCHC 35.7 g/dL (31.0-37.0); MCV 87.9 fL (80.0-100.0); Mean Platelet Volume 7.7; Monocytes # (A) 0.6 k/uL (0-1.0); Monocytes % (A) 6 %; Neutrophils # (A) 5.1 k/uL (1.3-7.7); Neutrophils % (A) 56 %; Platelet Count 156 k/uL (150-450); RBC 5.16 m/uL (4.30-5.90)
[2018-08-26 17:46] LABS: Appearance,Urine Clear (Clear); Bilirubin,Urine Negative (Negative); Blood,Urine Negative (Negative); Color,Urine Yellow; Glucose,Urine (UA) Negative (Negative); Ketones,Urine Negative (Negative); Leukocyte Esterase,Urine Negative (Negative); Nitrite,Urine Negative (Negative); PH, Urine 5.5 (5.0-8.0); Protein,Urine Negative (Negative); Specific Gravity,Urine 1.014 (1.001-1.035); Urobilinogen,Urine <2.0 mg/dL (<2.0)
[2018-08-26 17:52] LABS: ALT 43 U/L (21-72); AST 30 U/L (17-59); Albumin 3.8 g/dL (3.5-5.0); Alkaline Phosphatase 68 U/L (38-126); Anion Gap 10 mmol/L; Blood Urea Nitrogen 17 mg/dL (9-20); Calcium 8.9 mg/dL (8.4-10.2); Carbon Dioxide 27 mmol/L (22-30); Chloride 102 mmol/L (98-107); Glucose 119 mg/dL (74-99); Potassium 3.8 mmol/L (3.5-5.1); Sodium 139 mmol/L (137-145); Total Bilirubin 0.7 mg/dL (0.2-1.3); Total Protein 6.5 g/dL (6.3-8.2)
[2018-08-26 18:01] LABS: Amphetamine Screen,Urine Not Detected (NotDetected); Barbiturate Screen,Urine Not Detected (NotDetected); Benzodiazepines Screen,Urine Not Detected (NotDetected); Cocaine Screen,Urine Not Detected (NotDetected); Methadone Screen, Urine Not Detected (NotDetected); Opiate Screen,Urine Not Detected (NotDetected); Oxycodone Screen, Urine Not Detected (NotDetected); Phencyclidine Screen,Urine Not Detected (NotDetected); Tricyclic Antidepressant,Urine Not Detected (NotDetected); Urn Cannabinoid Scrn Not Detected (NotDetected)
[2018-08-26 18:07] LABS: Magnesium 0.9 mg/dL (1.6-2.3)
[2018-08-26] MEDS ORDERED: MAGNESIUM SULFATE-D5W PMX 1 GM in DEXTROSE/WATER 1 100ML.BAG IVPB ONE ×2 (18:13→18:14)
[2018-08-26] MEDS ORDERED: MAGNESIUM OXIDE 400 MG TAB PO STA (18:13)
[2018-08-26 23:31] VITALS: BP 127/81; PULSE 80; RESP 19; TEMP 98.6
== END 2018-08-26 23:28 | disposition home or self-care (01) ==
LOC: EC 16:13
DX: E83.42 Hypomagnesemia (principal); R20.2 Paresthesia of skin; I25.10 Atherosclerotic heart disease of native coronary artery without angina pectoris; K21.9 Gastro-esophageal reflux disease without esophagitis; Z79.899 Other long term (current) drug therapy; Z88.1 Allergy status to other antibiotic agents; Z88.6 Allergy status to analgesic agent; Z88.8 Allergy status to other drugs, medicaments and biological substances; Z91.018 Allergy to other foods; Z87.891 Personal history of nicotine dependence; Z95.5 Presence of coronary angioplasty implant and graft; Z98.1 Arthrodesis status
CPT/HCPCS: 36415; 93005; 80053; 83735; 85025; 81003; 80306; 99284; 96365; 96366 ×2; 96375; 96361 ×3; J2060; J3475

== ENCOUNTER 2018-11-11 09:32 | Emergency (ER) | payer MEDICARE, OTHER ==
--- NOTE | 2018-11-11 10:06 | XR ---
Right knee HISTORY: Trauma and pain 3 views of the right knee Bone mineralization, joint spaces, alignment are maintained. Suprapatellar increased density suggests joint effusion. There is soft tissue swelling. IMPRESSION: No fracture or dislocation. Knee MRI may be of benefit.
--- NOTE | 2018-11-11 10:33 | ED ---
Lower Extremity Injury HPI - General Chief Complaint: Extremity Injury, Lower Stated Complaint: rt knee injury Time Seen by Provider: 11/11/18 09:39 Source: patient Mode of arrival: ambulatory Limitations: no limitations - History of Present Illness Initial Comments: 48-year-old male presenting today for chief complaint of right knee pain. Patient states he has had pain in the right knee for the past 2 weeks. He states it began after stepping in a hole that was in his yard. Patient denies injury to any other extremity or fall with head injury during that time. Patient denies numbness tingling loss sensation. He denies any significant swelling of the right knee. He states that he was evaluated by his orthopedic surgeon who performed surgery on the left knee shortly after the injury. X-rays obtained revealing no acute osseous injury. Patient states he was told to rest and he may have tore something. No further testing was performed at this time. Patient denies any erythema or warmth of the extremity denies fever chills or night sweats. Patient states he does have some tenderness of the posterior aspect along the medial and lateral sides. Patient denies any lower extremity edema. Remaining review of systems negative upon arrival patient appears well he is ambulatory. He can weight-bear - Related Data Home Medications Medication Instructions Recorded Confirmed Fenofibrate [Lofibra] 54 mg PO DAILY 05/25/18 11/11/18 Magnesium Gluconate [Magonate] 500 mg PO DAILY 05/25/18 11/11/18 Omeprazole [PriLOSEC] 40 mg PO DAILY 05/25/18 11/11/18 Potassium 99 mg PO DAILY 05/25/18 11/11/18 Previous Rx's Medication Instructions Recorded Metoprolol Tartrate [Lopressor] 25 mg PO BID #60 tab 10/08/17 Atorvastatin [Lipitor] 80 mg PO DAILY #30 tab 05/28/18 Nitroglycerin Sl Tabs [Nitrostat] 0.4 mg SUBLINGUAL Q5M PRN #25 tab 05/28/18 Prasugrel [Effient] 10 mg PO DAILY #30 tab 05/28/18 Allergies Allergy/AdvReac Type Severity Reaction Status Date / Time ciprofloxacin [From Cipro] Allergy Rash/Hives Verified 11/11/18 10:22 ciprofloxacin HCl Allergy Rash/Hives Verified 11/11/18 10:22 [From Cipro] coconut Allergy Unknown Verified 11/11/18 10:22 ibuprofen [From Motrin] Allergy Itching Verified 11/11/18 10:22 kiwi Allergy Unknown Verified 11/11/18 10:22 metoclopramide [From Reglan] AdvReac Nausea & Verified 11/11/18 10:22 Vomiting Review of Systems ROS Statement: Those systems with pertinent positive or pertinent negative responses have been documented in the HPI. ROS Other: All systems not noted in ROS Statement are negative. Past Medical History Past Medical History: Coronary Artery Disease (CAD), GERD/Reflux, Hypertension Additional Past Medical History / Comment(s): back pain. Patient relates that from his work and his prior sports he has developed significant difficulties with his knees. The left knee required reconstruction type surgeries he did develop a compartment syndrome to the left calf that required incision and drainage. The right leg below knee was injured with a circular saw the required extensive surgical repair years ago. History of Any Multi-Drug Resistant Organisms: MRSA Date of last positivie culture/infection: 08/26/17 MDRO Source:: lt hand 1st and 5th finger Past Surgical History: Heart Catheterization With Stent, Orthopedic Surgery Additional Past Surgical History / Comment(s): back surg lumbar fusion, muliple lt knee surgeries(torn meniscus, torn mcl, ended up with compartmental syndrome need i&d lt calf , lateral release knee cap, lt hand-trigger finger sx(ended up 2nd sx r/t mrsa ) Past Anesthesia/Blood Transfusion Reactions: No Reported Reaction Past Psychological History: No Psychological Hx Reported Smoking Status: Former smoker Past Alcohol Use History: Daily Past Drug Use History: None Reported - Past Family History Father Family Medical History: No Reported History Mother Family Medical History: No Reported History Additional Family Medical History / Comment(s): pt was adopted- no hx known General Exam - General Exam Comments Initial Comments: General: The patient is awake and alert, in no distress, and does not appear acutely ill. Eye: +3 mm pupils are equal, round and reactive to light, extra-ocular movements are intact. No nystagmus. There is normal conjunctiva bilaterally. No signs of icterus. Ears, nose, mouth and throat: There are moist mucous membranes and no oral lesions. Neck: The neck is supple, there is no tenderness or JVD. Cardiovascular: There is a regular rate and rhythm. No murmur, rub or gallop is appreciated. Respiratory: Lungs are clear to auscultation, respirations are non-labored, breath sounds are equal. No wheezes, stridor, rales, or rhonchi. Musculoskeletal: Upon inspection of the knees bilaterally there is very mild soft tissue swelling of the right. There is no erythema or warmth to palpation. Patient is able to flex and extend at the right knee. Both passive and actively. Patient does admit to discomfort of the posterior knee. Normal ROM, no tenderness at the ankle and hip of the right lower extremity equal comparison the left. Strength 5/5 of the LE including knees b/l. No noted knee joint laxity. Sensation intact in all proximal distal to injury site. DP pulses equal bilaterally 2+. (-) Homans b/l. Neurological: A&O x 3. CN II-XII intact, There are no obvious motor or sensory deficits. Coordination appears grossly intact. Speech is normal. Skin: Skin is warm and dry and no rashes or lesions are noted. Psychiatric: Cooperative, appropriate mood & affect, normal judgment. Limitations: no limitations Course Vital Signs 11/11/18 09:36 Temperature 98.2 F Pulse Rate 79 Respiratory 20 Rate Blood Pressure 155/102 O2 Sat by Pulse 97 Oximetry Medical Decision Making - Medical Decision Making 48-year-old male presents today for chief complaint of right knee pain. Patient states pain began after injury 2 weeks prior. Patient on examination has no signs concerning for septic arthritis there is no erythema or significant soft tissue swelling. Patient is able to range both passive and actively. There is no noted laxity. Patient has history of previous tendon injuries of the left leg. Patient does have tenderness to palpation of the posterior aspect knee. Ultrasound was obtained to rule out DVT. There is no right LE soft tissue swelling. She'll negative. At this time feel patient is stable for discharge with use of knee immobilizer and crutches which patient has at home, use of Tylenol for pain management. And follow-up with patient with [facility] for outpatient MRI. Patient is agreeable care plan as well as discharge. He states he will call his or thick surgeon when he leaves the emergency department today. I did discuss the case with a provider Dr. Tao was agreeable care plan and discharge today Disposition Clinical Impression: Right knee injury, Right knee pain Disposition: HOME SELF-CARE Condition: Good Instructions (If sedation given, give patient instructions): Knee Sprain (ED), Knee Pain (ED) Additional Instructions: Please use medication as discussed. Please follow-up with family doctor in the next 2 days please follow-up with their establish or take surgeon in the next week. Please use knee immobilizer and crutches as discussed. Please return to emergency room if the symptoms increase or worsen or for any other concerns, including fever redness or Sudafed swelling of the right knee. Is patient prescribed a controlled substance at d/c from ED?: No Referrals: None,Stated [Primary Care Provider] - 1-2 days Eagle Kinsey MD [STAFF PHYSICIAN] - 1-2 days Time of Disposition: 11:08
--- NOTE | 2018-11-11 11:05 | US ---
EXAMINATION TYPE: US venous doppler duplex LE RT DATE OF EXAM: 11/11/2018 10:50 AM COMPARISON: NONE CLINICAL HISTORY: Pain. Pain and swelling in right leg x 2 weeks. Patient on blood thinners. SIDE PERFORMED: Right TECHNIQUE: The lower extremity deep venous system is examined utilizing real time linear array sonog ramon with graded compression, doppler sonography and color-flow sonography. VESSELS IMAGED: External Iliac Vein (EIV) Common Femoral Vein Deep Femoral Vein Greater Saphenous Vein * Femoral Vein Popliteal Vein Small Saphenous Vein * Proximal Calf Veins (* superficial vessels) Grayscale, color doppler, spectral doppler imaging performed of the deep veins of the right lower ext remity. There is normal flow, compressibility, vascular waveforms. Right Leg: No evidence of DVT in the right lower extremity. IMPRESSION: No sonographic evidence of deep venous thrombosis within the right lower extremity.
[2018-11-11] MEDS ORDERED: Acetaminophen-Codeine 300-30mg TAB PO STA (11:09)
[2018-11-11 11:40] VITALS: BP 152/102; PULSE 83; RESP 18; TEMP 98
== END 2018-11-11 11:40 | disposition home or self-care (01) ==
LOC: EC 09:32
DX: S89.91XA Unspecified injury of right lower leg, initial encounter (principal); I25.10 Atherosclerotic heart disease of native coronary artery without angina pectoris; K21.9 Gastro-esophageal reflux disease without esophagitis; I10 Essential (primary) hypertension; Z87.891 Personal history of nicotine dependence; Z88.1 Allergy status to other antibiotic agents; Z88.6 Allergy status to analgesic agent; Z88.8 Allergy status to other drugs, medicaments and biological substances; Z91.018 Allergy to other foods; Z79.899 Other long term (current) drug therapy; Z86.14 Personal history of Methicillin resistant Staphylococcus aureus infection; Z95.5 Presence of coronary angioplasty implant and graft; Z98.890 Other specified postprocedural states; W18.42XA Slipping, tripping and stumbling without falling due to stepping into hole or opening, initial encounter; Y92.096 Garden or yard of other non-institutional residence as the place of occurrence of the external cause
CPT/HCPCS: 99284

== ENCOUNTER → 2020-10-13 | Outpatient (CLI) | payer MEDICARE, OTHER ==
[2020-10-13 19:56] LABS: Albumin 4.4 g/dL (3.80-4.90); Albumin/Globulin Ratio 1.91 (1.60-3.17); Anion Gap 7.4 mmol/L (4.00-12.00); Calcium 9.5 mg/dL (8.7-10.3); Carbon Dioxide 27.6 mmol/L (21.6-31.8); Chol/HDL Ratio 4.03; Globulin 2.3 g/dL (1.6-3.3); LDL Cholesterol,Calculated 68.8 mg/dL (0.0-131.0); Magnesium 1.8 mg/dL (1.5-2.4); Potassium 4.1 mmol/L (3.5-5.5); Total Bilirubin 0.7 mg/dL (0.2-1.2); Total Protein 6.7 g/dL (6.2-8.2); VLDL Calculation 46.2 mg/dL (5.00-40.00)
== END | disposition home or self-care (01) ==
LOC: LABWHC1 10:01
PROVIDERS: ATTEND Nurse Practitioner Adult Health
DX: I10 Essential (primary) hypertension (principal); E78.5 Hyperlipidemia, unspecified
CPT/HCPCS: 36415; 80053; 80061; 83735

== ENCOUNTER 2021-05-09 11:04 | Day surgery (SDC) | payer MEDICARE, OTHER ==
[2021-05-07 16:07] VITALS: BMI 32.1
[~2021-05-09 11:04] MED LIST: ALPRAZolam 0.25 MG TAB PO PRN; ALPRAZolam 0.5 MG TAB PO PRN; ATORVASTATIN 80 MG TAB PO ONE; NITROGLYCERIN SL TABS 0.4 MG TAB SUBLINGUAL PRN; SODIUM CHLORIDE 0.9% 1,000 ML in EMPTY BAG 1 BAG IV SCH
[2021-05-09] MEDS ORDERED: SODIUM CHLORIDE 0.9% 1,000 ML IV ONE (11:11)
[2021-05-09 11:28] VITALS: RESP 16; TEMP 98.3
[2021-05-09 11:47] LABS: Basophils # (A) 0.1 k/uL (0-0.2); Basophils % (A) 1 %; Eosinophils # (A) 0.1 k/uL (0-0.7); Eosinophils % (A) 2 %; HCT 53.6 % (39.0-53.0); HGB 18.9 gm/dL (13.0-17.5); Lymphocytes # (A) 2.1 k/uL (1.0-4.8); Lymphocytes % (A) 34 %; MCH 31.4 pg (25.0-35.0); MCHC 35.2 g/dL (31.0-37.0); MCV 89.4 fL (80.0-100.0); Mean Platelet Volume 8.2; Monocytes # (A) 0.4 k/uL (0-1.0); Monocytes % (A) 7 %; Neutrophils # (A) 3.2 k/uL (1.3-7.7); Neutrophils % (A) 52 %; Platelet Count 167 k/uL (150-450); RDW 12.9 % (11.5-15.5); WBC 6.1 k/uL (3.8-10.6)
[2021-05-09 11:58] LABS: African American GFR (CKD) >90 (>60 ml/min/1.73 sqM); Anion Gap 11 mmol/L; Blood Urea Nitrogen 16 mg/dL (9-20); Calcium 9.8 mg/dL (8.4-10.2); Carbon Dioxide 21 mmol/L (22-30); Chloride 105 mmol/L (98-107); Glucose 129 mg/dL (74-99); Non-African American GFR(CKD) >90 (>60 ml/min/1.73 sqM); Potassium 4.5 mmol/L (3.5-5.1); Sodium 137 mmol/L (137-145)
[2021-05-09] MEDS ORDERED: VERAPAMIL 2.5 MG/ML 2 ML AMP ONE (12:09)
[2021-05-09] MEDS ORDERED: LIDOCAINE 1% INJ 10MG/ML (20 ML MDV) ONE (12:09)
[2021-05-09] MEDS ORDERED: HEPARIN SODIUM 1,000 UN/ML (10ML VL) ONE (12:26)
[2021-05-09] MEDS ORDERED: fentaNYL (PF) 50 MCG/ML 2 ML AMP ONE (12:44)
[2021-05-09] MEDS ORDERED: MIDAZOLAM 2 MG/2 ML VIAL IV ONE ×2 (12:46→12:53)
[2021-05-09] MEDS ORDERED: fentaNYL (PF) 50 MCG/ML 2 ML AMP IV ONE (12:46)
[2021-05-09] MEDS: VERAPAMIL SYRINGE (5 MG/10 ML) INTRAARTER ONE ×2 (12:47→12:57)
[2021-05-09] MEDS ORDERED: LIDOCAINE 1% INJ 10MG/ML (20 ML MDV) SQ ONE (12:47)
[2021-05-09] MEDS ORDERED: HEPARIN SODIUM 1,000 UN/ML (10ML VL) IV ONE (12:53)
[2021-05-09] MEDS ORDERED: IOPAMIDOL-370 125ML BTL INJ ONE (12:57)
[2021-05-09] MEDS ORDERED: RX INFO: IV CONTRAST WAS GIVEN 1 EACH MISC MISCELLANE PRN (13:05)
[2021-05-09] MEDS ORDERED: SODIUM CHLORIDE 0.9% 1,000 ML IV SCH (13:15)
[2021-05-09 17:20] VITALS: PULSE 74
[2021-05-09 17:28] VITALS: BP 126/79
--- NOTE | 2021-05-09 18:22 | CC ---
CARDIAC CATHETERIZATION REPORT DATE OF SERVICE: 05/09/2021 PERFORMING PHYSICIAN: Lopez Lee M.D. PROCEDURES PERFORMED: 1. Selective right and left coronary angiogram. 2. Left heart catheterization. INDICATION: This is a very pleasant 51-year-old gentleman with coronary artery disease and prior stenting of the right coronary artery who was experiencing symptoms of chest discomfort. He underwent a myocardial perfusion imaging stress test and that came in to be abnormal. Because of that, a heart catheterization was advised. APPROACH: Right radial artery. COMPLICATIONS: None. LEVEL OF SEDATION: Moderate, with sedation length of 11 minutes. PROCEDURE DESCRIPTION: After obtaining informed consent, the patient was brought to the cardiac worm farm laborer. The right radial artery was cannulated using micropuncture technique. The micropuncture wire passed easily. Then I placed a 6-Welsh sheath at the right radial artery. I gave the patient 2 mg of verapamil IA and 6000 units of heparin IV. Selective right and left coronary angiogram was performed with JR4 and JL4 catheters. Left heart catheterization was performed using the JR4 catheter, which crossed the aortic valve. Then I did pull back across the valve. The procedure was completed without any complication. FINDINGS: The right coronary artery is a large-caliber vessel. It is a dominant vessel. The RCA is stented in the mid portion and the stent is patent. The RCA in the mid to distal portion has a lesion that appeared to be in the range of 30%. The left main is angiographically normal. It bifurcates into LCX and LAD. The LCX is a large-caliber vessel. It is a nondominant vessel. The LCX is angiographically normal and gives rise to first and second obtuse marginal branches. Both appeared to be angiographically normal. The LAD is a large-caliber vessel. The LAD is angiographically normal. The LAD proximally has a lesion in the range of 30%. It gives rise to a large diagonal branch which seems to be angiographically normal. CONCLUSION: 1. Patent stent in the mid right coronary artery. The distal RCA has a lesion that appeared to be in the range of 30% to 40%. 2. Normal left main coronary artery. 3. Normal left circumflex coronary system. 4. There is a 30% lesion involving the proximal left anterior descending artery. 5. Normal left-sided filling pressure. POSTPROCEDURE MANAGEMENT: Medical treatment, aggressive cholesterol control and followup with the patient. MMODL / IJN: [id number] /
== END 2021-05-09 17:12 | disposition home or self-care (01) ==
LOC: CATHCVL 11:04
PROVIDERS: ATTEND Internal Medicine Interventional Cardiology
DX: I25.110 Atherosclerotic heart disease of native coronary artery with unstable angina pectoris (principal); I10 Essential (primary) hypertension; E78.00 Pure hypercholesterolemia, unspecified; R94.39 Abnormal result of other cardiovascular function study; Z95.5 Presence of coronary angioplasty implant and graft; E78.5 Hyperlipidemia, unspecified; Z20.822 Contact with and (suspected) exposure to COVID-19; Z91.128 Patient's intentional underdosing of medication regimen for other reason; Z72.0 Tobacco use; Z79.82 Long term (current) use of aspirin; Z79.899 Other long term (current) drug therapy; Z88.6 Allergy status to analgesic agent; Z88.1 Allergy status to other antibiotic agents; Z88.8 Allergy status to other drugs, medicaments and biological substances
CPT/HCPCS: 93458; 80048; 85025; 87635; C1894; J2250; J2001; J3010; J1644; Q9967

== ENCOUNTER → 2022-04-03 | Outpatient (CLI) | payer MEDICARE ==
[2022-04-03 18:25] LABS: ALT 38 U/L (10-49); AST 33 U/L (14-35); LDL Cholesterol,Calculated 42.5 mg/dL (0.0-131.0)
== END | disposition home or self-care (01) ==
LOC: LABWHC1 10:47
PROVIDERS: ATTEND Internal Medicine Interventional Cardiology
DX: E78.00 Pure hypercholesterolemia, unspecified (principal)
CPT/HCPCS: 36415; 80061; 84450; 84460

== ENCOUNTER 2023-04-19 15:22 | Inpatient (IN) | payer MEDICARE, OTHER ==
--- NOTE | 2023-04-19 15:53 | ED ---
Chest Pain HPI - General Chief Complaint: Chest Pain Stated Complaint: Chest Pain,Nausea Time Seen by Provider: 04/19/23 15:50 Source: patient, RN notes reviewed, old records reviewed Mode of arrival: ambulatory Limitations: no limitations - History of Present Illness Initial Comments: This is a 53-year-old male DF for evaluation. Patient presents today for evaluation of chest pain. History of stent placement. Patient has to prior stents placed and comes DF for persistent chest pain. Patient does have again history of heart disease but last stent was about 5 years ago. Patient is no travel history no sick contacts no fever cough congestion or any other complaints MD Complaint: chest pain -: hour(s) Onset: during rest, during exertion Pain Location: substernal, left chest Pain Radiation: none Severity: moderate Severity scale (1-10): 4 Quality: tightness, heaviness Consistency: constant Improves With: nothing Worsens With: nothing Anginal Symptoms: nausea, sense of impending doom Other Symptoms: cough, palpitations - Related Data Home Medications Medication Instructions Recorded Confirmed amLODIPine [Norvasc] 5 mg PO DAILY 05/07/21 02/27/23 Omeprazole Magnesium [PriLOSEC OTC] 20 mg PO DAILY 02/27/23 02/27/23 Potassium Chloride ER [K-Dur 10] 10 meq PO DAILY PRN 02/27/23 02/27/23 Previous Rx's Medication Instructions Recorded Metoprolol Tartrate [Lopressor] 25 mg PO BID #60 tab 10/08/17 Atorvastatin [Lipitor] 80 mg PO DAILY #30 tab 05/28/18 Aspirin 81 mg PO DAILY tab 02/28/23 Allergies Allergy/AdvReac Type Severity Reaction Status Date / Time ciprofloxacin [From Cipro] Allergy Rash/Hives Verified 04/19/23 15:39 ciprofloxacin HCl Allergy Rash/Hives Verified 04/19/23 15:39 [From Cipro] coconut Allergy Unknown Verified 04/19/23 15:39 ibuprofen [From Motrin] Allergy Itching Verified 04/19/23 15:39 kiwi Allergy Unknown Verified 04/19/23 15:39 metoclopramide [From Reglan] AdvReac Nausea & Verified 04/19/23 15:39 Vomiting Review of Systems ROS Statement: Those systems with pertinent positive or pertinent negative responses have been documented in the HPI. ROS Other: All systems not noted in ROS Statement are negative. EKG Findings - EKG Comments: EKG Findings:: EKG is sinus 73 MI 135 QRS 111 QTC 390 Past Medical History Past Medical History: Coronary Artery Disease (CAD), GERD/Reflux, Hypertension Additional Past Medical History / Comment(s): back pain. 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 Date of last positivie culture/infection: 08/26/17 MDRO Source:: lt hand 1st and 5th finger Past Surgical History: Back Surgery, Heart Catheterization With Stent, Orthopedic Surgery Additional Past Surgical History / Comment(s): lumbar fusion, muliple lt knee surgeries-torn meniscus, torn mcl, ended up with compartment syndrome need i&d lt calf , lateral release knee cap, lt hand-trigger finger sx(ended up 2nd sx r/t mrsa ) Past Anesthesia/Blood Transfusion Reactions: No Reported Reaction Date of Last Stent Placement:: unk Past Psychological History: No Psychological Hx Reported Smoking Status: Former smoker Past Alcohol Use History: Occasional Past Drug Use History: None Reported - Past Family History Father Family Medical History: Unable to Obtain Mother Family Medical History: Unable to Obtain Additional Family Medical History / Comment(s): pt was adopted- no hx known General Exam Limitations: no limitations General appearance: alert, in no apparent distress Head exam: Present: atraumatic, normocephalic, normal inspection Eye exam: Present: normal appearance, PERRL, EOMI. Absent: scleral icterus, conjunctival injection, periorbital swelling ENT exam: Present: normal exam, mucous membranes moist Neck exam: Present: normal inspection. Absent: tenderness, meningismus, lymphadenopathy Respiratory exam: Present: normal lung sounds bilaterally. Absent: respiratory distress, wheezes, rales, rhonchi, stridor Cardiovascular Exam: Present: regular rate, normal rhythm, normal heart sounds. Absent: systolic murmur, diastolic murmur, rubs, gallop, clicks GI/Abdominal exam: Present: soft, normal bowel sounds. Absent: distended, tenderness, guarding, rebound, rigid Extremities exam: Present: normal inspection, full ROM, normal capillary refill. Absent: tenderness, pedal edema, joint swelling, calf tenderness Back exam: Present: normal inspection Neurological exam: Present: alert, oriented X3, CN II-XII intact Psychiatric exam: Present: normal affect, normal mood Skin exam: Present: warm, dry, intact, normal color. Absent: rash Course Vital Signs 04/19/23 04/19/23 04/19/23 15:37 15:39 17:09 Temperature 98 F Pulse Rate 88 70 70 Pulse Rate [ [place] ] Respiratory 18 20 20 Rate Blood Pressure 155/97 123/94 136/95 O2 Sat by Pulse 98 96 98 Oximetry 04/19/23 04/19/23 17:13 17:14 Temperature Pulse Rate Pulse Rate [ 80 [place] ] Respiratory 20 Rate Blood Pressure O2 Sat by Pulse Oximetry - Reevaluation(s) Reevaluation #1: 04/19/23 17:49 Medical record is reviewed Reevaluation #2: 04/19/23 17:50 Patient still with chest pain Reevaluation #3: 04/19/23 17:50 Patient informed of results questions answered Reevaluation #4: 04/19/23 15:55 Was pt. sent in by a medical professional or institution (, PA, MOLD CUTTING MACHINE OPERATOR, urgent care, hospital, or custodial...) When possible be specific @ -no Did you speak to anyone other than the patient for history (EMS, parent, family, police, friend...)? What history was obtained from this source @ -no Did you review nursing and triage notes (agree or disagree)? Why? @ -agree Are old charts reviewed (outside hosp., previous admission, EMS record, old EKG, old radiological studies, urgent care reports/EKG's, custodial records)? Report findings @ -yes Differential Diagnosis (chest pain, altered mental status, abdominal pain women, abdominal pain men, vaginal bleeding, weakness, fever, dyspnea, syncope, headache, dizziness, GI bleed, back pain, seizure, CVA, palpatations, mental health, musculoskeletal)? @ -prior EKG interpreted by me (3pts min.). @ -yes X-rays interpreted by me (1pt min.). @ -yes CT interpreted by me (1pt min.). @ -no U/S interpreted by me (1pt. min.). @ -no What testing was considered but not performed or refused? (CT, X-rays, U/S, labs)? Why? @ -none What meds were considered but not given or refused? Why? @ -none Did you discuss the management of the patient with other professionals (professionals i.e. , PA, MOLD CUTTING MACHINE OPERATOR, lab, RT, psych nurse, social service worker, exchange administrator, teacher, artillery officer, piano case maker)? Give summary @ -no Was smoking cessation discussed for >3mins.? @ -no Was critical care preformed (if so, how long)? @ -no Were there social determinants of health that impacted care today? How? (Homelessness, low income, unemployed, alcoholism, drug addiction, transportation, low edu. Level, literacy, decrease access to med. care, halfway, rehab)? @ -none Was there de-escalation of care discussed even if they declined (Discuss DNR or withdrawal of care, Hospice)? DNR status @ -no What co-morbidities impacted this encounter? (DM, HTN, Smoking, COPD, CAD, Cancer, CVA, ARF, Chemo, Hep., AIDS, mental health diagnosis, sleep apnea, morbid obesity)? @ -none Was patient admitted / discharged? Hospital course, mention meds given and route, prescriptions, significant lab abnormalities, going to OR and other pertinent info. @ - Undiagnosed new problem with uncertain prognosis? @ -no Drug Therapy requiring intensive monitoring for toxicity (Heparin, Nitro, Insulin, Cardizem)? @ -no Were any procedures done? @ -no Diagnosis/symptom? @ - Acute, or Chronic, or Acute on Chronic? @ -Acute Uncomplicated (without systemic symptoms) or Complicated (systemic symptoms)? @ -Complicated Side effects of treatment? @ -no Exacerbation, Progression, or Severe Exacerbation? @ -exacerbation Poses a threat to life or bodily function? How? (Chest pain, [place], DC, pneumonia, PE, COPD, DKA, ARF, appy, cholecystitis, CVA, Diverticulitis, Homicidal, Suicidal, threat to staff... and all critical care pts) @ -yes Reevaluation #5: 04/19/23 17:50 Differential Chest Pain: Stable Angina, Unstable Angina, STEMI, NSTEMI Aortic Dissection, Pneumothorax, Musculoskeletal, Esophageal Spasm GERD, Cholecystitis, Pancreatitis, Zoster, this is not meant to be an all-inclusive list. - Consultations Consultation #1: [place] with PMH were agrees to admit this patient Chest Pain MDM - MDM 53 male to the emergency department for evaluation chest pain. Patient be admitted for chest pain observation Critical Care Time Critical Care Time: Yes Total Critical Care Time: 31 Disposition Clinical Impression: Chest pain, Hypomagnesemia, Hypokalemia Disposition: ADMITTED IP TO THIS [facility] Condition: Undetermined Is patient prescribed a controlled substance at d/c from ED?: No Referrals: None,Stated [Primary Care Provider] - 1-2 days Time of Disposition: 17:45
[2023-04-19 16:54] LABS: Basophils % (A) 1 %; Eosinophils # (A) 0.2 k/uL (0-0.7); Eosinophils % (A) 2 %; HCT 51.9 % (39.0-53.0); HGB 18.1 gm/dL (13.0-17.5); Lymphocytes # (A) 2.5 k/uL (1.0-4.8); Lymphocytes % (A) 35 %; MCH 30.9 pg (25.0-35.0); MCHC 34.9 g/dL (31.0-37.0); MCV 88.7 fL (80.0-100.0); Mean Platelet Volume 8.8; Monocytes # (A) 0.4 k/uL (0-1.0); Monocytes % (A) 6 %; Neutrophils # (A) 3.9 k/uL (1.3-7.7); Neutrophils % (A) 54 %; Platelet Count 169 k/uL (150-450); RBC 5.85 m/uL (4.30-5.90); RDW 12.7 % (11.5-15.5); WBC 7.1 k/uL (3.8-10.6)
[2023-04-19 17:01] LABS: ALT 50 U/L (4-49); AST 49 U/L (17-59); African American GFR (CKD) >90 (>60 ml/min/1.73 sqM); Albumin 4.5 g/dL (3.5-5.0); Alkaline Phosphatase 68 U/L (38-126); Anion Gap 14 mmol/L; Blood Urea Nitrogen 15 mg/dL (9-20); Calcium 9.3 mg/dL (8.4-10.2); Carbon Dioxide 26 mmol/L (22-30); Chloride 99 mmol/L (98-107); Glucose 127 mg/dL (74-99); Lipase 150 U/L (23-300); Magnesium 1.2 mg/dL (1.6-2.3); Non-African American GFR(CKD) >90 (>60 ml/min/1.73 sqM); Potassium 3.8 mmol/L (3.5-5.1); Sodium 139 mmol/L (137-145); Total Bilirubin 1.4 mg/dL (0.2-1.3); Total Protein 7.8 g/dL (6.3-8.2)
[2023-04-19 17:02] LABS: Prothrombin Time 11.3 sec (10.0-12.5)
[2023-04-19 17:07] LABS: NT-Pro-B-Type Natriuretic Pept <20 pg/mL
--- NOTE | 2023-04-19 17:23 | XR ---
EXAMINATION TYPE: XR chest 2V DATE OF EXAM: 04/19/2023 COMPARISON: 02/27/2023 HISTORY: Chest pain TECHNIQUE: Frontal and lateral views of the chest are obtained. FINDINGS: There is no focal air space opacity, pleural effusion, or pneumothorax seen. The cardiac silhouette size is within normal limits. The osseous structures are intact. IMPRESSION: No acute cardiopulmonary process.
[2023-04-19] MEDS ORDERED: MAGNESIUM OXIDE 400 MG TAB PO STA (17:26)
[2023-04-19] MEDS ORDERED: MORPHINE SULFATE 4 MG/ML SYRINGE IV PRN (17:44)
[2023-04-19] MEDS ORDERED: NALOXONE 0.4 MG/ML 1 ML VIAL IV PRN (17:44)
[2023-04-19] MEDS ORDERED: ONDANSETRON 4 MG/2 ML VIAL IVP PRN (17:44)
[2023-04-19] MEDS ORDERED: HEPARIN SODIUM 1,000 UN/ML (10ML VL) IV ONE (17:45)
[2023-04-19] MEDS: MAGNESIUM SULFATE-D5W PMX 1 GM in DEXTROSE/WATER 1 100ML.BAG IVPB SCH ×2 (18:21→18:36)
[2023-04-19] MEDS: HEPARIN SOD,PORK IN 0.45% NACL 25,000 UNIT in 0.45% NACL 1 250ML.BAG IV SCH (18:27)
[2023-04-19] MEDS: SODIUM CHLORIDE 0.9% 1,000 ML IV SCH (18:33)
[2023-04-19] MEDS ORDERED: POTASSIUM CHLORIDE ER 10 MEQ TAB.ER.PRT PO PRN (21:58)
[2023-04-19] MEDS: METOPROLOL TARTRATE 25 MG TAB PO SCH (22:15)
[2023-04-20] MEDS: HEPARIN SODIUM 1,000 UN/ML (10ML VL) IV PRN ×2 (02:25→09:12)
[2023-04-20] MEDS: MAGNESIUM OXIDE 400 MG TAB PO SCH (08:44)
[2023-04-20] MEDS: ATORVASTATIN 80 MG TAB PO SCH (08:44)
[2023-04-20] MEDS: PANTOPRAZOLE 40 MG/10 ML VIAL IV SCH (08:44)
[2023-04-20] MEDS: amLODIPine 5 MG TAB PO SCH (08:44)
[2023-04-20] MEDS: ASPIRIN 81 MG PO SCH (08:44)
--- NOTE | 2023-04-20 08:44 | P.HPIM ---
History of Present Illness 53-year-old pleasant male with known history of coronary artery disease and stents in the past came in with complaints of crampy chest pain nonradiating associated lightheadedness and some diaphoresis denied any shortness of breath, orthopnea or paroxysmal dyspnea. Chest pain is nonpleuritic not associated with food. Chest pain is similar to the pain when he had myocardial infarction in the past. As per the patient his last stress test was 2 years ago. EKG showed some nonspecific ST-T wave changes in the anterior leads. Chest x-ray within normal limits. REVIEW OF SYSTEMS: CONSTITUTIONAL: No fever, no malaise, no fatigue. HEENT: No recent visual problems or hearing problems. Denied any sore throat. CARDIOVASCULAR: No chest pain, orthopnea, PND, no palpitations, no syncope. PULMONARY: No shortness of breath, no cough, no hemoptysis. GASTROINTESTINAL: No diarrhea, no nausea, no vomiting, no abdominal pain. NEUROLOGICAL: No headaches, no weakness, no numbness. HEMATOLOGICAL: Denies any bleeding or petechiae. GENITOURINARY: Denies any burning micturition, frequency, or urgency. MUSCULOSKELETAL/RHEUMATOLOGICAL: Denies any joint pain, swelling, or any muscle pain. ENDOCRINE: Denies any polyuria or polydipsia. The rest of the 14-point review of systems is negative. PHYSICAL EXAMINATION: GENERAL: The patient is alert and oriented x3, not in any acute distress. Well developed, well nourished. HEENT: Pupils are round and equally reacting to light. EOMI. No scleral icterus. No conjunctival pallor. Normocephalic, atraumatic. No pharyngeal erythema. No thyromegaly. CARDIOVASCULAR: S1 and S2 present. No murmurs, rubs, or gallops. PULMONARY: Chest is clear to auscultation, no wheezing or crackles. ABDOMEN: Soft, nontender, nondistended, normoactive bowel sounds. No palpable organomegaly. MUSCULOSKELETAL: No joint swelling or deformity. EXTREMITIES: No cyanosis, clubbing, or pedal edema. NEUROLOGICAL: Gross neurological examination did not reveal any focal deficits. SKIN: No rashes. Assessment and plan -Chest pain: Rule out acute coronary syndromes possibility of unstable angina, 2 sets of troponins are negative EKG changes as mentioned above. Cardiology evaluation inpatient versus outpatient stress us per cardiology. Patient is presently on IV heparin -Coronary artery disease -Hypomagnesemia magnesium was replaced the patient does drink alcohol but not on daily basis counseling was provided regarding this -Elevated hematocrit probably due to dehydration, patient was started on IV fluids -Hypertension: Controlled on amlodipine -Gases reflux disease Inpatient versus outpatient stress assessment cardiology cleared by cardiology patient will be discharged today Past Medical History Past Medical History: Coronary Artery Disease (CAD), Chest Pain / Angina, GERD/Reflux, Hypertension Additional Past Medical History / Comment(s): back pain. 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 surgery, colitis History of Any Multi-Drug Resistant Organisms: MRSA Date of last positivie culture/infection: 08/26/17 MDRO Source:: lt hand 1st and 5th finger Past Surgical History: Back Surgery, Heart Catheterization With Stent, Orthopedic Surgery Additional Past Surgical History / Comment(s): lumbar fusion, muliple lt knee surgeries-torn meniscus, torn mcl, ended up with compartment syndrome need i&d lt calf , lateral release knee cap, lt hand-trigger finger sx(ended up 2nd sx r/t mrsa ) Past Anesthesia/Blood Transfusion Reactions: No Reported Reaction Date of Last Stent Placement:: 05/31/2018 Past Psychological History: No Psychological Hx Reported Additional Psychological History / Comment(s): No tobacco smoker for more than 10 years. Does do some weight lifting but does not inject testosterone. Smoking Status: Former smoker Past Alcohol Use History: Occasional Additional Past Alcohol Use History / Comment(s): drinks a fifth of bourbon daily last drink 04/14/23 Past Drug Use History: None Reported Additional Drug Use History / Comment(s): as teen smoked marijuana none since - Past Family History Father Family Medical History: Unable to Obtain Mother Family Medical History: Unable to Obtain Additional Family Medical History / Comment(s): pt was adopted- no hx known Medications and Allergies Home Medications Medication Instructions Recorded Confirmed Type Metoprolol Tartrate [Lopressor] 25 mg PO BID #60 tab 10/08/17 04/19/23 Rx Atorvastatin [Lipitor] 80 mg PO DAILY #30 tab 05/28/18 04/19/23 Rx amLODIPine [Norvasc] 5 mg PO DAILY 05/07/21 04/19/23 History Omeprazole Magnesium [PriLOSEC OTC] 20 mg PO DAILY 02/27/23 04/19/23 History Potassium Chloride ER [K-Dur 10] 10 meq PO DAILY PRN 02/27/23 04/19/23 History Aspirin 81 mg PO DAILY tab 02/28/23 04/19/23 Rx Magnesium 400 mg PO DAILY 04/19/23 04/19/23 History Allergies Allergy/AdvReac Type Severity Reaction Status Date / Time ciprofloxacin [From Cipro] Allergy Rash/Hives Verified 04/19/23 15:39 ciprofloxacin HCl Allergy Rash/Hives Verified 04/19/23 15:39 [From Cipro] coconut Allergy Unknown Verified 04/19/23 15:39 ibuprofen [From Motrin] Allergy Itching Verified 04/19/23 15:39 kiwi Allergy Unknown Verified 04/19/23 15:39 metoclopramide [From Reglan] AdvReac Nausea & Verified 04/19/23 15:39 Vomiting Physical Exam Vitals: Vital Signs Temp Pulse Pulse Resp BP BP Pulse Ox 04/20/23 08:08 97.9 F 71 18 132/84 96 04/20/23 02:33 97.5 F L 73 18 122/84 96 04/19/23 20:49 97.5 F L 72 18 146/95 95 04/19/23 18:37 85 20 145/69 98 04/19/23 17:14 20 04/19/23 17:13 80 04/19/23 17:09 70 20 136/95 98 04/19/23 15:39 70 20 123/94 96 04/19/23 15:37 98 F 88 18 155/97 98 Intake and Output 04/19/23 04/20/23 04/20/23 22:59 06:59 14:59 Intake Total 79.666 Balance 79.666 Intake: Intake, IV Titration 79.666 Amount Heparin Sod,Pork in 0.45% 79.666 NaCl 25,000 unit In 0.45 % NaCl 1 250ml.bag @ 8.8 UNITS/KG/HR 9.979 mls/hr IV .Q24H PENDING SALE TO [facility] Rx#: [id number] Other: # Voids 1 2 Weight 113.398 kg Results CBC & Chem 7: 04/19/23 16:16 04/19/23 16:16 Labs: Abnormal Lab Results - Last 24 Hours (Table) 04/19/23 04/19/23 Range/Units 16:16 16:16 Hgb 18.1 H (13.0-17.5) gm/dL Glucose 127 H (74-99) mg/dL Magnesium 1.2 L (1.6-2.3) mg/dL Total Bilirubin 1.4 H (0.2-1.3) mg/dL ALT 50 H (4-49) U/L Thrombosis Risk Factor Assmnt - Choose All That Apply Any of the Below Risk Factors Present?: Yes Each Factor Represents 1 point: Age 41-60 years, Obesity (BMI >25) Other Risk Factors: No Other congenital or acquired thrombophilia - If yes, enter type in comment: No Thrombosis Risk Factor Assessment Total Risk Factor Score: 2 Thrombosis Risk Factor Assessment Level: Low Risk
[2023-04-20] MEDS: METOPROLOL TARTRATE 25 MG TAB PO SCH ×2 (08:46→21:54)
[2023-04-20] MEDS ORDERED: NON FORMULARY DRUG (Omeprazole Magnesium [Prilosec Otc] 20 MG Tablet) PO SCH (09:00)
[2023-04-20] MEDS ORDERED: CAFFEINE CITRATE 60 MG/3 ML VIAL IV PRN (13:15)
[2023-04-20] MEDS ORDERED: SODIUM CHLORIDE 0.9% IV ONE (13:15)
[2023-04-20] MEDS ORDERED: AMINOPHYLLINE 500 MG/20 ML VIAL IV PRN (13:15)
[2023-04-20] MEDS ORDERED: DIPYRIDAMOLE IV ONE (13:15)
[2023-04-20 13:27] LABS: ALT 44 U/L (10-49); AST 41 U/L (14-35); Albumin 3.9 d/dL (3.8-4.9); Albumin/Globulin Ratio 1.56 Ratio (1.60-3.17); Alkaline Phosphatase 65 U/L (41-126); BUN/Creat Ratio 15.25 Ratio (12.00-20.00); Basophils # (A) 0.08 X 10*3/uL (0.00-0.10); Blood Urea Nitrogen 12.2 mg/dL (9.0-27.0); Calcium 8.5 mg/dL (8.7-10.3); Carbon Dioxide 24.2 mmol/L (21.6-31.8); Chloride 102 mmol/L (96-109); Eosinophils # (A) 0.23 X 10*3/uL (0.04-0.35); Eosinophils % (A) 2.9 %; Globulin 2.5 d/dL (1.6-3.3); Glucose 106 mg/dL (70-110); HCT 46.6 % (39.6-50.0); HGB 16.4 d/dL (13.0-17.0); Lymphocytes # (A) 3.78 X 10*3/uL (0.90-5.00); Lymphocytes % (A) 47.9 %; MCH 30.5 pg (27.0-32.0); MCHC 35.2 d/dL (32.0-37.0); MCV 86.8 FL (80.0-97.0); Magnesium 2.1 mg/dL (1.5-2.4); Mean Platelet Volume 11.5 FL (9.5-12.2); Monocytes # (A) 0.66 X 10*3/uL (0.20-1.00); Monocytes % (A) 8.4 %; NRBC Per 100 WBC 0 X 10*3/uL (0.00-0.01); Neutrophils % (A) 39.3 %; Phosphorus 3.9 mg/dL (2.4-5.1); Platelet Count 175 X 10*3/uL (140-440); Potassium 3.5 mmol/L (3.5-5.5); RBC 5.37 X 10*6/uL (4.40-5.60); RDW 12.4 % (11.5-14.5); Sodium 139 mmol/L (135-145); Total Bilirubin 0.6 mg/dL (0.3-1.2); Total Protein 6.4 d/dL (6.2-8.2); WBC 7.89 X 10*3/uL (4.50-10.00)
[2023-04-20] MEDS: HEPARIN SOD,PORK IN 0.45% NACL 25,000 UNIT in 0.45% NACL 1 250ML.BAG IV SCH (13:32)
[2023-04-20] MEDS: ISOSORBIDE MONONITRATE ER 15 MG TAB PO SCH (14:08)
[2023-04-20] MEDS: MAGNESIUM SULFATE-D5W PMX 1 GM in DEXTROSE/WATER 1 100ML.BAG IVPB SCH ×2 (14:09→14:13)
--- NOTE | 2023-04-20 15:32 | P.CRDCN ---
History of Present Illness Consult date: 04/20/23 History of present illness: HISTORY OF PRESENTING ILLNESS 53-year-old with prior history of CAD status post PCI in 2018 with a repeat cardiac cath in 2020 showing patent stent and 30% residual disease and other coronary arteries. He is known to Dr. Lee. This time he presented to the hospital with substernal chest pain or chest pressure along with diaphoresis and lightheadedness. His chest pain but better with sublingual nitro percent. His ECG showed sinus rhythm with no significant ST-T wave changes. Chest x-ray was normal without any acute cardiopulmonary process History of pulmonary 3 have been negative, hemoglobin 18, creatinine 0.8 REVIEW OF SYSTEMS 14 point review of system is negative except what is mentioned above in HPI. PHYSICAL EXAMINATION Vital signs reviewed. Head: Normocephalic. Eyes: Sclerae nonicteric. Neck: Brisk carotid upstroke, no jugular venous distention. Lungs: Clear to auscultation. Heart: Regular rate and rhythm, S1-S2, no S3, no murmur or rub. Abdomen: Soft nontender, positive bowel sounds no organomegaly. Extremities: No edema, intact distal pulses. Neuro: Alert, oritented, no focal deficits ASSESSMENT Typical chest pain, Essential hypertension Dyslipidemia Polycythemia likely from smoking. We will need to further investigate PLAN Plan for treadmill nuclear stress test Discontinue IV heparin start Imdur 15mg daily Continue aspirin, atorvastatin, amlodipine 5, metoprolol 25 mg BID Past Medical History Past Medical History: Coronary Artery Disease (CAD), Chest Pain / Angina, GERD/Reflux, Hypertension Additional Past Medical History / Comment(s): back pain. 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 surgery, colitis History of Any Multi-Drug Resistant Organisms: MRSA Date of last positivie culture/infection: 08/26/17 MDRO Source:: lt hand 1st and 5th finger Past Surgical History: Back Surgery, Heart Catheterization With Stent, Orthopedic Surgery Additional Past Surgical History / Comment(s): lumbar fusion, muliple lt knee surgeries-torn meniscus, torn mcl, ended up with compartment syndrome need i&d lt calf , lateral release knee cap, lt hand-trigger finger sx(ended up 2nd sx r/t mrsa ) Past Anesthesia/Blood Transfusion Reactions: No Reported Reaction Date of Last Stent Placement:: 05/31/2018 Past Psychological History: No Psychological Hx Reported Additional Psychological History / Comment(s): No tobacco smoker for more than 10 years. Does do some weight lifting but does not inject testosterone. Smoking Status: Former smoker Past Alcohol Use History: Occasional Additional Past Alcohol Use History / Comment(s): drinks a fifth of bourbon daily last drink 04/14/23 Past Drug Use History: None Reported Additional Drug Use History / Comment(s): as teen smoked marijuana none since - Past Family History Father Family Medical History: Unable to Obtain Mother Family Medical History: Unable to Obtain Additional Family Medical History / Comment(s): pt was adopted- no hx known Medications and Allergies Home Medications Medication Instructions Recorded Confirmed Type Metoprolol Tartrate [Lopressor] 25 mg PO BID #60 tab 10/08/17 04/19/23 Rx Atorvastatin [Lipitor] 80 mg PO DAILY #30 tab 05/28/18 04/19/23 Rx amLODIPine [Norvasc] 5 mg PO DAILY 05/07/21 04/19/23 History Omeprazole Magnesium [PriLOSEC OTC] 20 mg PO DAILY 02/27/23 04/19/23 History Potassium Chloride ER [K-Dur 10] 10 meq PO DAILY PRN 02/27/23 04/19/23 History Aspirin 81 mg PO DAILY tab 02/28/23 04/19/23 Rx Magnesium 400 mg PO DAILY 04/19/23 04/19/23 History Allergies Allergy/AdvReac Type Severity Reaction Status Date / Time ciprofloxacin [From Cipro] Allergy Rash/Hives Verified 04/19/23 15:39 ciprofloxacin HCl Allergy Rash/Hives Verified 04/19/23 15:39 [From Cipro] coconut Allergy Unknown Verified 04/19/23 15:39 ibuprofen [From Motrin] Allergy Itching Verified 04/19/23 15:39 kiwi Allergy Unknown Verified 04/19/23 15:39 metoclopramide [From Reglan] AdvReac Nausea & Verified 04/19/23 15:39 Vomiting Physical Exam Vitals: Vital Signs Temp Pulse Pulse Pulse Resp BP BP 04/20/23 14:00 97.8 F 73 14 04/20/23 08:08 97.9 F 71 18 132/84 04/20/23 02:33 97.5 F L 73 18 122/84 04/19/23 20:49 97.5 F L 72 18 146/95 04/19/23 18:37 85 20 145/69 04/19/23 17:14 20 04/19/23 17:13 80 04/19/23 17:09 70 20 136/95 04/19/23 15:39 70 20 123/94 04/19/23 15:37 98 F 88 18 155/97 BP Pulse Ox 04/20/23 14:00 142/92 95 04/20/23 08:08 96 04/20/23 02:33 96 04/19/23 20:49 95 04/19/23 18:37 98 04/19/23 17:14 04/19/23 17:13 04/19/23 17:09 98 04/19/23 15:39 96 04/19/23 15:37 98 Intake and Output 04/20/23 04/20/23 04/20/23 06:59 14:59 22:59 Intake Total 79.666 392.061 Balance 79.666 392.061 Intake: Intake, IV Titration 79.666 152.061 Amount Heparin Sod,Pork in 0.45% 79.666 152.061 NaCl 25,000 unit In 0.45 % NaCl 1 250ml.bag @ 8.8 UNITS/KG/HR 9.979 mls/hr IV .Q24H [facility] Rx#: [id number] Oral 240 Other: # Voids 2 1 Results 04/20/23 06:20 04/20/23 06:20 Cardiac Enzymes 04/19/23 04/19/23 04/19/23 Range/Units 16:16 16:16 19:41 AST 49 (17-59) U/L Troponin I <0.012 <0.012 (0.000-0.034) ng/mL 04/19/23 04/20/23 Range/Units 23:35 06:20 AST 41 H (17-59) U/L Troponin I <0.012 (0.000-0.034) ng/mL Coagulation 04/19/23 04/19/23 04/20/23 Range/Units 16:16 23:35 08:13 PT 11.3 (10.0-12.5) sec APTT 24.0 29.6 40.4 H (22.0-30.0) sec CBC 04/19/23 04/20/23 Range/Units 16:16 06:20 WBC 7.1 7.89 (3.8-10.6) k/uL RBC 5.85 5.37 (4.30-5.90) m/uL Hgb 18.1 H 16.4 (13.0-17.5) gm/dL Hct 51.9 46.6 (39.0-53.0) % Plt Count 169 175 (150-450) k/uL Comprehensive Metabolic Panel 04/19/23 04/20/23 Range/Units 16:16 06:20 Sodium 139 139 (137-145) mmol/L Potassium 3.8 3.5 (3.5-5.1) mmol/L Chloride 99 102 (98-107) mmol/L Carbon Dioxide 26 24.2 (22-30) mmol/L BUN 15 12.2 (9-20) mg/dL Creatinine 0.87 0.8 (0.66-1.25) mg/dL Glucose 127 H 106 (74-99) mg/dL Calcium 9.3 8.5 L (8.4-10.2) mg/dL AST 49 41 H (17-59) U/L ALT 50 H 44 (4-49) U/L Alkaline Phosphatase 68 65 (38-126) U/L Total Protein 7.8 6.4 (6.3-8.2) g/dL Albumin 4.5 3.9 (3.5-5.0) g/dL Current Medications Generic Name Dose Route Start Last Admin Trade Name Freq PRN Reason Stop Dose Admin Amlodipine Besylate 5 mg 04/20/23 09:00 04/20/23 08:44 Amlodipine 5 Mg Tab PO 5 mg DAILY [facility] Administration Aspirin 81 mg 04/20/23 09:00 04/20/23 08:44 Aspirin 81 Mg PO 81 mg DAILY [facility] Administration Atorvastatin Calcium 80 mg 04/20/23 09:00 04/20/23 08:44 Atorvastatin 80 Mg Tab PO 80 mg DAILY [facility] Administration Sodium Chloride 1,000 mls @ 20 mls/hr 04/19/23 17:45 04/19/23 18:33 Saline 0.9% IV 20 mls/hr .Q24H [facility] Administration Isosorbide Mononitrate 15 mg 04/20/23 13:30 04/20/23 14:08 Isosorbide Mononitrate Er 15 Mg Tab PO 15 mg DAILY [facility] Administration Magnesium Oxide 400 mg 04/20/23 09:00 04/20/23 08:44 Magnesium Oxide 400 Mg Tab PO 400 mg DAILY [facility] Administration Metoprolol Tartrate 25 mg 04/19/23 22:00 04/20/23 08:46 Metoprolol Tartrate 25 Mg Tab PO 25 mg BID [facility] Administration Morphine Sulfate 4 mg 04/19/23 17:44 Morphine Sulfate 4 Mg/Ml Syringe IV Q4HR PRN Severe Pain (Scale 7 to 10) Naloxone HCl 0.2 mg 04/19/23 17:44 Naloxone 0.4 Mg/Ml 1 Ml Vial IV Q2M PRN Opioid Reversal Ondansetron HCl 4 mg 04/19/23 17:44 Ondansetron 4 Mg/2 Ml Vial IVP Q8HR PRN Nausea And Vomiting Pantoprazole Sodium 40 mg 04/20/23 09:00 04/20/23 08:44 Pantoprazole 40 Mg/10 Ml Vial IV 40 mg DAILY [facility] Administration Potassium Chloride 10 meq 04/19/23 21:58 Potassium Chloride Er 10 Meq Tab.Er.Prt PO DAILY PRN Muscle cramping Intake and Output 04/20/23 04/20/23 04/20/23 06:59 14:59 22:59 Intake Total 79.666 392.061 Balance 79.666 392.061 Intake: Intake, IV Titration 79.666 152.061 Amount Heparin Sod,Pork in 0.45% 79.666 152.061 NaCl 25,000 unit In 0.45 % NaCl 1 250ml.bag @ 8.8 UNITS/KG/HR 9.979 mls/hr IV .Q24H [facility] Rx#: [id number] Oral 240 Other: # Voids 2 1 04/20/23 06:20 04/20/23 06:20
[2023-04-20] MEDS: SODIUM CHLORIDE 0.9% 1,000 ML IV SCH (16:57)
[2023-04-20] MEDS ORDERED: traZODone HCL 50 MG TAB PO ONE (22:21)
[2023-04-20] MEDS ORDERED: ACETAMINOPHEN TAB 325 MG TAB PO PRN (22:22)
[2023-04-21] MEDS: PANTOPRAZOLE 40 MG/10 ML VIAL IV SCH (08:42)
[2023-04-21] MEDS: ATORVASTATIN 80 MG TAB PO SCH (08:42)
[2023-04-21] MEDS: ASPIRIN 81 MG PO SCH (08:42)
[2023-04-21] MEDS: MAGNESIUM OXIDE 400 MG TAB PO SCH (08:42)
[2023-04-21] MEDS: amLODIPine 5 MG TAB PO SCH (08:42)
--- NOTE | 2023-04-21 10:10 | P.PN ---
Subjective HISTORY OF PRESENT ILLNESS: 53-year-old with prior history of CAD status post PCI in 2018 with a repeat cardiac cath in 2020 showing patent stent and 30% residual disease and other coronary arteries. He is known to Dr. Lee. This time he presented to the hospital with substernal chest pain or chest pressure along with diaphoresis and lightheadedness. His chest pain but better with sublingual nitro percent. His ECG showed sinus rhythm with no significant ST-T wave changes. Chest x-ray was normal without any acute cardiopulmonary process History of pulmonary 3 have been negative, hemoglobin 18, creatinine 0.8 04/21/2023 Patient examined this morning at the bedside. Patient currently denies any chest pain or pressure. He does report having some mild arm discomfort yesterday but he states it is nothing compared to what he experienced on Friday. He denies any shortness of breath. Vital signs this morning are stable. PHYSICAL EXAM: VITAL SIGNS: Reviewed. GENERAL: Well-developed in no acute distress. NECK: Supple. No JVD or thyromegaly LUNGS: Respirations even and unlabored. Lungs essentially clear to auscultation bilaterally. HEART: Regular rate and rhythm. S1 and S2 heard. EXTREMITIES: Normal range of motion. No clubbing or cyanosis. Peripheral puls es intact. No lower extremity edema ASSESSMENT: Chest pain, troponins negative 3 Coronary artery disease with previous stenting, 2017 Hypertension Hyperlipidemia Polycythemia Nicotine dependence PLAN: Continue current cardiac medications Patient to undergo Cardiolite stress test today. Await results. If negative, patient may be discharged home from a cardiac standpoint Patient to follow-up post discharge with Dr. Lee Nurse practitioner note has been reviewed by physician. Signing provider agrees with the documented findings, assessment, and plan of care. Objective - Vital Signs Vital signs: Vital Signs Temp 97.8 F 04/21/23 01:29 Pulse 64 04/21/23 02:00 Resp 16 04/21/23 02:00 BP 111/73 04/21/23 01:29 Pulse Ox 96 04/21/23 01:29 FiO2 Intake & Output 04/20/23 04/21/23 04/21/23 18:59 06:59 18:59 Intake Total 632.061 Balance 632.061 Intake: Intake, IV Titration 152.061 Amount Heparin Sod,Pork in 0.45% 152.061 NaCl 25,000 unit In 0.45 % NaCl 1 250ml.bag @ 8.8 UNITS/KG/HR 9.979 mls/hr IV .Q24H [facility] Rx#: [id number] Oral 480 Other: # Voids 4 2 - Labs CBC & Chem 7: 04/20/23 06:20 04/20/23 06:20 Labs: Abnormal Lab Results - Last 24 Hours (Table) 04/20/23 04/20/23 Range/Units 06:20 08:13 APTT 40.4 H (22.0-30.0) sec Anion Gap 12.80 H (4.00-12.00) mmol/L Calcium 8.5 L (8.7-10.3) mg/dL AST 41 H (14-35) U/L Albumin/Globulin Ratio 1.56 L (1.60-3.17) Ratio
[2023-04-21] MEDS: ISOSORBIDE MONONITRATE ER 15 MG TAB PO SCH (11:42)
[2023-04-21] MEDS: METOPROLOL TARTRATE 25 MG TAB PO SCH ×2 (11:42→19:58)
--- NOTE | 2023-04-21 14:51 | CA ---
Exercise Stress Test Report Name: Ar Neri Exam Date: 04/21/2023 09:51 Exam Location: [place] Stress Ht (in): 71 Wt (lb): 250 BSA: 2.32 Ordering Phys: Milton Raza MD Referring Phys: Ry,, Technologist: Gustavo Silva Age: 53 Gender: M : 1970 Procedure CPT: Indications: Reflex order-Stress test ICD-10 Codes: Patient History: CP, NUMBNESS FACE/NECK, HTN, DM, CHOL, TOB (QUIT 19 YEARS AGO), RI, PTCA (2 STENTS) Medications: SEE CHART Meds past 24 hrs: Pretest Chest Pain: STRESS TEST Tramaine Protocol Exercise Duration (min:sec): 07:[address] Depressions (mm): Angina Score: Small Score: Resting HR (bpm): 71 Peak HR (bpm): 160 Resting BP (mmHg): 121 / 90 Peak BP (mmHg): 206 / 87 MPHR: 168 Target HR: 143 % MPHR: 95 METS: 10.3 Total Dose: Peak Dose: Atropine: Double Product: 06733 BP Response: Stress Termination: Reached target heart rate Stress Symptoms: No chest pain or symptoms Stress Summary: ECG ANALYSIS Resting ECG: Sinus rhythm, anteroseptal Q waves and poor R-wave progression consistent with old infarct, heart rate 70 bpm, no significant ST-T wave changes at rest Stress ECG: There were no significant ST-T wave changes diagnostic for ischemia by ST segment analysis on Lexiscan infusion. There were occasional monomorphic PVCs , no sustained arrhythmias CONCLUSIONS Nonischemic ECG response to Lexiscan infusion Please refer to the nuclear portion of the stress test for complete interpretation of the study Dr Milton Raza (Electronically Signed) Final Date: 21 April 2023 14:50
--- NOTE | 2023-04-21 15:41 | NM ---
EXAMINATION TYPE: NM stress cardiolite complete DATE OF EXAM: 04/21/2023 COMPARISON: NONE CLINICAL INDICATION: Male, 53 years old with history of chest pain; TECHNIQUE: After the intravenous administration of 10.2 mCi Tc 99m Sestamibi - Rest images obtained 90 minutes post injection. The patient exercised using a LELE protocol and 1 minute prior to peak exercise was injected with 26 mCi Tc 99m Sestamibi - Stress images obtained 45 minutes post injection . FINDINGS: Targeted heart rate was achieved during performance of the study. Review of stress and rest SPECT jerrod ges demonstrates focally reversible ischemia involving the inferior wall and cardiac apex. Fixed defe ct noted involving the lateral wall. Gated analysis shows normal wall motion with an estimated left v entricular ejection fraction of 47 %. IMPRESSION: Reversible ischemia noted to involve the inferior wall and cardiac apex.
[2023-04-21] MEDS ORDERED: ALPRAZolam 0.25 MG TAB PO PRN (16:17)
[2023-04-21] MEDS: SODIUM CHLORIDE 0.9% 1,000 ML in EMPTY BAG 1 BAG IV SCH ×17 (18:09→23:06)
[2023-04-21] MEDS: SODIUM CHLORIDE 0.9% 1,000 ML IV SCH (18:10)
--- NOTE | 2023-04-21 19:42 | P.PN ---
Subjective Progress Note Date: 04/21/23 53-year-old pleasant male with known history of coronary artery disease and stents in the past came in with complaints of crampy chest pain nonradiating associated lightheadedness and some diaphoresis denied any shortness of breath, orthopnea or paroxysmal dyspnea. Chest pain is nonpleuritic not associated with food. Chest pain is similar to the pain when he had myocardial infarction in the past. As per the patient his last stress test was 2 years ago. EKG showed some nonspecific ST-T wave changes in the anterior leads. Chest x-ray within normal limits. 04/21/2023 Patient seen and evaluated in follow-up today being followed by cardiology plan for stress test with echo today. Patient reports he just completed and awaiting final results. Patient denies chest pain at this time and does mention his symptoms that brought him to the emergency department felt the same as when he had his heart attack. Will await cardiology clearance for discharge. Patient is currently afebrile with no reported chest pain or shortness of breath. Patient reports to feeling hungry and denies any nausea or vomiting. Diet to resume after testing. Review of systems: Constitutional: No reports of fatigue, fever, or chills Cardiovascular: No reports of chest pain or palpitations Respiratory: No reports of shortness of breath or cough GI: No reports of nausea, vomiting, or diarrhea : No reports of dysuria or retention Neurovascular: No reports of weakness or numbness All medications have been reviewed PHYSICAL EXAMINATION: GENERAL: The patient is alert and oriented x3, not in any acute distress. Well developed, well nourished. Obese HEENT: Pupils are round and equally reacting to light. EOMI. No scleral icterus. No conjunctival pallor. Normocephalic, atraumatic. No pharyngeal erythema. No thyromegaly. CARDIOVASCULAR: S1 and S2 muffled PULMONARY: Chest is clear to auscultation, no wheezing or crackles. ABDOMEN: Soft, nontender, nondistended, normoactive bowel sounds. No palpable o rganomegaly. MUSCULOSKELETAL: No joint swelling or deformity. EXTREMITIES: No cyanosis, clubbing, or pedal edema. NEUROLOGICAL: Gross neurological examination did not reveal any focal deficits. SKIN: No rashes. Assessment: -Chest pain: Rule out acute coronary syndromes possibility of unstable angina, troponins have been negative and patient undergo stress testing today which is pending -Coronary artery disease -Hypomagnesemia -Elevated hematocrit probably due to dehydration -Hypertension -Gastroesophageal reflux disease -DVT prophylaxis -GI prophylaxis -Obesity with a BMI of 34.9 -Full code Plan: Patient is being closely monitored by cardiology scheduled to undergo a stress test which did show some reversible ischemia noted and cardiology recommending cardiac catheterization. Patient will be continued on telemetry monitoring and nothing by mouth at midnight and will await catheterization report Will follow-up with repeat labs in the a.m. Continue current medication regimen Will await Report and discussed discharge planning or possible need for intervention. Await cardiology clearance for discharge Possible discharge in 24 hours The impression and plan of care has been dictated by Virginia Alcantara, Nurse Practitioner as directed. Dr. Matt MD I have performed a history and examination and MDM of this patient, discussed the same with the dictator, and agree with the dictator's assessment and plan as written ,documented as a scribe. Based on total visit time, I have performed more than 50% of the visit. Objective - Vital Signs Vital signs: Vital Signs Temp 98 F 04/21/23 15:00 Pulse 86 04/21/23 15:00 Resp 18 04/21/23 15:00 BP 99/63 04/21/23 15:00 Pulse Ox 95 04/21/23 15:00 FiO2 Intake & Output 04/21/23 04/21/23 04/22/23 06:59 18:59 06:59 Other: # Voids 2 1 - Labs CBC & Chem 7: 04/20/23 06:20 04/20/23 06:20
[2023-04-21] MEDS: LORazepam 0.5 MG TAB PO PRN (20:41)
[2023-04-22 02:56] LABS: BUN/Creat Ratio 12.78 Ratio (12.00-20.00); Blood Urea Nitrogen 11.5 mg/dL (9.0-27.0); Calcium 9.8 mg/dL (8.7-10.3); Carbon Dioxide 25.7 mmol/L (21.6-31.8); Chloride 102 mmol/L (96-109); Glucose 141 mg/dL (70-110); Potassium 3.7 mmol/L (3.5-5.5); Sodium 141 mmol/L (135-145)
[2023-04-22] MEDS: LORazepam 0.5 MG TAB PO PRN (06:38)
[2023-04-22] MEDS ORDERED: HEPARIN SODIUM,PORCINE (1 ML) 2,500 UNIT in SODIUM CHLORIDE 0.9% 250 ML IRRIGATION PRN (07:00)
[2023-04-22] MEDS ORDERED: HEPARIN SODIUM,PORCINE 10,000 UNIT in SODIUM CHLORIDE 0.9% 1,000 ML IRRIGATION PRN (07:00)
[2023-04-22] MEDS ORDERED: ASPIRIN 325 MG TAB PO STA (07:33)
[2023-04-22] MEDS: SODIUM CHLORIDE 0.9% 1,000 ML in EMPTY BAG 1 BAG IV SCH (08:06)
[2023-04-22] MEDS: METOPROLOL TARTRATE 25 MG TAB PO SCH (08:07)
[2023-04-22] MEDS: MAGNESIUM OXIDE 400 MG TAB PO SCH (08:07)
[2023-04-22] MEDS: PANTOPRAZOLE 40 MG/10 ML VIAL IV SCH (08:07)
[2023-04-22] MEDS: ATORVASTATIN 80 MG TAB PO SCH (08:07)
[2023-04-22] MEDS: amLODIPine 5 MG TAB PO SCH (08:07)
[2023-04-22] MEDS: ASPIRIN 81 MG PO SCH (08:08)
[2023-04-22] MEDS: ISOSORBIDE MONONITRATE ER 15 MG TAB PO SCH (08:08)
[2023-04-22 08:46] LABS: Basophils # (A) 0.06 X 10*3/uL (0.00-0.10); Basophils % (A) 0.8 %; Eosinophils # (A) 0.24 X 10*3/uL (0.04-0.35); HCT 46.2 % (39.6-50.0); Lymphocytes % (A) 41.7 %; MCH 30.4 pg (27.0-32.0); MCHC 34.6 d/dL (32.0-37.0); MCV 87.8 FL (80.0-97.0); Mean Platelet Volume 11.2 FL (9.5-12.2); Monocytes # (A) 0.79 X 10*3/uL (0.20-1.00); NRBC Per 100 WBC 0 X 10*3/uL (0.00-0.01); Neutrophils # (A) 3.49 X 10*3/uL (1.80-7.70); Platelet Count 153 X 10*3/uL (140-440); RBC 5.26 X 10*6/uL (4.40-5.60); RDW 12.3 % (11.5-14.5); WBC 7.92 X 10*3/uL (4.50-10.00)
[2023-04-22] MEDS ORDERED: IV FLUID CONTINUATION 1,000 ML IV ONE (09:33)
[2023-04-22] MEDS ORDERED: fentaNYL (PF) 50 MCG/ML 2 ML AMP ONE (09:39)
[2023-04-22] MEDS ORDERED: MIDAZOLAM 2 MG/2 ML VIAL IVP ONE ×2 (09:43→10:02)
[2023-04-22] MEDS ORDERED: fentaNYL (PF) 50 MCG/ML 2 ML AMP IVP ONE (09:43)
[2023-04-22] MEDS ORDERED: LIDOCAINE 1% INJ 10MG/ML (5 ML VIAL-PF) SQ ONE (09:45)
[2023-04-22] MEDS ORDERED: VERAPAMIL SYRINGE (5 MG/10 ML) INTRAARTER ONE (09:47)
[2023-04-22] MEDS ORDERED: HEPARIN SODIUM 1,000 UN/ML (10ML VL) ONE (09:49)
[2023-04-22] MEDS: HEPARIN SODIUM 1,000 UN/ML (10ML VL) IV ONE ×2 (09:52→10:00)
[2023-04-22] MEDS ORDERED: RX INFO: IV CONTRAST WAS GIVEN 1 EACH MISC MISCELLANE PRN (10:16)
[2023-04-22] MEDS ORDERED: IOPAMIDOL-370 100ML BTL INJ ONE (10:19)
--- NOTE | 2023-04-22 10:24 | P.PCN ---
Date of Procedure: 04/22/23 Operative Findings: CARDIAC CATHETERIZATION PERFORMING PHYSICIAN: Lopez Lee MD, RPVI PROCEDURE PERFORMED: 1. Selective right and left coronary angiogram 2. Left heart catheterization 3. iFR of the RCA and LAD 4. Ultrasound-guided access of the right radial art INDICATION: Chest discomfort and this 53-year-old gentleman with a CAD and prior stenting of the right coronary artery presented to the hospital with a chest discomfort and underwent myocardial perfusion imaging stress and showed an inferior and apical ischemia. In the light of that a heart catheterization was advised COMPLICATION: None APPROACH: Right radial artery LEVEL OF SEDATION: Moderate with a sedation length of 27 minutes PROCEDURE DESCRIPTION: After obtaining an informed consent, the patient was brought to cardiac photographic laboratory technician. Local anesthesia was performed using lidocaine subcutaneously. The right radial artery was cannulated using Seldinger technique, the guidewire passed easily, following that we advanced a 5-Irish sheath dilator assembly, the wire and dilator were removed and sheath was flushed. Following that, 2 mg of verapamil along with 5000 unit heparin were given. Selective right and left coronary angiogram using a 6-Irish JR4 and JL 3.5 catheters. Following that we did left heart catheterization using 6-Irish pigtail catheter. After that I did decide to pursue with a Doppler wire measurement for the RCA and LAD. Anticoagulation was continued using heparin with additional 1000 units of heparin given to the previous 5000 use of heparin. After zeroing the Doppler wire and equalizing between the Doppler wire and guiding catheter which was initially JR4 guiding catheter the RCA was engaged and the Doppler wire was advanced distal to that lesion. The iFR came in to be nonischemic and 0.99. Subsequently after zeroing the Doppler wire again and equalizing between the Doppler wire and guiding catheter which was JL 3.5 guiding catheter in the left main was engaged and the wire was advanced distal to the lesion in the LAD. Also the iFR came in to be nonischemic 0.94. The procedure was completed there was no complication. SELECTIVE CORONARY ANGIOGRAM: The right coronary artery: Large caliber vessel and a dominant vessel. The proximal RCA appears to be angiographically normal. The mid RCA the stented and the stent is patent. The mid to distal RCA has intermediate lesion appeared to be in the range of 50%. We did a Doppler wire measurement and that came in to be nonischemic. Left main: Is angiographically normal. Bifurcates into an LCx and LAD The left circumflex: Large caliber vessel nondominant vessel. The LCx system is angiographically normal and gives rises into a large OM branch which appeared to be angiographically normal. The left anterior descending artery: The proximal LAD by the bifurcation of the septal human projectile has a lesion appeared to be in the range of 60%. Also we did a Doppler wire measurement and that came in to be non-flow limiting. The LAD in the mid and distal portion appears to be angiographically normal. The LAD gives rise into a diagonal branch which appeared to be angiographically normal. HEMODYNAMICS: The LVEDP was 14 mmHg was no significant gradient across aortic valve CONCLUSION: 1. Intermediate lesion involving the RCA distal to a stented segment. Doppler wire measurement performed and came in to be nonflow limiting 2. Intermediate lesion involving the proximal left anterior descending artery. Also Doppler wire measurement performed and came in to be nonflow limiting POSTPROCEDURE MANAGEMENT: Aggressive cholesterol control and risk factors modification
[2023-04-22] MEDS ORDERED: SODIUM CHLORIDE 0.9% 1,000 ML IV SCH (10:30)
[2023-04-22 10:36] VITALS: RESP 14
[2023-04-22 15:00] VITALS: BP 132/81; PULSE 85; TEMP 97.7
--- NOTE | 2023-04-23 10:28 | CDI ---
Documentation Clarification Form Date: 04/23/2023 From: Addie Gibbons Admit Date: 04/19/2023 05:45:00 PM Patient Name: Ar Neri Visit Number: [id number] Discharge Date: 04/22/2023 04:05:00 PM ATTENTION: The Clinical Documentation Specialists (CDI) and [facility] Coding Staff appreciate your assistance in clarifying documentation. Please respond to the clarification below the line at the bottom and electronically sign. The CDI & [facility] Coding staff will review the response and follow-up if needed. Please note: Queries are made part of the Legal Health Record. If you have any questions, please contact the author of this message via ITS. Dr. Elsa Gutierrez, Your patient has the documented symptom of chest pain in the ED Note & H&P. Additional clarification regarding the etiology/cause of this symptom is requested. Patient C/O: History ofcoronary artery diseaseand stentsin the past came in with complaints of crampychest painnonradiating associatedlightheadednessand somediaphoresisdenied anyshortness of breath, orthopneaor paroxysmaldyspnea. Chest painis nonpleuriticnot associated with food. Chest painis similar to thepainwhen he hadmyocardial infarctionin the past. History/Risk factors: HTN, s/p cardiac stent Clinical Indicators: EKG showed some nonspecific ST-T wave changes in the anterior leads. Chest x-raywithin normal limits. Two sets of troponins are negative. Treatment: LHC and exercise stress test Please provide additional clarification regarding the etiology/cause of the chest pain. [ ] Chest pain due to CAD with angina (specify vessel and type of angina if known) [ ] Typical chest pain [ ] Chest pain due to chest wall pain [ ] Chest pain due to other condition, please specify [ ] Unable to determine Chest pain due to CAD with angina (specify vessel and type of angina if known) MTDD
--- NOTE | 2023-04-24 09:41 | P.DS ---
Providers Date of admission: 04/19/23 17:45 Expected date of discharge: 04/22/23 Attending physician: Elsa Gutierrez Consults: 04/19/23 17:44 Consult Physician Routine Consulting Provider: Lopez Lee Consult Reason/Comments: known Do you want consulting provider notified?: Yes Primary care physician: Stated None Hospital Course: Final diagnosis -Chest pain: Ruled out acute coronary syndrome, chest pain due to coronary artery disease with unstable angina, cardiac catheterization was clear-Coronary artery disease -Hypomagnesemia , improved -Elevated hematocrit probably due to dehydration -Hypertension -Gastroesophageal reflux disease -DVT prophylaxis -GI prophylaxis -Obesity with a BMI of 34.9 -Full code Discharge disposition Patient is being discharged in a stable condition with guarded prognosis to home Patient will follow-up with Dr. De La Cruz in the outpatient setting upon discharge. Patient is to continue with current medications as prescribed below and close outpatient follow-up with cardiology as scheduled. Total time taken is greater than 35 minutes. Hospital course This is a 53-year-old male who was recently admitted with chest pain being closely monitored. Patient evaluated by cardiology recommending stress testing which was positive for concerns of reducible ischemia and recommending cardiac catheterization. Patient was monitored overnight underwent cardiac catheterization which was clear and cardiology recommending continuing current medications as mentioned below and close outpatient follow-up. Patient clear for discharge after catheterization protocol. Please refer to cardiology notes for further HPI. Patient does not currently have a primary care provider and resources were provided on discharge. Currently no reports of chest pain, shortness of breath, or palpitations. Patient is afebrile. No reports of nausea or vomiting and patient is tolerating diet. Patient will be discharged home today. guarded prognosis Physical exam: Gen: This is a 53-year-old male who is awake, alert and oriented 3, well- developed, well-nourished, obese HEENT: Head is atraumatic, normocephalic. Pupils equal, round. Sclerae is anict stacy. NECK: Supple. No JVD. No lymphadenopathy. No thyromegaly. LUNGS: Clear to auscultation. No wheezes or rhonchi. No intercostal retractions. HEART: Regular rate and rhythm. No murmur. ABDOMEN: Soft. obese Bowel sounds are present. No masses. No tenderness. EXTREMITIES: No pedal edema. No calf tenderness. NEUROLOGICAL: Patient is awake, alert and oriented x3. Cranial nerves 2 through 12 are grossly intact. Please refer to medication reconciliation sheet for a list of medications. The impression and plan of care has been dictated by Virginia Alcantara, Nurse Practitioner as directed. Dr. Matt MD I have performed a history and examination and MDM of this patient, discussed the same with the dictator, and agree with the dictator's assessment and plan as written ,documented as a scribe. Based on total visit time, I have performed more than 50% of the visit. Patient Condition at Discharge: Fair Plan - Discharge Summary Discharge Rx Participant: No New Discharge Prescriptions: New Acetaminophen Tab [Tylenol] 650 mg PO Q6HR PRN tab PRN Reason: Fever And/ Or Pain Isosorbide Mononitrate ER [Imdur] 15 mg PO DAILY #30 tab Continue Metoprolol Tartrate [Lopressor] 25 mg PO BID #60 tab Atorvastatin [Lipitor] 80 mg PO DAILY #30 tab Omeprazole Magnesium [PriLOSEC OTC] 20 mg PO DAILY Magnesium 400 mg PO DAILY amLODIPine [Norvasc] 5 mg PO DAILY Potassium Chloride ER [K-Dur 10] 10 meq PO DAILY PRN PRN Reason: Muscle cramping Aspirin 81 mg PO DAILY tab Discharge Medication List Metoprolol Tartrate [Lopressor] 25 mg PO BID #60 tab 10/08/17 [Rx] Atorvastatin [Lipitor] 80 mg PO DAILY #30 tab 05/28/18 [Rx] amLODIPine [Norvasc] 5 mg PO DAILY 05/07/21 [History] Omeprazole Magnesium [PriLOSEC OTC] 20 mg PO DAILY 02/27/23 [History] Potassium Chloride ER [K-Dur 10] 10 meq PO DAILY PRN 02/27/23 [History] Aspirin 81 mg PO DAILY tab 02/28/23 [Rx] Magnesium 400 mg PO DAILY 04/19/23 [History] Acetaminophen Tab [Tylenol] 650 mg PO Q6HR PRN tab 04/21/23 [Rx] Isosorbide Mononitrate ER [Imdur] 15 mg PO DAILY #30 tab 04/21/23 [Rx] Follow up Appointment(s)/Referral(s): Lopez Lee MD [STAFF PHYSICIAN] - 04/28/23 1:30 pm (Appointment made at the [facility] [place] office) Izzy Barron DO [REFERRING] - 1 Week Patient Instructions/Handouts: Chest Pain (DC) Activity/Diet/Wound Care/Special Instructions: Activity Limited until follow-up Follow-up with primary care provider on discharge to establish Follow-up cardiology in one week Continue taking medications as prescribed Discharge Disposition: HOME SELF-CARE
== END 2023-04-22 16:05 | disposition home or self-care (01) | DRG 287 ==
LOC: EC 15:22 → 6NMEDSUR 17:44 → OBSVTOIN 17:45 → 6NMEDSUR 18:19
PROVIDERS: ADMIT Hospitalist; ATTEND Hospitalist
PROC: 4A023N7 Measurement of Cardiac Sampling and Pressure, Left Heart, Percutaneous Approach (ICD-10-PCS; principal; 2023-04-22 08:30)
PROC: 4A033BC Measurement of Arterial Pressure, Coronary, Percutaneous Approach (ICD-10-PCS; principal; 2023-04-22 08:30)
PROC: B2111ZZ Fluoroscopy of Multiple Coronary Arteries using Low Osmolar Contrast (ICD-10-PCS; principal; 2023-04-22 08:30)
DX: I25.110 Atherosclerotic heart disease of native coronary artery with unstable angina pectoris (principal); I10 Essential (primary) hypertension; E78.5 Hyperlipidemia, unspecified; D75.1 Secondary polycythemia; M54.9 Dorsalgia, unspecified; E66.9 Obesity, unspecified; Z68.34 Body mass index [BMI] 34.0-34.9, adult; E83.42 Hypomagnesemia; E86.0 Dehydration; E87.6 Hypokalemia; I25.2 Old myocardial infarction; K21.9 Gastro-esophageal reflux disease without esophagitis; Z79.82 Long term (current) use of aspirin; Z79.899 Other long term (current) drug therapy; Z95.5 Presence of coronary angioplasty implant and graft; Z87.891 Personal history of nicotine dependence; Z98.1 Arthrodesis status; Z86.14 Personal history of Methicillin resistant Staphylococcus aureus infection; Z88.6 Allergy status to analgesic agent; Z88.1 Allergy status to other antibiotic agents; Z88.8 Allergy status to other drugs, medicaments and biological substances
CPT/HCPCS: 36415; 71046; 76937; 78452; 80048; 80053; 83690; 83735; 83880; 84100; 84484; 85025; 85610; 85730; 93005; 93017; 93458; 93799

== ENCOUNTER → 2024-10-01 | Outpatient (CLI) | payer MEDICARE ==
[2024-10-01 18:22] LABS: ALT 33 U/L (10-49); AST 29 U/L (14-35); Chol/HDL Ratio 4.62 Ratio; LDL Cholesterol,Calculated 47.1 mg/dL (0.0-131.0)
== END | disposition home or self-care (01) ==
LOC: LABWHC1 14:16
PROVIDERS: ATTEND Internal Medicine Interventional Cardiology
DX: E78.00 Pure hypercholesterolemia, unspecified (principal)
CPT/HCPCS: 36415; 80061; 84450; 84460